=== PATIENT | female | born 1990 | race Caucasian/White ===

== ENCOUNTER → 2017-12-13 | Outpatient (CLI) | payer MEDICAID ==
[~2017-12-13] MED LIST: CEFD300C3 PO
--- NOTE | 2017-12-13 15:25 | Diagnostic Imaging Report ---
PROCEDURE: US OB SINGLE FETUS <14 WKS. TECHNIQUE: Multiple real-time grayscale images were obtained over the gravid uterus in various projections. INDICATION: dating. FINDINGS: There is an intrauterine gestational sac containing a pole. [place]-rump length measurement is 4.9 cm consistent with 11 weeks 5 days gestational age. heart rate is recorded at 163 beats per minute. No perigestational sac hemorrhage is seen. Gestational sac morphology appears normal. Maternal adnexal evaluation demonstrates a 3.5 cm cyst involving the left ovary. Right ovary is not visualized. IMPRESSION: 1. Single live IUP of 11 weeks 5 days gestational age. The estimated date of confinement sonographically is 06/29/2018. 2. 3.5 cm left ovarian cyst. Dictated by: Dictated on workstation # [id number]
== END ==
LOC: RAD 12:36
PROVIDERS: ATTEND Family Medicine
DX: O34.81 Maternal care for other abnormalities of pelvic organs, first trimester (principal); N83.202 Unspecified ovarian cyst, left side; Z3A.11 11 weeks gestation of pregnancy
CPT/HCPCS: 76801

== ENCOUNTER 2018-01-24 19:39 | Emergency (ER) | payer MEDICAID ==
[~2018-01-24] VITALS: Ht 167.6 cm; Wt 93.0 kg
--- OUTSIDE RECORDS SUMMARY | 2018-01-24 19:44 | XMS REPORT | Continuity of Care Document ---
Author Author [facility] Address Unknown Phone Unavailable Allergies Active Description Code Type Severity Reaction Onset Reported/Identified Relationship to Patient Clinical Status Yes No Known Drug Allergies [id number] Drug Allergy Unknown N/A 03/22/2017 Medications There is no data. Problems Date Dx Coded Attending Type Code Diagnosis Diagnosed By 09/01/2011 WADE CHOUDHURY APRN 307.42 PRIMARY INSOMNIA 09/01/2011 WADE CHOUDHURY APRN A 311 DEPRESSION 09/01/2011 WADE CHOUDHURY APRN A 626.0 AMENORRHEA 09/01[facility]2011 [facility].42 PRIMARY INSOMNIA 09/01/2011 [facility] 311 DEPRESSION 09/01/2011 [facility] 626.0 AMENORRHEA 09/09/2014 WADE CHOUDHURY APRN A 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 09/09/2014 WADE CHOUDHURY APRN A V01.6 CONTACT WITH OR EXPOSURE TO VENEREAL DISEASES 09/09/2014 WADE CHOUDHURY APRN A V69.2 HIGH-RISK SEXUAL BEHAVIOR 09/09/2014 WADE CHOUDHURY APRN A V74.5 STD SCREEN 09/09/2014 WADE CHOUDHURY APRN A V76.2 CERVICAL CANCER SCREENING (PAP SMEAR) 09/09/2014 [facility] 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 09/09/2014 [facility] V01.6 CONTACT WITH OR EXPOSURE TO VENEREAL DISEASES 09/09/2014 [facility] V69.2 HIGH-RISK SEXUAL BEHAVIOR 09/09/2014 [facility] V74.5 STD SCREEN 09/09/2014 [facility] V76.2 CERVICAL CANCER SCREENING (PAP SMEAR) 10/08/2014 [facility] 296.52 MO BIPOLAR I DEPRESSED MODERATE 03/23/2017 QIAN LYNCH DOI Ot A41.9 SEPSIS, UNSPECIFIED ORGANISM 03/23/2017 QIAN LYNCH DOI Ot F17.210 NICOTINE DEPENDENCE, CIGARETTES, UNCOMPL 03/23/2017 QIAN LYNCH DOI Ot F31.9 BIPOLAR DISORDER, UNSPECIFIED 03/23/2017 CRIS WARD WILFRED Ot N10 ACUTE PYELONEPHRITIS 12/14/2017 GENNARO GALE MD Ot N83.202 UNSPECIFIED OVARIAN CYST, LEFT SIDE 12/14/2017 GENNARO GALE MD Ot O34.81 MATERNAL CARE FOR OTH ABNLT OF PELVIC OR 12/14/2017 GENNARO GALE MD Ot Z3A.11 11 WEEKS GESTATION OF 12/28/2017 GENNARO GALE MD, Ot N83.202 UNSPECIFIED OVARIAN CYST, LEFT SIDE 12/28/2017 GENNARO GALE MD, Ot O34.81 MATERNAL CARE FOR OTH ABNLT OF PELVIC OR 12/28/2017 GENNARO GALE MD Ot Z3A.11 11 WEEKS GESTATION OF Procedures There is no data. Results Test Result Range Bacterial urine culture - 03/22/17 10:00 Bacterial urine culture [id number] NRG COLONY COUNT 10,000/ML - 100,000/ML NRG FTX;REPORTABLE SENSITIVITY REPORTED 03/23/17 17:10 NR Bacterial susceptibility panel - 03/22/17 10:00 Gentamicin susceptibility test by minimum inhibitory concentration < = NRG Trimethoprim/sulfamethoxazole susceptibility test by minimum inhibitoryconcentration <= NRG Ampicillin susceptibility test by minimum inhibitory concentration 8 NRG Tobramycin susceptibility test by minimum inhibitory concentration < = NRG Cefazolin susceptibility test by minimum inhibitory concentration < = NRG Ceftriaxone susceptibility test by minimum inhibitory concentration <= NRG Ampicillin/sulbactam susceptibility test by minimum inhibitory concentration 4 NRG Piperacillin/tazobactam susceptibility test by minimum inhibitory concentration <= NRG Ciprofloxacin susceptibility test by minimum inhibitory concentration <= NRG Meropenem susceptibility test by minimum inhibitory concentration < = NRG Nitrofurantoin susceptibility test by minimum inhibitory concentration <= NRG Aztreonam susceptibility test by minimum inhibitory concentration < = NRG Extended spectrum beta lactamase (ESBL) producing bacteria susceptibility test by minimum inhibitory concentration - NR Complete blood count (CBC) with automated white blood cell (WBC) differential - 03/22/17 10:05 Blood leukocytes automated count (number/volume) 13.0 10*3/uL 4.3-11.0 Blood erythrocytes automated count (number/volume) 4.47 10*6/uL 4.35-5.85 Venous blood hemoglobin measurement (mass/volume) 13.8 g/dL 11.5-16.0 Blood hematocrit (volume fraction) 40 % 35-52 Automated erythrocyte mean corpuscular volume 89 [foz_us] 80-99 Automated erythrocyte mean corpuscular hemoglobin (mass per erythrocyte) 31 pg 25-34 Automated erythrocyte mean corpuscular hemoglobin concentration measurement ( mass/volume) 35 g/dL 32-36 Automated erythrocyte distribution width ratio 12.5 % 10.0-14.5 Automated blood platelet count (count/volume) 251 10*3/uL 130-400 Automated blood platelet mean volume measurement 10.8 [foz_us] 7.4-10.4 Automated blood neutrophils/100 leukocytes 77 % 42-75 Automated blood lymphocytes/100 leukocytes 14 % 12-44 Blood monocytes/100 leukocytes 8 % 0-12 Automated blood eosinophils/100 leukocytes 0 % 0-10 Automated blood basophils/100 leukocytes 0 % 0-10 Blood neutrophils automated count (number/volume) 10.1 10*3 1.8-7.8 Blood lymphocytes automated count (number/volume) 1.9 10*3 1.0-4.0 Blood monocytes automated count (number/volume) 1.0 10*3 0.0-1.0 Automated eosinophil count 0.0 10*3/uL 0.0-0.3 Automated blood basophil count (count/volume) 0.0 10*3/uL 0.0-0.1 Comprehensive metabolic panel - 03/22/17 10:05 Serum or plasma sodium measurement (moles/volume) 132 mmol/L 135-145 Serum or plasma potassium measurement (moles/volume) 3.6 mmol/L 3.6-5.0 Serum or plasma chloride measurement (moles/volume) 100 mmol/L 98-107 Carbon dioxide 21 mmol/L 21-32 Serum or plasma anion gap determination (moles/volume) 11 mmol/L 5-14 Serum or plasma urea nitrogen measurement (mass/volume) 8 mg/dL 7-18 Serum or plasma creatinine measurement (mass/volume) 0.97 mg/dL 0.60-1.30 Serum or plasma urea nitrogen/creatinine mass ratio 8 NRG Serum or plasma creatinine measurement with calculation of estimated glomerular filtration rate > NRG Serum or plasma glucose measurement (mass/volume) 166 mg/dL 70-105 Serum or plasma calcium measurement (mass/volume) 9.6 mg/dL 8.5-10.1 Serum or plasma total bilirubin measurement (mass/volume) 0.9 mg/dL 0.1-1.0 Serum or plasma alkaline phosphatase measurement (enzymatic activity/volume) 63 U/L 40-136 Serum or plasma aspartate aminotransferase measurement (enzymatic activity/ volume) 14 U/L 5-34 Serum or plasma alanine aminotransferase measurement (enzymatic activity/volume ) 21 U/L 0-55 Serum or plasma protein measurement (mass/volume) 7.5 g/dL 6.4-8.2 Serum or plasma albumin measurement (mass/volume) 3.6 g/dL 3.2-4.5 Blood lactic acid measurement (moles/volume) - 03/22/17 10:05 Blood lactic acid measurement (moles/volume) 2.05 mmol/L 0.50-2.00 Bacterial blood culture - 03/22/17 10:05 Bacterial blood culture NG NRG Bacterial blood culture - 03/22/17 10:30 Bacterial blood culture NG NRG Complete urinalysis with reflex to culture - 03/22/17 10:41 Urine color determination YELLOW NRG Urine clarity determination CLEAR NRG Urine pH measurement by test strip 7 5-9 Specific gravity of urine by test strip 1.005 1.016- 1.022 Urine protein assay by test strip, semi-quantitative 1+ NEGATIVE Urine glucose detection by automated test strip NEGATIVE NEGATIVE Erythrocytes detection in urine sediment by light microscopy 3+ NEGATIVE Urine ketones detection by automated test strip NEGATIVE NEGATIVE Urine nitrite detection by test strip NEGATIVE NEGATIVE Urine total bilirubin detection by test strip NEGATIVE NEGATIVE Urine urobilinogen measurement by automated test strip (mass/volume) 4 mg/dL NORMAL Urine leukocyte esterase detection by dipstick 1+ NEGATIVE Automated urine sediment erythrocyte count by microscopy (number/high power field) [HPF] NRG Automated urine sediment leukocyte count by microscopy (number/high power field ) [HPF] NRG Bacteria detection in urine sediment by light microscopy NEGATIVE NRG Squamous epithelial cells detection in urine sediment by light microscopy 10-25 NRG Crystals detection in urine sediment by light microscopy NONE NRG Casts detection in urine sediment by light microscopy NONE NRG Mucus detection in urine sediment by light microscopy NEGATIVE NRG Complete urinalysis with reflex to culture NO NRG Serum or plasma lactate measurement (moles/volume) - 03/22/17 12:40 Serum or plasma lactate measurement (moles/volume) 0.71 mmol/L 0.50-2.00 Complete blood count (CBC) with automated white blood cell (WBC) differential - 03/23/17 09:05 Blood leukocytes automated count (number/volume) 6.9 10*3/uL 4.3-11.0 Blood erythrocytes automated count (number/volume) 3.95 10*6/uL 4.35-5.85 Venous blood hemoglobin measurement (mass/volume) 12.1 g/dL 11.5-16.0 Blood hematocrit (volume fraction) 36 % 35-52 Automated erythrocyte mean corpuscular volume 91 [foz_us] 80-99 Automated erythrocyte mean corpuscular hemoglobin (mass per erythrocyte) 31 pg 25-34 Automated erythrocyte mean corpuscular hemoglobin concentration measurement ( mass/volume) 34 g/dL 32-36 Automated erythrocyte distribution width ratio 12.4 % 10.0-14.5 Automated blood platelet count (count/volume) 214 10*3/uL 130-400 Automated blood platelet mean volume measurement 10.8 [foz_us] 7.4-10.4 Automated blood neutrophils/100 leukocytes 50 % 42-75 Automated blood lymphocytes/100 leukocytes 38 % 12-44 Blood monocytes/100 leukocytes 9 % 0-12 Automated blood eosinophils/100 leukocytes 2 % 0-10 Automated blood basophils/100 leukocytes 0 % 0-10 Blood neutrophils automated count (number/volume) 3.4 10*3 1.8-7.8 Blood lymphocytes automated count (number/volume) 2.6 10*3 1.0-4.0 Blood monocytes automated count (number/volume) 0.6 10*3 0.0-1.0 Automated eosinophil count 0.2 10*3/uL 0.0-0.3 Automated blood basophil count (count/volume) 0.0 10*3/uL 0.0-0.1 Comprehensive metabolic panel - 03/23/17 09:05 Serum or plasma sodium measurement (moles/volume) 141 mmol/L 135-145 Serum or plasma potassium measurement (moles/volume) 3.7 mmol/L 3.6-5.0 Serum or plasma chloride measurement (moles/volume) 112 mmol/L 98-107 Carbon dioxide 22 mmol/L 21-32 Serum or plasma anion gap determination (moles/volume) 7 mmol/L 5-14 Serum or plasma urea nitrogen measurement (mass/volume) 8 mg/dL 7-18 Serum or plasma creatinine measurement (mass/volume) 0.77 mg/dL 0.60-1.30 Serum or plasma urea nitrogen/creatinine mass ratio 10 NRG Serum or plasma creatinine measurement with calculation of estimated glomerular filtration rate > NRG Serum or plasma glucose measurement (mass/volume) 90 mg/dL 70-105 Serum or plasma calcium measurement (mass/volume) 9.1 mg/dL 8.5-10.1 Serum or plasma total bilirubin measurement (mass/volume) 0.4 mg/dL 0.1-1.0 Serum or plasma alkaline phosphatase measurement (enzymatic activity/volume) 51 U/L 40-136 Serum or plasma aspartate aminotransferase measurement (enzymatic activity/ volume) 11 U/L 5-34 Serum or plasma alanine aminotransferase measurement (enzymatic activity/volume ) 16 U/L 0-55 Serum or plasma protein measurement (mass/volume) 6.4 g/dL 6.4-8.2 Serum or plasma albumin measurement (mass/volume) 3.1 g/dL 3.2-4.5 Encounters ACCT No. Visit Date/Time Discharge Status Pt. Type Provider Facility Loc./Unit Complaint [id number] 10/08/2014 14:15:00 10/08/2014 23:59:59 CLS Outpatient YUMI PHAN [id number] 09/09/2014 13:22:00 09/09/2014 23:59:59 CLS Outpatient WADE CHOUDHURY APRN [id number] 01/04/2018 13:00:00 01/04/2018 23:59:59 CLS Outpatient EUSEBIO PRICILLA [facility]ERILYN [facility] [id number] 12/13/2017 12:36:00 12/13/2017 23:59:59 CLS Outpatient GENNARO GALE MD [facility]ARE,[facility] [id number] 03/22/2017 12:38:00 03/23/2017 14:02:00 DIS Inpatient WILFRED LYNCH DO [facility] 4TH RT PYELONEPHRITIS [id number] 08/16/2016 16:05:39 08/16/2016 23:59:59 CLS Outpatient
--- OUTSIDE RECORDS SUMMARY | 2018-01-24 19:44 | XMS REPORT | Clinical Summary ---
Author Author [facility] Organization [facility] Address Unknown Phone Unavailable Care Team Providers Care [employer] Tutor Name Role Phone Daisy Sinha MD PCP Source Comments Some departments are not documenting in the electronic medical record. If you do not see the information that you expected, contact Release of Information in the Health Information Management department at [phone] for further assistance in locating additional records.[facility] Allergies Not on File Current Medications Not on file Active Problems Not on file Social History Tobacco Use Types Packs/Day Years Used Date Never Assessed Sex Assigned at Date Recorded Not on file Last Filed Vital Signs Not on file Plan of Treatment Health Maintenance Due Date Last Done Comments PHYSICAL (COMPREHENSIVE) 1999 EXAM HPV VACCINES (1 of 3 - 2003 Female 3 Dose Series) PERTUSSIS VACCINE 2003 HIV SCREENING 2007 TETANUS VACCINE 2009 CERVICAL CANCER SCREENING 2013 INFLUENZA VACCINE 05/14/2018 Results Not on filefrom Last 3 Months
--- OUTSIDE RECORDS SUMMARY | 2018-01-24 19:44 | XMS REPORT | Clinical Summary ---
Author Author [facility] Organization [facility] Address Unknown Phone Unavailable Care Team Providers Care Search Developer Name Role Phone PP Unavailable Allergies No Known Allergies Current Medications No known medications Active Problems Not on file Family History Relation Name Status Comments Son Alive Social History Tobacco Use Types Packs/Day Years Used Date Never Smoker Smokeless Tobacco: Never Used Alcohol Use Drinks/Week oz/Week Comments No Sex Assigned at Date Recorded Not on file Last Filed Vital Signs Vital Sign Reading Time Taken Blood Pressure 115/63 02/24/2013 5:30 PM CDT Pulse 84 02/24/2013 5:30 PM CDT Temperature 36.5 C (97.7 F) 02/24/2013 5:30 PM CDT Respiratory Rate 18 02/24/2013 2:46 PM CDT Oxygen Saturation 97% 02/24/2013 5:30 PM CDT Inhaled Oxygen - - Concentration Weight 93 kg (205 lb) 02/24/2013 2:46 PM CDT Height - - Body Mass Index - - Plan of Treatment Health Maintenance Due Date Last Done Comments HPV Vaccines (1 of 3 - 2003 Female 3 Dose Series) Varicella Vaccines (1 of 2005 2 - 2 Dose Adolescent Series) DTaP,Tdap,and Td Vaccines 2011 (1 - Tdap) CERVICAL CANCER SCREENING 2013 Influenza Vaccine (Season 04/14/2018 Ended) Results Not on filefrom Last 3 Months
[2018-01-24 20:00] LABS: BASOPHILS % (AUTO) 0 % (0-10); EOSINOPHILS # (AUTO) 0.2 10^3/uL (0.0-0.3); EOSINOPHILS % (AUTO) 2 % (0-10); HEMATOCRIT 31 % (35-52); HEMOGLOBIN 11.3 G/DL (11.5-16.0); LYMPHOCYTES % (AUTO) 37 % (12-44); MEAN CORPUSCULAR HEMOGLOBIN 32 PG (25-34); MEAN CORPUSCULAR HGB CONC 36 G/DL (32-36); MEAN CORPUSCULAR VOLUME 88 FL (80-99); MEAN PLATELET VOLUME 10.6 FL (7.4-10.4); MONOCYTES # (AUTO) 0.5 X 10^3 (0.0-1.0); MONOCYTES % (AUTO) 6 % (0-12); NEUTROPHILS # (AUTO) 4.4 X 10^3 (1.8-7.8); NEUTROPHILS % (AUTO) 55 % (42-75); PLATELET COUNT 252 10^3/uL (130-400); RED BLOOD COUNT 3.58 10^6/uL (4.35-5.85); RED CELL DISTRIBUTION WIDTH 12.4 % (10.0-14.5)
[2018-01-24 20:31] LABS: BILIRUBIN,URINE NEGATIVE (NEGATIVE); CLARITY,URINE CLEAR; COLOR,URINE YELLOW; GLUCOSE, URINE (UA) NEGATIVE (NEGATIVE); KETONES,URINE NEGATIVE (NEGATIVE); LEUKOCYTE ESTERASE ,URINE NEGATIVE (NEGATIVE); NITRITE,URINE NEGATIVE (NEGATIVE); PH,URINE 6 (5-9); PROTEIN,URINE NEGATIVE (NEGATIVE); UROBILINOGEN,URINE NORMAL (NORMAL)
[2018-01-24 20:35] LABS: ALANINE AMINOTRANSFERASE 7 U/L (0-55); ALBUMIN 3.2 GM/DL (3.2-4.5); ALKALINE PHOSPHATASE 44 U/L (40-136); BILIRUBIN,TOTAL 0.2 MG/DL (0.1-1.0); BUN/CREATININE RATIO 10; CALCIUM 9.4 MG/DL (8.5-10.1); CARBON DIOXIDE 20 MMOL/L (21-32); CHLORIDE 109 MMOL/L (98-107); CREATININE SERUM 0.62 MG/DL (0.60-1.30); GFR ESTIMATED > 60; GLUCOSE 108 MG/DL (70-105); POTASSIUM 3.6 MMOL/L (3.6-5.0); SODIUM 139 MMOL/L (135-145); TOTAL PROTEIN 6.3 GM/DL (6.4-8.2)
[2018-01-24 20:39] LABS: BACTERIA,URINE TRACE /HPF
[2018-01-24 20:43] LABS: AMPHETAMINE SCREEN, URINE NEGATIVE (NEGATIVE); BARBITURATE SCREEN URINE NEGATIVE (NEGATIVE); BENZODIAZEPINES SCREEN URINE NEGATIVE (NEGATIVE); CANNABINOID SCREEN, URINE POSITIVE (NEGATIVE); COCAINE SCREEN URINE NEGATIVE (NEGATIVE); METHADONE STAT NEGATIVE (NEGATIVE); METHAMPHETAMINE SCREEN URINE S NEGATIVE (NEGATIVE); OPIATE SCREEN URINE NEGATIVE (NEGATIVE); OXYCODONE STAT NEGATIVE (NEGATIVE); PROPOXYPHENE STAT NEGATIVE (NEGATIVE); TRICYCLIC ANTIDEPRESSANTS SCRE NEGATIVE (NEGATIVE)
[2018-01-24] MEDS ORDERED: cefTRIAXone INJECTION 1,000 MG in NS (IVPB) 50 ML IV ONE (21:15)
[2018-01-24] MEDS ORDERED: NS IV 1000 ML 1,000 ML IV SCH (21:15)
[2018-01-24] MEDS ORDERED: ONDANSETRON 4 MG/2 ML (SDV) Z0FRAN IVP ONE (21:15)
--- NOTE | 2018-01-24 21:16 | ED General ---
General Chief Complaint: Dizziness/Syncope Stated Complaint: LIGHTHEADED History of Present Illness Date Seen by Provider: Jan 24, 2018 Time Seen by Provider: 21:11 Initial Comments The patient is a 27-year-old white female who by extrapolation from previous OB sonogram is 17 weeks 5 days . She reports that she has a left lower molar which is giving her tremendous pain. She saw the dental clinic earlier this week. She was given ibuprofen and Amoxil. She apparently took the ibuprofen which was 800 mg and 2 [id number] Advil which would make 1200 mg and then her dose of Amoxil. She then vomited all of this. She states that she has not had particular problems with emesis of . Her friend states that she had the blood disorder which destroyed the fetus. Allergies and Home Medications Allergies Coded Allergies: No Known Drug Allergies (Unverified , 03/22/17) Home Medications Cefdinir 300 Mg Capsule, 300 MG PO BID Prescribed by: WILFRED LYNCH on 03/23/17 0924 Patient Home Medication List Home Medication List Reviewed: Yes Review of Systems Constitutional: see HPI EENTM: dental problems Respiratory: no symptoms reported Cardiovascular: no symptoms reported Gastrointestinal: nausea, vomiting : Yes Musculoskeletal: no symptoms reported Skin: no symptoms reported Psychiatric/Neurological: No Symptoms Reported Hematologic/Lymphatic: No Symptoms Reported Immunological/Allergic: no symptoms reported Past Ccwwxgg-Cmysli-Bxjgrj Hx Patient Social History Drug of Choice: POT Type Used: Cigarettes Recent Hopitalizations: No Immunizations Up To Date PED Vaccines UTD: No Seasonal Allergies Seasonal Allergies: No Past Medical History Surgeries: Yes (skin lesion removed) Respiratory: No Currently Using CPAP: No Currently Using BIPAP: No Cardiac: No Neurological: No Female Reproductive Disorders: Denies Sexually Transmitted Disease: Yes (HERPES) HIV/AIDS: No Genitourinary: No Gastrointestinal: No Musculoskeletal: No Endocrine: No HEENT: No Loss of Vision: Denies Hearing Impairment: Denies Cancer: Yes Skin Psychosocial: No Bipolar, Depression Blood Disorders: No Adverse Reaction/Blood Tranf: No Family Medical History Patient reports no known family medical history. No Pertinent Family Hx Physical Exam Vital Signs Vital Signs - First Documented 01/24/18 19:40 Temp 97.2 Pulse 78 Resp 20 B/P (MAP) 134/74 (94) Pulse Ox 98 O2 Delivery Room Air Capillary Refill : General Appearance: Anxious, Other (tearful) Eyes: Bilateral Eye Normal Inspection HEENT: Other (impacted left lower wisdom tooth with swelling of, and tenderness ) Neck: Full Range of Motion, Normal Inspection Respiratory: Chest Non Tender, Lungs Clear, Normal Breath Sounds, No Accessory Muscle Use, No Respiratory Distress Cardiovascular: Regular Rate, Rhythm, No Edema, No Gallop, No JVD, No Murmur, Normal Peripheral Pulses Gastrointestinal: Other (obese with palpable uterus) Back: Normal Inspection Extremity: Normal Capillary Refill, Normal Inspection, Normal Range of Motion Neurologic/Psychiatric: Alert, Oriented x3 Skin: Normal Color, Warm/Dry Lymphatic: No Adenopathy Progress/Results/Core Measures Suspected Sepsis SIRS Temperature: Pulse: Respiratory Rate: Laboratory Tests 01/24/18 19:45: White Blood Count 8.0 Blood Pressure / Mean: Laboratory Tests 01/24/18 19:45: Creatinine 0.62, Platelet Count 252, Total Bilirubin 0.2 Results/Orders Lab Results Laboratory Tests Test 01/24/18 19:45 01/24/18 20:20 Range/Units White Blood Count 8.0 4.3-11.0 10^3/uL Red Blood Count 3.58 L 4.35-5.85 10^6/uL Hemoglobin 11.3 L 11.5-16.0 G/DL Hematocrit 31 L 35-52 % Mean Corpuscular Volume 88 80-99 FL Mean Corpuscular Hemoglobin 32 25-34 PG Mean Corpuscular Hemoglobin Concent 36 32-36 G/DL Red Cell Distribution Width 12.4 10.0-14.5 % Platelet Count 252 130-400 10^3/uL Mean Platelet Volume 10.6 H 7.4-10.4 FL Neutrophils (%) (Auto) 55 42-75 % Lymphocytes (%) (Auto) 37 12-44 % Monocytes (%) (Auto) 6 0-12 % Eosinophils (%) (Auto) 2 0-10 % Basophils (%) (Auto) 0 0-10 % Neutrophils # (Auto) 4.4 1.8-7.8 X 10^3 Lymphocytes # (Auto) 3.0 1.0-4.0 X 10^3 Monocytes # (Auto) 0.5 0.0-1.0 X 10^3 Eosinophils # (Auto) 0.2 0.0-0.3 10^3/uL Basophils # (Auto) 0.0 0.0-0.1 10^3/uL Sodium Level 139 135-145 MMOL/L Potassium Level 3.6 3.6-5.0 MMOL/L Chloride Level 109 H 98-107 MMOL/L Carbon Dioxide Level 20 L 21-32 MMOL/L Anion Gap 10 5-14 MMOL/L Blood Urea Nitrogen 6 L 7-18 MG/DL Creatinine 0.62 0.60-1.30 MG/DL Estimat Glomerular Filtration Rate > 60 BUN/Creatinine Ratio 10 Glucose Level 108 H 70-105 MG/DL Calcium Level 9.4 8.5-10.1 MG/DL Total Bilirubin 0.2 0.1-1.0 MG/DL Aspartate Amino Transf (AST/SGOT) 9 5-34 U/L Alanine Aminotransferase (ALT/SGPT) 7 0-55 U/L Alkaline Phosphatase 44 40-136 U/L Total Protein 6.3 L 6.4-8.2 GM/DL Albumin 3.2 3.2-4.5 GM/DL Serum Alcohol < 10 <10 MG/DL Urine Color YELLOW Urine Clarity CLEAR Urine pH 6 5-9 Urine Specific [place] 1.025 H 1.016-1.022 Urine Protein NEGATIVE NEGATIVE Urine Glucose (UA) NEGATIVE NEGATIVE Urine Ketones NEGATIVE NEGATIVE Urine Nitrite NEGATIVE NEGATIVE Urine Bilirubin NEGATIVE NEGATIVE Urine Urobilinogen NORMAL NORMAL MG/DL Urine Leukocyte Esterase NEGATIVE NEGATIVE Urine RBC (Auto) NEGATIVE NEGATIVE Urine RBC NONE /HPF Urine WBC 2-5 /HPF Urine Squamous Epithelial Cells 10-25 H /HPF Urine Crystals NONE /LPF Urine Bacteria TRACE /HPF Urine Casts NONE /LPF Urine Mucus MODERATE H /LPF Urine Culture Indicated NO Urine Opiates Screen NEGATIVE NEGATIVE Urine Oxycodone Screen NEGATIVE NEGATIVE Urine Methadone Screen NEGATIVE NEGATIVE Urine Propoxyphene Screen NEGATIVE NEGATIVE Urine Barbiturates Screen NEGATIVE NEGATIVE Ur Tricyclic Antidepressants Screen NEGATIVE NEGATIVE Urine Phencyclidine Screen NEGATIVE NEGATIVE Urine Amphetamines Screen NEGATIVE NEGATIVE Urine Methamphetamines Screen NEGATIVE NEGATIVE Urine Benzodiazepines Screen NEGATIVE NEGATIVE Urine Cocaine Screen NEGATIVE NEGATIVE Urine Cannabinoids Screen POSITIVE H NEGATIVE My Orders Orders - AUBREY SLADE MD Alcohol (01/24/18 19:50) Cbc With Automated Diff (01/24/18 19:50) Comprehensive Metabolic Panel (01/24/18 19:50) Drug Screen Stat (Urine) (01/24/18 19:50) Ua Culture If Indicated (01/24/18 19:50) Ns Iv 1000 Ml (Sodium Chloride 0.9%) (01/24/18 21:15) Ceftriaxone Injection (Rocephin Injectio (01/24/18 21:15) Ondansetron Injection (Zofran Injectio (01/24/18 21:15) Medications Given in ED Current Medications Medications Dose Ordered Sig/Yann Route Start Time Stop Time Status Last Admin Dose Admin Ceftriaxone Sodium 1000 mg/ Sodium Chloride 50 ml @ 100 mls/hr ONCE ONCE IV 01/24/18 21:15 01/24/18 21:44 DC 01/24/18 21:25 100 MLS/HR Ondansetron HCl 8 mg ONCE ONCE IVP 01/24/18 21:15 01/24/18 21:16 DC 01/24/18 21:25 8 MG Vital Signs/I&O 01/24/18 19:40 Temp 97.2 Pulse 78 Resp 20 B/P (MAP) 134/74 (94) Pulse Ox 98 O2 Delivery Room Air Capillary Refill : Departure Communication (Admissions) 8014 the patient has nearly completed her liter of fluid. She reports she is feeling much better. Impression Primary Impression: dental pain Disposition: HOME, SELF-CARE Condition: Improved Departure-Patient Inst. Decision time for Depature: 22:24 Referrals: NO,LOCAL PHYSICIAN (PCP) Primary Care Physician Add. Discharge Instructions: All discharge instructions reviewed with patient and/or family. Voiced understanding. Call Dr. Gomez in the morning to clarify what you may take for pain. You may resume your cefdinir tomorrow evening. AUBREY SLADE MD Jan 24, 2018 21:16
[2018-01-24] MEDS ORDERED: RX-ONDANSETRON 4 MG ODT (ZOFRAN) PPK #4 PO STA (22:36)
[2018-01-24] MEDS ORDERED: RX-ONDANSETRON 4 MG ODT (ZOFRAN) PPK #4 ONE (22:36)
[2018-01-24 22:42] VITALS: BP 134/74
== END 2018-01-24 22:42 | disposition home or self-care (01) ==
LOC: EDUNIT# 19:39 → ER 19:40
DX: O99.612 Diseases of the digestive system complicating pregnancy, second trimester (principal); K08.89 Other specified disorders of teeth and supporting structures; O99.342 Other mental disorders complicating pregnancy, second trimester; F31.9 Bipolar disorder, unspecified; O99.322 Drug use complicating pregnancy, second trimester; F12.90 Cannabis use, unspecified, uncomplicated; Z3A.17 17 weeks gestation of pregnancy; Z85.828 Personal history of other malignant neoplasm of skin
CPT/HCPCS: 36415; 80053; 80306; 80320; 81000; 85025; 96361; 96365

== ENCOUNTER → 2018-03-08 | Outpatient (CLI) | payer MEDICAID ==
--- NOTE | 2018-03-08 17:40 | Diagnostic Imaging Report ---
INDICATION: Follow-up anatomy. TECHNIQUE: Multiple real-time grayscale images were obtained over the gravid uterus. COMPARISON: 02/08/2018 and 12/13/2017. FINDINGS: The previous OB ultrasound exam of 02/08/2018 noted a single live fetus approximately 19 weeks 4 days gestation +/- 1.5 weeks. There were no abnormalities identified although the heart, the cord insertion, and the spine were not well imaged. On this exam, the fetus is again visualized. The fetus is in variable presentation. heart motion was noted and a rate of 155 BPM was recorded. The four-chamber heart view and the cord insertion are within normal limits; however, the spine is still not optimally visualized due to the lie. It may prove worthwhile to have a short-term (2-4 weeks) follow-up exam for further evaluation of the spine. The placenta is anterior and there is no previa. The amniotic fluid volume is within normal limits. The cervix is identified and measures 4.3 cm in length. The growth parameters are not obtained for this exam. IMPRESSION: 1. There is a single live fetus of approximately 23 weeks 6 days gestation +/- 1 week. The EDC remains June 29, 2018. 2. The four-chamber heart view and the cord insertion are felt to be within normal limits. The spine is still not optimally visualized, however. Recommendations as above. Dictated by: Dictated on workstation # [id number]
== END ==
LOC: RAD 14:37
PROVIDERS: ATTEND Family Medicine
DX: Z34.82 Encounter for supervision of other normal pregnancy, second trimester (principal); Z3A.23 23 weeks gestation of pregnancy
CPT/HCPCS: 76816

== ENCOUNTER → 2018-04-19 | Outpatient (CLI) | payer MEDICAID ==
[~2018-04-19] MED LIST changes: +LURA20TA PO; +PREN-142 PO
--- NOTE | 2018-04-19 11:35 | Diagnostic Imaging Report ---
INDICATION: Followup spine. TECHNIQUE: Multiple real-time grayscale images were obtained over the gravid uterus. COMPARISON: 03/08/2018. FINDINGS: There is a single live fetus in a transverse presentation head to the maternal left. heart rate was recorded at 144 beats per minute. Placenta is anterior. Amniotic fluid index is 10.5 cm. Cervical length is 3.7 cm. spine was evaluated and appears unremarkable on today's study. IMPRESSION: Unremarkable followup OB ultrasound demonstrating a normal appearance to the spine. No complicating features are seen. Dictated by: Dictated on workstation # [id number]
== END ==
LOC: RAD 09:50
PROVIDERS: ATTEND Family Medicine
DX: Z36.89 Encounter for other specified antenatal screening (principal); Z3A.00 Weeks of gestation of pregnancy not specified
CPT/HCPCS: 76816

== ENCOUNTER 2018-05-20 10:48 | Emergency (ER) | payer MEDICAID ==
[~2018-05-20] VITALS: Ht 167.6 cm; Wt 117.9 kg
--- NOTE | 2018-05-20 13:22 | ED Cough/URI ---
General Chief Complaint: Cough/Cold/Flu Symptoms Stated Complaint: COUGH X1 MONTH Nursing Triage Note: AMBULATED TO TRIAGE WITHOUT DIFFICULTY. PT IS 8 MONTHS GESTATION THAT HAS A COUGH X1 MONTH. STATES SHE HAS WENT TO HER DR BUT NOTHING HAS HELPED. STATES ALSO SOMETIMES SHE COUGHS UP BLACK SPUTUM. Source: patient Exam Limitations: no limitations History of Present Illness Date Seen by Provider: May 20, 2018 Time Seen by Provider: 13:10 Initial Comments Patient is a 27-year-old female who presents to the emergency room with complaints of a cough for 1 month. She has been to her doctor but reports nothing she has taken hivz-rai-pmeusvp has helped. She sometimes coughs up dark colored sputum. She also is 8 months gestation. She denies fevers and chills. Timing/Duration: other (1 month) Severity/Quality: productive cough Associated Symptoms: cough Allergies and Home Medications Allergies Coded Allergies: No Known Drug Allergies (Unverified , 03/22/17) Home Medications Lurasidone HCl Unknown Strength Tablet, Unknown Dose PO DAILY, (Reported) Patient Home Medication List Home Medication List Reviewed: Yes Review of Systems Review of Systems Constitutional: see HPI; No chills, No fever Respiratory: see HPI, cough, phlegm : Yes Expected Date of Delivery: Jun 29, 2018 All Other Systems Reviewed Negative Unless Noted: Yes Past Eihpqem-Trbprc-Zehbow Hx Past Med/Social Hx: Reviewed Nursing Past Med/Soc Hx Patient Social History Alcohol Use: Denies Use Recreational Drug Use: No Drug of Choice: POT Smoking Status: Current Everyday Smoker Type Used: Cigarettes Recent Foreign Travel: No Contact w/Someone Who Travel: No Recent Infectious Disease Expo: No Recent Hopitalizations: No Immunizations Up To Date Tetanus Booster (TDap): Unknown PED Vaccines UTD: No Seasonal Allergies Seasonal Allergies: No Past Medical History Surgeries: Yes (skin lesion removed) Respiratory: No Currently Using CPAP: No Currently Using BIPAP: No Cardiac: No Neurological: No : Yes Expected Date of Delivery: Jun 29, 2018 Female Reproductive Disorders: Denies Sexually Transmitted Disease: Yes (HERPES) HIV/AIDS: No Genitourinary: No Gastrointestinal: No Musculoskeletal: No Endocrine: No HEENT: No Loss of Vision: Denies Hearing Impairment: Denies Cancer: Yes Skin Psychosocial: No Bipolar, Depression Integumentary: No Blood Disorders: No Adverse Reaction/Blood Tranf: No Family Medical History Reviewed Nursing Family Hx Patient reports no known family medical history. No Pertinent Family Hx Physical Exam Vital Signs - First Documented 05/20/18 11:30 Temp 98.4 Pulse 81 Resp 16 B/P (MAP) 113/70 (84) Pulse Ox 96 O2 Delivery Room Air Capillary Refill : Less Than 3 Seconds Height: 5'6.00" Weight: 260lbs. 0.0oz. 117.138139gc; 39.9 BMI Method:Stated General Appearance: WD/WN, no apparent distress Eyes: Bilateral Eye Normal Inspection, Bilateral Eye PERRL, Bilateral Eye EOMI HEENT: PERRL/EOMI, normal ENT inspection, TMs normal, pharynx normal Respiratory: chest non-tender, normal breath sounds, no respiratory distress, no accessory muscle use, rhonchi (expiratory rhonchi); No wheezing Cardiovascular: normal peripheral pulses, regular rate, rhythm, no edema, no gallop, no JVD, no murmur Gastrointestinal: normal bowel sounds, non tender, soft, no organomegaly, no pulsatile mass Neurologic/Psychiatric: alert, normal mood/affect, oriented x 3 Skin: normal color, warm/dry Progress/Results/Core Measures Suspected Sepsis Recent Fever Within 48 Hours: No Infection Criteria Present: None New/Unexplained Altered Menta: No Sepsis Screen: No Definite Risk SIRS Temperature:98.4 Pulse: 81 Respiratory Rate: 16 Blood Pressure 113 /70 Mean: 84 Results/Orders Micro Results Microbiology 05/20/18 Influenza Types A,B Antigen (EVER) - Final, Complete My Orders Orders - TILA BECKHAM Chest 1 View, Ap/Pa Only (05/20/18 13:18) Influenza A And B Antigens (05/20/18 13:18) Vital Signs/I&O 05/20/18 05/20/18 05/20/18 11:30 13:24 14:26 Temp 98.4 98.4 Pulse 81 81 Resp 16 16 B/P (MAP) 113/70 (84) 113/70 (84) Pulse Ox 96 96 O2 Delivery Room Air Room Air Room Air Capillary Refill : Less Than 3 Seconds Blood Pressure Mean: 84 Progress Note : Time: 14:10 Progress Note I have seen and evaluated the patient. I have informed her of normal imaging studies and lab findings. She has continued to smoke throughout her and the benefits of quitting smoking were discussed since she has had this chronic cough. She agrees with plans for discharge, return precautions were given. Diagnostic Imaging Diagonstic Imaging: Xray Plain Films/CT/US/NM/MRI: chest Comments NAME: ZEYNEP KOHLER [facility] REC#: [id number] PHYSICIAN: TILA BECKHAM CC: TILA BECKHAM; JIMMIE SINGH Page 1 of 1 RADIOLOGY REPORT [place] CC: TILA BECKHAM; JIMMIE SINGH Page 1 of 1 RADIOLOGY REPORT NAME: ZEYNEP KOHLER [facility] REC#: [id number] PT STATUS: REG ER : 1990 PHYSICIAN: TILA BECKHAM ADMIT DATE: 05/20/18/ER Signed Date of Exam: 05/20/18 CHEST 1 VIEW, AP/PA ONLY INDICATION: Cough. COMPARISON: 03/22/2017. FINDINGS: Single view of the chest demonstrates clear lungs bilaterally. The heart is normal. There is no pneumothorax. Osseous structures are normal. IMPRESSION: Negative chest. Dictated by: Dictated on workstation # [id number] Dict: 05/20/18 1401 Trans: 05/20/18 1408 Interpreted by: JIMMIE SINGH Electronically signed by: JIMMIE SINGH 05/20/18 1408 Reviewed: Reviewed by Me Departure Impression Primary Impression: Viral respiratory illness Disposition: 01 HOME, SELF-CARE Condition: Stable/Unchanged Departure-Patient Inst. Decision time for Depature: 14:11 Referrals: GENNARO GALE MD (PCP/Family) Primary Care Physician Patient Instructions: Viral Upper Respiratory Infection, Adult (DC) Add. Discharge Instructions: Continue to use bcvb-utx-txmvcty cold cough and flu medications. Follow-up with your primary care provider within 1 week for recheck. Cool mist humidifiers might help loosen chest congestion. Practice good hand hygiene to prevent the spread of viral illnesses. Return back to the emergency room for any worsening symptoms or concerns as needed. All discharge instructions reviewed with patient and/or family. Voiced understanding. TILA BECKHAM May 20, 2018 13:22
--- NOTE | 2018-05-20 14:06 | Diagnostic Imaging Report ---
INDICATION: Cough. COMPARISON: 03/22/2017. FINDINGS: Single view of the chest demonstrates clear lungs bilaterally. The heart is normal. There is no pneumothorax. Osseous structures are normal. IMPRESSION: Negative chest. Dictated by: Dictated on workstation # [id number]
[2018-05-20 14:26] VITALS: BP 113/70
== END 2018-05-20 14:26 | disposition home or self-care (01) ==
LOC: EDUNIT# 10:48 → ER 10:49
DX: J06.9 Acute upper respiratory infection, unspecified (principal); F12.10 Cannabis abuse, uncomplicated; F31.9 Bipolar disorder, unspecified; F17.210 Nicotine dependence, cigarettes, uncomplicated; Z86.19 Personal history of other infectious and parasitic diseases; Z85.828 Personal history of other malignant neoplasm of skin
CPT/HCPCS: 71045; 87804

== ENCOUNTER 2018-05-30 07:03 | Outpatient (CLI) | payer MEDICAID ==
[~2018-05-30] VITALS: Ht 167.6 cm; Wt 118.4 kg
[2018-05-30 07:38] VITALS: BP 142/80
[2018-05-30] MEDS ORDERED: FERR-84 PO (07:53)
[2018-05-30 08:20] VITALS: BP 109/63
[2018-05-30] MEDS ORDERED: FLU QUADRIvalent (5+ YOA) 2018-2019 (AFLURIA) 0.5 ML IM ONE (08:30)
[2018-05-30 08:39] LABS: AMPHETAMINE SCREEN, URINE NEGATIVE (NEGATIVE); BARBITURATE SCREEN URINE NEGATIVE (NEGATIVE); BENZODIAZEPINES SCREEN URINE NEGATIVE (NEGATIVE); CANNABINOID SCREEN, URINE NEGATIVE (NEGATIVE); COCAINE SCREEN URINE NEGATIVE (NEGATIVE); METHADONE STAT NEGATIVE (NEGATIVE); METHAMPHETAMINE SCREEN URINE S NEGATIVE (NEGATIVE); OPIATE SCREEN URINE NEGATIVE (NEGATIVE); OXYCODONE STAT NEGATIVE (NEGATIVE); PROPOXYPHENE STAT NEGATIVE (NEGATIVE); TRICYCLIC ANTIDEPRESSANTS SCRE NEGATIVE (NEGATIVE)
[2018-05-30 08:45] VITALS: BP 122/62
[2018-05-30] MEDS ORDERED: RT-ALBUTEROL SULF 2.5 MG/3 ML PRE-MIX VIAL INH ONE (09:00)
[2018-05-30 09:35] LABS: BASOPHILS % (AUTO) 0 % (0-10); EOSINOPHILS # (AUTO) 0.1 10^3/uL (0.0-0.3); EOSINOPHILS % (AUTO) 1 % (0-10); HEMATOCRIT 32 % (35-52); HEMOGLOBIN 11.4 G/DL (11.5-16.0); LYMPHOCYTES # (AUTO) 2.2 X 10^3 (1.0-4.0); LYMPHOCYTES % (AUTO) 28 % (12-44); MEAN CORPUSCULAR HEMOGLOBIN 31 PG (25-34); MEAN CORPUSCULAR HGB CONC 36 G/DL (32-36); MEAN CORPUSCULAR VOLUME 87 FL (80-99); MEAN PLATELET VOLUME 10.4 FL (7.4-10.4); MONOCYTES # (AUTO) 0.5 X 10^3 (0.0-1.0); MONOCYTES % (AUTO) 6 % (0-12); NEUTROPHILS # (AUTO) 5.1 X 10^3 (1.8-7.8); NEUTROPHILS % (AUTO) 65 % (42-75); PLATELET COUNT 213 10^3/uL (130-400); RED BLOOD COUNT 3.63 10^6/uL (4.35-5.85); RED CELL DISTRIBUTION WIDTH 13.3 % (10.0-14.5); WHITE BLOOD COUNT 7.9 10^3/uL (4.3-11.0)
[2018-05-30 10:01] LABS: ALANINE AMINOTRANSFERASE 11 U/L (0-55); ALBUMIN 3.1 GM/DL (3.2-4.5); ALKALINE PHOSPHATASE 105 U/L (40-136); BILIRUBIN,TOTAL 0.2 MG/DL (0.1-1.0); BUN/CREATININE RATIO 8; CALCIUM 9.1 MG/DL (8.5-10.1); CARBON DIOXIDE 20 MMOL/L (21-32); CHLORIDE 107 MMOL/L (98-107); GFR ESTIMATED > 60; GLUCOSE 110 MG/DL (70-105); POTASSIUM 3.4 MMOL/L (3.6-5.0); SODIUM 138 MMOL/L (135-145); TOTAL PROTEIN 6.4 GM/DL (6.4-8.2); URIC ACID 4.9 MG/DL (2.6-7.2)
[2018-05-30 10:20] VITALS: BP 116/57
--- NOTE | 2018-06-04 10:45 | Physician Query-Final Dx ---
JAYDE MANDEL 06/04/18 1045: Clinic Account Progress/Dx Physician Query: Please give a diagnosis and weeks of gestation if known thank you Date of Service May 30, 2018 at 07:03 GENNA BAILEY MD 06/16/18 0942: Clinic Account Progress/Dx DIAGNOSIS: Diagnosis Decreased Movement Productive cough 35 week gestation JAYDE MANDEL Jun 04, 2018 10:45 GENNA BAILEY MD Jun 16, 2018 09:42
== END 2018-05-30 10:55 | disposition home or self-care (01) ==
LOC: WSo 07:03 → LDRP 07:04 → WSo 10:55
PROVIDERS: ATTEND Family Medicine
DX: O36.8190 Decreased fetal movements, unspecified trimester, not applicable or unspecified (principal); O99.89 Other specified diseases and conditions complicating pregnancy, childbirth and the puerperium; R05 Cough; Z3A.35 35 weeks gestation of pregnancy
CPT/HCPCS: 36415; 80053; 80306; 83615; 84550; 85025; 87804; 94640; 94760; 99213

== ENCOUNTER 2018-06-10 01:46 | Emergency (ER) | payer MEDICAID ==
[~2018-06-10] VITALS: Ht 167.6 cm; Wt 117.9 kg
[~2018-06-10 01:46] MED LIST changes: +FERR-84 PO
--- OUTSIDE RECORDS SUMMARY | 2018-06-10 01:50 | XMS REPORT | Clinical Summary ---
Author Author [facility] Organization [facility] Address Unknown Phone Unavailable Care Team Providers Care Latex Ribbon Machine Operator Name Role Phone Daisy Sinha MD PCP Source Comments Some departments are not documenting in the electronic medical record. If you do not see the information that you expected, contact Release of Information in the Health Information Management department at [phone] for further assistance in locating additional records.[facility] Allergies Not on File Current Medications Not on file Active Problems Not on file Social History Tobacco Use Types Packs/Day Years Used Date Never Assessed Sex Assigned at Date Recorded Not on file Last Filed Vital Signs Not on file Plan of Treatment Health Maintenance Due Date Last Done Comments PHYSICAL (COMPREHENSIVE) 1999 EXAM HPV VACCINES (1 of 3 - 2003 Female 3-dose series) PERTUSSIS VACCINE 2003 HIV SCREENING 2007 TETANUS VACCINE 2009 CERVICAL CANCER SCREENING 2013 INFLUENZA VACCINE 03/14/2018 Results Not on filefrom Last 3 Months
--- OUTSIDE RECORDS SUMMARY | 2018-06-10 01:50 | XMS REPORT | Clinical Summary ---
Author Author [facility] Organization [facility] Address Unknown Phone Unavailable Care Team Providers Care Tension Machine Operator Name Role Phone PCP Unavailable Allergies Not on File Current Medications Not on file Active Problems Not on file Social History Tobacco Use Types Packs/Day Years Used Date Never Assessed Sex Assigned at Date Recorded Not on file Last Filed Vital Signs Not on file Plan of Treatment Not on file Results Not on filefrom Last 3 Months
--- OUTSIDE RECORDS SUMMARY | 2018-06-10 01:50 | XMS REPORT ---
Author Author [facility] Address [address] [place] [address] Care Team Providers Care Cigarette Machines Mechanic Name Role Phone SHAHLAPETE VELIZY Unavailable PROBLEMS Type Condition ICD9-CM Code LBD79-IQ Code Onset Dates Condition Status SNOMED Code Problem Other atopic dermatitis L20.89 Active 83468645 Problem Chlamydial infection A74.9 Active 316413499 Problem Unspecified blood type, Rh negative Z67.91 Active 872792121 Problem Bipolar depression F31.30 Active 85319268 Problem Supervision of other high risk pregnancies, unspecified trimester O09.899 Active 360195500 ALLERGIES No Information ENCOUNTERS Encounter Location Date Diagnosis [place] [id number] [place] [address] 33822- 0482 Jun, [place] [id number] [place] [address] 24955- 0444 Jun, [place] [id number] [place] [address] 11211- 2935 Jun, [place] [id number] [place] [address] 48040- 3580 May, [place] [id number] [place] [address] 44745- 7808 May, [place] [id number] [place] [address] 38263- 7475 May, BMI 40.0-44.9, adult Z68.41 ; care in third trimester Z34.93 ; Atypical pneumonia J18.9 and Transverse lie of fetus, single or unspecified fetus O32.2XX0 [place] [id number] [place] [address] 78866- 9410 May, Supervision of other high risk pregnancies, unspecified trimester O09.899 [place] [id number] [place] [address] 34144- 8784 May, [place] [address] [address] Apr, BMI 40.0-44.9, adult Z68.41 ; Third trimester Z34.93 ; URI with cough and congestion J06.9 ; Other atopic dermatitis L20.89 ; 32 weeks gestation of Z3A.32 and Bipolar depression F31.30 [place] [id number] [place] [address] 05409- 3296 Apr, [place] [address] 0[address]10- 9735 Apr, [place] [address] 86970- 8652 Apr, Possible exposure to STD Z20.2 ; BMI 40.0-44.9, adult Z68.41 and Pruritus L29.9 [place] [id number] [place] [address] 25510- 8630 Apr, [place] [address] 34251- 7402 13 Apr, 2018 Third trimester Z34.93 ; Encounter for immunization Z23 ; BMI 40.0-44.9, adult Z68.41 ; Unspecified blood type, Rh negative Z67.91 and 30 weeks gestation of Z3A.30 [place] [id number] [place] [address] 76751- 0002 11 Apr, 2018 Screening for STD (sexually transmitted disease) Z11.3 and Abnormal glucose level R73.09 [place] [id number] [place] [address] 71401- 8007 06 Apr, 2018 Abnormal glucose level R73.09 [place] [id number] [place] [address] 51692- 7509 04 Apr, 2018 [facility] [id number] [address] Mar, care in third trimester Z34.93 [facility] [address] [place] [address] 69672- 8912 27 Mar, 2018 care in third trimester Z34.93 ; Evaluate anatomy not seen on prior sonogram Z04.8 and BMI 40.0-44.9, adult Z68.41 [facility] [address] [place] [address] 48439 -8801 Mar, BMI 40.0-44.9, adult Z68.41 ; Screening for STD (sexually transmitted disease) Z11.3 and High risk sexual behavior, unspecified type Z72.51 [facility] [address] [place] [address] 24585- 7145 Feb, [facility] [id number] [place] [address] 89345- 3853 Feb, [facility] [address] [place] [address] 94817- 5766 Feb, Second trimester Z34.92 ; Chlamydial infection A74.9 ; Other maternal infectious and parasitic diseases complicating , first trimester O98.811 ; 23 weeks gestation of Z3A.23 and Evaluate anatomy not seen on prior sonogram Z04.8 [facility] [id number] [place] [address] 90580- 5982 Feb, [facility] [id number] [address] Feb, [facility] [id number] [place] [address] 97170- 3653 Feb, [facility] [id number] [place] [address] [id number] Jan, [facility] [id number] [address] 9151 Jan, Second trimester Z34.92 and 19 weeks gestation of Z3A.19 [facility] [address] [address]87 Jan, [facility] [address] [id number] Jan, Dental examination Z01.20 [facility] [id number] [address] Jan, Mouth pain K13.79 [facility] [id number] [place] [address] 79427- 2015 Jan, [facility] [id number] [place] [address] 85578- 1653 Jan, [facility] [id number] [place] [address] 42855- 1966 December, Second trimester Z34.92 ; 14 weeks gestation of Z3A.14 and Substance abuse 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, antepartum O99.322 [facility] [id number] [place] [address] 72192- 9151 December, [facility] [id number] [place] [address] 52684- 1574 Nov, [facility] [address] [address] 2522 Nov, [facility] [address] [place] [address] 36209- 2894 Nov, care, subsequent in first trimester Z34.81 ; 7 weeks gestation of Z3A.01 and Bipolar depression F31.30 [facility] [address] [address] Nov, [facility] [id number] [address] Nov, [facility] [address] [address]- 8076 Nov, Screening, iron deficiency anemia Z13.0 [facility] [id number] [place] [address] 75626- 0923 12 Nov, 2017 [facility] [id number] [place] [address] 45807 -5278 Nov, Possible exposure to STD Z20.2 and Trichomoniasis A59.9 [facility] [address] 53336- 6137 Nov, [facility] [address] 36006- 8808 Nov, Encounter for test Z32.00 [facility] [address] 270[address] 07 Apr, 2016 Periodontal abscess K05.21 [place] [address] 51607- 4847 07 Feb, 2015 Family history of diabetes mellitus V18.0 ; Fatigue 780.79 and Pain in both feet 729.5 [place] [id number] [place] [address] 87539- 5880 16 Jan, 2015 Bipolar affective disorder, depressed, moderate 296.52 and Posttraumatic stress disorder 309.81 [place] [id number] [place] [address] 29243- 1921 11 Jan, 2015 [place] [id number] [place] [address] 82350- 6603 14 Nov, 2014 [facility] [id number] [place] [address] 21627- 1058 13 Nov, 2014 [place] [address] 53138- 5815 16 Oct, 2014 [facility] [address] 68440- 9705 16 Oct, 2014 [facility] [id number] [place] [address] 76126- 3047 03 Oct, 2014 [facility] [place] [facility] [address] [id number] [place] [address]- 67[address] Oct, [facility] [place] [facility] [address] [id number] [place] [address]- 7937 Sep, 2014 [facility] [place] [facility] [address] [id number] [place] [address]- 1366 Sep, 2014 [facility] [place] [facility] [address] [id number] [place] [address]- 9636 Sep, 2014 [facility] [place] [facility] [address] [id number] [place] [address]- 6284 Sep, 2014 [facility] [place] [facility] [address] [id number] [place] [address]- 0680 Sep, [facility] [place] [facility] [address] [facility] [id number] [place] [address]- 8444 Sep, [facility] [place] [facility] [address] [facility] [id number] [place] [address]- 5142 Sep, [facility] [place] [facility] [address] [facility] [id number] [place] [address]- 2521 Aug, [facility] [place] [facility] [address] [facility] [id number] [place] [address]- 5269 Aug, [facility] [place] [facility] [address] [facility] [id number] [place] [address]- 8777 Aug, [facility] [place] [facility] [address] [id number] [address] 1858 Aug, [facility] [place] [facility] [address] [id number] [place] [address]- 6995 Aug, [facility] [place] [facility] [address] [id number] [place] [address]- 6075 Oct, [facility] [place] [facility] [address] [id number] [place] [address]- 3435 Oct, [facility] [place] [facility] [address] [id number] [place] [address]- 3646 Aug, [facility] [address] [facility] [id number] [place] [address]- 4882 Aug, IMMUNIZATIONS No Known Immunizations SOCIAL HISTORY Never Assessed REASON FOR VISIT rx request PLAN OF CARE VITAL SIGNS MEDICATIONS Medication Instructions Dosage Frequency Start Date End Date Duration Status PANTOGRAPH II ENGRAVER-Jimmie Rx 1 MG Orally Once a day 1 tablet 24h May, 30 day(s) Active Ferrous Sulfate 325 (65 Fe) MG Orally Once a day 1 tablet 24h May, 30 day(s) Active RESULTS No Results PROCEDURES No Known procedures INSTRUCTIONS MEDICATIONS ADMINISTERED No Known Medications MEDICAL (GENERAL) HISTORY Type Description Date Medical History psychiatric disorders Medical History syphilis-2013 Medical History Insomnia Surgical History Surgery on head- bumps on head that were removed, did not have to cut into skull at all as a baby Surgical History cholecystectomy Hospitalization History Hospitalization for surgery only Hospitalization History Childbirth Hospitalization History kidney infection 2017
--- OUTSIDE RECORDS SUMMARY | 2018-06-10 01:50 | XMS REPORT ---
Author Author SHAHLAGENNARO [facility] Address [address] [place] [address] Care Team Providers Care Plisse Machine Operator Name Role Phone GENNARO GALE Unavailable PROBLEMS Type Condition ICD9-CM Code OIT01-TW Code Onset Dates Condition Status SNOMED Code Problem Other atopic dermatitis L20.89 Active 04510236 Problem Chlamydial infection A74.9 Active 125329529 Problem Unspecified blood type, Rh negative Z67.91 Active 269500208 Problem Bipolar depression F31.30 Active 20044560 Problem Supervision of other high risk pregnancies, unspecified trimester O09.899 Active 410545997 ALLERGIES No Information ENCOUNTERS Encounter Location Date Diagnosis [place] [address] [place] [address] 62563- 1390 Jun, [place] [address] [place] [id number] [place] [address] 66992- 5411 Jun, [place] [address] [place] [id number] [place] [address] 63759- 8646 Jun, [place] [address] [address] 8896 May, [place] [address] [place] [id number] [place] [address] 75865- 6988 May, [place] [address] [place] [address] 60156- 1542 May, [place] [address] [place] [id number] [place] [address] 55294- 6777 May, BMI 40.0-44.9, adult Z68.41 ; care in third trimester Z34.93 ; Acute nonintractable headache, unspecified headache type R51 ; 35 weeks gestation of Z3A.35 and History of herpes genitalis Z86.19 [place] [address] [place] [id number] [place] [address] 95436- 5932 11 May, 2018 BMI 40.0-44.9, adult Z68.41 ; care in third trimester Z34.93 ; Atypical pneumonia J18.9 ; Transverse lie of fetus, single or unspecified fetus O32.2XX0 and 34 weeks gestation of Z3A.34 [place] [address] 32032- 1598 09 May, 2018 Supervision of other high risk pregnancies, unspecified trimester O09.899 [place] [address] 29927- 8972 May, [place] [address] 95142- 3140 27 Apr, 2018 BMI 40.0-44.9, adult Z68.41 ; Third trimester Z34.93 ; URI with cough and congestion J06.9 ; Other atopic dermatitis L20.89 ; 32 weeks gestation of Z3A.32 and Bipolar depression F31.30 [place] [address] 85927- 1554 Apr, [place] [address] 61853- 4188 Apr, [place] [address] 60961- 4693 Apr, Possible exposure to STD Z20.2 ; BMI 40.0-44.9, adult Z68.41 and Pruritus L29.9 [place] [address] [place] [id number] [place] [address] 92448- 4346 Apr, [place] [address] 68944- 0998 13 Apr, 2018 Third trimester Z34.93 ; Encounter for immunization Z23 ; BMI 40.0-44.9, adult Z68.41 ; Unspecified blood type, Rh negative Z67.91 and 30 weeks gestation of Z3A.30 [facility] [address] [address] 6032 11 Apr, 2018 Screening for STD (sexually transmitted disease) Z11.3 and Abnormal glucose level R73.09 [facility] [address] [address] 6572 06 Apr, 2018 Abnormal glucose level R73.09 [place] [address] [place] [id number] [place] [address] 78633- 3633 04 Apr, 2018 [place] [address] [place] [address] 22298- 4129 28 Mar, 2018 care in third trimester Z34.93 [place] [address] [place] [address] 32231- 9606 27 Mar, 2018 care in third trimester Z34.93 ; Evaluate anatomy not seen on prior sonogram Z04.8 and BMI 40.0-44.9, adult Z68.41 [facility] WALK IN [facility] [address] [address] 10 Mar, 2018 BMI 40.0-44.9, adult Z68.41 ; Screening for STD (sexually transmitted disease) Z11.3 and High risk sexual behavior, unspecified type Z72.51 [place] [address] [address]- 2485 Feb, [place] [address] [address]- 8438 Feb, [place] [address] [address]- 1239 Feb, Second trimester Z34.92 ; Chlamydial infection A74.9 ; Other maternal infectious and parasitic diseases complicating , first trimester O98.811 ; 23 weeks gestation of Z3A.23 and Evaluate anatomy not seen on prior sonogram Z04.8 [facility] [address] [address] 6244 16 Feb, 2018 [facility] [address] [address] 0416 Feb, [facility] [address] [place] [address] 97113- 9697 Feb, [facility] [id number] [address] Jan, [facility] [address] [place] [address] 04687- 7817 Jan, Second trimester Z34.92 and 19 weeks gestation of Z3A.19 [facility] [address] [place] [address] 11179- 5992 Jan, [facility] [address] [address] Jan, Dental examination Z01.20 [facility] [address] [place] [address] 58984 -9752 Jan, Mouth pain K13.79 [facility] [address] [place] [address] 02162- 6286 Jan, [facility] [address] [place] [address] 83031- 1701 Jan, [facility] [address], [place] [address]- 9805 December, Second trimester Z34.92 ; 14 weeks gestation of Z3A.14 and Substance abuse 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, antepartum O99.322 [facility] [address], [place] [address]- 3793 December, [facility] [address] [place] [id number] [place] [address] 97625- 1417 Nov, [facility] [address], [place] [address]- 7138 Nov, [facility] [address], [place] [address]- 0112 Nov, care, subsequent in first trimester Z34.81 ; 7 weeks gestation of Z3A.01 and Bipolar depression F31.30 [facility] [address] [place] [address] 96110 -1472 Nov, [facility] WALK IN [place] [address] 59[address]59 Nov, [address] [address]- 0472 Nov, Screening, iron deficiency anemia Z13.[address] 79723- 7348 Nov, [facility] WALK IN [address] 43087 -8379 Nov, Possible exposure to STD Z20.2 and Trichomoniasis A59.[address] 08510- 2756 Nov, [address] 63408- 4390 Nov, Encounter for test Z32.00 [facility] IN [address] 69323 -0999 07 Apr, 2016 Periodontal abscess K05.[address] 06397- 2329 07 Feb, 2015 Family history of diabetes mellitus V18.0 ; Fatigue 780.79 and Pain in both feet 729.[address] 47061- 8915 16 Jan, 2015 Bipolar affective disorder, depressed, moderate 296.52 and Posttraumatic stress disorder 309.[address] 71696- 7560 11 Jan, [address] 11823- 5966 14 Nov, 2014 [facility] [place] [facility] [address] [id number] [place] [address]- 9871 13 Nov, 2014 [facility] [place] [facility] [address] [id number] [place] [address]- 6995 Oct, [facility] [place] [facility] [address] [id number] [place] [address]- 2374 Oct, [facility] [place] [facility] [address] [id number] [place] [address]- 7484 Oct, [facility] [place] [facility] [address] [id number] [place] [address]- 9366 Oct, [facility] [place] [facility] [address] [id number] [place] [address]- 0352 Sep, [facility] [place] [facility] [address] [id number] [place] [address]- 4907 Sep, [facility] [place] [facility] [address] [id number] [place] [address]- 2927 Sep, [facility] [place] [facility] [address] [id number] [place] [address]- 2613 Sep, [facility] [place] [facility] [address] [id number] [place] [address]- 7618 Sep, [facility] [place] [facility] [address] [id number] [place] [address]- 8915 Sep, [facility] [place] [facility] [address] [id number] [place] [address]- 7582 Sep, [facility] [place] [facility] [address] [id number] [place] [address]- 8648 Aug, [facility] [place] [facility] [address] [id number] [place] [address]- 7783 Aug, [facility] [place] [facility] [address] [id number] [place] [address]- 2981 Aug, [facility] [place] [facility] [address] [facility] [id number] [address]- 0925 Aug, [facility] [address] [place] [id number], [place] [address]- 2461 Aug, [facility] [address] [place] [id number], [place] [address]- 1001 Oct, [facility] [address], [place] [address]- 0673 Oct, [facility] [address], [place] [address]- 7321 Aug, [facility] [address] [place] [address] 68852- 0172 Aug, IMMUNIZATIONS No Known Immunizations SOCIAL HISTORY Never Assessed REASON FOR VISIT OB 2wk f/u, third trimester, urine ob dip, flu shot at next visit-[facility] PLAN OF CARE Activity Details Follow Up 1 Week, 1 Week Reason: Pending Test Ultrasound : OB, Follow-up VITAL SIGNS Height 65 in 2018-05-24 Weight 264.2 lbs 2018-05-24 Temperature 98.1 degrees Fahrenheit 2018-05-24 Heart Rate 110 bpm 2018-05-24 Respiratory Rate 22 2018-05-24 BMI 43.965 kg/m2 2018-05-24 Blood pressure systolic 132 mmHg 2018-05-24 Blood pressure diastolic 70 mmHg 2018-05-24 MEDICATIONS Medication Instructions Dosage Frequency Start Date End Date Duration Status MEDICAL SCIENTIST-Jimmie Rx 1 MG Orally Once a day 1 tablet 24h May, 30 day(s) Active Azithromycin 250 MG Orally Once a day 2 tablets on the first day, then 1 tablet daily for 4 days 24h May, May, 5 day(s) Active Ferrous Sulfate 325 (65 Fe) MG Orally Once a day 1 tablet 24h May, 30 day(s) Active Acetaminophen 500 mg Orally 3 times a day 2 tablets as needed 8h Feb, Active Triamcinolone Acetonide 0.025 % Externally Twice a day 1 application to affected area 12h 27 Apr, 2018 14 days Active Escitalopram Oxalate 10 mg Orally Once a day 1 tablet 24h Nov, 90 days Active RESULTS Name Result Date Reference Range UA OB DIP (IN HOUSE) 2018-05-24 Glucose negative Protein trace PROCEDURES Procedure Date Ordered Result Body Site URINE-NO MICRO May 24, 2018 INSTRUCTIONS MEDICATIONS ADMINISTERED No Known Medications MEDICAL [...]
--- OUTSIDE RECORDS SUMMARY | 2018-06-10 01:50 | XMS REPORT | Clinical Summary ---
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
--- OUTSIDE RECORDS SUMMARY | 2018-06-10 01:51 | XMS REPORT ---
Author Author KING ARELIS Organization [facility] Address [address] [place] [address] Care Team Providers Care Breast Worker Name Role Phone ARELIS JI Unavailable PROBLEMS Type Condition ICD9-CM Code THN75-EA Code Onset Dates Condition Status SNOMED Code Problem Other atopic dermatitis L20.89 Active 86983317 Problem Chlamydial infection A74.9 Active 323915890 Problem Unspecified blood type, Rh negative Z67.91 Active 543256700 Problem Bipolar depression F31.30 Active 79714697 Problem Supervision of other high risk pregnancies, unspecified trimester O09.899 Active 285118679 ALLERGIES No Known Allergies ENCOUNTERS Encounter Location Date Diagnosis [place] [address] [place] [id number] [place] [address] 26463- 5868 Jun, [place] [address] [place] [id number] [place] [address] 38457- 0869 Jun, [place] [address] [place] [id number] [place] [address] 88290- 5516 Jun, [place] [address] [place] [id number] [place] [address] 64510- 7919 May, [place] [address] [place] [id number] [place] [address] 63885- 5488 May, [place] [address] [place] [id number] [place] [address] 78792- 2810 May, [place] [address] [place] [id number] [place] [address] 93569- 7190 Apr, BMI 40.0-44.9, adult Z68.41 ; Third trimester Z34.93 ; URI with cough and congestion J06.9 ; Other atopic dermatitis L20.89 ; 32 weeks gestation of Z3A.32 and Bipolar depression F31.30 [place] [address] [place] [id number] [place] [address] 83966- 8976 24 Apr, 2018 [place] [address] 10979- 8097 Apr, [place] [address] 19601- 7111 Apr, Possible exposure to STD Z20.2 ; BMI 40.0-44.9, adult Z68.41 and Pruritus L29.9 [place] [address] [place] [id number] [place] [address] 48067- 7848 Apr, [place] [address] 16361- 1973 13 Apr, 2018 Third trimester Z34.93 ; Encounter for immunization Z23 ; BMI 40.0-44.9, adult Z68.41 ; Unspecified blood type, Rh negative Z67.91 and 30 weeks gestation of Z3A.30 [place] [address] [place] [id number] [place] [address] 62587- 1346 11 Apr, 2018 Screening for STD (sexually transmitted disease) Z11.3 and Abnormal glucose level R73.09 [place] [address] [place] [id number] [place] [address] 44622- 4099 06 Apr, 2018 Abnormal glucose level R73.09 [place] [address] [place] [id number] [place] [address] 99529- 6999 04 Apr, 2018 [place] [address] [place] [id number] [place] [address] 24975- 3187 Mar, care in third trimester Z34.93 [place] [address] [place] [id number] [place] [address] 26936- 2897 Mar, care in third trimester Z34.93 ; Evaluate anatomy not seen on prior sonogram Z04.8 and BMI 40.0-44.9, adult Z68.41 [facility] [address] [place] [id number] [place] [address] 90764 -1883 Mar, BMI 40.0-44.9, adult Z68.41 ; Screening for STD (sexually transmitted disease) Z11.3 and High risk sexual behavior, unspecified type Z72.51 [facility] [address] [place] [address] 27288- 2420 Feb, [facility] [address] [place] [id number] [place] [address] 35717- 6638 Feb, [facility] [address] [place] [id number] [place] [address] 92902- 3249 Feb, Second trimester Z34.92 ; Chlamydial infection A74.9 ; Other maternal infectious and parasitic diseases complicating , first trimester O98.811 ; 23 weeks gestation of Z3A.23 and Evaluate anatomy not seen on prior sonogram Z04.8 [facility] [address] [place] [id number] [place] [address] 52503- 9330 Feb, [facility] [address] [place] [id number] [place] [address] 47109- 4067 Feb, [facility] [address] [place] [id number] [place] [address] 93126- 5569 Feb, [facility] [address] [place] [address] [id number] [place] [address] [id number] Jan, [facility] [address] [place] [address] 15958- 9306 Jan, Second trimester Z34.92 and 19 weeks gestation of Z3A.19 [facility] [address] [place] [address] 31528- 7379 Jan, [facility] [address] [place] [id number] [place] [address] [id number] Jan, Dental examination Z01.20 [facility] [address] [place] [address] 66931 -3810 Jan, Mouth pain K13.79 [facility] [address] [place] [address]- 8622 Jan, [facility] [address] [place] [id number] [address]- 1268 Jan, [facility] [address] [place] [id number] [place] [address] 84861- 5036 December, Second trimester Z34.92 ; 14 weeks gestation of Z3A.14 and Substance abuse 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, antepartum O99.322 [facility] [address] [place] [id number] [place] [address] 91271- 7824 December, [facility] [address] [place] [id number] [place] [address] 94636- 1606 Nov, [facility] [address] [place] [id number] [place] [address] 47647- 3960 Nov, [facility] [address] [place] [id number] [place] [address] 15009- 8010 Nov, care, subsequent in first trimester Z34.81 ; 7 weeks gestation of Z3A.01 and Bipolar depression F31.30 [facility] [address] [place] [id number] [place] [address] 61108 -1214 Nov, [facility] [address] [address] -0753 Nov, [facility] [address] [place] [id number] [place] [address] 45153- 8914 Nov, Screening, iron deficiency anemia Z13.0 [facility] [address] [place] [address] 10002- 4367 Nov, [facility] [address] [place] [id number] [place] [address] 25809 -4588 Nov, Possible exposure to STD Z20.2 and Trichomoniasis A59.9 [facility] [address] [address]- 3005 Nov, [facility] [address] [place] [id number] [place] [address] 90913- 3620 10 Nov, 2017 Encounter for test Z32.00 [facility] [address] [place] [id number] [place] [address] 18186 -1932 07 Apr, 2016 Periodontal abscess K05.21 [facility] [address] [place] [id number] [place] [address] 36807- 7601 07 Feb, 2015 Family history of diabetes mellitus V18.0 ; Fatigue 780.79 and Pain in both feet 729.5 [facility] [address] [place] [id number] [place] [address] 87239- 4578 16 Jan, 2015 Bipolar affective disorder, depressed, moderate 296.52 and Posttraumatic stress disorder 309.81 [facility] [address] [place] [id number] [place] [address] 32110- 0131 11 Jan, 2015 [facility] [address] [place] [id number] [place] [address] 17474- 5052 14 Nov, 2014 [facility] [address] [place] [id number] [place] [address] 98821- 6336 13 Nov, 2014 [facility] [address] [place] [id number] [place] [address] 54122- 9883 Oct, [facility] [address] [place] [id number] [place] [address] 57724- 3689 Oct, [facility] [address] [place] [id number] [place] [address] 43877- 5485 Oct, [facility] [address] [place] [id number] [place] [address] 97331- 7452 Oct, [facility] [address] [place] [id number] [place] [address] 28789- 0004 Sep, [facility] [address] [place] [id number] [place] [address] 37864- 9407 Sep, [facility] [address] [place] [id number] [place] [address] 03524- 5050 Sep, [facility] [address], [place] [address]- 9452 Sep, [facility] [address] [place] [id number] [address]- 3211 Sep, [facility] [address] [place] [id number], [place] [address]- 5136 Sep, [facility] [address], [place] [address]- 1666 Sep, [facility] [address] [place] [id number], [place] [address]- 6342 Aug, [facility] [address] 1621 Aug, [facility] [address], [place] [address]- 8566 Aug, [facility] [address], [place] [address]- 7359 Aug, [facility] [address] [place] [id number], [place] [address]- 3514 Aug, [facility] [address] [id number] [address]- 4245 Oct, [facility] [address] [place] [id number] 1010 Oct, [facility] [address] [place] [id number], [place] [address]- 6326 Aug, [facility] [address] [place] [address] [id number] 7162 Aug, IMMUNIZATIONS No Known Immunizations SOCIAL HISTORY Never Assessed REASON FOR VISIT Vaginal discharge(milky white) x7 days-Angel SARGENT, Rash on both sides of abd noticed 2 months ago thought it went away- Angel SARGENT PLAN OF CARE Activity Details Follow Up prn Reason: VITAL SIGNS Height 65 in 2018-05-03 Weight 253.7 lbs 2018-05-03 Temperature 98.3 degrees Fahrenheit 2018-05-03 Heart Rate 120 bpm 2018-05-03 Respiratory Rate 18 2018-05-03 BMI 42.21 kg/m2 2018-05-03 Blood pressure systolic 128 mmHg 2018-05-03 Blood pressure diastolic 70 mmHg 2018-05-03 MEDICATIONS Medication Instructions Dosage Frequency Start Date End Date Duration Status Acetaminophen 500 mg Orally 3 times a day 2 tablets as needed 8h 11 Feb, 2018 Active Escitalopram Oxalate 10 mg Orally Once a day 1 tablet 24h Nov, 30 day(s) Active Vol-Care Rx 1 MG Orally Once a day 1 tablet 24h Jan, 90 days Active RESULTS No Results PROCEDURES Procedure Date Ordered Result Body Site LAB NOT BILLED BY [facility] May 03, 2018 URINALYSIS, AUTO, W/O SCOPE May 03, 2018 INSTRUCTIONS MEDICATIONS ADMINISTERED No Known Medications [...]
--- OUTSIDE RECORDS SUMMARY | 2018-06-10 01:51 | XMS REPORT ---
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 Name Role Phone GENNARO GALE Unavailable PROBLEMS Type Condition ICD9-CM Code TYN74-PC Code Onset Dates Condition Status SNOMED Code Problem Other atopic dermatitis L20.89 Active 04559476 Problem Chlamydial infection A74.9 Active 771768796 Problem Unspecified blood type, Rh negative Z67.91 Active 144874926 Problem Bipolar depression F31.30 Active 13497986 Problem Supervision of other high risk pregnancies, unspecified trimester O09.899 Active 415186953 ALLERGIES No Information ENCOUNTERS Encounter Location Date Diagnosis [place] [id number] [place] [address] 75902- 1872 Jun, [place] [id number] [place] [address] 57257- 4925 Jun, [place] [id number] [place] [address] 93006- 6436 Jun, [place] [id number] [place] [address] 52328- 1231 May, [place] [id number] [place] [address] 85654- 6059 May, [place] [id number] [place] [address] 56202- 9849 Apr, BMI 40.0-44.9, adult Z68.41 ; Third trimester Z34.93 ; URI with cough and congestion J06.9 ; Other atopic dermatitis L20.89 ; 32 weeks gestation of Z3A.32 and Bipolar depression F31.30 [place] [address] 29873- 5788 Apr, [place] [id number] [place] [address] 87724- 6423 Apr, [place] [address] 73313- 8143 Apr, Possible exposure to STD Z20.2 ; BMI 40.0-44.9, adult Z68.41 and Pruritus L29.9 [place] [address] 43031- 3066 Apr, [place] [address] 22662- 9002 13 Apr, 2018 Third trimester Z34.93 ; Encounter for immunization Z23 ; BMI 40.0-44.9, adult Z68.41 ; Unspecified blood type, Rh negative Z67.91 and 30 weeks gestation of Z3A.30 [place] [address] 90365- 5829 11 Apr, 2018 Screening for STD (sexually transmitted disease) Z11.3 and Abnormal glucose level R73.09 [place] [address] 44107- 2089 06 Apr, 2018 Abnormal glucose level R73.09 [place] [id number] [place] [address] 57515- 4920 04 Apr, 2018 [place] [id number] [place] [address] 92144- 1143 Mar, care in third trimester Z34.93 [place] [id number] [place] [address] 17225- 8406 27 Mar, 2018 care in third trimester Z34.93 ; Evaluate anatomy not seen on prior sonogram Z04.8 and BMI 40.0-44.9, adult Z68.41 [facility] [address] [place] [address] 26796 -8736 Mar, BMI 40.0-44.9, adult Z68.41 ; Screening for STD (sexually transmitted disease) Z11.3 and High risk sexual behavior, unspecified type Z72.51 [facility] [address] [place] [address] 14406- 2248 Feb, [facility] [id number] [place] [address] 55672- 5248 Feb, [facility] [id number] [place] [address] 19883- 7848 Feb, Second trimester Z34.92 ; Chlamydial infection A74.9 ; Other maternal infectious and parasitic diseases complicating , first trimester O98.811 ; 23 weeks gestation of Z3A.23 and Evaluate anatomy not seen on prior sonogram Z04.8 [facility] [id number] [place] [address] 87902- 0532 Feb, [facility] [id number] [place] [address] 42885- 7152 Feb, [facility] [id number] [place] [address] 83728- 8520 Feb, [facility] [address] [id number] Jan, [facility] [id number] [place] [address] 07293- 2364 Jan, Second trimester Z34.92 and 19 weeks gestation of Z3A.19 [facility] [address] [place] [address] 87785- 6453 Jan, [facility] [address] [place] [address] [id number] Jan, Dental examination Z01.20 [facility] [id number] [place] [address] 23367 -9305 Jan, Mouth pain K13.79 [facility] [id number] [place] [address] 53627- 9481 Jan, [facility] [address] [place] [address]- 5018 Jan, [facility] [id number] [place] [address] 34457- 1645 December, Second trimester Z34.92 ; 14 weeks gestation of Z3A.14 and Substance abuse 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, antepartum O99.322 [facility] [id number] [place] [address] 48737- 9011 December, [facility] [id number] [place] [address] 63127- 4496 Nov, [facility] [id number] [place] [address] 21966- 2866 Nov, [facility] [id number] [place] [address] 84015- 7491 Nov, care, subsequent in first trimester Z34.81 ; 7 weeks gestation of Z3A.01 and Bipolar depression F31.30 [facility] [id number] [place] [address] 00734 -6267 Nov, [facility] [id number] [place] [address] 05667 -8533 Nov, [facility] [address] [place] [address] 92200- 1061 Nov, Screening, iron deficiency anemia Z13.0 [facility] [id number] [place] [address] 36913- 4984 Nov, [facility] [id number] [place] [address] 98204 -3212 Nov, Possible exposure to STD Z20.2 and Trichomoniasis A59.9 [facility] [id number] [place] [address] 36859- 3495 Nov, [facility] [id number] [place] [address] 91640- 9259 Nov, Encounter for test Z32.00 [facility] [address] [address]461 07 Apr, 2016 Periodontal abscess K05.21 [facility] [id number] [place] [address] 66228- 9437 07 Feb, 2015 Family history of diabetes mellitus V18.0 ; Fatigue 780.79 and Pain in both feet 729.5 [facility] [address] 18991- 1294 16 Jan, 2015 Bipolar affective disorder, depressed, moderate 296.52 and Posttraumatic stress disorder 309.81 [facility] [id number] [place] [address] 52477- 2668 Jan, [facility] [id number] [place] [address] 69546- 5263 14 Nov, 2014 [facility] [id number] [place] [address] 69697- 7620 Nov, [facility] [id number] [place] [address] 22767- 4839 Oct, [facility] [id number] [place] [address] 12207- 8632 Oct, [facility] [id number] [place] [address] 22108- 9304 Oct, [facility] [id number] [place] [address] 16335- 4180 Oct, [facility] [id number] [place] [address] 12160- 9937 Sep, [facility] [id number] [place] [address] 15608- 5657 Sep, [facility] [id number] [place] [address] 60316- 0321 Sep, [facility] [id number] [place] [address] 12658- 0469 Sep, [facility] [address] [facility] [id number] [address]- 0698 Sep, [facility] [address] [facility] [id number] [address]- 3010 Sep, [facility] [address] [facility] [id number] [address]- 7996 Sep, [facility] [address] [facility] [id number], [place] [address]- 4447 Aug, [facility] [address] [facility] [id number], [place] [address]- 0298 Aug, [facility] [address] [facility] [id number] [address]- 4306 Aug, [facility] [address] [address]- 8673 Aug, [facility] [address] [address]- 7240 Aug, [facility] [id number] [address]- 3656 Oct, [facility] [id number] [address]- 9314 Oct, [facility] [id number] [address]- 5710 Aug, [facility] [id number] [address]- 6862 Aug, IMMUNIZATIONS No Known Immunizations SOCIAL HISTORY Never Assessed REASON FOR VISIT Lab PLAN OF CARE Activity Details Pending Test HEP C ANTIBODY (STATE) Pending Test SYPHILIS (STATE) Pending Test HIV (STATE) Pending Test HEP B SURFACE ANTIGEN (STATE) VITAL SIGNS MEDICATIONS Unknown Medications RESULTS Name Result Date Reference Range GLUCOSE ALESHA 3 HOUR 2018-03-23 TIME 1 825 SPECIMEN 1 83 65-99 TIME 2 930 SPECIMEN 2 151 TIME 3 1030 SPECIMEN 3 156 TIME 4 1130 SPECIMEN 4 79 COMMENT PROCEDURES Procedure Date Ordered Result Body Site No Charge Apr 24, 2018 [facility] Apr 24, 2018 VENIPUNCT, ROUTINE* Apr 24, 2018 INSTRUCTIONS MEDICATIONS ADMINISTERED No Known [...]
--- OUTSIDE RECORDS SUMMARY | 2018-06-10 01:51 | XMS REPORT ---
Author Author SHAHLAGENNARO [facility] Address [address] [place] [address] Care Team Providers Care Optical Lab Technician Name Role Phone GENNARO GALE Unavailable PROBLEMS Type Condition ICD9-CM Code ZFC84-JW Code Onset Dates Condition Status SNOMED Code Problem Other atopic dermatitis L20.89 Active 58731625 Problem Chlamydial infection A74.9 Active 712046469 Problem Unspecified blood type, Rh negative Z67.91 Active 687168177 Problem Bipolar depression F31.30 Active 77077389 Problem Supervision of other high risk pregnancies, unspecified trimester O09.899 Active 429320135 ALLERGIES No Information ENCOUNTERS Encounter Location Date Diagnosis [place] [id number] [place] [address] 74042- 4181 Jun, [place] [id number] [place] [address] 08654- 8975 Jun, [place] [id number] [place] [address] 56485- 0642 Jun, [place] [id number] [place] [address] 95224- 7998 May, [place] [id number] [place] [address] 67955- 9652 May, [place] [id number] [place] [address] 77206- 4224 Apr, BMI 40.0-44.9, adult Z68.41 ; Third trimester Z34.93 ; URI with cough and congestion J06.9 ; Other atopic dermatitis L20.89 ; 32 weeks gestation of Z3A.32 and Bipolar depression F31.30 [place] [address] 09934- 4622 Apr, [place] [id number] [place] [address] 94936- 4136 Apr, [place] [address] 52316- 4806 Apr, Possible exposure to STD Z20.2 ; BMI 40.0-44.9, adult Z68.41 and Pruritus L29.9 [place] [address] 84402- 2895 Apr, [place] [address] 32873- 8404 13 Apr, 2018 Third trimester Z34.93 ; Encounter for immunization Z23 ; BMI 40.0-44.9, adult Z68.41 ; Unspecified blood type, Rh negative Z67.91 and 30 weeks gestation of Z3A.30 [place] [address] 36486- 6657 11 Apr, 2018 Screening for STD (sexually transmitted disease) Z11.3 and Abnormal glucose level R73.09 [place] [address] 40163- 3758 06 Apr, 2018 Abnormal glucose level R73.09 [place] [id number] [place] [address] 80825- 0840 04 Apr, 2018 [place] [id number] [place] [address] 70227- 6532 Mar, care in third trimester Z34.93 [place] [id number] [place] [address] 54059- 6627 27 Mar, 2018 care in third trimester Z34.93 ; Evaluate anatomy not seen on prior sonogram Z04.8 and BMI 40.0-44.9, adult Z68.41 [facility] [address] [place] [address] 26763 -1099 Mar, BMI 40.0-44.9, adult Z68.41 ; Screening for STD (sexually transmitted disease) Z11.3 and High risk sexual behavior, unspecified type Z72.51 [facility] [address] [place] [address] 25319- 9423 Feb, [facility] [id number] [place] [address] 66066- 7269 Feb, [facility] [id number] [place] [address] 08786- 8356 Feb, Second trimester Z34.92 ; Chlamydial infection A74.9 ; Other maternal infectious and parasitic diseases complicating , first trimester O98.811 ; 23 weeks gestation of Z3A.23 and Evaluate anatomy not seen on prior sonogram Z04.8 [facility] [id number] [place] [address] 74454- 9773 Feb, [facility] [id number] [place] [address] 48787- 0057 Feb, [facility] [id number] [place] [address] 66533- 5381 Feb, [facility] [address] [id number] Jan, [facility] [id number] [place] [address] 33772- 7267 Jan, Second trimester Z34.92 and 19 weeks gestation of Z3A.19 [facility] [address] [place] [address] 40845- 6813 Jan, [facility] [address] [place] [address] [id number] Jan, Dental examination Z01.20 [facility] [id number] [place] [address] 73906 -2119 Jan, Mouth pain K13.79 [facility] [id number] [place] [address] 26855- 1311 Jan, [facility] [address] [place] [address]- 1601 Jan, [facility] [id number] [place] [address] 39270- 2025 December, Second trimester Z34.92 ; 14 weeks gestation of Z3A.14 and Substance abuse 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, antepartum O99.322 [facility] [id number] [place] [address] 51654- 6074 December, [facility] [id number] [place] [address] 81833- 6740 Nov, [facility] [id number] [place] [address] 87942- 1157 Nov, [facility] [id number] [place] [address] 98539- 3896 Nov, care, subsequent in first trimester Z34.81 ; 7 weeks gestation of Z3A.01 and Bipolar depression F31.30 [facility] [id number] [place] [address] 23528 -3823 Nov, [facility] [id number] [place] [address] 22991 -4534 Nov, [facility] [address] [place] [address] 88858- 7601 Nov, Screening, iron deficiency anemia Z13.0 [facility] [id number] [place] [address] 27569- 4519 Nov, [facility] [id number] [place] [address] 62450 -8053 Nov, Possible exposure to STD Z20.2 and Trichomoniasis A59.9 [facility] [id number] [place] [address] 31726- 2776 Nov, [facility] [id number] [place] [address] 44479- 8051 Nov, Encounter for test Z32.00 [facility] [address] [address] -5892 07 Apr, 2016 Periodontal abscess K05.21 [facility] [id number] [place] [address] 76665- 5568 07 Feb, 2015 Family history of diabetes mellitus V18.0 ; Fatigue 780.79 and Pain in both feet 729.5 [facility] [address] 34416- 6433 16 Jan, 2015 Bipolar affective disorder, depressed, moderate 296.52 and Posttraumatic stress disorder 309.81 [facility] [id number] [place] [address] 02356- 3031 Jan, [facility] [id number] [place] [address] 02701- 9206 14 Nov, 2014 [facility] [id number] [place] [address] 99953- 4440 Nov, [facility] [id number] [place] [address] 40198- 8861 Oct, [facility] [id number] [place] [address] 99636- 2672 Oct, [facility] [id number] [place] [address] 33346- 7611 Oct, [facility] [id number] [place] [address] 98458- 8526 Oct, [facility] [id number] [place] [address] 73960- 3010 Sep, [facility] [id number] [place] [address] 32837- 6253 Sep, [facility] [id number] [place] [address] 84005- 6177 Sep, [facility] [id number] [place] [address] 30747- 4390 Sep, [facility] [id number] [address]- 9679 Sep, [facility] [address] [address]- 7245 Sep, [facility] [address] [address]- 5480 Sep, [facility] [address] [address]- 2890 Aug, [facility] [address], [place] [address]- 8526 Aug, [facility] [address], [place] [address]- 9131 Aug, [facility] [address], [place] [address]- 7030 Aug, [facility] [address], [place] [address]- 5184 Aug, [facility] [address], [place] [address]- 9354 Oct, [facility] [address] [address]- 9724 Oct, [facility] [address], [place] [address]- 6062 Aug, [facility] [id number] [address]- 6753 Aug, IMMUNIZATIONS Vaccine Route Administration Date Status RHOGAM FULL DOSE IM Intramuscular Apr 26, 2018 Administered TDAP (BOOSTRIX) IM Intramuscular Apr 26, 2018 Administered SOCIAL HISTORY Never Assessed REASON FOR VISIT OB 2wk f/u, OB Dip, TDap today-awoods PLAN OF CARE Activity Details Follow Up 2 Weeks, 2 Weeks Reason: VITAL SIGNS Height 65 in 2018-04-26 Weight 255.1 lbs 2018-04-26 Temperature 98.3 degrees Fahrenheit 2018-04-26 Heart Rate 120 bpm 2018-04-26 Respiratory Rate 20 2018-04-26 BMI 42.451 kg/m2 2018-04-26 Blood pressure systolic 126 mmHg 2018-04-26 Blood pressure diastolic 69 mmHg 2018-04-26 MEDICATIONS Medication Instructions Dosage Frequency Start Date End Date Duration Status Escitalopram Oxalate 10 mg Orally Once a day 1 tablet 24h Nov, 30 day(s) Active Acetaminophen 500 mg Orally 3 times a day 2 tablets as needed 8h 11 Feb, 2018 Active Vol-Care Rx 1 MG Orally Once a day 1 tablet 24h Jan, 90 days Active RESULTS No Results PROCEDURES Procedure Date Ordered Result Body Site URINE-NO MICRO Apr 26, 2018 TDAP (BOOSTRIX) Apr 26, 2018 THER/PROPH/DIAG INJ, SC/IM Apr 26, 2018 RH IG, FULL-DOSE, IM Apr 26, 2018 [facility] Apr 26, 2018 SINGLE IMMUNIZATION ADMIN Apr 26, 2018 VENIPUNCT, ROUTINE* Apr 26, 2018 INSTRUCTIONS MEDICATIONS ADMINISTERED No Known Medications [...]
--- OUTSIDE RECORDS SUMMARY | 2018-06-10 01:51 | XMS REPORT ---
Author Author SHAHLAGENNARO [facility] Address [address] [place] [address] Care Team Providers Care Hose Operator Name Role Phone GENNARO GALE Unavailable PROBLEMS Type Condition ICD9-CM Code [id number] Code Onset Dates Condition Status SNOMED Code Problem Other atopic dermatitis L20.89 Active 71634753 Problem Chlamydial infection A74.9 Active 757392369 Problem Unspecified blood type, Rh negative Z67.91 Active 282750841 Problem Bipolar depression F31.30 Active 97714629 Problem Supervision of other high risk pregnancies, unspecified trimester O09.899 Active 531140250 ALLERGIES No Information ENCOUNTERS Encounter Location Date Diagnosis [place] [id number] [place] [address] 84526- 8506 Jun, [place] [id number] [place] [address] 59593- 0457 Jun, [place] [id number] [place] [address] 30085- 1296 Jun, [place] [id number] [place] [address] 08639- 4542 May, [place] [id number] [place] [address] 00540- 2660 May, [place] [id number] [place] [address] 60782- 1051 Apr, BMI 40.0-44.9, adult Z68.41 ; Third trimester Z34.93 ; URI with cough and congestion J06.9 ; Other atopic dermatitis L20.89 ; 32 weeks gestation of Z3A.32 and Bipolar depression F31.30 [place] [address] 53299- 4977 Apr, [place] [id number] [place] [address] 78111- 8459 Apr, [place] [address] 95811- 4270 Apr, Possible exposure to STD Z20.2 ; BMI 40.0-44.9, adult Z68.41 and Pruritus L29.9 [place] [address] 22581- 9593 Apr, [place] [address] 76810- 9269 13 Apr, 2018 Third trimester Z34.93 ; Encounter for immunization Z23 ; BMI 40.0-44.9, adult Z68.41 ; Unspecified blood type, Rh negative Z67.91 and 30 weeks gestation of Z3A.30 [place] [address] 32168- 9580 11 Apr, 2018 Screening for STD (sexually transmitted disease) Z11.3 and Abnormal glucose level R73.09 [place] [address] 02241- 6268 06 Apr, 2018 Abnormal glucose level R73.09 [place] [id number] [place] [address] 51251- 6484 04 Apr, 2018 [place] [id number] [place] [address] 09842- 0493 Mar, care in third trimester Z34.93 [place] [id number] [place] [address] 83659- 8955 27 Mar, 2018 care in third trimester Z34.93 ; Evaluate anatomy not seen on prior sonogram Z04.8 and BMI 40.0-44.9, adult Z68.41 [facility] [address] [place] [address] 37749 -0097 Mar, BMI 40.0-44.9, adult Z68.41 ; Screening for STD (sexually transmitted disease) Z11.3 and High risk sexual behavior, unspecified type Z72.51 [facility] [address] [place] [address] 65613- 8802 Feb, [facility] [id number] [place] [address] 81429- 3040 Feb, [facility] [id number] [place] [address] 66993- 3274 Feb, Second trimester Z34.92 ; Chlamydial infection A74.9 ; Other maternal infectious and parasitic diseases complicating , first trimester O98.811 ; 23 weeks gestation of Z3A.23 and Evaluate anatomy not seen on prior sonogram Z04.8 [facility] [id number] [place] [address] 27134- 7858 Feb, [facility] [id number] [place] [address] 62203- 1391 Feb, [facility] [id number] [place] [address] 31877- 4780 Feb, [facility] [address] [id number] Jan, [facility] [id number] [place] [address] 94453- 8284 Jan, Second trimester Z34.92 and 19 weeks gestation of Z3A.19 [facility] [address] [place] [address] 81072- 1488 Jan, [facility] [address] [place] [address] [id number] Jan, Dental examination Z01.20 [facility] [id number] [place] [address] 30886 -3376 Jan, Mouth pain K13.79 [facility] [id number] [place] [address] 96137- 8782 Jan, [facility] [address] [place] [address]- 3070 Jan, [facility] [id number] [place] [address] 12980- 4146 December, Second trimester Z34.92 ; 14 weeks gestation of Z3A.14 and Substance abuse 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, antepartum O99.322 [facility] [id number] [place] [address] 94161- 8013 December, [facility] [id number] [place] [address] 51896- 8421 Nov, [facility] [id number] [place] [address] 78298- 0690 Nov, [facility] [id number] [place] [address] 46724- 5604 Nov, care, subsequent in first trimester Z34.81 ; 7 weeks gestation of Z3A.01 and Bipolar depression F31.30 [facility] [id number] [place] [address] 51642 -5463 Nov, [facility] [id number] [place] [address] 21353 -2946 Nov, [facility] [address] [place] [address] 70084- 7598 Nov, Screening, iron deficiency anemia Z13.0 [facility] [id number] [place] [address] 86241- 0917 Nov, [facility] [id number] [place] [address] 51799 -7329 Nov, Possible exposure to STD Z20.2 and Trichomoniasis A59.9 [facility] [id number] [place] [address] 70576- 3856 Nov, [facility] [id number] [place] [address] 80973- 3548 Nov, Encounter for test Z32.00 [facility] [address] [address] 07 Apr, 2016 Periodontal abscess K05.21 [facility] [id number] [place] [address] 60565- 7009 07 Feb, 2015 Family history of diabetes mellitus V18.0 ; Fatigue 780.79 and Pain in both feet 729.5 [facility] [address] 23401- 8344 16 Jan, 2015 Bipolar affective disorder, depressed, moderate 296.52 and Posttraumatic stress disorder 309.81 [facility] [id number] [place] [address] 65657- 0426 Jan, [facility] [id number] [place] [address] 02312- 0964 14 Nov, 2014 [facility] [id number] [place] [address] 80063- 4205 Nov, [facility] [id number] [place] [address] 11968- 6881 Oct, [facility] [id number] [place] [address] 97968- 2057 Oct, [facility] [id number] [place] [address] 50676- 3731 Oct, [facility] [id number] [place] [address] 20663- 9567 Oct, [facility] [id number] [place] [address] 07815- 4203 Sep, [facility] [id number] [place] [address] 55292- 9742 Sep, [facility] [id number] [place] [address] 61875- 9639 Sep, [facility] [id number] [place] [address] 99505- 7442 Sep, [facility] [id number] [address]- 7122 Sep, [facility] [address]- 2360 Sep, [facility] [address] 3433 Sep, [facility] [address] 9527 Aug, [facility] [address] [address]- 3598 Aug, [facility] [address] [address]- 2131 Aug, [facility] [address] [address]- 1155 Aug, [facility] [address] [address]- 2580 Aug, [facility] [address] [address]- 8268 Oct, [facility] [address]- 7165 Oct, [facility] [address] [address]- 4487 Aug, [facility] [id number] [address]- 5448 Aug, IMMUNIZATIONS No Known Immunizations SOCIAL HISTORY Never Assessed REASON FOR VISIT PLAN OF CARE VITAL SIGNS MEDICATIONS Unknown Medications RESULTS No Results PROCEDURES No Known procedures [...]
--- OUTSIDE RECORDS SUMMARY | 2018-06-10 01:51 | XMS REPORT ---
Author Author GENNARO GALE [facility] Address [address] [place] [address] Care Team Providers Care Neurology Nurse Name Role Phone GENNARO GALE Unavailable PROBLEMS ALLERGIES No Information ENCOUNTERS IMMUNIZATIONS No Known Immunizations SOCIAL HISTORY No smoking Hx information available REASON FOR VISIT PLAN OF CARE VITAL SIGNS MEDICATIONS Unknown Medications RESULTS No Results PROCEDURES No Known procedures INSTRUCTIONS MEDICATIONS ADMINISTERED No Known Medications MEDICAL (GENERAL) HISTORY
--- OUTSIDE RECORDS SUMMARY | 2018-06-10 01:51 | XMS REPORT ---
Author Author SHAHLAGENNARO [facility] Address [address] [place] [address] Care Team Providers Care Autotransfusionist Name Role Phone SHAHLAMARY KAY VELIZHANY Unavailable PROBLEMS Type Condition ICD9-CM Code [id number] Code Onset Dates Condition Status SNOMED Code Problem Other atopic dermatitis L20.89 Active 16954033 Problem Chlamydial infection A74.9 Active 255408730 Problem Unspecified blood type, Rh negative Z67.91 Active 826610874 Problem Bipolar depression F31.30 Active 08122905 Problem Supervision of other high risk pregnancies, unspecified trimester O09.899 Active 404421675 ALLERGIES No Information ENCOUNTERS Encounter Location Date Diagnosis [place] [id number] [place] [address] 08851- 1065 Jun, [place] [id number] [place] [address] 61760- 8432 Jun, [place] [id number] [place] [address] 37048- 0747 Jun, [place] [id number] [place] [address] 02469- 1134 May, [place] [id number] [place] [address] 33768- 2167 May, [place] [id number] [place] [address] 11253- 4213 May, BMI 40.0-44.9, adult Z68.41 ; care in third trimester Z34.93 ; Atypical pneumonia J18.9 and Transverse lie of fetus, single or unspecified fetus O32.2XX0 [place] [id number] [place] [address] 91998- 4096 May, Supervision of other high risk pregnancies, unspecified trimester O09.899 [place] [id number] [place] [address] 57843- 1157 May, [place] [address] 22634- 4365 Apr, BMI 40.0-44.9, adult Z68.41 ; Third trimester Z34.93 ; URI with cough and congestion J06.9 ; Other atopic dermatitis L20.89 ; 32 weeks gestation of Z3A.32 and Bipolar depression F31.30 [place] [id number] [place] [address] 19511- 4921 Apr, [place] [address] 21837- 4009 Apr, [place] [address] 31816- 0308 Apr, Possible exposure to STD Z20.2 ; BMI 40.0-44.9, adult Z68.41 and Pruritus L29.9 [place] [id number] [place] [address] 77969- 0356 Apr, [place] [address] 03499- 1014 13 Apr, 2018 Third trimester Z34.93 ; Encounter for immunization Z23 ; BMI 40.0-44.9, adult Z68.41 ; Unspecified blood type, Rh negative Z67.91 and 30 weeks gestation of Z3A.30 [place] [id number] [place] [address] 51882- 1433 11 Apr, 2018 Screening for STD (sexually transmitted disease) Z11.3 and Abnormal glucose level R73.09 [place] [id number] [place] [address] 67520- 4177 06 Apr, 2018 Abnormal glucose level R73.09 [place] [id number] [place] [address] 37337- 5092 04 Apr, 2018 [facility] [address] [address]- 2274 Mar, care in third trimester Z34.93 [facility] [place] [address] [place] [address] 30571- 2561 27 Mar, 2018 care in third trimester Z34.93 ; Evaluate anatomy not seen on prior sonogram Z04.8 and BMI 40.0-44.9, adult Z68.41 [facility] [address] [place] [address] 69803 -5797 Mar, BMI 40.0-44.9, adult Z68.41 ; Screening for STD (sexually transmitted disease) Z11.3 and High risk sexual behavior, unspecified type Z72.51 [facility] [place] [address] [place] [address] 52856- 4545 Feb, [facility] [place] [address] [place] [address] 26188- 0177 Feb, [facility] [place] [address] [place] [address] 81889- 5234 Feb, Second trimester Z34.92 ; Chlamydial infection A74.9 ; Other maternal infectious and parasitic diseases complicating , first trimester O98.811 ; 23 weeks gestation of Z3A.23 and Evaluate anatomy not seen on prior sonogram Z04.8 [facility] [place] [address] [place] [address] 14159- 9687 Feb, [facility] [place] [address] [address]- 7039 Feb, [facility] [place] [id number] [place] [address] 47982- 4536 Feb, [facility] [id number] [place] [address] [id number] Jan, [facility] [place] [id number] [address]- 2116 Jan, Second trimester Z34.92 and 19 weeks gestation of Z3A.19 [facility] [place] [address] [address]- 0664 Jan, [facility] [address] [id number] Jan, Dental examination Z01.20 [facility] [id number] [address] -3112 Jan, Mouth pain K13.79 [facility] [place] [id number] [place] [address] 03473- 8148 Jan, [facility] [place] [id number] [place] [address] 99463- 1824 Jan, [facility] [place] [id number] [place] [address] 10752- 9891 December, Second trimester Z34.92 ; 14 weeks gestation of Z3A.14 and Substance abuse 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, antepartum O99.322 [facility] [place] [id number] [place] [address] 43174- 9901 December, [facility] [place] [id number] [place] [address] 53377- 1819 Nov, [facility] [place] [address] [address]- 9754 Nov, [facility] [place] [address] [place] [address] 99144- 0952 Nov, care, subsequent in first trimester Z34.81 ; 7 weeks gestation of Z3A.01 and Bipolar depression F31.30 [facility] [address] [address] -4894 Nov, [facility] [id number] [address] -4507 Nov, [facility] [place] [address] [address]- 4139 Nov, Screening, iron deficiency anemia Z13.0 [facility] [place] [id number] [place] [address] 36621- 8525 12 Nov, 2017 [facility] [id number] [place] [address] 22739 -0002 Nov, Possible exposure to STD Z20.2 and Trichomoniasis A59.9 [facility] [place] [address] 53320- 8140 Nov, [facility] [place] [address] 72416- 1466 Nov, Encounter for test Z32.00 [facility] [address] 60839 -2416 07 Apr, 2016 Periodontal abscess K05.21 [place] [address] 57013- 4507 07 Feb, 2015 Family history of diabetes mellitus V18.0 ; Fatigue 780.79 and Pain in both feet 729.5 [place] [id number] [place] [address] 69106- 7108 16 Jan, 2015 Bipolar affective disorder, depressed, moderate 296.52 and Posttraumatic stress disorder 309.81 [place] [id number] [place] [address] 45523- 0715 11 Jan, 2015 [place] [id number] [place] [address] 70491- 2184 14 Nov, 2014 [facility] [place] [id number] [place] [address] 88714- 0203 13 Nov, 2014 [place] [address] 97178- 1737 16 Oct, 2014 [facility] [place] [address] 42622- 5898 16 Oct, 2014 [facility] [place] [id number] [place] [address] 82150- 7154 03 Oct, 2014 [facility] [place] [facility] [address] [id number] [place] [address]- 0791 Oct, [facility] [place] [facility] [address] [id number] [place] [address]- 8610 Sep, 2014 [facility] [place] [facility] [address] [id number] [place] [address]- 6526 Sep, 2014 [facility] [place] [facility] [address] [id number] [place] [address]- 5546 Sep, 2014 [facility] [place] [facility] [address] [id number] [place] [address]- 6411 Sep, 2014 [facility] [place] [facility] [address] [id number] [place] [address]- 6694 Sep, [facility] [place] [facility] [address] [facility] [id number] [place] [address]- 9711 Sep, [facility] [place] [facility] [address] [facility] [id number] [place] [address]- 4984 Sep, [facility] [place] [facility] [address] [facility] [id number] [place] [address]- 5705 Aug, [facility] [place] [facility] [address] [facility] [id number] [place] [address]- 0103 Aug, [facility] [place] [facility] [address] [facility] [id number] [place] [address]- 7246 Aug, [facility] [place] [facility] [address] [id number] [address]- 0803 Aug, [facility] [place] [facility] [address] [id number] [place] [address]- 8135 Aug, [facility] [place] [facility] [address] [id number] [place] [address]- 1398 Oct, [facility] [place] [facility] [address] [id number] [place] [address]- 9813 Oct, [facility] [place] [facility] [address] [id number] [place] [address]- 9102 Aug, [facility] [place] [address] [facility] [id number] [place] [address]- 2859 Aug, IMMUNIZATIONS No Known Immunizations SOCIAL HISTORY Never Assessed REASON FOR VISIT Requests return call PLAN OF CARE VITAL SIGNS MEDICATIONS Unknown [...] Hospitalization History Childbirth Hospitalization History kidney infection 2018
--- OUTSIDE RECORDS SUMMARY | 2018-06-10 01:52 | XMS REPORT ---
Author Author SHAHLA GENNARO [facility] Address [address] [place] [address] Care Team Providers Care Metal Cleaner Name Role Phone PETE GALEY Unavailable PROBLEMS Type Condition ICD9-CM Code YPU39-YW Code Onset Dates Condition Status SNOMED Code Problem Chlamydial infection A74.9 Active 524185483 Problem Second trimester Z34.92 Active 03569620 Problem Unspecified blood type, Rh negative Z67.91 Active 442965823 Problem Bipolar depression F31.30 Active 72834103 Problem Supervision of other high risk pregnancies, unspecified trimester O09.899 Active 452328172 ALLERGIES No Information ENCOUNTERS Encounter Location Date Diagnosis [facility] [id number] [place] [address] 01371- 9972 Jun, [facility] [id number] [place] [address] 90682- 2920 Jun, [facility] [id number] [place] [address] 97120- 2954 Jun, [facility] [address] [address] 6792 May, [facility] [id number] [place] [address] 01278- 1263 May, [facility] [id number] [place] [address] 07176- 3986 Apr, [facility] [id number] [place] [address] 18502- 0777 Apr, [facility] [address] [address] 3039 Apr, [facility] [address] [place] [address] 10151- 2205 20 Apr, 2018 Possible exposure to STD Z20.2 ; BMI 40.0-44.9, adult Z68.41 and Pruritus L29.9 [facility] [id number] [place] [address] 61139- 8466 19 Apr, 2018 [facility] [id number] [place] [address] 89107- 8528 13 Apr, 2018 Third trimester Z34.93 ; Encounter for immunization Z23 ; BMI 40.0-44.9, adult Z68.41 ; Unspecified blood type, Rh negative Z67.91 and 30 weeks gestation of Z3A.30 [facility] [facility] [address] 05794- 0903 11 Apr, 2018 Screening for STD (sexually transmitted disease) Z11.3 and Abnormal glucose level R73.09 [place] [address] 48285- 6965 06 Apr, 2018 Abnormal glucose level R73.09 [facility] [facility] [address] 20896- 9472 04 Apr, 2018 [place] [address] 81628- 7834 Mar, care in third trimester Z34.93 [facility] [id number] [place] [address] 76895- 4605 Mar, care in third trimester Z34.93 ; Evaluate anatomy not seen on prior sonogram Z04.8 and BMI 40.0-44.9, adult Z68.41 [facility] [id number] [place] [address] 47145 -9016 Mar, BMI 40.0-44.9, adult Z68.41 ; Screening for STD (sexually transmitted disease) Z11.3 and High risk sexual behavior, unspecified type Z72.51 [facility] [id number] [place] [address] 26147- 3149 Feb, [facility] [address] [place] [address] 30056- 1126 Feb, [facility] [id number] [place] [address] 05480- 1590 Feb, Second trimester Z34.92 ; Chlamydial infection A74.9 ; Other maternal infectious and parasitic diseases complicating , first trimester O98.811 ; 23 weeks gestation of Z3A.23 and Evaluate anatomy not seen on prior sonogram Z04.8 [facility] [id number] [place] [address] 26338- 2616 Feb, [facility] [id number] [place] [address] 66749- 0062 Feb, [facility] [id number] [place] [address] 34396- 5769 Feb, [facility] [id number] [place] [address] [id number] Jan, [facility] [id number] [place] [address] 87660- 6059 Jan, Second trimester Z34.92 and 19 weeks gestation of Z3A.19 [facility] [id number] [place] [address] 23164- 2631 Jan, [facility] [address] [place] [address] [id number] Jan, Dental examination Z01.20 [facility] [address] [place] [address] 79425 -5215 Jan, Mouth pain K13.79 [facility] [id number] [place] [address] 45264- 4166 Jan, [facility] [id number] [place] [address] 26686- 8399 Jan, [facility] [address] [place] [address] 66070- 9454 December, Second trimester Z34.92 ; 14 weeks gestation of Z3A.14 and Substance abuse 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, antepartum O99.322 [facility] [id number] [place] [address] 60381- 8528 December, [facility] [id number] [place] [address] 73838- 3418 Nov, [facility] [facility] [address] 22981- 8263 Nov, [facility] [id number] [place] [address] 39090- 0410 Nov, care, subsequent in first trimester Z34.81 ; 7 weeks gestation of Z3A.01 and Bipolar depression F31.30 [facility] [id number] [place] [address] 47997 -8049 Nov, [facility] [place] [address] 76753 -5150 Nov, [facility] [id number] [place] [address] 58521- 6119 Nov, Screening, iron deficiency anemia Z13.0 [facility] [facility] [id number] [place] [address] 40424- 4292 Nov, [facility] [place] [id number] [place] [address] 14224 -8431 Nov, Possible exposure to STD Z20.2 and Trichomoniasis A59.9 [facility] [facility] [id number] [place] [address] 39874- 6506 Nov, [facility] [facility] [address] 89667- 4664 Nov, Encounter for test Z32.00 [facility] [id number] [place] [address] 98108 -8623 07 Apr, 2016 Periodontal abscess K05.21 [place] [address] 19503- 7946 Feb, Family history of diabetes mellitus V18.0 ; Fatigue 780.79 and Pain in both feet 729.5 [facility] [id number] [place] [address] 82828- 7346 Jan, Bipolar affective disorder, depressed, moderate 296.52 and Posttraumatic stress disorder 309.81 [facility] [id number] [place] [address] 24782- 9456 Jan, [facility] [id number] [place] [address] 43608- 5329 Nov, [facility] [id number] [place] [address] 14438- 3234 Nov, [facility] [id number] [place] [address] 20910- 6750 Oct, [facility] [id number] [place] [address] 117490- 7674 Oct, [facility] [id number] [place] [address] 80249- 9796 Oct, [facility] [id number] [place] [address] 760624- 3452 Oct, [facility] [id number] [place] [address] 427235- 0853 Sep, [facility] [id number] [place] [address] 34933- 1076 Sep, [facility] [address] [address] 2546 Sep, [facility] [id number] [place] [address] 15596- 4366 Sep, [facility] [address] [address]- 2546 Sep, [facility] [id number] [place] [address] 62402- 4932 Sep, [facility] [id number] [address]- 0608 Sep, [facility] [address] 5424 Aug, [facility] [address] [address]- 6051 Aug, [facility] [address]- 8265 Aug, [facility] [address] [address]- 0028 Aug, [facility] [id number] [place] [address] 781756- 9755 Aug, [facility] [address] [address]- 6936 Oct, [facility] [address] [address]- 2075 Oct, [facility] [address] [address]- 0446 Aug, [facility] [address] [address]- 9931 Aug, IMMUNIZATIONS No Known Immunizations SOCIAL HISTORY Never Assessed REASON FOR VISIT OB f/u -- jacque vang, patient wants to do the GTT and CBC tomorrow PLAN OF CARE Activity Details Follow Up 2 Weeks Reason: Pending Test UA OB DIP (IN HOUSE) VITAL SIGNS Height 65 in 2018-04-09 Weight 249.0 lbs 2018-04-09 Temperature 97.4 degrees Fahrenheit 2018-04-09 Heart Rate 90 bpm 2018-04-09 Respiratory Rate 20 2018-04-09 BMI 41.436 kg/m2 2018-04-09 Blood pressure systolic 126 mmHg 2018-04-09 Blood pressure diastolic 78 mmHg 2018-04-09 MEDICATIONS Medication Instructions Dosage Frequency Start Date End Date Duration Status Vol-Care Rx 1 MG Orally Once a day 1 tablet 24h Jan, 90 days Active Acetaminophen 500 mg Orally 3 times a day 2 tablets as needed 8h 11 Feb, 2018 Active Escitalopram Oxalate 10 mg Orally Once a day 1 tablet 24h Nov, 30 day(s) Active RESULTS Name Result Date Reference Range Ultrasound : OB, Follow-up 2018-04-19 PROCEDURES Procedure Date Ordered Result Body Site URINE-NO MICRO Apr 09, 2018 INSTRUCTIONS MEDICATIONS ADMINISTERED No Known Medications [...]
--- OUTSIDE RECORDS SUMMARY | 2018-06-10 01:52 | XMS REPORT ---
Author Author SHAHLAGENNARO [facility] Address [address] [place] [address] Care Team Providers Care Logging Operations Inspector Name Role Phone PETE GALEY Unavailable PROBLEMS Type Condition ICD9-CM Code IYF53-UX Code Onset Dates Condition Status SNOMED Code Problem Chlamydial infection A74.9 Active 459263936 Problem Second trimester Z34.92 Active 38335275 Problem Unspecified blood type, Rh negative Z67.91 Active 707188674 Problem Bipolar depression F31.30 Active 92822260 Problem Supervision of other high risk pregnancies, unspecified trimester O09.899 Active [id number] ALLERGIES No Information ENCOUNTERS Encounter Location Date Diagnosis [facility] [address] [place] [address] 92344- 4434 Jun, [facility] [address] [place] [address] 14412- 9544 Jun, [facility] [address] [place] [address] 83844- 3020 Jun, [facility] [address], [place] [address]- 7409 May, [facility] [address], [place] [address]- 8400 May, [facility] [address], [place] [address]- 6153 Apr, [facility] [address] [place] [address] 04894- 7882 Apr, [facility] [address], [place] [address]- 6583 06 Apr, 2018 Abnormal glucose level R73.09 [facility] [address], [place] [address]- 3160 Apr, [facility] [address], [place] [address]- 2445 Mar, care in third trimester Z34.93 [facility] [address], [place] [address]- 4781 27 Mar, 2018 care in third trimester Z34.93 ; Evaluate anatomy not seen on prior sonogram Z04.8 and BMI 40.0-44.9, adult Z68.41 [facility] [id number] [address] -[address] Mar, BMI 40.0-44.9, adult Z68.41 ; Screening for STD (sexually transmitted disease) Z11.3 and High risk sexual behavior, unspecified type Z72.51 [facility] [address] [place] [address] 22757- 2916 Feb, [facility] [address], [place] [address]- 7635 Feb, [facility] [address] [place] [address] 26223- 8640 Feb, Second trimester Z34.92 ; Chlamydial infection A74.9 ; Other maternal infectious and parasitic diseases complicating , first trimester O98.811 ; 23 weeks gestation of Z3A.23 and Evaluate anatomy not seen on prior sonogram Z04.8 [facility] [address], [place] [address]- 7560 Feb, [facility] [address], [place] [address]- 4477 Feb, [facility] [address] [place] [address] 80030- 9866 Feb, [facility] [id number] [place] [id number] Jan, [facility] [address] [place] [address] 25728- 0927 Jan, Second trimester Z34.92 and 19 weeks gestation of Z3A.19 [facility] [address], [place] [address]- 6433 Jan, [facility] [address] [id number] Jan, Dental examination Z01.20 [facility] [id number] [place] [address] 92246 -6756 Jan, Mouth pain K13.79 [facility] [id number] [place] [address] 74352- 6127 Jan, [facility] [id number] [place] [address] 16475- 5718 Jan, [facility] [id number] [place] [address] 59520- 7833 December, Second trimester Z34.92 ; 14 weeks gestation of Z3A.14 and Substance abuse 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, antepartum O99.322 [facility] [id number] [place] [address] 87322- 6233 December, [facility] [address] [place] [address] 71060- 1158 Nov, [facility] [address], [place] [address]- 2760 Nov, [facility] [id number] [place] [address] 24218- 1275 Nov, care, subsequent in first trimester Z34.81 ; 7 weeks gestation of Z3A.01 and Bipolar depression F31.30 [facility] [address], [place] [address] -4715 Nov, [facility] [address], [place] [address] -6205 Nov, [facility] [id number] [place] [address] 71829- 2400 Nov, Screening, iron deficiency anemia Z13.0 [facility] [address] 29604- 2325 12 Nov, 2017 [facility] [id number] [place] [address] 32457 -0572 Nov, Possible exposure to STD Z20.2 and Trichomoniasis A59.9 [facility] [address] 84829- 4838 Nov, [facility] [address] 53320- 7386 Nov, Encounter for test Z32.00 [facility] [id number] [place] [address] 87558 -5423 07 Apr, 2016 Periodontal abscess K05.21 [place] [address] 53646- 1338 07 Feb, 2015 Family history of diabetes mellitus V18.0 ; Fatigue 780.79 and Pain in both feet 729.5 [place] [address] 80726- 8598 16 Jan, 2015 Bipolar affective disorder, depressed, moderate 296.52 and Posttraumatic stress disorder 309.81 [facility] [facility] [id number] [place] [address] 28359- 0575 Jan, [facility] [id number] [place] [address] 85765- 6756 14 Nov, 2014 [facility] [id number] [place] [address] 56962- 5823 13 Nov, 2014 [place] [address] 67135- 0392 16 Oct, 2014 [place] [id number] [place] [address] 98958- 6597 16 Oct, 2014 [facility] [address] [place] [address]- 9081 Oct, [facility] [place] [facility] [address] [id number] [place] [address]- 8647 Oct, [facility] [place] [facility] [address] [id number] [place] [address]- 9466 Sep, 2014 [facility] [place] [facility] [address] [id number] [place] [address]- 8976 Sep, 2014 [facility] [place] [facility] [address] [id number] [place] [address] 2546 Sep, 2014 [facility] [place] [facility] [address] [id number] [place] [address]- 4536 Sep, 2014 [facility] [place] [facility] [address] [facility] [id number] [place] [address] 2546 Sep, [facility] [place] [facility] [address] [facility] [id number] [place] [address] 2544 Sep, 2014 [facility] [place] [facility] [address] [id number] [place] [address]- 7149 Sep, [facility] [place] [facility] [address] [facility] [id number] [place] [address]- 5884 Aug, [facility] [place] [facility] [address] [facility] [id number] [place] [address]- 7353 Aug, [facility] [place] [facility] [address] [facility] [id number] [place] [address]- 2399 Aug, [facility] [place] [facility] [address] [id number] [place] [address] 2548 Aug, [facility] [place] [facility] [address] [facility] [id number] [place] [address]- 1006 Aug, [facility] [place] [facility] [address] [facility] [id number] [place] [address] 2546 Oct, [facility] [place] [facility] [address] [facility] [id number] [place] [address] 2547 Oct, [facility] [address] [facility] [id number] [place] [address]- 6426 Aug, [facility] [address] [facility] [id number] [address]- 7176 Aug, IMMUNIZATIONS No Known Immunizations SOCIAL HISTORY Never Assessed REASON FOR VISIT Patient concerns PLAN OF CARE VITAL SIGNS MEDICATIONS Unknown [...]
--- OUTSIDE RECORDS SUMMARY | 2018-06-10 01:52 | XMS REPORT ---
Author Author JOCELYN Peng [facility] IN [facility] Address [address] [place] [address] Care Team Providers Care Surgical Corsetier Name Role Phone JOCELYN Peng Unavailable PROBLEMS Type Condition ICD9-CM Code LCY01-ZE Code Onset Dates Condition Status SNOMED Code Problem Chlamydial infection A74.9 Active 681861981 Problem Second trimester Z34.92 Active 05205766 Problem Unspecified blood type, Rh negative Z67.91 Active 621944206 Problem Bipolar depression F31.30 Active 63440225 Problem Supervision of other high risk pregnancies, unspecified trimester O09.899 Active 875632801 ALLERGIES No Known Allergies ENCOUNTERS Encounter Location Date Diagnosis [place] [id number] [place] [address] 47253- 6342 Jun, [place] [id number] [place] [address] 84281- 1874 Jun, [place] [id number] [place] [address] 22959- 9633 Jun, [place] [id number] [place] [address] 98523- 9796 May, [place] [id number] [place] [address] 06558- 9755 May, [place] [id number] [place] [address] 61009- 5929 Apr, [place] [id number] [place] [address] 97817- 2495 Apr, Third trimester Z34.93 ; Encounter for immunization Z23 ; BMI 40.0-44.9, adult Z68.41 ; Unspecified blood type, Rh negative Z67.91 and 30 weeks gestation of Z3A.30 [place] [address], [place] [address] 11 Apr, 2018 Screening for STD (sexually transmitted disease) Z11.3 and Abnormal glucose level R73.09 [place] [address], [place] [address] 06 Apr, 2018 Abnormal glucose level R73.09 [place] [id number] [place] [address] 15688- 2803 04 Apr, 2018 [place] [id number] [place] [address] 70964- 3134 Mar, care in third trimester Z34.93 [place] [id number] [place] [address] 23801- 6729 27 Mar, 2018 care in third trimester Z34.93 ; Evaluate anatomy not seen on prior sonogram Z04.8 and BMI 40.0-44.9, adult Z68.41 [facility]ALK IN [facility] [address] [address] 10 Mar, 2018 BMI 40.0-44.9, adult Z68.41 ; Screening for STD (sexually transmitted disease) Z11.3 and High risk sexual behavior, unspecified type Z72.51 [place] [address], [place] [address] 8[address] Feb, [place] [address] [address] 7292 Feb, [place] [address] [place] [address] 04734- 5907 Feb, Second trimester Z34.92 ; Chlamydial infection A74.9 ; Other maternal infectious and parasitic diseases complicating , first trimester O98.811 ; 23 weeks gestation of Z3A.23 and Evaluate anatomy not seen on prior sonogram Z04.8 [place] [id number] [place] [address] 80498- 0403 Feb, [facility] [address], [place] [address] 04[address] Feb, [facility] [id number] [place] [address] 46380- 8283 Feb, [facility] [id number] [id number] Jan, [facility] [id number] [place] [address] 29848- 4927 Jan, Second trimester Z34.92 and 19 weeks gestation of Z3A.19 [facility] [id number] [place] [address] 27063- 9880 Jan, [facility] [id number] [place] [address] [id number] Jan, Dental examination Z01.20 [facility] [id number] [place] [address] 12213 -1217 Jan, Mouth pain K13.79 [facility] [id number] [place] [address] 40866- 0748 Jan, [facility] [id number] [place] [address] 53708- 5461 Jan, [facility] [address], [place] [address] 3868 December, Second trimester Z34.92 ; 14 weeks gestation of Z3A.14 and Substance abuse 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, antepartum O99.322 [facility] [address] [place] [address] 22695- 7073 December, [facility] [id number] [place] [address] 91177- 4642 Nov, [facility] [address], [place] [address] 9183 Nov, [facility] [id number] [place] [address] 93918- 7553 Nov, care, subsequent in first trimester Z34.81 ; 7 weeks gestation of Z3A.01 and Bipolar depression F31.30 [facility] IN [address] [address] Nov, [facility] [address] [address] Nov, [address] [address]- 1598 Nov, Screening, iron deficiency anemia Z13.[address] 96232- 3297 Nov, [facility] IN [address] 8[address]1744 Nov, Possible exposure to STD Z20.2 and Trichomoniasis A59.[address] 59621- 7689 Nov, [address] 96432- 0344 Nov, Encounter for test Z32.00 [facility] [address] [address]2284 07 Apr, 2016 Periodontal abscess K05.[address] 50783- 7858 07 Feb, 2015 Family history of diabetes mellitus V18.0 ; Fatigue 780.79 and Pain in both feet 729.[address] 20107- 8940 16 Jan, 2015 Bipolar affective disorder, depressed, moderate 296.52 and Posttraumatic stress disorder 309.[address] 29594- 0633 11 Jan, [address] 64358- 5453 14 Nov, 2014 [facility] [place] [facility] [address] [id number] [place] [address]- 9755 13 Nov, 2014 [facility] [place] [facility] [address] [id number] [place] [address]- 2465 16 Oct, 2014 [facility] [place] [facility] [address] [id number] [place] [address]- 6336 Oct, [facility] [place] [facility] [address] [id number] [place] [address]- 2776 Oct, [facility] [place] [facility] [address] [id number] [place] [address]- 9771 Oct, [facility] [place] [facility] [address] [id number] [place] [address]- 1676 Sep, [facility] [place] [facility] [address] [facility] [id number] [place] [address]- 5406 Sep, [facility] [place] [facility] [address] [id number] [place] [address]- 9813 Sep, [facility] [place] [facility] [address] [id number] [place] [address]- 7157 Sep, [facility] [place] [facility] [address] [facility] [id number] [place] [address]- 9382 Sep, [facility] [place] [facility] [address] [id number] [place] [address]- 4066 Sep, [facility] [place] [facility] [address] [id number] [place] [address]- 8113 Sep, [facility] [place] [facility] [address] [id number] [place] [address]- 2496 Aug, [facility] [place] [facility] [address] [id number] [place] [address]- 0286 Aug, [facility] [place] [facility] [address] [facility] [id number] [place] [address]- 4036 Aug, [facility] [place] [facility] [address] [facility] [id number] [address] 3317 Aug, [facility] [address] [facility] [id number] [address] [address] Aug, [facility] [address] [facility] [id number][place] 4951 Oct, [facility] [address] [facility] [id number] 6039 Oct, [facility] [address] [facility] [id number][place] [address] 3693 Aug, [facility] [address] [facility] [id number][place] [address] Aug, IMMUNIZATIONS No Known Immunizations SOCIAL HISTORY Never Assessed REASON FOR VISIT STD check--ROSETTA Aguila PLAN OF CARE Activity Details Follow Up prn Reason: VITAL SIGNS Height 65 in 2018-03-23 Weight 245.4 lbs 2018-03-23 Temperature 97.7 degrees Fahrenheit 2018-03-23 Heart Rate 100 bpm 2018-03-23 Respiratory Rate 18 2018-03-23 BMI 40.83 kg/m2 2018-03-23 Blood pressure systolic 118 mmHg 2018-03-23 Blood pressure diastolic 54 mmHg 2018-03-23 MEDICATIONS Medication Instructions Dosage Frequency Start Date End Date Duration Status Vol-Care Rx 1 MG Orally Once a day 1 tablet 24h 25 Jan, 2018 90 days Active Acetaminophen 500 mg Orally 3 times a day 2 tablets as needed 8h 11 Feb, 2018 Active Escitalopram Oxalate 10 mg Orally Once a day 1 tablet 24h Nov, 30 day(s) Active RESULTS No Results PROCEDURES Procedure Date Ordered Result Body Site No Charge Mar 23, 2018 LAB NOT BILLED BY [facility] Mar 23, 2018 Bacterial Vaginosis In House Mar 23, 2018 INSTRUCTIONS MEDICATIONS ADMINISTERED No Known Medications [...]
--- OUTSIDE RECORDS SUMMARY | 2018-06-10 01:52 | XMS REPORT ---
Author Author SHAHLAGENNARO [facility] Address [address] [place] [address] Care Team Providers Care School Bus Aide Name Role Phone GENNARO GALE Unavailable PROBLEMS Type Condition ICD9-CM Code SWM88-FP Code Onset Dates Condition Status SNOMED Code Problem Other atopic dermatitis L20.89 Active 02425643 Problem Chlamydial infection A74.9 Active 777809592 Problem Unspecified blood type, Rh negative Z67.91 Active 788770209 Problem Bipolar depression F31.30 Active 04992902 Problem Supervision of other high risk pregnancies, unspecified trimester O09.899 Active 868800236 ALLERGIES No Information ENCOUNTERS Encounter Location Date Diagnosis [place] [id number] [place] [address] 52939- 8582 Jun, [place] [id number] [place] [address] 98646- 9699 Jun, [place] [id number] [place] [address] 96908- 8516 Jun, [place] [id number] [place] [address] 52803- 9060 May, [place] [id number] [place] [address] 45926- 5732 May, [place] [id number] [place] [address] 18136- 1026 Apr, BMI 40.0-44.9, adult Z68.41 ; Third trimester Z34.93 ; URI with cough and congestion J06.9 ; Other atopic dermatitis L20.89 ; 32 weeks gestation of Z3A.32 and Bipolar depression F31.30 [place] [address] 89244- 6464 Apr, [place] [id number] [place] [address] 81521- 0526 Apr, [place] [address] 21338- 0706 Apr, Possible exposure to STD Z20.2 ; BMI 40.0-44.9, adult Z68.41 and Pruritus L29.9 [place] [address] 13263- 3521 Apr, [place] [address] 03076- 8398 13 Apr, 2018 Third trimester Z34.93 ; Encounter for immunization Z23 ; BMI 40.0-44.9, adult Z68.41 ; Unspecified blood type, Rh negative Z67.91 and 30 weeks gestation of Z3A.30 [place] [address] 53623- 7697 11 Apr, 2018 Screening for STD (sexually transmitted disease) Z11.3 and Abnormal glucose level R73.09 [place] [address] 44344- 2178 06 Apr, 2018 Abnormal glucose level R73.09 [place] [id number] [place] [address] 98970- 6166 04 Apr, 2018 [place] [id number] [place] [address] 16104- 2715 Mar, care in third trimester Z34.93 [place] [id number] [place] [address] 53816- 3013 27 Mar, 2018 care in third trimester Z34.93 ; Evaluate anatomy not seen on prior sonogram Z04.8 and BMI 40.0-44.9, adult Z68.41 [facility] [address] [place] [address] 20915 -1501 Mar, BMI 40.0-44.9, adult Z68.41 ; Screening for STD (sexually transmitted disease) Z11.3 and High risk sexual behavior, unspecified type Z72.51 [facility] [address] [place] [address] 03661- 2037 Feb, [facility] [id number] [place] [address] 26125- 0697 Feb, [facility] [id number] [place] [address] 40861- 0386 Feb, Second trimester Z34.92 ; Chlamydial infection A74.9 ; Other maternal infectious and parasitic diseases complicating , first trimester O98.811 ; 23 weeks gestation of Z3A.23 and Evaluate anatomy not seen on prior sonogram Z04.8 [facility] [id number] [place] [address] 46887- 9727 Feb, [facility] [id number] [place] [address] 98467- 9819 Feb, [facility] [id number] [place] [address] 40145- 4602 Feb, [facility] [address] [id number] Jan, [facility] [id number] [place] [address] 77858- 5542 Jan, Second trimester Z34.92 and 19 weeks gestation [address] Z3A.19 [facility] [address] [place] [address] 49471- 4265 Jan, [facility] [address] [place] [address] [id number] Jan, Dental examination Z01.20 [facility] [id number] [place] [address] 49493 -0074 Jan, Mouth pain K13.79 [facility] [id number] [place] [address] 84438- 9559 Jan, [facility] [address] [address], [place] [address] 3263 Jan, [facility] [id number] [place] [address] 91273- 9980 December, Second trimester Z34.92 ; 14 weeks gestation of Z3A.14 and Substance abuse 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, antepartum O99.322 [facility] [id number] [place] [address] 52256- 5320 December, [facility] [id number] [place] [address] 68970- 2346 Nov, [facility] [id number] [place] [address] 14707- 6709 Nov, [facility] [id number] [place] [address] 29583- 7732 Nov, care, subsequent in first trimester Z34.81 ; 7 weeks gestation of Z3A.01 and Bipolar depression F31.30 [facility] [id number] [place] [address] 44658 -7022 Nov, [facility] [id number] [place] [address] 82000 -6590 Nov, [facility] [address] [place] [address] 94962- 6692 Nov, Screening, iron deficiency anemia Z13.0 [facility] [id number] [place] [address] 81904- 4525 Nov, [facility] [id number] [place] [address] 75517 -1623 Nov, Possible exposure to STD Z20.2 [address]9 [facility] [id number] [place] [address] 43877- 3767 Nov, [facility] [id number] [place] [address] 92567- 5368 Nov, Encounter for test Z32.00 [facility] [address], [place] [address]7 07 Apr, [address] [facility] [id number] [place] [address] 84619- 2271 07 Feb, 2015 Family history of diabetes mellitus V18.0 ; Fatigue 780.79 and Pain in both feet 729.5 [facility] [address] 23088- 9610 16 Jan, 2015 Bipolar affective disorder, depressed, moderate 296.52 and Posttraumatic stress disorder 309.81 [facility] [id number] [place] [address] 36083- 9453 Jan, [facility] [id number] [place] [address] 54101- 1782 14 Nov, 2014 [facility] [id number] [place] [address] 07351- 0860 Nov, [facility] [id number] [place] [address] 74012- 3437 Oct, [facility] [id number] [place] [address] 74814- 7301 Oct, [facility] [id number] [place] [address] 17236- 9351 Oct, [facility] [id number] [place] [address] 41434- 8188 Oct, [facility] [id number] [place] [address] 74816- 7767 Sep, [facility] [id number] [place] [address] 28612- 0755 Sep, [facility] [id number] [place] [address] 73087- 8738 Sep, [facility] [id number] [place] [address] 65642- 7694 Sep, [facility] [id number], [place] [address]- 2153 Sep, [facility] [address]- 3014 Sep, [facility] [address]- 7[address] Sep, [facility] [address]- 7882 Aug, [facility] [id number] [address]- 1556 Aug, [facility] [address] [address]- 8506 Aug, [facility] [address] [address]- 9755 Aug, [facility] [address], [place] [address]- 9237 Aug, [facility] [address], [place] [address]- 0656 Oct, [facility] [address] [address]- 6674 Oct, [facility] [address], [place] [address]- 2307 Aug, [facility] [id number], [place] [address]- 9006 Aug, IMMUNIZATIONS No Known Immunizations SOCIAL HISTORY Never Assessed REASON FOR VISIT Deferred Lab PLAN OF CARE VITAL SIGNS MEDICATIONS Unknown [...]
--- OUTSIDE RECORDS SUMMARY | 2018-06-10 01:52 | XMS REPORT ---
Author Author SHAHLA GENNARO [facility] Address [address] [place] [address] Care Team Providers Care Ortho/Prosthetic Aide Name Role Phone SHAHLAMARY KAY VELIZHANY Unavailable PROBLEMS Type Condition ICD9-CM Code EBW67-MW Code Onset Dates Condition Status SNOMED Code Problem Chlamydial infection A74.9 Active 118561526 Problem Second trimester Z34.92 Active 52332275 Problem Unspecified blood type, Rh negative Z67.91 Active 271882915 Problem Bipolar depression F31.30 Active 52405522 Problem Supervision of other high risk pregnancies, unspecified trimester O09.899 Active 486386241 ALLERGIES No Information ENCOUNTERS Encounter Location Date Diagnosis [place] [address] [address] Apr, [place] [id number] [place] [address]26- [address]69 20 Apr, 2018 Possible exposure to STD Z20.2 ; BMI 40.0-44.9, adult Z68.41 and Pruritus L29.9 [place] [id number] [place] [address] 83348- 1904 Apr, [place] [id number] [place] [address] 59774- 4410 13 Apr, 2018 Third trimester Z34.93 ; Encounter for immunization Z23 ; BMI 40.0-44.9, adult Z68.41 ; Unspecified blood type, Rh negative Z67.91 and 30 weeks gestation of Z3A.30 [place] [id number] [place] [address] 88719- 9400 11 Apr, 2018 Screening for STD (sexually transmitted disease) Z11.3 and Abnormal glucose level R73.09 [address] [place] [address] 4[address] 06 Apr, 2018 Abnormal glucose level R73.09 [facility] [address], [place] [address] Apr, [facility] [address] [place] [id number] [address] 0137 Mar, care in third trimester Z34.93 [facility] [address], [place] [address] 27 Mar, 2018 care in third trimester Z34.93 ; Evaluate anatomy not seen on prior sonogram Z04.8 and BMI 40.0-44.9, adult Z68.41 [facility] [address] [place] [id number] [address] Mar, BMI 40.0-44.9, adult Z68.41 ; Screening for STD (sexually transmitted disease) Z11.3 and High risk sexual behavior, unspecified type Z72.51 [facility] [address], [place] [address] Feb, [facility] [address] [address] Feb, [facility] [address] [place] [id number], [place] [address] Feb, Second trimester Z34.92 ; Chlamydial infection A74.9 ; Other maternal infectious and parasitic diseases complicating , first trimester O98.811 ; 23 weeks gestation of Z3A.23 and Evaluate anatomy not seen on prior sonogram Z04.8 [facility] [address] [place] [id number], [place] [address] 4637 Feb, [facility] [address], [place] [address] 6[address] Feb, [facility] [address] [place] [address] [id number], [place] [address] 9[address] Feb, [facility] [id number] [id number] Jan, [facility] [address], [place] [address] 39[address] Jan, Second trimester Z34.92 and 19 weeks gestation of Z3A.19 [facility] [address], [place] [address] Jan, [facility] [address] [id number] Jan, Dental examination Z01.20 [facility] [address] [place] [id number] [place] [address] 6[address]74 -3801 Jan, Mouth pain K13.79 [facility] [address] [place] [id number], [place] [address] 7673 Jan, [place] [id number] [place] [address] 66472- 5648 Jan, [facility] [address] [place] [id number] [address]- 2573 December, Second trimester Z34.92 ; 14 weeks gestation of Z3A.14 and Substance abuse 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, antepartum O99.322 [facility] [address], [place] [address] 3595 December, [facility] [address], [place] [address]- 8655 Nov, [facility] [address], [place] [address]- 3898 Nov, [facility] [address] [place] [id number] [place] [address] 92362- 3276 Nov, care, subsequent in first trimester Z34.81 ; 7 weeks gestation of Z3A.01 and Bipolar depression F31.30 [facility] [address], [place] [address] Nov, [facility] [address], [place] [address] Nov, [facility] [address] [place] [id number] [place] [address] 69794- 4518 Nov, Screening, iron deficiency anemia Z13.0 [facility] [address] [place] [id number] [place] [address] 28630- 1292 Nov, [facility] [address] [place] [id number] [place] [address] 71976 -2973 Nov, Possible exposure to STD Z20.2 and Trichomoniasis A59.9 [facility] [address] [address]- 26[address] Nov, [facility] [address] [place] [id number] [place] [address] 17017- 4746 Nov, Encounter for test Z32.00 [facility] [address] [place] [id number] [place] [address] 79664 -9046 07 Apr, 2016 Periodontal abscess K05.21 [facility] [address] [place] [id number] [place] [address] 60807- 2850 07 Feb, 2015 Family history of diabetes mellitus V18.0 ; Fatigue 780.79 and Pain in both feet 729.5 [place] [address] [place] [id number] [place] [address] 14120- 4010 16 Jan, 2015 Bipolar affective disorder, depressed, moderate 296.52 and Posttraumatic stress disorder 309.81 [facility] [address] [place] [id number] [place] [address] 60817- 6932 11 Jan, 2015 [facility] [address] [place] [id number] [place] [address] 78741- 8449 14 Nov, 2014 [facility] [address] [place] [id number] [place] [address] 08491- 6192 13 Nov, 2014 [facility] [address] [place] [address] 91459- 1565 16 Oct, 2014 [facility] [address] [place] [id number] [place] [address]- 49[address] Oct, [facility] [place] [facility] [address] [id number] [place] [address]- 5075 Oct, [facility] [place] [facility] [address] [id number] [place] [address]- 1876 Oct, [facility] [place] [facility] [address] [id number] [place] [address]- 6409 Sep, 2014 [facility] [place] [facility] [address] [id number] [place] [address]- 1078 Sep, 2014 [facility] [place] [facility] [address] [id number] [place] [address]- 5509 Sep, 2014 [facility] [place] [facility] [address] [id number] [place] [address]- 1001 Sep, 2014 [facility] [place] [facility] [address] [id number] [place] [address]- 7606 Sep, [facility] [place] [facility] [address] [id number] [place] [address]- 7337 Sep, [facility] [place] [facility] [address] [facility] [id number] [place] [address]- 9463 Sep, [facility] [place] [facility] [address] [facility] [id number] [place] [address]- 7141 Aug, [facility] [place] [facility] [address] [id number] [place] [address]- 7257 Aug, [facility] [place] [facility] [address] [id number] [place] [address]- 8782 Aug, [facility] [place] [facility] [address] [id number] [place] [address]- 4281 Aug, [facility] [place] [facility] [address] [id number] [place] [address]- 2122 Aug, [facility] [place] [facility] [address] [id number] [place] [address]- 4151 Oct, [facility] [address] [facility] [id number] [place] [address]- 8646 Oct, [facility] [address] [facility] [id number], [place] [address]- 9966 Aug, [facility] [address] [facility] [id number] [place] [address]- 7566 Aug, IMMUNIZATIONS No Known Immunizations SOCIAL HISTORY Never Assessed REASON FOR VISIT Lab (walk-in) PLAN OF CARE VITAL SIGNS MEDICATIONS Unknown Medications RESULTS No Results PROCEDURES Procedure Date Ordered Result Body Site LAB NOT BILLED BY [facility] Apr 10, 2018 INSTRUCTIONS MEDICATIONS ADMINISTERED No Known Medications [...]
[2018-06-10] MEDS ORDERED: LACTATED RINGERS 1,000 ML IV ONE ×2 (01:53→02:35)
--- OUTSIDE RECORDS SUMMARY | 2018-06-10 01:53 | XMS REPORT ---
Author Author SHAHLAGENNARO [facility] Address [address] [place] [address] Care Team Providers Care Manager Analytical Name Role Phone PETE GALEY Unavailable PROBLEMS Type Condition ICD9-CM Code IRS17-PH Code Onset Dates Condition Status SNOMED Code Problem Chlamydial infection A74.9 Active 549352438 Problem Second trimester Z34.92 Active 48399946 Problem Unspecified blood type, Rh negative Z67.91 Active 070385098 Problem Bipolar depression F31.30 Active 99405363 Problem Supervision of other high risk pregnancies, unspecified trimester O09.899 Active 562700768 ALLERGIES No Information ENCOUNTERS Encounter Location Date Diagnosis [facility] [id number] [place] [address] 04567- 9636 Jun, [facility] [id number] [place] [address] 69332- 1954 Jun, [facility] [id number] [place] [address] 34501- 2781 Jun, [facility] [address] [address]- 5084 May, [facility] [address] [address]- 7161 May, [facility] [address] [address]- 7528 Apr, [facility] [id number] [place] [address] 71720- 1303 Apr, [facility] [address] [address]- 0101 06 Apr, 2018 Abnormal glucose level R73.09 [facility] [address] [address]- 5335 Apr, [facility] [address] [address]- 6819 Mar, care in third trimester Z34.93 [facility] [address] [address]- 9375 27 Mar, 2018 care in third trimester Z34.93 ; Evaluate anatomy not seen on prior sonogram Z04.8 and BMI 40.0-44.9, adult Z68.41 [facility] [address] [place] [id number] [address] Mar, BMI 40.0-44.9, adult Z68.41 ; Screening for STD (sexually transmitted disease) Z11.3 and High risk sexual behavior, unspecified type Z72.51 [facility] [id number] [place] [address] 37864- 5766 Feb, [facility] [address] [address]- 7949 Feb, [facility] [id number] [place] [address] 98111- 9812 Feb, Second trimester Z34.92 ; Chlamydial infection A74.9 ; Other maternal infectious and parasitic diseases complicating , first trimester O98.811 ; 23 weeks gestation of Z3A.23 and Evaluate anatomy not seen on prior sonogram Z04.8 [facility] [address] [address]- 1870 Feb, [facility] [address] [address]- 6896 Feb, [facility] [id number] [place] [address] 40637- 0028 Feb, [facility] [id number] [place] [address] Jan, [facility] [id number] [place] [address] 72201- 4593 Jan, Second trimester Z34.92 and 19 weeks gestation of Z3A.19 [facility] [address] [address]- 9036 Jan, [facility] [address] [address] Jan, Dental examination Z01.20 [facility] [address] [place] [id number] [place] [address] 90047 -8719 Jan, Mouth pain K13.79 [facility] [address] [place] [id number] [place] [address] 92478- 8783 Jan, [facility] [address] [place] [id number] [place] [address] 24041- 3937 Jan, [facility] [address] [place] [id number] [place] [address] 04253- 5380 December, Second trimester Z34.92 ; 14 weeks gestation of Z3A.14 and Substance abuse 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, antepartum O99.322 [facility] [address] [place] [id number] [place] [address] 38440- 5788 December, [facility] [id number] [place] [address] 97418- 2816 Nov, [facility] [address] [address]- 5386 Nov, [facility] [address] [place] [id number] [place] [address] 56599- 7001 Nov, care, subsequent in first trimester Z34.81 ; 7 weeks gestation of Z3A.01 and Bipolar depression F31.30 [facility] [address] [address] Nov, [facility] [address] [address]9 Nov, [facility] [address] [place] [id number] [place] [address] 97674- 6610 Nov, Screening, iron deficiency anemia Z13.0 [facility] [address] 7[address]41- 6694 12 Nov, 2017 [facility] [address] [place] [id number] [place] [address] 55579 -9806 Nov, Possible exposure to STD Z20.2 and Trichomoniasis A59.9 [facility] [address] 79764- 7184 Nov, [facility] [address] 91595- 3274 Nov, Encounter for test Z32.00 [facility] [address] [place] [id number] [place] [address] 08893 -9754 07 Apr, 2016 Periodontal abscess K05.21 [place] [address] 43873- 1221 07 Feb, 2015 Family history of diabetes mellitus V18.0 ; Fatigue 780.79 and Pain in both feet 729.5 [place] [address] 16087- 5796 16 Jan, 2015 Bipolar affective disorder, depressed, moderate 296.52 and Posttraumatic stress disorder 309.81 [place] [address] [place] [id number] [place] [address] 43153- 0740 Jan, [facility] [address] [place] [id number] [place] [address] 51209- 6026 14 Nov, 2014 [facility] [address] [place] [id number] [place] [address] 67165- 0606 13 Nov, 2014 [place] [address] 12148- 6889 16 Oct, 2014 [place] [address] [place] [id number] [place] [address] 91467- 2253 16 Oct, 2014 [facility] [address] [place] [address]- 9113 Oct, [facility] [place] [facility] [address] [id number] [place] [address]- 6240 Oct, [facility] [place] [facility] [address] [id number] [place] [address]- 6516 Sep, 2014 [facility] [place] [facility] [address] [id number] [place] [address]- 4106 Sep, 2014 [facility] [place] [facility] [address] [id number] [place] [address] 2546 Sep, 2014 [facility] [place] [facility] [address] [id number] [place] [address]- 0486 Sep, 2014 [facility] [place] [facility] [address] [facility] [id number] [place] [address] 2546 Sep, [facility] [place] [facility] [address] [facility] [id number] [place] [address] 2549 Sep, 2014 [facility] [place] [facility] [address] [id number] [place] [address]- 8131 Sep, [facility] [place] [facility] [address] [facility] [id number] [place] [address]- 5701 Aug, [facility] [place] [facility] [address] [facility] [id number] [place] [address]- 3096 Aug, [facility] [place] [facility] [address] [facility] [id number] [place] [address]- 0210 Aug, [facility] [place] [facility] [address] [id number] [place] [address] 2547 Aug, [facility] [place] [facility] [address] [facility] [id number] [place] [address]- 8716 Aug, [facility] [place] [facility] [address] [facility] [id number] [place] [address] 2546 Oct, [facility] [place] [facility] [address] [facility] [id number] [place] [address] 3913 Oct, [facility] [address] [facility] [id number] [place] [address]- 4269 Aug, [facility] [address] [facility] [id number] [address]- 6116 Aug, IMMUNIZATIONS No Known Immunizations SOCIAL HISTORY Never Assessed REASON FOR VISIT OB 4wk f/u-awoods PLAN OF CARE Activity Details Follow Up 4 Weeks Reason: VITAL SIGNS Height 65 in 2018-03-02 Weight 239 lbs 2018-03-02 Temperature 98.1 degrees Fahrenheit 2018-03-02 Heart Rate 93 bpm 2018-03-02 Respiratory Rate 18 2018-03-02 BMI 39.772 kg/m2 2018-03-02 Blood pressure systolic 110 mmHg 2018-03-02 Blood pressure diastolic 58 mmHg 2018-03-02 MEDICATIONS Medication Instructions Dosage Frequency Start Date End Date Duration Status Escitalopram Oxalate 10 mg Orally Once a day 1 tablet 24h Nov, 30 day(s) Active Acetaminophen 500 mg Orally 3 times a day 2 tablets as needed 8h Feb, Active Vol-Care Rx 1 MG Orally Once a day 1 tablet 24h Jan, 90 days Active RESULTS No Results PROCEDURES Procedure Date Ordered Result Body Site URINE-NO MICRO March 02, 2018 LAB NOT BILLED BY [facility] March 02, 2018 INSTRUCTIONS MEDICATIONS ADMINISTERED No Known Medications [...]
--- OUTSIDE RECORDS SUMMARY | 2018-06-10 01:53 | XMS REPORT ---
Author Author DANIKA TYLER [facility] Address Unknown Care Team Providers Care Shipping Room Helper Name Role Phone DANIKA TYLER Unavailable PROBLEMS Type Condition ICD9-CM Code NMX23-WF Code Onset Dates Condition Status SNOMED Code Problem Chlamydial infection A74.9 Active 227595112 Problem Second trimester Z34.92 Active 31352119 Problem Unspecified blood type, Rh negative Z67.91 Active 841494943 Problem Bipolar depression F31.30 Active 35712858 Problem Supervision of other high risk pregnancies, unspecified trimester O09.899 Active 954825052 ALLERGIES No Known Allergies ENCOUNTERS Encounter Location Date Diagnosis [facility] [id number] [place] [address] 13727- 0278 Jun, [facility] [id number] [place] [address] 63709- 9472 Jun, [facility] [id number] [place] [address] 99062- 1545 Jun, [facility] [id number] [place] [address] 47383- 9603 May, [facility] [id number] [place] [address] 85282- 9341 May, [facility] [id number] [place] [address] 77635- 8881 Apr, [facility] [id number] [place] [address] 38254- 9979 Apr, [facility] [id number] [place] [address] 64401- 6533 Mar, care in third trimester Z34.93 [facility] [id number] [place] [address] 51667- 4957 Mar, care in third trimester Z34.93 and Evaluate anatomy not seen on prior sonogram Z04.8 [facility] [address] [place] [address] 30044 -8736 Mar, BMI 40.0-44.9, adult Z68.41 ; Screening for STD (sexually transmitted disease) Z11.3 and High risk sexual behavior, unspecified type Z72.51 [facility] [id number] [place] [address] 54158- 6513 Feb, [facility] [id number] [place] [address] 17246- 0965 Feb, [facility] [id number] [place] [address] 88397- 7601 Feb, Second trimester Z34.92 ; Chlamydial infection A74.9 ; Other maternal infectious and parasitic diseases complicating , first trimester O98.811 ; 23 weeks gestation of Z3A.23 and Evaluate anatomy not seen on prior sonogram Z04.8 [facility] [address] [place] [address] 64388- 3662 Feb, [facility] [id number] [place] [address] 65666- 6122 Feb, [facility] [address] [place] [address] 61469- 8883 Feb, [facility] [id number] [place] [address] [id number] Jan, [facility] [address] [place] [address] 09571- 3491 Jan, Second trimester Z34.92 and 19 weeks gestation of Z3A.19 [facility] [id number] [place] [address] 57337- 7018 Jan, [facility] [id number] [place] [address] [id number] Jan, Dental examination Z01.20 [facility] [id number] [place] [address] 30894 -8061 Jan, Mouth pain K13.79 [facility] [id number] [place] [address] 41208- 0705 Jan, [facility] [id number] [place] [address] 72329- 2329 Jan, [facility] [id number] [place] [address] 44331- 8447 December, Second trimester Z34.92 ; 14 weeks gestation of Z3A.14 and Substance abuse 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, antepartum O99.322 [place] [id number] [place] [address] 08576- 6503 December, [place] [id number] [place] [address] 04980- 9901 Nov, [facility] [id number] [place] [address] 24965- 8942 Nov, [facility] [id number] [place] [address] 62760- 3715 Nov, care, subsequent in first trimester Z34.81 ; 7 weeks gestation of Z3A.01 and Bipolar depression F31.30 [facility] [id number] [place] [address] 15733 -8817 Nov, [facility] [id number] [place] [address] 51276 -6099 Nov, [facility] [id number] [place] [address] 16765- 4143 Nov, Screening, iron deficiency anemia Z13.0 [place] [id number] [place] [address] 61390- 1427 Nov, [facility] [id number] [place] [address] 66268 -9378 Nov, Possible exposure to STD Z20.2 and Trichomoniasis A59.9 [facility] [id number] [address]- 6275 10 Nov, 2017 [facility] [id number] [place] [address] 42147- 6454 10 Nov, 2017 Encounter for test Z32.00 [facility] [id number] [place] [address] 06053 -9093 07 Apr, 2016 Periodontal abscess K05.21 [facility] [id number] [place] [address] 25242- 8132 07 Feb, 2015 Family history of diabetes mellitus V18.0 ; Fatigue 780.79 and Pain in both feet 729.5 [facility] [id number] [place] [address] 40566- 7129 16 Jan, 2015 Bipolar affective disorder, depressed, moderate 296.52 and Posttraumatic stress disorder 309.81 [facility] [id number] [place] [address] 86357- 8761 11 Jan, 2015 [facility] [id number] [place] [address] 43206- 6097 14 Nov, 2014 [facility] [id number] [place] [address] 50121- 5124 13 Nov, 2014 [facility] [id number] [place] [address] 43089- 0925 16 Oct, 2014 [facility] [id number] [place] [address] 93990- 3746 Oct, [facility] [id number] [place] [address] 89729- 9540 Oct, [facility] [id number] [place] [address] 07034- 5955 Oct, [facility] [address] [place] [address] 85628- 4007 Sep, [facility] [address] [place] [address]- 3824 Sep, 2014 [facility] [address] [address]- 1240 Sep, [facility] [address] [address]- 8026 Sep, 2014 [facility] [address] [address]- 7752 Sep, 2014 [facility] [address] 1741 Sep, [facility] [id number] [place] [address] 580434- 2463 Sep, [facility] [address] [address]- 7753 Aug, [facility] [address] [address]- 3820 Aug, [facility] [address] [address]- 4491 Aug, [facility] [address] [address]- 4875 Aug, [facility] [address] [address]- 0668 Aug, [facility] [address] [address]- 8969 Oct, [facility] [address] [address]- 3407 Oct, [facility] [address] [address]- 1318 Aug, [facility] [address] [address]- 3231 Aug, IMMUNIZATIONS No Known Immunizations SOCIAL HISTORY Never Assessed REASON FOR VISIT PLAN OF CARE Activity Details Follow Up prn Reason:referred (#17 and #18) VITAL SIGNS Height 65 in 2018-01-23 Blood pressure systolic 145 mmHg 2018-01-23 Blood pressure diastolic 96 mmHg 2018-01-23 MEDICATIONS Medication Instructions Dosage Frequency Start Date End Date Duration Status Amoxicillin 500 MG Orally every 8 hrs 1 tablet 8h 10 day(s) Active Escitalopram Oxalate 10 mg Orally Once a day 1 tablet 24h Nov, 30 day(s) Active 28-0.8 MG Orally daily 1 24h Nov, Active RESULTS No Results PROCEDURES Procedure Date Ordered Result Body Site LTD ORAL EVALUATION - PROBLEM FOCUS January 23, 2018 INTRAORL-PERIAPICAL 1 FILM [id number] January 23, 2018 BITEWING - SINGLE FILM January 23, 2018 INSTRUCTIONS MEDICATIONS ADMINISTERED No Known [...]
--- OUTSIDE RECORDS SUMMARY | 2018-06-10 01:53 | XMS REPORT ---
Author Author SHAHLAGENNARO [facility] Address [address] [place] [address] Care Team Providers Care Farrowing Worker Name Role Phone PETE GALEY Unavailable PROBLEMS Type Condition ICD9-CM Code JAX82-SR Code Onset Dates Condition Status SNOMED Code Problem Chlamydial infection A74.9 Active 667128335 Problem Second trimester Z34.92 Active 20019287 Problem Unspecified blood type, Rh negative Z67.91 Active 065277986 Problem Bipolar depression F31.30 Active 99336866 Problem Supervision of other high risk pregnancies, unspecified trimester O09.899 Active 857911274 ALLERGIES No Information ENCOUNTERS Encounter Location Date Diagnosis [facility] [id number] [place] [address] 14842- 7159 Jun, [facility] [address] [place] [address] 20825- 1606 Jun, [facility] [address] [place] [address] 00192- 0975 Jun, [facility] [address] [address]- 7326 May, [facility] [address], [place] [address]- 7209 May, [facility] [address], [place] [address]- 6727 Apr, [facility] [address] [place] [address] 41857- 6037 Apr, [facility] [address], [place] [address]- 9158 06 Apr, 2018 Abnormal glucose level R73.09 [facility] [address], [place] [address]- 0770 Apr, [facility] [address] [address]- 1728 Mar, care in third trimester Z34.93 [facility] [address], [place] [address]- 1021 27 Mar, 2018 care in third trimester Z34.93 ; Evaluate anatomy not seen on prior sonogram Z04.8 and BMI 40.0-44.9, adult Z68.41 [facility] [id number] [address] -6891 Mar, BMI 40.0-44.9, adult Z68.41 ; Screening for STD (sexually transmitted disease) Z11.3 and High risk sexual behavior, unspecified type Z72.51 [facility] [address] [place] [address] 69670- 2965 Feb, [facility] [address], [place] [address]- 8023 Feb, [facility] [address] [place] [address] 30052- 7328 Feb, Second trimester Z34.92 ; Chlamydial infection A74.9 ; Other maternal infectious and parasitic diseases complicating , first trimester O98.811 ; 23 weeks gestation of Z3A.23 and Evaluate anatomy not seen on prior sonogram Z04.8 [facility] [address], [place] [address]- 7919 Feb, [facility] [address], [place] [address]- 1551 Feb, [facility] [address] [place] [address] 48760- 4184 Feb, [facility] [id number] [id number] Jan, [facility] [address] [place] [address] 26441- 6124 Jan, Second trimester Z34.92 and 19 weeks gestation of Z3A.19 [facility] [address] [address]- 9708 Jan, [facility] [address] [address] Jan, Dental examination Z01.20 [facility] [id number] [place] [address] 79950 -3313 Jan, Mouth pain K13.79 [facility] [id number] [place] [address] 83414- 3399 Jan, [facility] [id number] [place] [address] 95165- 7872 Jan, [facility] [id number] [place] [address] 77163- 7700 December, Second trimester Z34.92 ; 14 weeks gestation of Z3A.14 and Substance abuse 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, antepartum O99.322 [facility] [id number] [place] [address] 84541- 0722 December, [facility] [address] [place] [address] 67998- 2815 Nov, [facility] [address], [place] [address]- 7062 Nov, [facility] [id number] [place] [address] 86832- 6549 Nov, care, subsequent in first trimester Z34.81 ; 7 weeks gestation of Z3A.01 and Bipolar depression F31.30 [facility] [address], [place] [address] -8925 Nov, [facility] [address], [place] [address] -4577 Nov, [facility] [id number] [place] [address] 78707- 1985 Nov, Screening, iron deficiency anemia Z13.0 [facility] [address] 79355- 7689 12 Nov, 2017 [facility] [id number] [place] [address] 85139 -8144 Nov, Possible exposure to STD Z20.2 and Trichomoniasis A59.9 [facility] [address] 08350- 8691 Nov, [facility] [address] 77725- 3587 Nov, Encounter for test Z32.00 [facility] [id number] [place] [address] 06127 -2687 07 Apr, 2016 Periodontal abscess K05.21 [place] [address] 84860- 9165 07 Feb, 2015 Family history of diabetes mellitus V18.0 ; Fatigue 780.79 and Pain in both feet 729.5 [place] [address] 16444- 4070 16 Jan, 2015 Bipolar affective disorder, depressed, moderate 296.52 and Posttraumatic stress disorder 309.81 [place] [id number] [place] [address] 18835- 8994 Jan, [facility] [id number] [place] [address] 04050- 2969 14 Nov, 2014 [facility] [id number] [place] [address] 16352- 4598 13 Nov, 2014 [place] [address] 84057- 2036 16 Oct, 2014 [place] [id number] [place] [address] 96275- 0100 16 Oct, 2014 [facility] [address] [place] [address]- 2130 Oct, [facility] [place] [facility] [address] [id number] [place] [address]- 4390 Oct, [facility] [place] [facility] [address] [id number] [place] [address]- 4536 Sep, 2014 [facility] [place] [facility] [address] [id number] [place] [address]- 6146 Sep, 2014 [facility] [place] [facility] [address] [id number] [place] [address] 2546 Sep, 2014 [facility] [place] [facility] [address] [id number] [place] [address]- 6976 Sep, 2014 [facility] [place] [facility] [address] [facility] [id number] [place] [address] 2546 Sep, [facility] [place] [facility] [address] [facility] [id number] [place] [address] 2545 Sep, 2014 [facility] [place] [facility] [address] [id number] [place] [address]- 6240 Sep, [facility] [place] [facility] [address] [facility] [id number] [place] [address]- 9426 Aug, [facility] [place] [facility] [address] [facility] [id number] [place] [address]- 3636 Aug, [facility] [place] [facility] [address] [facility] [id number] [place] [address]- 8580 Aug, [facility] [place] [facility] [address] [id number] [place] [address] 2544 Aug, [facility] [place] [facility] [address] [facility] [id number] [place] [address]- 4356 Aug, [facility] [place] [facility] [address] [facility] [id number] [place] [address] 2546 Oct, [facility] [place] [facility] [address] [facility] [id number] [place] [address] 4010 Oct, [facility] [address] [facility] [id number] [place] [address]- 1591 Aug, [facility] [address] [facility] [id number] [address]- 5136 Aug, IMMUNIZATIONS No Known Immunizations SOCIAL HISTORY [...]
--- OUTSIDE RECORDS SUMMARY | 2018-06-10 01:53 | XMS REPORT ---
Author Author SHAHLA GENNARO [facility] Address [address] [place] [address] Care Team Providers Care Photographic Aide Name Role Phone PETE GAELY Unavailable PROBLEMS Type Condition ICD9-CM Code MCO12-TF Code Onset Dates Condition Status SNOMED Code Problem Chlamydial infection A74.9 Active 726767185 Problem Second trimester Z34.92 Active 96495038 Problem Unspecified blood type, Rh negative Z67.91 Active 054438079 Problem Bipolar depression F31.30 Active 79362418 Problem Supervision of other high risk pregnancies, unspecified trimester O09.899 Active 460571660 ALLERGIES No Information ENCOUNTERS Encounter Location Date Diagnosis [facility] [id number] [place] [address] 16378- 4518 Jun, [facility] [id number] [place] [address] 13781- 2871 Jun, [facility] [id number] [place] [address] 01193- 2661 Jun, [facility] [address] [address] 8040 May, [facility] [id number] [place] [address] 52583- 8406 May, [facility] [address], [place] [address] 4543 Apr, [facility] [id number] [place] [address] 56735- 3176 Apr, [facility] [address] [address] 1935 Apr, [facility] [id number] [place] [address] 20021- 2591 Mar, care in third trimester Z34.93 [facility] [id number] [place] [address] 28988- 9839 27 Mar, 2018 care in third trimester Z34.93 ; Evaluate anatomy not seen on prior sonogram Z04.8 and BMI 40.0-44.9, adult Z68.41 [facility] [id number] [place] [address] 40146 -2437 Mar, BMI 40.0-44.9, adult Z68.41 ; Screening for STD (sexually transmitted disease) Z11.3 and High risk sexual behavior, unspecified type Z72.51 [place] [id number] [place] [address] 95734- 0634 Feb, [facility] [id number] [place] [address] 87456- 5610 Feb, [facility] [id number] [place] [address] 68366- 0500 Feb, Second trimester Z34.92 ; Chlamydial infection A74.9 ; Other maternal infectious and parasitic diseases complicating , first trimester O98.811 ; 23 weeks gestation of Z3A.23 and Evaluate anatomy not seen on prior sonogram Z04.8 [facility] [address] [place] [address] 79733- 4240 16 Feb, 2018 [facility] [id number] [place] [address] 32561- 0361 Feb, [facility] [id number] [place] [address] 00261- 0176 Feb, [facility] [id number] [place] [address] [id number] Jan, [facility] [id number] [place] [address] 79010- 2399 Jan, Second trimester Z34.92 and 19 weeks gestation of Z3A.19 [facility] [address] [address] 2256 Jan, [facility] [address] [id number] Jan, Dental examination Z01.20 [facility] [address], [place] [address] Jan, Mouth pain K13.79 [facility] [id number] [place] [address] 22826- 9053 Jan, [facility] [id number] [place] [address] 62053- 2364 Jan, [facility] [id number] [place] [address] 05984- 0883 December, Second trimester Z34.92 ; 14 weeks gestation of Z3A.14 and Substance abuse 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, antepartum O99.322 [facility] [id number] [place] [address] 42595- 5609 December, [facility] [id number] [place] [address] 89381- 8845 Nov, [facility] [id number] [place] [address] 02642- 2431 Nov, [facility] [address], [place] [address] 6700 Nov, care, subsequent in first trimester Z34.81 ; 7 weeks gestation of Z3A.01 and Bipolar depression F31.30 [facility] [address], [place] [address] Nov, [facility] [id number] [place] [address] 28969 -1391 Nov, [facility] [address], [place] [address]- 0048 Nov, Screening, iron deficiency anemia Z13.0 [facility] [id number] [place] [address] 58328- 5516 12 Nov, 2017 [facility] [id number] [place] [address] 22340 -8241 Nov, Possible exposure to STD Z20.2 and Trichomoniasis A59.9 [facility] [address] 18276- 8883 Nov, [facility] [address] 48855- 0263 Nov, Encounter for test Z32.00 [facility] [address] 64264 -0036 07 Apr, 2016 Periodontal abscess K05.21 [facility] [address] 17734- 8561 07 Feb, 2015 Family history of diabetes mellitus V18.0 ; Fatigue 780.79 and Pain in both feet 729.5 [facility] [address] 74747- 5404 16 Jan, 2015 Bipolar affective disorder, depressed, moderate 296.52 and Posttraumatic stress disorder 309.81 [facility] [id number] [place] [address] 83218- 8996 11 Jan, 2015 [facility] [id number] [place] [address] 58679- 4368 14 Nov, 2014 [facility] [address] 18948- 4826 13 Nov, 2014 [facility] [id number] [place] [address] 00953- 8711 16 Oct, 2014 [facility] [address] 48986- 3657 16 Oct, 2014 [facility] [id number] [place] [address] 31501- 4860 03 Oct, 2014 [facility] [address] 90638- 5348 Oct, [facility] [place] [facility] [address] [id number] [place] [address]- 6962 Sep, [facility] [place] [facility] [address] [id number] [place] [address]- 3496 Sep, [facility] [place] [facility] [address] [id number] [place] [address]- 6546 Sep, [facility] [place] [facility] [address] [id number] [place] [address]- 4200 Sep, 2014 [facility] [place] [facility] [address] [id number] [place] [address]- 0108 Sep, [facility] [place] [facility] [address] [id number] [place] [address]- 5104 Sep, [facility] [place] [facility] [address] [facility] [id number] [place] [address]- 3157 Sep, [facility] [place] [facility] [address] [facility] [id number] [place] [address]- 7520 Aug, [facility] [place] [facility] [address] [id number] [place] [address]- 6753 Aug, [facility] [place] [facility] [address] [facility] [id number] [place] [address]- 2701 Aug, [facility] [place] [facility] [address] [facility] [id number] [place] [address]- 6121 Aug, [facility] [place] [facility] [address] [id number] [place] [address]- 6346 Aug, [facility] [place] [facility] [address] [id number] [place] [address]- 6312 Oct, [facility] [place] [facility] [address] [facility] [id number] [place] [address]- 0869 Oct, [facility] [place] [facility] [address] [id number] [address]- 0951 Aug, [facility] [address] [facility] [id number] [place] [address]- 3106 Aug, IMMUNIZATIONS No Known Immunizations SOCIAL HISTORY Never Assessed REASON FOR VISIT Rx PLAN OF CARE VITAL SIGNS MEDICATIONS Unknown [...]
--- OUTSIDE RECORDS SUMMARY | 2018-06-10 01:53 | XMS REPORT ---
Author Author SHAHLA GENNARO [facility] Address [address] [place] [address] Care Team Providers Care Multilith Operator Name Role Phone PETE GALEY Unavailable PROBLEMS Type Condition ICD9-CM Code MTI98-OP Code Onset Dates Condition Status SNOMED Code Problem Chlamydial infection A74.9 Active 906017712 Problem Second trimester Z34.92 Active 28634429 Problem Unspecified blood type, Rh negative Z67.91 Active 162399763 Problem Bipolar depression F31.30 Active 82170280 Problem Supervision of other high risk pregnancies, unspecified trimester O09.899 Active [id number] ALLERGIES No Information ENCOUNTERS Encounter Location Date Diagnosis [facility] [id number] [place] [address] 20472- 7987 Jun, [facility] [id number] [place] [address] 62320- 1402 Jun, [facility] [id number] [place] [address] 47240- 3547 Jun, [facility] [address] [address]- 5909 May, [facility] [id number] [place] [address] 58977- 7352 May, [facility] [address] [address]- 5531 Apr, [facility] [id number] [place] [address] 54947- 9735 Apr, [facility] [address] [address]- 3404 Apr, [facility] [id number] [place] [address] 73025- 3746 Mar, care in third trimester Z34.93 [facility] [address] [place] [address] 86836- 1009 27 Mar, 2018 care in third trimester Z34.93 ; Evaluate anatomy not seen on prior sonogram Z04.8 and BMI 40.0-44.9, adult Z68.41 [facility] [address] [place] [address] 63272 -4868 Mar, BMI 40.0-44.9, adult Z68.41 ; Screening for STD (sexually transmitted disease) Z11.3 and High risk sexual behavior, unspecified type Z72.51 [place] [id number] [place] [address] 44977- 2212 Feb, [facility] [address] [place] [address] 55857- 4623 Feb, [facility] [id number] [place] [address] 28558- 0366 Feb, Second trimester Z34.92 ; Chlamydial infection A74.9 ; Other maternal infectious and parasitic diseases complicating , first trimester O98.811 ; 23 weeks gestation of Z3A.23 and Evaluate anatomy not seen on prior sonogram Z04.8 [facility] [address] [place] [address] 91608- 1548 16 Feb, 2018 [facility] [address] [place] [address] 97724- 5157 Feb, [facility] [id number] [place] [address] 15417- 3844 Feb, [facility] [id number] [place] [address] [id number] Jan, [facility] [id number] [place] [address] 87656- 4604 Jan, Second trimester Z34.92 and 19 weeks gestation of Z3A.19 [facility] [address], [place] [address]- 8190 Jan, [facility] [address] [address] Jan, Dental examination Z01.20 [facility] [address], [place] [address]5783 Jan, Mouth pain K13.79 [facility] [id number] [place] [address] 91253- 3248 Jan, [facility] [id number] [place] [address] 08743- 3182 Jan, [facility] [id number] [place] [address] 21197- 7244 December, Second trimester Z34.92 ; 14 weeks gestation of Z3A.14 and Substance abuse 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, antepartum O99.322 [facility] [id number] [place] [address] 01629- 3668 December, [facility] [address] [place] [address] 54858- 3536 Nov, [facility] [id number] [place] [address] 92201- 3921 Nov, [facility] [address], [place] [address]- 2515 Nov, care, subsequent in first trimester Z34.81 ; 7 weeks gestation of Z3A.01 and Bipolar depression F31.30 [facility] [address], [place] [address]94 Nov, [facility] [id number] [place] [address] 19455 -0595 Nov, [facility] [address], [place] [address]- 0245 Nov, Screening, iron deficiency anemia Z13.0 [facility] [id number] [place] [address] 53314- 7290 12 Nov, 2017 [facility] [id number] [place] [address] 64827 -3822 Nov, Possible exposure to STD Z20.2 and Trichomoniasis A59.9 [facility] [address] 57514- 4899 Nov, [facility] [address] 83578- 1915 Nov, Encounter for test Z32.00 [facility] [address] 00881 -9486 07 Apr, 2016 Periodontal abscess K05.21 [facility] [address] 55429- 0480 07 Feb, 2015 Family history of diabetes mellitus V18.0 ; Fatigue 780.79 and Pain in both feet 729.5 [facility] [address] 32482- 9874 16 Jan, 2015 Bipolar affective disorder, depressed, moderate 296.52 and Posttraumatic stress disorder 309.81 [facility] [id number] [place] [address] 01137- 1056 11 Jan, 2015 [facility] [id number] [place] [address] 71347- 9648 14 Nov, 2014 [facility] [address] 62936- 0916 13 Nov, 2014 [facility] [id number] [place] [address] 11602- 9194 16 Oct, 2014 [facility] [address] 27957- 2385 16 Oct, 2014 [facility] [id number] [place] [address] 78374- 5381 03 Oct, 2014 [facility] [address] 41860- 4489 Oct, [facility] [place] [facility] [address] [id number] [place] [address]- 8462 Sep, [facility] [place] [facility] [address] [id number] [place] [address]- 4806 Sep, [facility] [place] [facility] [address] [id number] [place] [address]- 4986 Sep, [facility] [place] [facility] [address] [id number] [place] [address]- 5060 Sep, 2014 [facility] [place] [facility] [address] [id number] [place] [address]- 8577 Sep, [facility] [place] [facility] [address] [id number] [place] [address]- 7315 Sep, [facility] [place] [facility] [address] [facility] [id number] [place] [address]- 7517 Sep, [facility] [place] [facility] [address] [facility] [id number] [place] [address]- 6843 Aug, [facility] [place] [facility] [address] [id number] [place] [address]- 9044 Aug, [facility] [place] [facility] [address] [facility] [id number] [place] [address]- 9539 Aug, [facility] [place] [facility] [address] [facility] [id number] [place] [address]- 8898 Aug, [facility] [place] [facility] [address] [id number] [place] [address]- 4551 Aug, [facility] [place] [facility] [address] [id number] [place] [address]- 9722 Oct, [facility] [place] [facility] [address] [facility] [id number] [place] [address]- 1060 Oct, [facility] [place] [facility] [address] [id number], [place] [address]- 6797 Aug, [facility] [address] [facility] [id number] [place] [address]- 4973 Aug, IMMUNIZATIONS No Known Immunizations SOCIAL HISTORY [...]
--- OUTSIDE RECORDS SUMMARY | 2018-06-10 01:53 | XMS REPORT ---
Author Author SHAHLA GENNARO [facility] Address [address] [place] [address] Care Team Providers Care Community Development Manager Name Role Phone PETE GALEY Unavailable PROBLEMS Type Condition ICD9-CM Code TJZ09-BX Code Onset Dates Condition Status SNOMED Code Problem Chlamydial infection A74.9 Active 742452259 Problem Second trimester Z34.92 Active 14261322 Problem Unspecified blood type, Rh negative Z67.91 Active 689330942 Problem Bipolar depression F31.30 Active 32057438 Problem Supervision of other high risk pregnancies, unspecified trimester O09.899 Active 205454907 ALLERGIES No Information ENCOUNTERS Encounter Location Date Diagnosis [facility] [id number] [place] [address] 10942- 6057 Jun, [facility] [id number] [place] [address] 01611- 6893 Jun, [facility] [id number] [place] [address] 63865- 4180 Jun, [facility] [address], [place] [address] 9148 May, [facility] [id number] [place] [address] 75236- 9559 May, [facility] [address], [place] [address] 6445 Apr, [facility] [id number] [place] [address] 91609- 5434 Apr, [facility] [address], [place] [address] 4843 Apr, [facility] [id number] [place] [address] 04562- 4701 Mar, care in third trimester Z34.93 [facility] [id number] [place] [address] 46368- 5331 27 Mar, 2018 care in third trimester Z34.93 ; Evaluate anatomy not seen on prior sonogram Z04.8 and BMI 40.0-44.9, adult Z68.41 [facility] [address] [place] [address] 88972 -9314 Mar, BMI 40.0-44.9, adult Z68.41 ; Screening for STD (sexually transmitted disease) Z11.3 and High risk sexual behavior, unspecified type Z72.51 [place] [id number] [place] [address] 94911- 6859 Feb, [facility] [address] [place] [address] 14837- 5756 Feb, [facility] [id number] [place] [address] 98079- 1990 Feb, Second trimester Z34.92 ; Chlamydial infection A74.9 ; Other maternal infectious and parasitic diseases complicating , first trimester O98.811 ; 23 weeks gestation of Z3A.23 and Evaluate anatomy not seen on prior sonogram Z04.8 [facility] [address] [place] [address] 48013- 8617 16 Feb, 2018 [facility] [address] [place] [address] 48794- 9712 Feb, [facility] [address] [place] [address] 40012- 6852 Feb, [facility] [id number] [place] [address] [id number] Jan, [facility] [address] [place] [address] 38090- 9411 Jan, Second trimester Z34.92 and 19 weeks gestation of Z3A.19 [facility] [address], [place] [address] 3765 Jan, [facility] [address] [address] Jan, Dental examination Z01.20 [facility] [address], [place] [address]99[address] Jan, Mouth pain K13.79 [facility] [id number] [place] [address] 22757- 7535 Jan, [facility] [address] [place] [address] 11119- 2872 Jan, [facility] [id number] [place] [address] 20323- 7449 December, Second trimester Z34.92 ; 14 weeks gestation of Z3A.14 and Substance abuse 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, antepartum O99.322 [facility] [id number] [place] [address] 88274- 1105 December, [facility] [address] [place] [address] 99315- 1345 Nov, [facility] [id number] [place] [address] 20626- 5213 Nov, [facility] [address], [place] [address]- 0201 Nov, care, subsequent in first trimester Z34.81 ; 7 weeks gestation of Z3A.01 and Bipolar depression F31.30 [facility] [address], [place] [address]7738 Nov, [facility] [id number] [place] [address] 86724 -4573 Nov, [facility] [address], [place] [address]- 0274 Nov, Screening, iron deficiency anemia Z13.0 [facility] [id number] [place] [address] 58626- 9804 12 Nov, 2017 [facility] [id number] [place] [address] 08078 -7121 Nov, Possible exposure to STD Z20.2 and Trichomoniasis A59.9 [facility] [address] 61386- 9638 Nov, [facility] [address] 67398- 9916 Nov, Encounter for test Z32.00 [facility] [address] 32986 -4518 07 Apr, 2016 Periodontal abscess K05.21 [facility] [address] 18172- 9110 07 Feb, 2015 Family history of diabetes mellitus V18.0 ; Fatigue 780.79 and Pain in both feet 729.5 [facility] [address] 14582- 4806 16 Jan, 2015 Bipolar affective disorder, depressed, moderate 296.52 and Posttraumatic stress disorder 309.81 [facility] [id number] [place] [address] 05232- 2861 11 Jan, 2015 [facility] [id number] [place] [address] 52503- 1429 14 Nov, 2014 [facility] [address] 47340- 2526 13 Nov, 2014 [facility] [id number] [place] [address] 04521- 5451 16 Oct, 2014 [facility] [address] 80118- 6574 16 Oct, 2014 [facility] [id number] [place] [address] 84428- 2856 03 Oct, 2014 [facility] [address] 96974- 0757 Oct, [facility] [place] [facility] [address] [id number] [place] [address]- 9499 Sep, [facility] [place] [facility] [address] [id number] [place] [address]- 7736 Sep, [facility] [place] [facility] [address] [id number] [place] [address]- 9036 Sep, [facility] [place] [facility] [address] [id number] [place] [address]- 7017 Sep, 2014 [facility] [place] [facility] [address] [id number] [place] [address]- 0456 Sep, [facility] [place] [facility] [address] [id number] [place] [address]- 2594 Sep, [facility] [place] [facility] [address] [facility] [id number] [place] [address]- 5588 Sep, [facility] [place] [facility] [address] [facility] [id number] [place] [address]- 2850 Aug, [facility] [place] [facility] [address] [id number] [place] [address]- 0612 Aug, [facility] [place] [facility] [address] [facility] [id number] [place] [address]- 3231 Aug, [facility] [place] [facility] [address] [facility] [id number] [place] [address]- 1105 Aug, [facility] [place] [facility] [address] [id number] [place] [address]- 5685 Aug, [facility] [place] [facility] [address] [id number] [place] [address]- 2550 Oct, [facility] [place] [facility] [address] [facility] [id number] [place] [address]- 9576 Oct, [facility] [place] [facility] [address] [id number], [place] [address]- 1032 Aug, [facility] [address] [facility] [id number] [place] [address]- 4284 Aug, IMMUNIZATIONS No Known Immunizations SOCIAL HISTORY Never Assessed REASON FOR VISIT RX PLAN OF CARE VITAL SIGNS MEDICATIONS Medication Instructions Dosage Frequency Start Date End Date Duration Status Acetaminophen 500 mg Orally 3 times a day 2 tablets as needed 8h Feb, Active RESULTS No Results PROCEDURES No Known [...]
--- OUTSIDE RECORDS SUMMARY | 2018-06-10 01:54 | XMS REPORT ---
Author Author SHAHLAGENNARO [facility] Address [address] [place] [address] Care Team Providers Care Command Post Superintendent Name Role Phone PETE GALEY Unavailable PROBLEMS Type Condition ICD9-CM Code YNO94-LO Code Onset Dates Condition Status SNOMED Code Problem Chlamydial infection A74.9 Active 089994857 Problem Second trimester Z34.92 Active 51621959 Problem Unspecified blood type, Rh negative Z67.91 Active 084052792 Problem Bipolar depression F31.30 Active 06989522 Problem Supervision of other high risk pregnancies, unspecified trimester O09.899 Active 595314237 ALLERGIES No Information ENCOUNTERS Encounter Location Date Diagnosis [facility] [id number] [place] [address] 92036- 3180 Mar, [facility] [id number] [place] [address] 25051 -6203 Mar, BMI 40.0-44.9, adult Z68.41 ; Screening for STD (sexually transmitted disease) Z11.3 and High risk sexual behavior, unspecified type Z72.51 [place] [id number] [place] [address] 26612- 1002 Feb, [place] [id number] [place] [address] 08512- 5012 Feb, [place] [id number] [place] [address] 22753- 6186 Feb, Second trimester Z34.92 ; Chlamydial infection A74.9 ; Other maternal infectious and parasitic diseases complicating , first trimester O98.811 ; 23 weeks gestation of Z3A.23 and Evaluate anatomy not seen on prior sonogram Z04.8 [place] [id number] [place] [address] 28052- 6556 Feb, [facility] [id number] [place] [address] 37120- 8031 Feb, [facility] [id number] [place] [address] 40299- 9254 Feb, [facility] [id number] [id number] Jan, [facility] [id number] [place] [address] 10759- 2407 Jan, Second trimester Z34.92 and [address]19 [facility] [id number] [place] [address] 30291- 0539 Jan, [facility] [id number] [place] [address] [id number] Jan, Dental examination Z01.20 [facility] [id number] [place] [address] 44743 -0110 Jan, Mouth pain K13.79 [facility] [id number] [place] [address] 01676- 8535 Jan, [facility] [id number] [place] [address] 21604- 4970 Jan, [facility] [address] [place] [address] 62974- 7582 December, Second trimester Z34.92 ; 14 weeks gestation of Z3A.14 and Substance abuse 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, antepartum O99.322 [facility] [id number] [place] [address] 63725- 5090 December, [facility] [id number] [place] [address] 96289- 0265 Nov, [facility] [address] [address]- 1040 Nov, [facility] [id number] [place] [address] 62316- 3384 Nov, care, subsequent in first trimester Z34.81 ; 7 weeks gestation of Z3A.01 and Bipolar depression F31.30 [facility] [place] [address] 47582 -3336 Nov, [facility] [address] 76736 -4982 Nov, [address] 27579- 0884 Nov, Screening, iron deficiency anemia Z13.[address] 30305- 8172 Nov, [facility] [place] [address] 64316 -0827 Nov, Possible exposure to STD Z20.2 and Trichomoniasis A59.[address] 09702- 0562 Nov, [address] 42096- 6470 Nov, Encounter for test Z32.00 [facility] [address] 80948 -8718 07 Apr, 2016 Periodontal abscess K05.[address] 26135- 8944 07 Feb, 2015 Family history of diabetes mellitus V18.0 ; Fatigue 780.79 and Pain in both feet 729.[address] 84146- 1724 16 Jan, 2015 Bipolar affective disorder, depressed, moderate 296.52 and Posttraumatic stress disorder 309.[address] 71496- 3931 11 Jan, [address] [place] [address]- 1961 14 Nov, 2014 [facility] [place] [facility] [address] [id number] [place] [address]- 7733 13 Nov, 2014 [facility] [place] [facility] [address] [id number] [place] [address]- 1950 16 Oct, 2014 [facility] [place] [facility] [address] [id number] [place] [address]- 6662 Oct, [facility] [place] [facility] [address] [id number] [place] [address]- 9454 Oct, [facility] [place] [facility] [address] [id number] [place] [address]- 6457 Oct, [facility] [place] [facility] [address] [id number] [place] [address]- 2454 Sep, [facility] [place] [facility] [address] [id number] [place] [address]- 6387 Sep, [facility] [place] [facility] [address] [id number] [place] [address]- 1433 Sep, [facility] [place] [facility] [address] [id number] [place] [address]- 9001 Sep, [facility] [place] [facility] [address] [facility] [id number] [place] [address]- 1825 Sep, [facility] [place] [facility] [address] [facility] [id number] [place] [address]- 2553 Sep, [facility] [place] [facility] [address] [id number] [place] [address]- 1702 Sep, [facility] [place] [facility] [address] [id number] [place] [address]- 0323 Aug, [facility] [place] [facility] [address] [id number] [place] [address]- 0076 Aug, [facility] [place] [facility] [address] [facility] [id number] [place] [address]- 6294 Aug, [facility] [address] [facility] [id number] [address]- [address] Aug, [facility] [id number] [address]- [address]35 Aug, [facility] [address] [id number] [address]- 0936 Oct, [facility] [address] [address]- 4881 Oct, [facility] [id number] [address]- 7754 Aug, [facility] [id number] [address]- 5298 Aug, IMMUNIZATIONS No Known Immunizations SOCIAL HISTORY [...]
--- OUTSIDE RECORDS SUMMARY | 2018-06-10 01:54 | XMS REPORT ---
Author Author SHAHLAGENNARO [facility] Address [address] [place] [address] Care Team Providers Care Primary Clinician Name Role Phone PETE GALEY Unavailable PROBLEMS Type Condition ICD9-CM Code LVD73-BD Code Onset Dates Condition Status SNOMED Code Problem Chlamydial infection A74.9 Active 010064342 Problem Second trimester Z34.92 Active 56857263 Problem Unspecified blood type, Rh negative Z67.91 Active 728474995 Problem Bipolar depression F31.30 Active 77284531 Problem Supervision of other high risk pregnancies, unspecified trimester O09.899 Active 844404093 ALLERGIES No Information ENCOUNTERS Encounter Location Date Diagnosis [facility] [id number] [place] [address] 82020- 4147 Mar, [facility] [id number] [place] [address] 94897 -2118 Mar, BMI 40.0-44.9, adult Z68.41 ; Screening for STD (sexually transmitted disease) Z11.3 and High risk sexual behavior, unspecified type Z72.51 [place] [id number] [place] [address] 40146- 9409 Feb, [place] [id number] [place] [address] 01968- 2601 Feb, [place] [id number] [place] [address] 16481- 0269 Feb, Second trimester Z34.92 ; Chlamydial infection A74.9 ; Other maternal infectious and parasitic diseases complicating , first trimester O98.811 ; 23 weeks gestation of Z3A.23 and Evaluate anatomy not seen on prior sonogram Z04.8 [facility] [id number] [place] [address] 83709- 4646 Feb, [facility] [id number] [place] [address] 30673- 1286 Feb, [facility] [id number] [place] [address] 32815- 8744 Feb, [facility] [id number] [id number] Jan, [facility] [id number] [place] [address] 01788- 2409 Jan, Second trimester Z34.92 and 19 weeks gestation of Z3A.19 [facility] [id number] [place] [address] 58794- 2298 Jan, [facility] [place] [facility] [id number] [place] [address] [id number] Jan, Dental examination Z01.20 [facility] [id number] [place] [address] 84829 -4723 Jan, Mouth pain K13.79 [facility] [id number] [place] [address] 91980- 4222 Jan, [facility] [id number] [place] [address] 65682- 0845 Jan, [facility] [address] [place] [address] 86495- 9721 December, Second trimester Z34.92 ; 14 weeks gestation of Z3A.14 and Substance abuse 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, antepartum O99.322 [facility] [id number] [place] [address] 84889- 2290 December, [facility] [id number] [place] [address] 75667- 8495 Nov, [facility] [address], [place] [address]- 4744 Nov, [facility] [id number] [place] [address] 54057- 8573 Nov, care, subsequent in first trimester Z34.81 ; 7 weeks gestation of Z3A.01 and Bipolar depression F31.30 [facility] [place] [address] 48934 -7492 Nov, [facility] [address] 85830 -1892 Nov, [address] 35110- 1334 Nov, Screening, iron deficiency anemia Z13.[address] 64032- 0694 Nov, [facility] IN [address] 28243 -8920 Nov, Possible exposure to STD Z20.2 and Trichomoniasis A59.[address] 72145- 4162 Nov, [address] 39714- 0449 Nov, Encounter for test Z32.00 [facility] [place] [address] 62772 -5400 07 Apr, 2016 Periodontal abscess K05.[address] 64772- 6946 07 Feb, 2015 Family history of diabetes mellitus V18.0 ; Fatigue 780.79 and Pain in both feet 729.[address] 55488- 2444 16 Jan, 2015 Bipolar affective disorder, depressed, moderate 296.52 and Posttraumatic stress disorder 309.[address] 42854- 5997 11 Jan, [address] [place] [address]- 7202 14 Nov, 2014 [facility] [place] [facility] [address] [id number] [place] [address]- 9685 13 Nov, 2014 [facility] [place] [facility] [address] [id number] [place] [address]- 3934 16 Oct, 2014 [facility] [place] [facility] [address] [id number] [place] [address]- 1112 Oct, [facility] [place] [facility] [address] [id number] [place] [address]- 6579 Oct, [facility] [place] [facility] [address] [id number] [place] [address]- 9147 Oct, [facility] [place] [facility] [address] [id number] [place] [address]- 4201 Sep, [facility] [place] [facility] [address] [id number] [place] [address]- 4928 Sep, [facility] [place] [facility] [address] [id number] [place] [address]- 0303 Sep, [facility] [place] [facility] [address] [id number] [place] [address]- 9663 Sep, [facility] [place] [facility] [address] [facility] [id number] [place] [address]- 0430 Sep, [facility] [place] [facility] [address] [facility] [id number] [place] [address]- 0001 Sep, [facility] [place] [facility] [address] [id number] [place] [address]- 9623 Sep, [facility] [place] [facility] [address] [id number] [place] [address]- 3315 Aug, [facility] [place] [facility] [address] [id number] [place] [address]- 7766 Aug, [facility] [place] [facility] [address] [facility] [id number] [place] [address]- 5644 Aug, [facility] [address] [facility] [id number] [address]- 5713 Aug, [facility] [address] [place] [address] [id number] [address]- 4436 Aug, [facility] [address] [id number] [address]- 0185 Oct, [facility] [address], [place] [address]- 6837 Oct, [facility] [address] [id number], [place] [address]- 5352 Aug, [facility] [address] [address] [id number] [address]- 5944 Aug, IMMUNIZATIONS No Known Immunizations SOCIAL HISTORY [...]
--- OUTSIDE RECORDS SUMMARY | 2018-06-10 01:54 | XMS REPORT ---
Author Author GENNA BAILEY Organization [facility] Address [address] [place] [address] Care Team Providers Care Auto Customize Painter Name Role Phone GENNA BAILEY Unavailable PROBLEMS Type Condition ICD9-CM Code LKH59-OJ Code Onset Dates Condition Status SNOMED Code Problem Chlamydial infection A74.9 Active 950507328 Problem Second trimester Z34.92 Active 94149118 Problem Unspecified blood type, Rh negative Z67.91 Active 211063278 Problem Bipolar depression F31.30 Active 18605970 Problem Supervision of other high risk pregnancies, unspecified trimester O09.899 Active 521552262 ALLERGIES No Known Allergies ENCOUNTERS Encounter Location Date Diagnosis [facility] [id number] [place] [address] 85734- 9412 Mar, [facility] WALK IN [facility] [address] [place] [address] 03270 -9003 Mar, BMI 40.0-44.9, adult Z68.41 ; Screening for STD (sexually transmitted disease) Z11.3 and High risk sexual behavior, unspecified type Z72.51 [facility] [address] [place] [address] 90973- 2230 Feb, [facility] [id number] [place] [address] 09710- 5371 Feb, [facility] [address] [place] [address] 29269- 1508 Feb, Second trimester Z34.92 ; Chlamydial infection A74.9 ; Other maternal infectious and parasitic diseases complicating , first trimester O98.811 ; 23 weeks gestation of Z3A.23 and Evaluate anatomy not seen on prior sonogram Z04.8 [facility] [id number] [place] [address] 14891- 2397 Feb, [facility] [address] [place] [address] 57150- 4494 Feb, [facility] [id number] [place] [address] 30783- 0641 Feb, [facility] [id number] [id number] Jan, [facility] [id number] [place] [address] 44676- 5102 Jan, Second trimester Z34.92 and 19 weeks gestation of Z3A.19 [facility] [id number] [place] [address] 37273- 7603 Jan, [facility] [id number] [place] [address] [id number] Jan, Dental examination Z01.20 [facility] [id number] [place] [address] 73639 -7269 Jan, Mouth pain K13.79 [facility] [id number] [place] [address] 05558- 9276 Jan, [facility] [id number] [place] [address] 18990- 9581 Jan, [facility] [address] [place] [address] 11333- 2621 December, Second trimester Z34.92 ; 14 weeks gestation of Z3A.14 and Substance abuse 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, antepartum O99.322 [facility] [address] [address]- 5373 December, [facility] [id number] [place] [address] 98587- 3291 Nov, [facility] [address] [address]- 8693 Nov, [facility] [id number] [place] [address]- 7029 Nov, care, subsequent in first trimester Z34.81 ; 7 weeks gestation of Z3A.01 and Bipolar depression F31.[address] [facility] [place] [address] 78140 -3532 Nov, [facility] WALK IN [place] [address] 45505 -5511 Nov, [place] [address] 81251- 5402 Nov, Screening, iron deficiency anemia Z13.[address] 11374- 9331 Nov, [facility] IN [place] [address] 42480 -6353 Nov, Possible exposure to STD Z20.2 and Trichomoniasis A59.[address] 58987- 5141 Nov, [address] 28842- 1448 Nov, Encounter for test Z32.00 [facility] IN [address] 91611 -1646 07 Apr, 2016 Periodontal abscess K05.[address] 86690- 4672 07 Feb, 2015 Family history of diabetes mellitus V18.0 ; Fatigue 780.79 and Pain in both feet 729.[address] 06329- 7509 16 Jan, 2015 Bipolar affective disorder, depressed, moderate 296.52 and Posttraumatic stress disorder 309.[address] 29583- 9206 11 Jan, [address] [place] [address]- 6424 14 Nov, 2014 [facility] [place] [facility] [address] [id number] [place] [address]- 2979 13 Nov, 2014 [facility] [place] [facility] [address] [id number] [place] [address]- 8481 16 Oct, 2014 [facility] [place] [facility] [address] [id number] [place] [address]- 7685 Oct, [facility] [place] [facility] [address] [id number] [place] [address]- 0964 Oct, [facility] [place] [facility] [address] [id number] [place] [address]- 8115 Oct, [facility] [place] [facility] [address] [id number] [place] [address]- 9477 Sep, [facility] [place] [facility] [address] [id number] [place] [address]- 6492 Sep, 2014 [facility] [place] [facility] [address] [id number] [place] [address]- 7696 Sep, [facility] [place] [facility] [address] [id number] [place] [address]- 5210 Sep, 2014 [facility] [place] [facility] [address] [facility] [id number] [place] [address]- 1626 Sep, [facility] [place] [facility] [address] [facility] [id number] [place] [address]- 2616 Sep, [facility] [place] [facility] [address] [id number] [place] [address]- 3956 Sep, [facility] [place] [facility] [address] [id number] [place] [address]- 8709 Aug, [facility] [place] [facility] [address] [id number] [place] [address]- 6665 Aug, [facility] [place] [facility] [address] [id number] [place] 3401 Aug, [facility] [address] [facility] [id number] [address]- 0684 Aug, [facility] [address] [id number] [address]- 3696 Aug, [facility] [address] [id number] [address]- 9036 Oct, [facility] [address] [address]- 7778 Oct, [facility] [address] [facility] [id number] [address]- 4020 Aug, [facility] [address] [id number] [address]- 3169 Aug, IMMUNIZATIONS No Known Immunizations SOCIAL HISTORY Never Assessed REASON FOR VISIT OB 4wk f/u- awoods PLAN OF CARE Activity Details Follow Up 4 Weeks Reason: VITAL SIGNS Height 65 in 2018-01-04 Weight 228.8 lbs 2018-01-04 Temperature 97.5 degrees Fahrenheit 2018-01-04 Heart Rate 89 bpm 2018-01-04 Respiratory Rate 20 2018-01-04 BMI 38.074 kg/m2 2018-01-04 Blood pressure systolic 110 mmHg 2018-01-04 Blood pressure diastolic 64 mmHg 2018-01-04 MEDICATIONS Medication Instructions Dosage Frequency Start Date End Date Duration Status Trazodone HCl 100 MG Orally Once a day 1 tablet at bedtime 24h Not -Taking Tramadol HCl 50 mg Orally every 6 hrs 1 tablet as needed 6h 07 Apr, 2016 Not-Taking 28-0.8 MG Orally daily 1 24h Nov, Active Escitalopram Oxalate 10 mg Orally Once a day 1 tablet 24h Nov, 30 day(s) Active Latuda 20 MG Orally Once a day 1 tablets with food 24h Not-Taking RESULTS Name Result Date Reference Range UA OB DIP (IN HOUSE) 2018-01-04 Glucose neg Protein neg PROCEDURES Procedure Date Ordered Result Body Site URINE-NO MICRO January 04, 2018 INSTRUCTIONS MEDICATIONS ADMINISTERED No Known Medications [...]
--- OUTSIDE RECORDS SUMMARY | 2018-06-10 01:54 | XMS REPORT ---
Author Author [facility]ENN[facility] Address [address] [place] [address] Care Team Providers Care Attic Blower Name Role Phone PETE GALEY Unavailable PROBLEMS Type Condition ICD9-CM Code BVS26-ES Code Onset Dates Condition Status SNOMED Code Problem Chlamydial infection A74.9 Active 387717159 Problem Second trimester Z34.92 Active 67503545 Problem Unspecified blood type, Rh negative Z67.91 Active 116072662 Problem Bipolar depression F31.30 Active 89509257 Problem Supervision of other high risk pregnancies, unspecified trimester O09.899 Active 229542156 ALLERGIES No Information ENCOUNTERS Encounter Location Date Diagnosis [facility] [id number] [place] [address] 00214- 5514 Mar, [facility] WALK IN [facility] [id number] [place] [address] 04609 -1612 Mar, BMI 40.0-44.9, adult Z68.41 ; Screening for STD (sexually transmitted disease) Z11.3 and High risk sexual behavior, unspecified type Z72.51 [place] [id number] [place] [address] 76238- 5769 Feb, [facility] [id number] [place] [address] 68715- 2074 Feb, [place] [id number] [place] [address] 23512- 2140 Feb, Second trimester Z34.92 ; Chlamydial infection A74.9 ; Other maternal infectious and parasitic diseases complicating , first trimester O98.811 ; 23 weeks gestation of Z3A.23 and Evaluate anatomy not seen on prior sonogram Z04.8 [facility] [id number] [place] [address] 59727- 1788 Feb, [facility] [id number] [place] [address] 27800- 5491 Feb, [facility] [id number] [place] [address] 94850- 4961 Feb, [facility] [id number] [id number] Jan, [facility] [id number] [place] [address] 71466- 2290 Jan, Second trimester Z34.92 and 19 weeks gestation of Z3A.19 [facility] [id number] [place] [address] 39218- 3385 Jan, [facility] [id number] [place] [address] [id number] Jan, Dental examination Z01.20 [facility] [id number] [place] [address] 06562 -3220 Jan, Mouth pain K13.79 [facility] [id number] [place] [address] 74361- 8225 Jan, [facility] [id number] [place] [address] 35309- 7662 Jan, [facility] [address] [place] [address] 01384- 7861 December, Second trimester Z34.92 ; 14 weeks gestation of Z3A.14 and Substance abuse 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, antepartum O99.322 [facility] [id number] [place] [address] 94852- 9980 December, [facility] [id number] [place] [address] 34801- 8714 Nov, [facility] [address] [address]- 2698 Nov, [facility] [id number] [place] [address] 51823- 8688 Nov, care, subsequent in first trimester Z34.81 ; 7 weeks gestation of Z3A.01 and Bipolar depression F31.30 [facility] [place] [address] 92439 -8933 Nov, [facility] WALK IN [address] 13102 -1218 Nov, [address] 64900- 0770 Nov, Screening, iron deficiency anemia Z13.[address] 93620- 0664 Nov, [facility] IN [address] 66037 -5757 Nov, Possible exposure to STD Z20.2 and Trichomoniasis A59.[address] 43374- 5671 Nov, [address] 01561- 7496 Nov, Encounter for test Z32.00 [facility] IN [address] 10102 -3447 07 Apr, 2016 Periodontal abscess K05.[address] 85288- 5725 07 Feb, 2015 Family history of diabetes mellitus V18.0 ; Fatigue 780.79 and Pain in both feet 729.[address] 93176- 8397 16 Jan, 2015 Bipolar affective disorder, depressed, moderate 296.52 and Posttraumatic stress disorder 309.[address] 21520- 2372 11 Jan, [address] [place] [address]- 0500 14 Nov, 2014 [facility] [place] [facility] [address] [id number] [place] [address]- 1660 13 Nov, 2014 [facility] [place] [facility] [address] [id number] [place] [address]- 9601 16 Oct, 2014 [facility] [place] [facility] [address] [id number] [place] [address]- 7099 Oct, [facility] [place] [facility] [address] [id number] [place] [address]- 0166 Oct, [facility] [place] [facility] [address] [id number] [place] [address]- 7054 Oct, [facility] [place] [facility] [address] [id number] [place] [address]- 5375 Sep, [facility] [place] [facility] [address] [id number] [place] [address]- 4654 Sep, [facility] [place] [facility] [address] [id number] [place] [address]- 0126 Sep, [facility] [place] [facility] [address] [id number] [place] [address]- 2917 Sep, [facility] [place] [facility] [address] [facility] [id number] [place] [address]- 6571 Sep, [facility] [place] [facility] [address] [facility] [id number] [place] [address]- 7150 Sep, [facility] [place] [facility] [address] [id number] [place] [address]- 1478 Sep, [facility] [place] [facility] [address] [id number] [place] [address]- 3977 Aug, [facility] [place] [facility] [address] [id number] [place] [address]- 9526 Aug, [facility] [place] [facility] [address] [facility] [id number] [place] [address]- 1755 Aug, [facility] [address] [facility] [id number], [place] [address]- 8853 Aug, [facility] [address] [id number] [address]- 0022 Aug, [facility] [address] [facility] [id number], [place] [address]- 0758 Oct, [facility] [address] [id number] [address]- 4368 Oct, [facility] [address] [facility] [id number], [place] [address]- 7052 Aug, [facility] [address] [facility] [id number], [place] [address]- 7726 Aug, IMMUNIZATIONS No Known Immunizations SOCIAL HISTORY Never Assessed REASON FOR VISIT OB phone call PLAN OF CARE VITAL SIGNS MEDICATIONS Medication Instructions Dosage Frequency Start Date End Date Duration Status Ibuprofen 800 MG Orally Three times a day as needed 1 tablet with food or milk as needed Jan, Active RESULTS No Results PROCEDURES No Known [...]
--- OUTSIDE RECORDS SUMMARY | 2018-06-10 01:54 | XMS REPORT ---
Author Author DANIKA TYLER [facility] Address Unknown Care Team Providers Care Quality Assurance Manager Name Role Phone DANIKA TYLER Unavailable PROBLEMS Type Condition ICD9-CM Code VNB14-IC Code Onset Dates Condition Status SNOMED Code Problem Chlamydial infection A74.9 Active 982774116 Problem Second trimester Z34.92 Active 01085542 Problem Unspecified blood type, Rh negative Z67.91 Active 244209221 Problem Bipolar depression F31.30 Active 97092552 Problem Supervision of other high risk pregnancies, unspecified trimester O09.899 Active 459409066 ALLERGIES No Information ENCOUNTERS Encounter Location Date Diagnosis [facility] [id number] [place] [address] 02820- 8104 Mar, [facility] IN [facility] [id number] [place] [address] 72420 -9769 Mar, BMI 40.0-44.9, adult Z68.41 ; Screening for STD (sexually transmitted disease) Z11.3 and High risk sexual behavior, unspecified type Z72.51 [facility] [id number] [place] [address] 89481- 6046 Feb, [facility] [id number] [place] [address] 41963- 5941 Feb, [place] [id number] [place] [address] 72286- 7155 Feb, Second trimester Z34.92 ; Chlamydial infection A74.9 ; Other maternal infectious and parasitic diseases complicating , first trimester O98.811 ; 23 weeks gestation of Z3A.23 and Evaluate anatomy not seen on prior sonogram Z04.8 [facility] [id number] [place] [address] 65376- 2300 Feb, [facility] [address]005[address] [address]- 1805 Feb, [facility] [id number] [place] [address] 16151- 1019 Feb, [facility] [id number] [place] [id number] Jan, [facility] [id number] [place] [address] 66278- 1579 Jan, Second trimester Z34.92 and 19 weeks gestation of Z3A.19 [facility] [id number] [place] [address] 10819- 0300 Jan, [facility] [id number] [place] [address] [id number] Jan, Dental examination Z01.20 [facility] [id number] [place] [address] 56971 -7793 Jan, Mouth pain K13.79 [facility] [id number] [place] [address] 24472- 7611 Jan, [facility] [id number] [place] [address] 66741- 0685 Jan, [facility] [address], [place] [address]- 1198 December, Second trimester Z34.92 ; 14 weeks gestation of Z3A.14 and Substance abuse 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, antepartum O99.322 [facility] [address] [place] [address] 58985- 3508 December, [facility] [id number] [place] [address] 37218- 0847 Nov, [facility] [address]00565[address], [place] [address]- 0551 Nov, [facility] [id number] [place] [address] 62759- 9720 Nov, care, subsequent in first trimester Z34.81 ; 7 weeks gestation of Z3A.01 and Bipolar depression F31.30 [facility] [address] [address] -[address]113 Nov, [facility] WALK IN [address] 78742 -9631 Nov, [address] 84469- 6237 Nov, Screening, iron deficiency anemia Z13.[address] 50885- 8364 Nov, [facility] WALK IN [address] 00207 -9666 Nov, Possible exposure to STD Z20.2 and Trichomoniasis A59.[address] 19979- 4379 Nov, [address] 35529- 4872 Nov, Encounter for test Z32.00 [facility] WALK IN [address] 87542 -6918 07 Apr, 2016 Periodontal abscess K05.[address] 32303- 0257 07 Feb, 2015 Family history of diabetes mellitus V18.0 ; Fatigue 780.79 and Pain in both feet 729.[address] 15453- 6423 16 Jan, 2015 Bipolar affective disorder, depressed, moderate 296.52 and Posttraumatic stress disorder 309.[address] 26763- 0494 11 Jan, [address] 01770- 7525 14 Nov, 2014 [facility] [place] [facility] [address] [id number] [place] [address]- 0402 13 Nov, 2014 [facility] [place] [facility] [address] [id number] [place] [address]- 0388 16 Oct, 2014 [facility] [place] [facility] [address] [id number] [place] [address]- 8566 Oct, [facility] [place] [facility] [address] [id number] [place] [address]- 8736 Oct, [facility] [place] [facility] [address] [id number] [place] [address]- 3374 Oct, [facility] [place] [facility] [address] [id number] [place] [address]- 3866 Sep, [facility] [place] [facility] [address] [facility] [id number] [place] [address]- 9776 Sep, [facility] [place] [facility] [address] [id number] [place] [address]- 8704 Sep, [facility] [place] [facility] [address] [id number] [place] [address]- 2576 Sep, [facility] [place] [facility] [address] [facility] [id number] [place] [address]- 0553 Sep, [facility] [place] [facility] [address] [id number] [place] [address]- 1466 Sep, [facility] [place] [facility] [address] [id number] [place] [address]- 3941 Sep, [facility] [place] [facility] [address] [id number] [place] [address]- 8806 Aug, [facility] [place] [facility] [address] [id number] [place] [address]- 5716 Aug, [facility] [place] [facility] [address] [facility] [id number] [place] [address]- 3536 Aug, [facility] [place] [facility] [address] [facility] [id number] [address]21 Aug, [facility] [address] [id number] [address] 5785 Aug, [facility] [address] [id number] [address]- 2057 Oct, [facility] [address] [id number]- 5951 Oct, [facility] [address] [id number] [address]- 6576 Aug, [facility] [address] [id number], [place] [address]- 5173 Aug, IMMUNIZATIONS No Known Immunizations SOCIAL HISTORY Never Assessed REASON FOR VISIT transportation PLAN OF CARE VITAL SIGNS MEDICATIONS Unknown [...]
--- OUTSIDE RECORDS SUMMARY | 2018-06-10 01:54 | XMS REPORT ---
Author Author LEROY SHRESTHA [facility] Address [address] [place] [address] Care Team Providers Care Report Specialist Name Role Phone LEROY SHRESTHA Unavailable PROBLEMS Type Condition ICD9-CM Code NUO29-TR Code Onset Dates Condition Status SNOMED Code Problem Chlamydial infection A74.9 Active 881212976 Problem Second trimester Z34.92 Active 35394232 Problem Unspecified blood type, Rh negative Z67.91 Active 503402346 Problem Bipolar depression F31.30 Active 11276665 Problem Supervision of other high risk pregnancies, unspecified trimester O09.899 Active 651050357 ALLERGIES No Known Allergies ENCOUNTERS Encounter Location Date Diagnosis [place] [id number] [place] [address] 13976- 0512 Mar, [facility] [address] [place] [id number] [place] [address] 40287 -8162 Mar, BMI 40.0-44.9, adult Z68.41 ; Screening for STD (sexually transmitted disease) Z11.3 and High risk sexual behavior, unspecified type Z72.51 [place] [address] [place] [id number] [place] [address] 73782- 3751 Feb, [place] [address] [place] [id number] [place] [address] 95098- 0174 Feb, [place] [address] [place] [id number] [place] [address] 86674- 6182 Feb, Second trimester Z34.92 ; Chlamydial infection A74.9 ; Other maternal infectious and parasitic diseases complicating , first trimester O98.811 ; 23 weeks gestation of Z3A.23 and Evaluate anatomy not seen on prior sonogram Z04.8 [place] [id number] [place] [address] 35281- 8486 Feb, [facility] [id number] [place] [address] 54249- 3820 Feb, [facility] [address] [id number] [place] [address] 73564- 5843 Feb, [facility] [id number] [place] [address] [id number] Jan, [facility] [address] [id number] [place] [address] 89359- 1063 Jan, Second trimester Z34.92 and 19 weeks gestation of Z3A.19 [facility] [address] [id number] [place] [address] 60594- 4710 Jan, [facility] [address] [id number] [place] [address] [id number] Jan, Dental examination Z01.20 [facility] [address] [id number] [place] [address] 43803 -7044 Jan, Mouth pain K13.79 [facility] [address] [id number] [place] [address] 83539- 6530 Jan, [facility] [address] [id number] [place] [address] 39274- 2490 Jan, [facility] [address] [address] [id number] [place] [address] 11193- 3543 December, Second trimester Z34.92 ; 14 weeks gestation of Z3A.14 and Substance abuse 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, antepartum O99.322 [facility] [address] [id number] [place] [address] 00396- 0759 December, [facility] [address] [id number] [place] [address] 23525- 1891 Nov, [facility] [address] [id number] [place] [address] 91582- 2498 Nov, [place] [address] [place] [id number] [place] [address] 38255- 5114 Nov, care, subsequent in first trimester Z34.81 ; 7 weeks gestation of Z3A.01 and Bipolar depression F31.30 [facility] [place] [id number] [place] [address] 04924 -1689 Nov, [facility] [address] 07561 -3988 Nov, [address] 46316- 8711 Nov, Screening, iron deficiency anemia Z13.[address] 10322- 6022 Nov, [facility] [address] 05954 -0572 Nov, Possible exposure to STD Z20.2 and Trichomoniasis A59.[address] 05441- 5135 Nov, [address] 62763- 0457 Nov, Encounter for test Z32.00 [facility] [place] [id number] [place] [address] 56091 -8887 07 Apr, 2016 Periodontal abscess K05.[address] 80365- 3935 07 Feb, 2015 Family history of diabetes mellitus V18.0 ; Fatigue 780.79 and Pain in both feet 729.[address] 16654- 9060 16 Jan, 2015 Bipolar affective disorder, depressed, moderate 296.52 and Posttraumatic stress disorder 309.[address] 21207- 3010 11 Jan, 2015 [place] [id number] [place] [address] 3070 14 Nov, 2014 [facility] [place] [facility] [address] [id number] [place] [address]- 2009 13 Nov, 2014 [facility] [place] [facility] [address] [id number] [place] [address]- 5107 16 Oct, 2014 [facility] [place] [facility] [address] [id number] [place] [address]- 3598 Oct, [facility] [place] [facility] [address] [id number] [place] [address]- 0366 Oct, [facility] [place] [facility] [address] [id number] [place] [address]- 2753 Oct, [facility] [place] [facility] [address] [facility] [id number] [place] [address]- 2416 Sep, [facility] [place] [facility] [address] [id number] [place] [address]- 2704 Sep, [facility] [place] [facility] [address] [id number] [place] [address]- 0373 Sep, [facility] [place] [facility] [address] [facility] [id number] [place] [address]- 4904 Sep, [facility] [place] [facility] [address] [facility] [id number] [place] [address]- 2701 Sep, [facility] [place] [facility] [address] [facility] [id number] [place] [address]- 6387 Sep, [facility] [place] [facility] [address] [id number] [place] 4324 Sep, [facility] [place] [facility] [address] [id number] [place] [address]- 2536 Aug, [facility] [place] [facility] [address] [id number] [place] [address]- 6157 Aug, [facility] [place] [facility] [address] [id number], [place] [address]- 3921 Aug, [facility] [address] [facility] [id number][place] 0466 Aug, [facility] [address] [facility] [id number], [place] [address]- 6016 Aug, [facility] [address] [facility] [id number], [place] [address]- 6574 Oct, [facility] [address] [facility] [id number], [place] [address]- 0946 Oct, [facility] [address] [facility] [id number][place] 9496 Aug, [facility] [address] [facility] [id number][place] 2942 Aug, IMMUNIZATIONS No Known Immunizations SOCIAL HISTORY Never Assessed REASON FOR VISIT tooth pain Pt c/o tooth/jaw pain for 2 days, pt is ROSETTA [facility] PLAN OF CARE Activity Details Follow Up prn Reason: VITAL SIGNS Height 65 in 2018-01-22 Weight 232.6 lbs 2018-01-22 Temperature 97.8 degrees Fahrenheit 2018-01-22 Heart Rate 90 bpm 2018-01-22 Respiratory Rate 20 2018-01-22 BMI 38.70 kg/m2 2018-01-22 Blood pressure systolic 122 mmHg 2018-01-22 Blood pressure diastolic 64 mmHg 2018-01-22 MEDICATIONS Medication Instructions Dosage Frequency Start Date End Date Duration Status Amoxicillin 500 MG Orally every 8 hrs 1 tablet 8h 10 day(s) Active Escitalopram Oxalate 10 mg Orally Once a day 1 tablet 24h Nov, 30 day(s) Active 28-0.8 MG Orally daily 1 24h Nov, Active RESULTS No Results PROCEDURES No Known [...]
--- OUTSIDE RECORDS SUMMARY | 2018-06-10 01:54 | XMS REPORT ---
Author Author SHAHLA GENNARO [facility] Address [address] [place] [address] Care Team Providers Care Shallot Cleaner Name Role Phone SHAHLAPETE VELIZY Unavailable PROBLEMS Type Condition ICD9-CM Code AKH39-MV Code Onset Dates Condition Status SNOMED Code Problem Chlamydial infection A74.9 Active 745636062 Problem Second trimester Z34.92 Active 48378670 Problem Unspecified blood type, Rh negative Z67.91 Active 141844209 Problem Bipolar depression F31.30 Active 65762892 Problem Supervision of other high risk pregnancies, unspecified trimester O09.899 Active 286654283 ALLERGIES No Information ENCOUNTERS Encounter Location Date Diagnosis [facility] [place] [address] [place] [address] 78606- 4859 Jun, [facility] [place] [address] [place] [address] 77620- 8587 Jun, [facility] [place] [address] [place] [address] 17731- 2926 Jun, [facility] [place] [address] [address]- 1639 May, [facility] [place] [address] [place] [id number] [place] [address] 24551- 7588 May, [facility] [place] [address], [place] [address]- 3056 Apr, [facility] [place] [address] [place] [id number] [place] [address] 97727- 3182 Apr, [facility] [place] [address], [place] [address]- 1242 Mar, care in third trimester Z34.93 [facility] [place] [address], [place] [address]- 0557 27 Mar, 2018 care in third trimester Z34.93 and Evaluate anatomy not seen on prior sonogram Z04.8 [facility] [address] [place] [address] 19224 -8906 Mar, BMI 40.0-44.9, adult Z68.41 ; Screening for STD (sexually transmitted disease) Z11.3 and High risk sexual behavior, unspecified type Z72.51 [facility] [place] [address] [place] [id number] [place] [address] 94467- 2550 Feb, [facility] [place] [address] [place] [id number] [place] [address] 13570- 4373 Feb, [facility] [place] [address] [place] [id number] [place] [address] 23677- 4478 Feb, Second trimester Z34.92 ; Chlamydial infection A74.9 ; Other maternal infectious and parasitic diseases complicating , first trimester O98.811 ; 23 weeks gestation of Z3A.23 and Evaluate anatomy not seen on prior sonogram Z04.8 [facility] [place] [address] [place] [address] 09716- 4704 Feb, [facility] [place] [address] [place] [address] 96747- 2017 Feb, [facility] [place] [address] [place] [address] 78937- 7155 Feb, [facility] [id number] [place] [address] [id number] Jan, [facility] [place] [address] [place] [address] 45817- 2549 Jan, Second trimester Z34.92 and 19 weeks gestation of Z3A.19 [facility] [place] [address] [place] [address] 77301- 8940 Jan, [facility] [address] [place] [address] [id number] Jan, Dental examination Z01.20 [facility] [address] [place] [id number] [place] [address] 33705 -6342 Jan, Mouth pain K13.79 [facility] [place] [address] [place] [id number] [place] [address] 18330- 5479 Jan, [facility] [place] [address] [place] [id number] [place] [address] 53451- 0775 Jan, [facility] [place] [address] [place] [id number] [place] [address] 85120- 8088 December, Second trimester Z34.92 ; 14 weeks gestation of Z3A.14 and Substance abuse 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, antepartum O99.322 [place] [address] [place] [id number] [place] [address] 12943- 6679 December, [place] [address] [place] [id number] [place] [address] 27426- 4947 Nov, [facility] [place] [address] [place] [id number] [place] [address] 77652- 1256 Nov, [place] [address] [place] [id number] [place] [address] 67503- 9528 Nov, care, subsequent in first trimester Z34.81 ; 7 weeks gestation of Z3A.01 and Bipolar depression F31.30 [facility] [address] [place] [id number] [place] [address] 08102 -4514 Nov, [facility] [address] [place] [id number] [place] [address] 53472 -6730 Nov, [place] [address] [place] [id number] [place] [address] 88186- 5799 Nov, Screening, iron deficiency anemia Z13.0 [facility] [place] [address] [place] [id number] [place] [address] 01636- 1416 Nov, [facility] [address] [place] [id number] [place] [address] 25573 -1540 10 Nov, 2017 Possible exposure to STD Z20.2 and Trichomoniasis A59.9 [facility] [place] [address] [place] [id number] [place] [address] 63473- 6377 10 Nov, 2017 [facility] [place] [address] [place] [id number] [place] [address] 26160- 6688 10 Nov, 2017 Encounter for test Z32.00 [facility] [address] [place] [id number] [place] [address] 01714 -4863 07 Apr, 2016 Periodontal abscess K05.21 [facility] [place] [address] [place] [id number] [place] [address] 89462- 5643 07 Feb, 2015 Family history of diabetes mellitus V18.0 ; Fatigue 780.79 and Pain in both feet 729.5 [facility] [place] [address] [place] [id number] [place] [address] 73804- 7527 16 Jan, 2015 Bipolar affective disorder, depressed, moderate 296.52 and Posttraumatic stress disorder 309.81 [facility] [place] [address] [id number] [place] [address] 97828- 4007 11 Jan, 2015 [facility] [place] [address] 23805- 5071 14 Nov, 2014 [facility] [place] [address] [place] [id number] [place] [address] 69900- 4288 13 Nov, 2014 [facility] [place] [address] [place] [id number] [place] [address] 64277- 5262 16 Oct, 2014 [facility] [place] [address] [place] [id number] [place] [address] 07358- 4016 16 Oct, 2014 [facility] [place] [address] [place] [id number] [place] [address] 71555- 4175 Oct, [facility] [place] [address] [place] [id number] [place] [address] 546308- 6985 Oct, [facility] [place] [address] [place] [id number] [place] [address] 97252- 4829 Sep, [facility] [place] [address] [facility] [place] [id number] [address]- 6905 Sep, [facility] [place] [address] [facility] [id number] [place] [address]- 3086 Sep, 2014 [facility] [place] [address] [facility] [place] [place] [id number] [place] 5366 Sep, 2014 [facility] [place] [address] [facility] [place] [place] [id number] [place] [address]- 5006 Sep, [facility] [place] [address] [facility] [place] [place] [id number] [place] 8403 Sep, [facility] [place] [address] [facility] [place] [place] [id number] [place] [address]- 8047 Sep, [facility] [place] [address] [place] [address]- 1383 Aug, [facility] [place] [address], [place] [address]- 6200 Aug, [facility] [place] [address] [facility] [place] [place] [id number][place] [address]- 4174 Aug, [facility] [place] [address], [place] [address]- 9932 Aug, [facility] [place] [address], [place] [address]- 7445 Aug, [facility] [place] [address], [place] [address]- 6202 Oct, [facility] [place] [address] [facility] [place] [place] [id number], [place] [address]- 9754 Oct, [facility] [place] [address] [facility] [place] [id number][place] [address]- 7434 Aug, [facility] [place] [address] [place] [id number]- 0859 Aug, IMMUNIZATIONS No Known Immunizations SOCIAL HISTORY Never Assessed REASON FOR VISIT not covered PLAN OF CARE VITAL SIGNS MEDICATIONS Medication Instructions Dosage Frequency Start Date End Date Duration Status Vol-Care Rx 1 MG Orally Once a day 1 tablet 24h Jan, 90 days Active RESULTS No Results PROCEDURES No Known [...]
--- OUTSIDE RECORDS SUMMARY | 2018-06-10 01:55 | XMS REPORT ---
Author Author SHAHLAGENNARO [facility] Address [address] [place] [address] Care Team Providers Care Oracle Adf Developer Name Role Phone PETE GALEY Unavailable PROBLEMS Type Condition ICD9-CM Code UXK83-UQ Code Onset Dates Condition Status SNOMED Code Problem Chlamydial infection A74.9 Active 708852587 Problem Second trimester Z34.92 Active 85361624 Problem Unspecified blood type, Rh negative Z67.91 Active 521213472 Problem Bipolar depression F31.30 Active 22236623 Problem Supervision of other high risk pregnancies, unspecified trimester O09.899 Active 962562158 ALLERGIES No Known Allergies ENCOUNTERS Encounter Location Date Diagnosis [place] [id number] [place] [address] 21353- 6435 Mar, [place] [id number] [place] [address] 57821- 1786 Feb, [place] [id number] [place] [address] 37926- 7472 Feb, [place] [id number] [place] [address] 17132- 6848 Feb, Second trimester Z34.92 ; Chlamydial infection A74.9 ; Other maternal infectious and parasitic diseases complicating , first trimester O98.811 ; 23 weeks gestation of Z3A.23 and Evaluate anatomy not seen on prior sonogram Z04.8 [place] [id number] [place] [address] 05788- 8590 16 Feb, 2018 [place] [id number] [place] [address] 63786- 3980 Feb, [place] [id number] [place] [address] 92175- 8293 Feb, [facility] [address] [id number] [id number] Jan, [facility] [address] [place] [address] 70163- 1777 Jan, Second trimester Z34.92 and 19 weeks gestation of Z3A.19 [facility] [address] [place] [address] 04603- 5283 Jan, [facility] [address] [id number] Jan, Dental examination Z01.20 [facility] [id number] [place] [address] 08788 -2897 Jan, Mouth pain K13.79 [facility] [id number] [place] [address] 84539- 3454 Jan, [facility] [id number] [place] [address] 11820- 0141 Jan, [facility] [id number] [place] [address] 47276- 3880 December, Second trimester Z34.92 ; 14 weeks gestation of Z3A.14 and Substance abuse 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, antepartum O99.322 [facility] [address] [place] [address] 92169- 0191 December, [facility] [id number] [place] [address] 90942- 2116 Nov, [facility] [address] [place] [address] 62609- 4989 Nov, [facility] [id number] [place] [address] 13930- 4122 Nov, care, subsequent in first trimester Z34.81 ; 7 weeks gestation of Z3A.01 and Bipolar depression F31.30 [facility] [address] [place] [address] 70115 -6766 Nov, [facility] [id number] [place] [address] 59028 -4298 Nov, [facility] [address] 18886- 1085 Nov, Screening, iron deficiency anemia Z13.0 [place] [address] 14735- 2235 Nov, [facility] [address] 87590 -4273 Nov, Possible exposure to STD Z20.2 and Trichomoniasis A59.9 [place] [address] 92353- 9887 Nov, [facility] [address] 37200- 9158 Nov, Encounter for test Z32.00 [facility] [id number] [place] [address] 92221 -2927 07 Apr, 2016 Periodontal abscess K05.21 [place] [address] 73189- 2788 07 Feb, 2015 Family history of diabetes mellitus V18.0 ; Fatigue 780.79 and Pain in both feet 729.5 [place] [id number] [place] [address] 64646- 7651 16 Jan, 2015 Bipolar affective disorder, depressed, moderate 296.52 and Posttraumatic stress disorder 309.81 [place] [id number] [place] [address] 46773- 2922 11 Jan, 2015 [place] [address] 47476- 1682 14 Nov, 2014 [facility] [address] 39199- 2093 13 Nov, 2014 [facility] [address] 64700- 3786 Oct, [facility] [place] [facility] [address] [id number] [place] [address]- 9786 Oct, [facility] [place] [facility] [address] [id number] [place] [address]- 2885 Oct, [facility] [place] [facility] [address] [facility] [id number] [place] [address]- 6869 Oct, [facility] [place] [facility] [address] [id number] [place] [address]- 8479 Sep, [facility] [place] [facility] [address] [id number] [place] [address]- 3834 Sep, [facility] [place] [facility] [address] [facility] [id number] [place] [address]- 3066 Sep, [facility] [place] [facility] [address] [facility] [id number] [place] [address]- 7111 Sep, [facility] [place] [facility] [address] [facility] [id number] [place] [address]- 6789 Sep, [facility] [place] [facility] [address] [facility] [id number] [place] [address]- 4597 Sep, [facility] [place] [facility] [address] [facility] [id number] [place] [address]- 5991 Sep, [facility] [place] [facility] [address] [facility] [id number] [place] [address]- 3147 Aug, [facility] [place] [facility] [address] [facility] [id number][place] [address]- 2959 Aug, [facility] [place] [facility] [address] [facility] [id number] [place] [address]- 0183 Aug, [facility] [place] [facility] [address] [facility] [id number] [place] [address]- 1989 Aug, [facility] [place] [facility] [address] [facility] [id number] [place] [address]- 6018 Aug, [facility] [place] [facility] [address] [facility] [id number] [place] [address]- 0781 Oct, [facility] [address] [facility] [id number], [place] [address]- 9566 Oct, [facility] [address] [facility] [id number][place] [address]- 4510 Aug, [facility] [address] [facility] [id number], [place] [address]- 0613 Aug, IMMUNIZATIONS No Known Immunizations SOCIAL HISTORY Never Assessed REASON FOR VISIT OB-intake -- jacque vang PLAN OF CARE Activity Details Follow Up 4 Weeks Reason: VITAL SIGNS Height 65 in 2017-12-04 Weight 230.1 lbs 2017-12-04 Temperature 98.0 degrees Fahrenheit 2017-12-04 Heart Rate 88 bpm 2017-12-04 Respiratory Rate 22 2017-12-04 BMI 38.291 kg/m2 2017-12-04 Blood pressure systolic 130 mmHg 2017-12-04 Blood pressure diastolic 76 mmHg 2017-12-04 MEDICATIONS Medication Instructions Dosage Frequency Start Date End Date Duration Status 28-0.8 MG Orally daily 1 24h Nov, Active Tramadol HCl 50 mg Orally every 6 hrs 1 tablet as needed 6h 07 Apr, 2016 Not-Taking Trazodone HCl 100 MG Orally Once a day 1 tablet at bedtime 24h Not -Taking Escitalopram Oxalate 10 mg Orally Once a day 1 tablet 24h Nov, 30 day(s) Active Latuda 20 MG Orally Once a day 1 tablets with food 24h Not-Taking RESULTS No Results PROCEDURES Procedure Date Ordered Result Body Site RBC ANTIBODY SCREEN December 04, 2017 URINE CULTURE/COLONY COUNT December 04, 2017 URINALYSIS, AUTO, W/O SCOPE December 04, 2017 RUBELLA ANTIBODY December 04, 2017 VENIPUNCT, ROUTINE* December 04, 2017 BLOOD TYPING, ABO December 04, 2017 BLOOD TYPING, RH (D) December 04, 2017 ASSAY THYROID STIM HORMONE December 04, 2017 COMPLETE CBC W/AUTO DIFF WBC December 04, 2017 INSTRUCTIONS MEDICATIONS ADMINISTERED No Known Medications MEDICAL [...]
--- OUTSIDE RECORDS SUMMARY | 2018-06-10 01:55 | XMS REPORT ---
Author Author LEROY SHRESTHA [facility] Address [address] [place] [address] Care Team Providers Care City Sanitarian Name Role Phone LEROY SHRESTHA Unavailable PROBLEMS Type Condition ICD9-CM Code YEU59-OP Code Onset Dates Condition Status SNOMED Code Problem Chlamydial infection A74.9 Active 253523960 Problem Second trimester Z34.92 Active 11530072 Problem Unspecified blood type, Rh negative Z67.91 Active 945395303 Problem Bipolar depression F31.30 Active 20071731 Problem Supervision of other high risk pregnancies, unspecified trimester O09.899 Active 059610934 ALLERGIES No Information ENCOUNTERS Encounter Location Date Diagnosis [place] [address] [place] [address] 76052- 1219 Mar, [place] [id number] [place] [address] 94352- 9462 Feb, [place] [id number] [place] [address] 34939- 3536 Feb, [place] [id number] [place] [address] 08281- 9333 Feb, Second trimester Z34.92 ; Chlamydial infection A74.9 ; Other maternal infectious and parasitic diseases complicating , first trimester O98.811 ; 23 weeks gestation of Z3A.23 and Evaluate anatomy not seen on prior sonogram Z04.8 [place] [id number] [place] [address] 43919- 5810 Feb, [place] [id number] [place] [address] 50401- 6822 Feb, [place] [id number] [place] [address] 44730- 4071 Feb, [facility] [id number] [id number] Jan, [facility] [address] [place] [address] 882189- 9343 Jan, Second trimester Z34.92 and 19 weeks gestation of Z3A.19 [facility] [address] [place] [address] 95590- 0957 Jan, [facility] [address] [id number] Jan, Dental examination Z01.20 [facility] [address] [place] [id number] [place] [address] 93097 -5654 Jan, Mouth pain K13.79 [facility] [id number] [place] [address] 27001- 8995 Jan, [facility] [id number] [place] [address] 59673- 8888 Jan, [facility] [id number] [place] [address] 02145- 1150 December, Second trimester Z34.92 ; 14 weeks gestation of Z3A.14 and Substance abuse 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, antepartum O99.322 [facility] [address] [place] [address] 10428- 9608 December, [facility] [address] [place] [address] 95084- 7996 Nov, [facility] [address] [place] [address] 69494- 3104 Nov, [facility] [id number] [place] [address] 73103- 5204 Nov, care, subsequent in first trimester Z34.81 ; 7 weeks gestation of Z3A.01 and Bipolar depression F31.30 [facility] [id number] [place] [address] 10950 -6568 Nov, [facility] [id number] [place] [address] 72772 -5807 Nov, [facility] [address] 04035- 7560 Nov, Screening, iron deficiency anemia Z13.0 [facility] [address] 21230- 9127 Nov, [facility] [address] 08485 -1719 Nov, Possible exposure to STD Z20.2 and Trichomoniasis A59.9 [facility] [address] 62883- 6575 Nov, [facility] [address] 35725- 1523 Nov, Encounter for test Z32.00 [facility] [address] 93466 -3506 07 Apr, 2016 Periodontal abscess K05.21 [place] [address] 58629- 5939 07 Feb, 2015 Family history of diabetes mellitus V18.0 ; Fatigue 780.79 and Pain in both feet 729.5 [place] [address] 48672- 9578 16 Jan, 2015 Bipolar affective disorder, depressed, moderate 296.52 and Posttraumatic stress disorder 309.81 [facility] [id number] [place] [address] 88126- 6109 11 Jan, 2015 [place] [address] 37668- 1138 14 Nov, 2014 [facility] [address] 13489- 4448 13 Nov, 2014 [facility] [address] 83103- 8798 Oct, [facility] [place] [facility] [address] [id number] [place] [address]- 4983 Oct, [facility] [place] [facility] [address] [id number] [place] [address]- 5233 Oct, [facility] [place] [facility] [address] [id number] [place] [address]- 8375 Oct, [facility] [place] [facility] [address] [id number] [place] [address]- 4223 Sep, 2014 [facility] [place] [facility] [address] [id number] [place] [address]- 8414 Sep, 2014 [facility] [place] [facility] [address] [id number] [place] [address]- 2565 Sep, 2014 [facility] [place] [facility] [address] [id number] [place] [address]- 6185 Sep, 2014 [facility] [place] [facility] [address] [id number] [place] [address]- 4211 Sep, [facility] [place] [facility] [address] [id number] [place] [address]- 6976 Sep, [facility] [place] [facility] [address] [facility] [id number] [place] [address]- 6639 Sep, [facility] [place] [facility] [address] [id number] [place] [address]- 6018 Aug, [facility] [place] [facility] [address] [id number] [place] [address]- 1859 Aug, [facility] [place] [facility] [address] [id number] [place] [address]- 1682 Aug, [facility] [place] [facility] [address] [id number] [place] [address]- 2331 Aug, [facility] [place] [facility] [address] [id number] [place] [address]- 5240 Aug, [facility] [address] [facility] [id number], [place] [address]- 9946 Oct, [facility] [address] [id number], [place] [address] 2546 Oct, [facility] [address] [facility] [id number], [place] [address]- 5476 Aug, [facility] [address] [id number], [place] [address] 2546 Aug, IMMUNIZATIONS No Known Immunizations SOCIAL HISTORY [...]
--- OUTSIDE RECORDS SUMMARY | 2018-06-10 01:55 | XMS REPORT ---
Author Author ROBBIE COLMENARES [facility] Address [address] [place] [address] Care Team Providers Care Overlock Hemmer Name Role Phone ROBBIE COLMENARES Unavailable PROBLEMS Type Condition ICD9-CM Code NJF26-EY Code Onset Dates Condition Status SNOMED Code Problem Chlamydial infection A74.9 Active 738811412 Problem Second trimester Z34.92 Active 41521182 Problem Unspecified blood type, Rh negative Z67.91 Active 977220548 Problem Bipolar depression F31.30 Active 18617201 Problem Supervision of other high risk pregnancies, unspecified trimester O09.899 Active 672784921 ALLERGIES No Information ENCOUNTERS Encounter Location Date Diagnosis [place] [id number] [place] [address] 52785- 0663 Mar, [place] [id number] [place] [address] 57482- 7209 Feb, [place] [id number] [place] [address] 86346- 8211 Feb, [place] [id number] [place] [address] 73251- 4026 Feb, Second trimester Z34.92 ; Chlamydial infection A74.9 ; Other maternal infectious and parasitic diseases complicating , first trimester O98.811 ; 23 weeks gestation of Z3A.23 and Evaluate anatomy not seen on prior sonogram Z04.8 [place] [id number] [place] [address] 72006- 8503 Feb, [place] [id number] [place] [address] 52765- 6443 Feb, [place] [id number] [place] [address] 15159- 3578 Feb, [facility] [address] [id number] [id number] Jan, [facility] [id number] [place] [address] 97722- 9641 Jan, Second trimester Z34.92 and 19 weeks gestation of Z3A.19 [facility] [address] [place] [address] 53657- 9565 Jan, [facility] [address] [place] [address] [id number] Jan, Dental examination Z01.20 [facility] [id number] [place] [address] 42075 -5393 Jan, Mouth pain K13.79 [facility] [id number] [place] [address] 96568- 9876 Jan, [facility] [id number] [place] [address] 24749- 4578 Jan, [facility] [id number] [place] [address] 75464- 9647 December, Second trimester Z34.92 ; 14 weeks gestation of Z3A.14 and Substance abuse 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, antepartum O99.322 [facility] [address] [place] [address] 94419- 0982 December, [facility] [address] [place] [address] 58269- 7767 Nov, [facility] [address] [place] [address] 51836- 1633 Nov, [facility] [id number] [place] [address] 28410- 0945 Nov, care, subsequent in first trimester Z34.81 ; 7 weeks gestation of Z3A.01 and Bipolar depression F31.30 [facility] [id number] [place] [address] 64056 -1404 Nov, [facility] [id number] [place] [address] 77366 -0718 Nov, [facility] [address] 36231- 8138 Nov, Screening, iron deficiency anemia Z13.0 [facility] [address] 29040- 0856 Nov, [facility] [address] 37860 -2564 Nov, Possible exposure to STD Z20.2 and Trichomoniasis A59.9 [facility] [address] 96750- 7893 Nov, [facility] [address] 83950- 7728 Nov, Encounter for test Z32.00 [facility] [id number] [place] [address] 17410 -4651 07 Apr, 2016 Periodontal abscess K05.21 [place] [address] 84168- 5594 07 Feb, 2015 Family history of diabetes mellitus V18.0 ; Fatigue 780.79 and Pain in both feet 729.5 [place] [id number] [place] [address] 56824- 5267 16 Jan, 2015 Bipolar affective disorder, depressed, moderate 296.52 and Posttraumatic stress disorder 309.81 [facility] [id number] [place] [address] 97590- 7069 11 Jan, 2015 [place] [address] 49420- 9865 14 Nov, 2014 [facility] [address] 52230- 0478 13 Nov, 2014 [facility] [address] 32905- 5096 Oct, [facility] [place] [facility] [address] [id number] [place] [address]- 9724 Oct, [facility] [place] [facility] [address] [id number] [place] [address]- 0058 Oct, [facility] [place] [facility] [address] [id number] [place] [address]- 8776 Oct, [facility] [place] [facility] [address] [id number] [place] [address]- 2362 Sep, [facility] [place] [facility] [address] [id number] [place] [address]- 0778 Sep, [facility] [place] [facility] [address] [id number] [place] [address]- 9401 Sep, 2014 [facility] [place] [facility] [address] [id number] [place] [address]- 3274 Sep, [facility] [place] [facility] [address] [id number] [place] [address]- 0813 Sep, [facility] [place] [facility] [address] [id number] [place] [address]- 3178 Sep, [facility] [place] [facility] [address] [id number] [place] [address]- 9733 Sep, [facility] [place] [facility] [address] [id number] [place] [address]- 2045 Aug, [facility] [place] [facility] [address] [id number] [place] [address]- 6557 Aug, [facility] [place] [facility] [address] [id number] [place] [address]- 4708 Aug, [facility] [place] [facility] [address] [id number] [place] [address]- 9414 Aug, [facility] [place] [facility] [address] [id number] [place] [address]- 0508 Aug, [facility] [place] [facility] [address] [facility] [id number] [place] [address]- 7273 Oct, [facility] [address] [facility] [id number] 4019 Oct, [facility] [address] [facility] [id number] [address]- 3212 Aug, [facility] [address] [facility] [id number] [address] Aug, IMMUNIZATIONS No Known Immunizations SOCIAL HISTORY Never Assessed REASON FOR VISIT State Treatment for chlamydia. educated pt on the importance for keeping OB intak appt on 12/04/2017. [email or web address] PLAN OF CARE VITAL SIGNS Height 65 in 2017-12-01 Weight 232.4 lbs 2017-12-01 Temperature 98.0 degrees Fahrenheit 2017-12-01 Heart Rate 84 bpm 2017-12-01 Respiratory Rate 20 2017-12-01 BMI 38.67 kg/m2 2017-12-01 Blood pressure systolic 124 mmHg 2017-12-01 Blood pressure diastolic 74 mmHg 2017-12-01 MEDICATIONS Medication Instructions Dosage Frequency Start Date End Date Duration Status Latuda 20 MG Orally Once a day 1 tablets with food 24h Active Tramadol HCl 50 mg Orally every 6 hrs 1 tablet as needed 6h Apr, Active Trazodone HCl 100 MG Orally Once a day 1 tablet at bedtime 24h Active RESULTS No Results PROCEDURES No Known [...]
--- OUTSIDE RECORDS SUMMARY | 2018-06-10 01:55 | XMS REPORT ---
Author Author SHAHLAGENNARO [facility] Address [address] [place] [address] Care Team Providers Care Doll Repairer Name Role Phone GENNARO GALE Unavailable PROBLEMS Type Condition ICD9-CM Code MOD60-SB Code Onset Dates Condition Status SNOMED Code Problem Chlamydial infection A74.9 Active 158147680 Problem Second trimester Z34.92 Active 70638754 Problem Unspecified blood type, Rh negative Z67.91 Active 611814667 Problem Bipolar depression F31.30 Active 36222676 Problem Supervision of other high risk pregnancies, unspecified trimester O09.899 Active 280972533 ALLERGIES No Information ENCOUNTERS Encounter Location Date Diagnosis [place] [id number] [place] [address] 12197- 1959 Mar, [place] [id number] [place] [address] 14956- 0840 Feb, [place] [id number] [place] [address] 31552- 6312 Feb, [place] [id number] [place] [address] 83051- 6311 Feb, Second trimester Z34.92 ; Chlamydial infection A74.9 ; Other maternal infectious and parasitic diseases complicating , first trimester O98.811 ; 23 weeks gestation of Z3A.23 and Evaluate anatomy not seen on prior sonogram Z04.8 [place] [id number] [place] [address] 68363- 5092 Feb, [place] [id number] [place] [address] 03243- 9498 Feb, [place] [id number] [place] [address] 34773- 2863 Feb, [facility] [address] [id number] [id number] Jan, [facility] [address] [place] [address] 26993- 6693 Jan, Second trimester Z34.92 and 19 weeks gestation of Z3A.19 [facility] [address] [place] [address] 75616- 5564 Jan, [facility] [address] [place] [address] [id number] Jan, Dental examination Z01.20 [facility] [id number] [place] [address] 79484 -0786 Jan, Mouth pain K13.79 [facility] [id number] [place] [address] 02740- 4134 Jan, [facility] [id number] [place] [address] 24714- 2610 Jan, [facility] [id number] [place] [address] 06363- 2189 December, Second trimester Z34.92 ; 14 weeks gestation of Z3A.14 and Substance abuse 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, antepartum O99.322 [facility] [id number] [place] [address] 67937- 4405 December, [facility] [address] [place] [address] 96910- 8786 Nov, [facility] [address] [place] [address] 90810- 5389 Nov, [facility] [id number] [place] [address] 52427- 9313 Nov, care, subsequent in first trimester Z34.81 ; 7 weeks gestation of Z3A.01 and Bipolar depression F31.30 [facility] [id number] [place] [address] 52170 -4291 Nov, [facility] [id number] [place] [address] 37762 -8282 Nov, [facility] [id number] [place] [address] 34963- 9335 Nov, Screening, iron deficiency anemia Z13.0 [facility] [address] 21096- 4724 Nov, [facility] [address] 07925 -8947 Nov, Possible exposure to STD Z20.2 and Trichomoniasis A59.9 [place] [address] 65557- 9368 Nov, [facility] [address] 22594- 4198 Nov, Encounter for test Z32.00 [facility] [id number] [place] [address] 35470 -3570 07 Apr, 2016 Periodontal abscess K05.21 [place] [address] 43169- 3646 07 Feb, 2015 Family history of diabetes mellitus V18.0 ; Fatigue 780.79 and Pain in both feet 729.5 [place] [id number] [place] [address] 29870- 3777 16 Jan, 2015 Bipolar affective disorder, depressed, moderate 296.52 and Posttraumatic stress disorder 309.81 [facility] [id number] [place] [address] 92107- 7468 11 Jan, 2015 [facility] [address] 02521- 1522 14 Nov, 2014 [facility] [id number] [place] [address] 02395- 3194 13 Nov, 2014 [facility] [address] 02781- 9532 Oct, [facility] [place] [facility] [address] [id number] [place] [address]- 5064 Oct, [facility] [place] [facility] [address] [id number] [place] [address]- 2710 Oct, [facility] [place] [facility] [address] [facility] [id number] [place] [address]- 6873 Oct, [facility] [place] [facility] [address] [id number] [place] [address]- 8601 Sep, [facility] [place] [facility] [address] [id number] [place] [address]- 3249 Sep, [facility] [place] [facility] [address] [facility] [id number] [place] [address]- 8822 Sep, 2014 [facility] [place] [facility] [address] [facility] [id number] [place] [address]- 0076 Sep, 2014 [facility] [place] [facility] [address] [facility] [id number] [place] [address]- 6153 Sep, [facility] [place] [facility] [address] [facility] [id number] [place] [address]- 1852 Sep, [facility] [place] [facility] [address] [facility] [id number] [place] [address]- 5166 Sep, [facility] [place] [facility] [address] [facility] [id number], [place] [address]- 6635 Aug, [facility] [place] [facility] [address] [facility] [id number], [place] [address]- 9829 Aug, [facility] [place] [facility] [address] [id number], [place] [address]- 4629 Aug, [facility] [place] [facility] [address] [facility] [id number], [place] [address]- 8603 Aug, [facility] [place] [facility] [address] [facility] [id number] [place] [address]- 9898 Aug, [facility] [place] [facility] [address] [facility] [id number] [place] [address]- 5108 Oct, [facility] [address] [facility] [id number], [place] [address]- 1755 Oct, [facility] [address] [facility] [id number], [place] [address]- 5256 Aug, [facility] [address] [facility] [id number], [place] [address]- 6668 Aug, IMMUNIZATIONS No Known Immunizations SOCIAL HISTORY [...]
--- OUTSIDE RECORDS SUMMARY | 2018-06-10 01:55 | XMS REPORT ---
Author Author ROBBIE COLMENARES [facility] Address [address] [place] [address] Care Team Providers Care Dog Behaviorist Name Role Phone ROBBIE COLMENARES Unavailable PROBLEMS Type Condition ICD9-CM Code OLK71-FY Code Onset Dates Condition Status SNOMED Code Problem Chlamydial infection A74.9 Active 991621936 Problem Second trimester Z34.92 Active 02270464 Problem Unspecified blood type, Rh negative Z67.91 Active 159331843 Problem Bipolar depression F31.30 Active 86986485 Problem Supervision of other high risk pregnancies, unspecified trimester O09.899 Active 650099961 ALLERGIES No Information ENCOUNTERS Encounter Location Date Diagnosis [place] [id number] [place] [address] 52532- 0062 Mar, [place] [id number] [place] [address] 94977- 1720 Feb, [place] [id number] [place] [address] 63316- 3170 Feb, [place] [id number] [place] [address] 20305- 8735 Feb, Second trimester Z34.92 ; Chlamydial infection A74.9 ; Other maternal infectious and parasitic diseases complicating , first trimester O98.811 ; 23 weeks gestation of Z3A.23 and Evaluate anatomy not seen on prior sonogram Z04.8 [place] [id number] [place] [address] 02340- 4134 Feb, [place] [id number] [place] [address] 35556- 1797 Feb, [place] [id number] [place] [address] 25359- 6611 Feb, [facility] [address] [id number] [id number] Jan, [facility] [id number] [place] [address] 96420- 2852 Jan, Second trimester Z34.92 and 19 weeks gestation of Z3A.19 [facility] [address] [place] [address] 82905- 6754 Jan, [facility] [address] [place] [address] [id number] Jan, Dental examination Z01.20 [facility] [id number] [place] [address] 42240 -9167 Jan, Mouth pain K13.79 [facility] [id number] [place] [address] 48884- 2892 Jan, [facility] [id number] [place] [address] 80087- 4578 Jan, [facility] [id number] [place] [address] 87575- 4108 December, Second trimester Z34.92 ; 14 weeks gestation of Z3A.14 and Substance abuse 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, antepartum O99.322 [facility] [address] [place] [address] 63230- 6585 December, [facility] [address] [place] [address] 94414- 8614 Nov, [facility] [address] [place] [address] 76787- 1751 Nov, [facility] [id number] [place] [address] 98389- 0824 Nov, care, subsequent in first trimester Z34.81 ; 7 weeks gestation of Z3A.01 and Bipolar depression F31.30 [facility] [id number] [place] [address] 94207 -4969 Nov, [facility] [id number] [place] [address] 21715 -5352 Nov, [facility] [address] 46704- 0468 Nov, Screening, iron deficiency anemia Z13.0 [facility] [address] 00588- 2777 Nov, [facility] [address] 96763 -8155 Nov, Possible exposure to STD Z20.2 and Trichomoniasis A59.9 [facility] [address] 75424- 5879 Nov, [facility] [address] 44163- 8606 Nov, Encounter for test Z32.00 [facility] [id number] [place] [address] 45860 -6455 07 Apr, 2016 Periodontal abscess K05.21 [place] [address] 16816- 1551 07 Feb, 2015 Family history of diabetes mellitus V18.0 ; Fatigue 780.79 and Pain in both feet 729.5 [place] [id number] [place] [address] 21909- 6953 16 Jan, 2015 Bipolar affective disorder, depressed, moderate 296.52 and Posttraumatic stress disorder 309.81 [facility] [id number] [place] [address] 86641- 1118 11 Jan, 2015 [place] [address] 03515- 7974 14 Nov, 2014 [facility] [address] 87048- 1121 13 Nov, 2014 [facility] [address] 36592- 3535 Oct, [facility] [place] [facility] [address] [id number] [place] [address]- 4640 Oct, [facility] [place] [facility] [address] [id number] [place] [address]- 0468 Oct, [facility] [place] [facility] [address] [id number] [place] [address]- 4211 Oct, [facility] [place] [facility] [address] [id number] [place] [address]- 7354 Sep, [facility] [place] [facility] [address] [id number] [place] [address]- 6702 Sep, [facility] [place] [facility] [address] [id number] [place] [address]- 0540 Sep, 2014 [facility] [place] [facility] [address] [id number] [place] [address]- 7955 Sep, [facility] [place] [facility] [address] [id number] [place] [address]- 1254 Sep, [facility] [place] [facility] [address] [id number] [place] [address]- 5133 Sep, [facility] [place] [facility] [address] [id number] [place] [address]- 2299 Sep, [facility] [place] [facility] [address] [id number] [place] [address]- 1033 Aug, [facility] [place] [facility] [address] [id number] [place] [address]- 5614 Aug, [facility] [place] [facility] [address] [id number] [place] [address]- 7272 Aug, [facility] [place] [facility] [address] [id number] [place] [address]- 5386 Aug, [facility] [place] [facility] [address] [id number] [place] [address]- 4410 Aug, [facility] [place] [facility] [address] [facility] [id number] [place] [address]- 5181 Oct, [facility] [address] [facility] [id number] [place] 1247 Oct, [facility] [address] [facility] [id number] [place] [address]- 2782 Aug, [facility] [address] [facility] [id number] [place] [address]- 8926 Aug, IMMUNIZATIONS No Known Immunizations SOCIAL HISTORY Never Assessed REASON FOR VISIT [facility] Hemoglobin PLAN OF CARE VITAL SIGNS MEDICATIONS Unknown Medications RESULTS Name Result Date Reference Range HEMOGLOBIN (IN HOUSE) 2017-11-23 HEMOGLOBIN 13.8 11.5 - 16 gm/dL Lot # [id number] Exp date 21 Aug 2018 PROCEDURES Procedure Date Ordered Result Body Site HEMOGLOBIN November 23, 2017 INSTRUCTIONS MEDICATIONS ADMINISTERED No Known Medications [...]
--- OUTSIDE RECORDS SUMMARY | 2018-06-10 01:55 | XMS REPORT ---
Author Author SHAHLAGENNARO [facility] Address [address] [place] [address] Care Team Providers Care Intelligence Consultant Name Role Phone GENNARO GALE Unavailable PROBLEMS Type Condition ICD9-CM Code CRE04-VB Code Onset Dates Condition Status SNOMED Code Problem Chlamydial infection A74.9 Active 825724358 Problem Second trimester Z34.92 Active 61945522 Problem Unspecified blood type, Rh negative Z67.91 Active 237704310 Problem Bipolar depression F31.30 Active 37354141 Problem Supervision of other high risk pregnancies, unspecified trimester O09.899 Active 963404983 ALLERGIES No Information ENCOUNTERS Encounter Location Date Diagnosis [place] [id number] [place] [address] 92368- 3942 Mar, [place] [id number] [place] [address] 69081- 3190 Feb, [place] [id number] [place] [address] 13643- 1060 Feb, [place] [id number] [place] [address] 32861- 2971 Feb, Second trimester Z34.92 ; Chlamydial infection A74.9 ; Other maternal infectious and parasitic diseases complicating , first trimester O98.811 ; 23 weeks gestation of Z3A.23 and Evaluate anatomy not seen on prior sonogram Z04.8 [place] [id number] [place] [address] 42149- 8938 Feb, [place] [id number] [place] [address] 00573- 2179 Feb, [place] [id number] [place] [address] 18919- 7893 Feb, [facility] [address] [id number] [address] Jan, [facility] [address] [place] [address] 99370- 2627 Jan, Second trimester Z34.92 and 19 weeks gestation of Z3A.19 [facility] [address] [place] [address] 12819- 0728 Jan, [facility] [address] [place] [address] [id number] Jan, Dental examination Z01.20 [facility] [id number] [place] [address] 94647 -6977 Jan, Mouth pain K13.79 [facility] [id number] [place] [address] 18649- 7626 Jan, [facility] [id number] [place] [address] 19188- 9222 Jan, [facility] [id number] [place] [address] 93680- 7923 December, Second trimester Z34.92 ; 14 weeks gestation of Z3A.14 and Substance abuse 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, antepartum O99.322 [facility] [id number] [place] [address] 86398- 3482 December, [facility] [address] [place] [address] 32400- 3312 Nov, [facility] [address] [place] [address] 39446- 4389 Nov, [facility] [id number] [place] [address] 63348- 5743 Nov, care, subsequent in first trimester Z34.81 ; 7 weeks gestation of Z3A.01 and Bipolar depression F31.30 [facility] [id number] [place] [address] 25655 -6940 Nov, [facility] [id number] [place] [address] 52963 -0588 Nov, [facility] [id number] [place] [address] 05420- 3381 Nov, Screening, iron deficiency anemia Z13.0 [facility] [address] 13282- 1410 Nov, [facility] [address] 75960 -7022 Nov, Possible exposure to STD Z20.2 and Trichomoniasis A59.9 [place] [address] 13473- 5599 Nov, [facility] [address] 54690- 8819 Nov, Encounter for test Z32.00 [facility] [id number] [place] [address] 84632 -9436 07 Apr, 2016 Periodontal abscess K05.21 [place] [address] 14487- 8628 07 Feb, 2015 Family history of diabetes mellitus V18.0 ; Fatigue 780.79 and Pain in both feet 729.5 [place] [id number] [place] [address] 59930- 6117 16 Jan, 2015 Bipolar affective disorder, depressed, moderate 296.52 and Posttraumatic stress disorder 309.81 [facility] [id number] [place] [address] 86828- 9280 11 Jan, 2015 [facility] [address] 44342- 7419 14 Nov, 2014 [facility] [id number] [place] [address] 49007- 9682 13 Nov, 2014 [facility] [address] 82961- 8118 Oct, [facility] [place] [facility] [address] [id number] [place] [address]- 1861 Oct, [facility] [place] [facility] [address] [id number] [place] [address]- 5505 Oct, [facility] [place] [facility] [address] [facility] [id number] [place] [address]- 4797 Oct, [facility] [place] [facility] [address] [id number] [place] [address]- 0538 Sep, [facility] [place] [facility] [address] [id number] [place] [address]- 3267 Sep, [facility] [place] [facility] [address] [facility] [id number] [place] [address]- 0201 Sep, 2014 [facility] [place] [facility] [address] [facility] [id number] [place] [address]- 4755 Sep, 2014 [facility] [place] [facility] [address] [facility] [id number] [place] [address]- 1996 Sep, [facility] [place] [facility] [address] [facility] [id number] [place] [address]- 2180 Sep, [facility] [place] [facility] [address] [facility] [id number] [place] [address]- 8362 Sep, [facility] [place] [facility] [address] [facility] [id number] [address]- 4170 Aug, [facility] [place] [facility] [address] [facility] [id number] [address]- 0444 Aug, [facility] [place] [facility] [address] [id number] [address]- 4815 Aug, [facility] [place] [facility] [address] [facility] [id number] [address]- 2701 Aug, [facility] [place] [facility] [address] [facility] [id number] [place] [address]- 6124 Aug, [facility] [place] [facility] [address] [facility] [id number] [place] [address]- 7250 Oct, [facility] [address] [facility] [id number] [address]- 7386 Oct, [facility] [address] [facility] [id number] [address]- 0603 Aug, [facility] [address] [facility] [id number] [address]- 4629 Aug, IMMUNIZATIONS No Known Immunizations SOCIAL HISTORY [...]
--- OUTSIDE RECORDS SUMMARY | 2018-06-10 01:56 | XMS REPORT ---
Author Author ROBBIE COLMENARES [facility] Address [address] [place] [address] Care Team Providers Care Service Sprinkler Helper Name Role Phone ROBBIE COLMENARES Unavailable PROBLEMS Type Condition ICD9-CM Code XHN98-PG Code Onset Dates Condition Status SNOMED Code Problem Chlamydial infection A74.9 Active 028524890 Problem Second trimester Z34.92 Active 48322082 Problem Unspecified blood type, Rh negative Z67.91 Active 304608952 Problem Bipolar depression F31.30 Active 00790206 Problem Supervision of other high risk pregnancies, unspecified trimester O09.899 Active 621951550 ALLERGIES No Information ENCOUNTERS Encounter Location Date Diagnosis [place] [id number] [place] [address] 12863- 7581 Mar, [place] [id number] [place] [address] 12953- 5512 Feb, [place] [id number] [place] [address] 29955- 1590 Feb, [place] [id number] [place] [address] 74847- 3370 Feb, Second trimester Z34.92 ; Chlamydial infection A74.9 ; Other maternal infectious and parasitic diseases complicating , first trimester O98.811 ; 23 weeks gestation of Z3A.23 and Evaluate anatomy not seen on prior sonogram Z04.8 [place] [id number] [place] [address] 19614- 9472 Feb, [place] [id number] [place] [address] 35466- 5075 Feb, [place] [id number] [place] [address] 33487- 2465 Feb, [facility] [address] [id number] [id number] Jan, [facility] [id number] [place] [address] 67099- 9133 Jan, Second trimester Z34.92 and 19 weeks gestation of Z3A.19 [facility] [id number] [place] [address] 27144- 5855 Jan, [facility] [id number] [place] [address] [id number] Jan, Dental examination Z01.20 [facility] [id number] [place] [address] 74657 -5212 Jan, Mouth pain K13.79 [facility] [id number] [place] [address] 30743- 9761 Jan, [facility] [id number] [place] [address] 94578- 2533 Jan, [facility] [id number] [place] [address] 81458- 1569 December, Second trimester Z34.92 ; 14 weeks gestation of Z3A.14 and Substance abuse 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, antepartum O99.322 [facility] [address] [place] [address] 44880- 9401 December, [facility] [address] [place] [address] 41623- 0481 Nov, [facility] [address] [place] [address] 69255- 7458 Nov, [facility] [id number] [place] [address] 09022- 3296 Nov, care, subsequent in first trimester Z34.81 ; 7 weeks gestation of Z3A.01 and Bipolar depression F31.30 [facility] [id number] [place] [address] 18136 -0127 Nov, [facility] [id number] [place] [address] 53640 -1612 Nov, [facility] [address] 99934- 8335 Nov, Screening, iron deficiency anemia Z13.0 [facility] [address] 49394- 4266 Nov, [facility] [address] 22865 -4704 Nov, Possible exposure to STD Z20.2 and Trichomoniasis A59.9 [facility] [address] 79699- 5311 Nov, [facility] [address] 46011- 6869 Nov, Encounter for test Z32.00 [facility] [id number] [place] [address] 30254 -8282 07 Apr, 2016 Periodontal abscess K05.21 [place] [address] 20456- 6068 07 Feb, 2015 Family history of diabetes mellitus V18.0 ; Fatigue 780.79 and Pain in both feet 729.5 [place] [id number] [place] [address] 08856- 6588 16 Jan, 2015 Bipolar affective disorder, depressed, moderate 296.52 and Posttraumatic stress disorder 309.81 [facility] [id number] [place] [address] 38912- 4253 11 Jan, 2015 [place] [address] 66694- 6393 14 Nov, 2014 [facility] [address] 96080- 8158 13 Nov, 2014 [facility] [address] 05793- 8751 Oct, [facility] [place] [facility] [address] [id number] [place] [address]- 2825 Oct, [facility] [place] [facility] [address] [id number] [place] [address]- 4963 Oct, [facility] [place] [facility] [address] [id number] [place] [address]- 5710 Oct, [facility] [place] [facility] [address] [id number] [place] [address]- 6774 Sep, [facility] [place] [facility] [address] [id number] [place] [address]- 0447 Sep, [facility] [place] [facility] [address] [id number] [place] [address]- 8744 Sep, 2014 [facility] [place] [facility] [address] [id number] [place] [address]- 8922 Sep, [facility] [place] [facility] [address] [id number] [place] [address]- 4875 Sep, [facility] [place] [facility] [address] [id number] [place] [address]- 1634 Sep, [facility] [place] [facility] [address] [id number] [place] [address]- 3752 Sep, [facility] [place] [facility] [address] [id number] [place] [address]- 2939 Aug, [facility] [place] [facility] [address] [id number] [place] [address]- 4168 Aug, [facility] [place] [facility] [address] [id number] [place] [address]- 8941 Aug, [facility] [place] [facility] [address] [id number] [place] [address]- 8857 Aug, [facility] [place] [facility] [address] [id number] [place] [address]- 8149 Aug, [facility] [place] [facility] [address] [facility] [id number] [place] [address] 9239 Oct, [facility] [address] [facility] [id number] [address] 3043 Oct, [facility] [address] [facility] [id number], [place] [address]- 2613 Aug, [facility] [address] [facility] [id number], [place] [address]- 3663 Aug, IMMUNIZATIONS No Known Immunizations SOCIAL HISTORY [...]
--- OUTSIDE RECORDS SUMMARY | 2018-06-10 01:56 | XMS REPORT ---
Author Author [facility] Address [address] [place] [address] Care Team Providers Care Golf Caddy Name Role Phone LEROY SHRESTHA Unavailable PROBLEMS Type Condition ICD9-CM Code SMQ51-DE Code Onset Dates Condition Status SNOMED Code Problem Chlamydial infection A74.9 Active 945360938 Problem Second trimester Z34.92 Active 85297449 Problem Unspecified blood type, Rh negative Z67.91 Active 970195972 Problem Bipolar depression F31.30 Active 83790082 Problem Supervision of other high risk pregnancies, unspecified trimester O09.899 Active 940917878 ALLERGIES No Known Allergies ENCOUNTERS Encounter Location Date Diagnosis [place] [address] [place] [address] 67667- 6380 Mar, [place] [id number] [place] [address] 28722- 2839 Feb, [place] [id number] [place] [address] 80562- 8098 Feb, [place] [id number] [place] [address] 06130- 0437 Feb, Second trimester Z34.92 ; Chlamydial infection A74.9 ; Other maternal infectious and parasitic diseases complicating , first trimester O98.811 ; 23 weeks gestation of Z3A.23 and Evaluate anatomy not seen on prior sonogram Z04.8 [place] [id number] [place] [address] 54139- 5779 Feb, [place] [id number] [place] [address] 23740- 1657 Feb, [place] [id number] [place] [address] 69499- 8878 Feb, [facility] [id number] [id number] Jan, [facility] [address] [place] [address] 399137- 6140 Jan, Second trimester Z34.92 and 19 weeks gestation of Z3A.19 [facility] [address] [place] [address] 90166- 4418 Jan, [facility] [address] [id number] Jan, Dental examination Z01.20 [facility] [address] [place] [id number] [place] [address] 37484 -7821 Jan, Mouth pain K13.79 [facility] [id number] [place] [address] 92828- 6979 Jan, [facility] [address] [place] [address] 89260- 4583 Jan, [facility] [id number] [place] [address] 39279- 7309 December, Second trimester Z34.92 ; 14 weeks gestation of Z3A.14 and Substance abuse 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, antepartum O99.322 [facility] [address] [place] [address] 84890- 4443 December, [facility] [address] [place] [address] 75700- 9880 Nov, [facility] [address] [place] [address] 04422- 8493 Nov, [facility] [id number] [place] [address] 33230- 7181 Nov, care, subsequent in first trimester Z34.81 ; 7 weeks gestation of Z3A.01 and Bipolar depression F31.30 [facility] [id number] [place] [address] 98969 -9567 Nov, [facility] [id number] [place] [address] 26237 -0936 Nov, [facility] [address] 40405- 1380 Nov, Screening, iron deficiency anemia Z13.0 [facility] [address] 86507- 4937 Nov, [facility] [address] 84536 -4527 Nov, Possible exposure to STD Z20.2 and Trichomoniasis A59.9 [facility] [address] 52346- 5458 Nov, [facility] [address] 14224- 8626 Nov, Encounter for test Z32.00 [facility] [address] 03058 -3486 07 Apr, 2016 Periodontal abscess K05.21 [place] [address] 26664- 9759 07 Feb, 2015 Family history of diabetes mellitus V18.0 ; Fatigue 780.79 and Pain in both feet 729.5 [place] [address] 93089- 1730 16 Jan, 2015 Bipolar affective disorder, depressed, moderate 296.52 and Posttraumatic stress disorder 309.81 [facility] [address] 86923- 3687 11 Jan, 2015 [facility] [address] 51979- 5240 14 Nov, 2014 [facility] [address] 24956- 1554 13 Nov, 2014 [facility] [address] 93598- 8918 Oct, [facility] [place] [facility] [address] [id number] [place] [address]- 7490 Oct, [facility] [place] [facility] [address] [id number] [place] [address]- 0831 Oct, [facility] [place] [facility] [address] [facility] [id number] [place] [address]- 1572 Oct, [facility] [place] [facility] [address] [id number] [place] [address]- 9250 Sep, [facility] [place] [facility] [address] [id number] [place] [address]- 7653 Sep, [facility] [place] [facility] [address] [id number] [place] [address]- 1828 Sep, 2014 [facility] [place] [facility] [address] [facility] [id number] [place] [address]- 0579 Sep, 2014 [facility] [place] [facility] [address] [facility] [id number] [place] [address]- 2111 Sep, [facility] [place] [facility] [address] [facility] [id number] [place] [address]- 7609 Sep, [facility] [place] [facility] [address] [facility] [id number] [place] [address]- 0021 Sep, [facility] [place] [facility] [address] [facility] [id number] [place] [address]- 7509 Aug, [facility] [place] [facility] [address] [id number] [place] [address]- 7327 Aug, [facility] [place] [facility] [address] [id number] [place] [address]- 9148 Aug, [facility] [place] [facility] [address] [facility] [id number] [place] [address]- 4774 Aug, [facility] [place] [facility] [address] [facility] [id number] [place] [address]- 9055 Aug, [facility] [address] [facility] [id number], [place] [address]- 8085 Oct, [facility] [address] [facility] [id number], [place] [address]- 9756 Oct, [facility] [address] [facility] [id number], [place] [address]- 7446 Aug, [facility] [address] [facility] [id number], [place] [address]- 0456 Aug, IMMUNIZATIONS No Known Immunizations SOCIAL HISTORY Never Assessed REASON FOR VISIT std check Pt here for std check, pt is does report having a vaginal discharge ROSETTA Ohara PLAN OF CARE Activity Details Follow Up keep scheduled appt with Dr. Gomez Reason: VITAL SIGNS Height 65 in 2017-11-21 Weight 229.0 lbs 2017-11-21 Temperature 98.3 degrees Fahrenheit 2017-11-21 Heart Rate 86 bpm 2017-11-21 Respiratory Rate 18 2017-11-21 BMI 38.10 kg/m2 2017-11-21 Blood pressure systolic 118 mmHg 2017-11-21 Blood pressure diastolic 80 mmHg 2017-11-21 MEDICATIONS Medication Instructions Dosage Frequency Start Date End Date Duration Status Flagyl 500 MG Orally once 4 tablet Nov, Nov, 1 days Active Latuda 20 MG Orally Once a day 1 tablets with food 24h Not-Taking Tramadol HCl 50 mg Orally every 6 hrs 1 tablet as needed 6h 07 Apr, 2016 Not-Taking Trazodone HCl 100 MG Orally Once a day 1 tablet at bedtime 24h Not -Taking RESULTS No Results PROCEDURES Procedure Date Ordered Result Body Site No Charge November 21, 2017 TRICHOMONAS ASSAY W/OPTIC November 21, 2017 CULTURE, BACTERIA, OTHER November 21, 2017 Bacterial Vaginosis In House November 21, 2017 VENIPUNCT, ROUTINE* November 21, 2017 INSTRUCTIONS MEDICATIONS ADMINISTERED No Known Medications [...]
--- OUTSIDE RECORDS SUMMARY | 2018-06-10 01:56 | XMS REPORT ---
Author Author ROBBIE COLMENARES [facility] Address [address] [place] [address] Care Team Providers Care Digital Printer Name Role Phone ROBBIE COLMENARES Unavailable PROBLEMS Type Condition ICD9-CM Code YVQ32-BQ Code Onset Dates Condition Status SNOMED Code Problem Chlamydial infection A74.9 Active 971015367 Problem Second trimester Z34.92 Active 69027433 Problem Unspecified blood type, Rh negative Z67.91 Active 066388249 Problem Bipolar depression F31.30 Active 69624923 Problem Supervision of other high risk pregnancies, unspecified trimester O09.899 Active 754071680 ALLERGIES No Information ENCOUNTERS Encounter Location Date Diagnosis [place] [id number] [place] [address] 53953- 3366 Mar, [place] [id number] [place] [address] 72981- 2898 Feb, [place] [id number] [place] [address] 66251- 5430 Feb, [place] [id number] [place] [address] 81716- 7876 Feb, Second trimester Z34.92 ; Chlamydial infection A74.9 ; Other maternal infectious and parasitic diseases complicating , first trimester O98.811 ; 23 weeks gestation of Z3A.23 and Evaluate anatomy not seen on prior sonogram Z04.8 [place] [id number] [place] [address] 77849- 5071 Feb, [place] [id number] [place] [address] 81839- 3363 Feb, [place] [id number] [place] [address] 23513- 8689 Feb, [facility] [address] [id number] [id number] Jan, [facility] [id number] [place] [address] 09810- 8222 Jan, Second trimester Z34.92 and 19 weeks gestation of Z3A.19 [facility] [address] [place] [address] 16725- 1301 Jan, [facility] [address] [place] [address] [id number] Jan, Dental examination Z01.20 [facility] [id number] [place] [address] 08933 -4132 Jan, Mouth pain K13.79 [facility] [id number] [place] [address] 81980- 9255 Jan, [facility] [id number] [place] [address] 44230- 6908 Jan, [facility] [id number] [place] [address] 03195- 5914 December, Second trimester Z34.92 ; 14 weeks gestation of Z3A.14 and Substance abuse 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, antepartum O99.322 [facility] [address] [place] [address] 11051- 0362 December, [facility] [address] [place] [address] 15773- 8885 Nov, [facility] [address] [place] [address] 00027- 5662 Nov, [facility] [id number] [place] [address] 86004- 6831 Nov, care, subsequent in first trimester Z34.81 ; 7 weeks gestation of Z3A.01 and Bipolar depression F31.30 [facility] [id number] [place] [address] 89699 -7313 Nov, [facility] [id number] [place] [address] 91500 -1328 Nov, [facility] [address] 21544- 3609 Nov, Screening, iron deficiency anemia Z13.0 [facility] [address] 60857- 9215 Nov, [facility] [address] 72857 -0989 Nov, Possible exposure to STD Z20.2 and Trichomoniasis A59.9 [facility] [address] 92912- 9904 Nov, [facility] [address] 00560- 2001 Nov, Encounter for test Z32.00 [facility] [id number] [place] [address] 92875 -7099 07 Apr, 2016 Periodontal abscess K05.21 [place] [address] 87020- 1122 07 Feb, 2015 Family history of diabetes mellitus V18.0 ; Fatigue 780.79 and Pain in both feet 729.5 [place] [id number] [place] [address] 21364- 0020 16 Jan, 2015 Bipolar affective disorder, depressed, moderate 296.52 and Posttraumatic stress disorder 309.81 [facility] [id number] [place] [address] 35517- 5085 11 Jan, 2015 [place] [address] 95373- 2649 14 Nov, 2014 [facility] [address] 16940- 9831 13 Nov, 2014 [facility] [address] 48155- 8108 Oct, [facility] [place] [facility] [address] [id number] [place] [address]- 0751 Oct, [facility] [place] [facility] [address] [id number] [place] [address]- 8497 Oct, [facility] [place] [facility] [address] [id number] [place] [address]- 1774 Oct, [facility] [place] [facility] [address] [id number] [place] [address]- 8136 Sep, [facility] [place] [facility] [address] [id number] [place] [address]- 7222 Sep, [facility] [place] [facility] [address] [id number] [place] [address]- 7109 Sep, 2014 [facility] [place] [facility] [address] [id number] [place] [address]- 9394 Sep, [facility] [place] [facility] [address] [id number] [place] [address]- 1917 Sep, [facility] [place] [facility] [address] [id number] [place] [address]- 0279 Sep, [facility] [place] [facility] [address] [id number] [place] [address]- 1927 Sep, [facility] [place] [facility] [address] [id number] [place] [address]- 0581 Aug, [facility] [place] [facility] [address] [id number] [place] [address]- 2298 Aug, [facility] [place] [facility] [address] [id number] [place] [address]- 4033 Aug, [facility] [place] [facility] [address] [id number] [place] [address]- 7851 Aug, [facility] [place] [facility] [address] [id number] [place] [address]- 4062 Aug, [facility] [place] [facility] [address] [facility] [id number] [place] [address]- 1316 Oct, [facility] [address] [facility] [id number], [place] [address] Oct, [facility] [address] [facility] [id number], [place] [address] Aug, [facility] [address] [facility] [id number], [place] [address] Aug, IMMUNIZATIONS No Known Immunizations SOCIAL HISTORY Never Assessed REASON FOR VISIT test (walk-in)--[facility] PLAN OF CARE VITAL SIGNS MEDICATIONS Unknown Medications RESULTS Name Result Date Reference Range TEST, URINE (IN HOUSE) 2017-11-21 RESULTS POSITIVE Lot # [id number] Control + Exp date 02/2019 PROCEDURES Procedure Date Ordered Result Body Site URINE TEST November 21, 2017 INSTRUCTIONS MEDICATIONS ADMINISTERED No [...]
--- OUTSIDE RECORDS SUMMARY | 2018-06-10 01:57 | XMS REPORT | Continuity of Care Document ---
Author Author [facility] Address Unknown Phone Unavailable Allergies Active Description Code Type Severity Reaction Onset Reported/Identified Relationship to Patient Clinical Status Yes No Known Drug Allergies [id number] Drug Allergy Unknown N/A 03/22/2017 Medications There is no data. Problems Date Dx Coded Attending Type Code Diagnosis Diagnosed By 09/01/2011 WADE CHOUDHURY APRN 307.42 PRIMARY INSOMNIA 09/01/2011 WADE CHOUDHURY APRN A 311 DEPRESSION 09/01/2011 WADE CHOUDHURY APRN A 626.0 AMENORRHEA 09/01[facility].42 PRIMARY INSOMNIA 09/01/2011 [facility] 311 DEPRESSION 09/01/2011 [facility] 626.0 AMENORRHEA 09/09/2014 WADE HCOUDHURY APRN A 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 09/09/2014 WADE CHOUDHURY APRN A V01.6 CONTACT WITH OR EXPOSURE TO VENEREAL DISEASES 09/09/2014 WADE CHOUDHURY APRN A V69.2 HIGH-RISK SEXUAL BEHAVIOR 09/09/2014 WADE CHOUDHURY APRN A V74.5 STD SCREEN 09/09/2014 WADE CHOUDHURY APRN A V76.2 CERVICAL CANCER SCREENING (PAP SMEAR) 09/09/2014 [facility] 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 09/09/2014 [facility] V01.6 CONTACT WITH OR EXPOSURE TO VENEREAL DISEASES 09/09/2014 [facility] V69.2 HIGH-RISK SEXUAL BEHAVIOR 09/09/2014 [facility] V74.5 STD SCREEN 09/09/2014 [facility] V76.2 CERVICAL CANCER SCREENING (PAP SMEAR) 10/08/2014 [facility] 296.52 MO BIPOLAR I DEPRESSED MODERATE 03/23/2017 CRIS WARD, WILFRED Ot A41.9 SEPSIS, UNSPECIFIED ORGANISM 03/23/2017 LYNCH DO, WILFRED Ot F17.210 NICOTINE DEPENDENCE, CIGARETTES, UNCOMPL 03/23/2017 CRIS WARD WILFRED Ot F31.9 BIPOLAR DISORDER, UNSPECIFIED 03/23/2017 LYNCHSCOTT WARD WILFRED Ot N10 ACUTE PYELONEPHRITIS 12/14/2017 DEB GALE MD Ot N83.202 UNSPECIFIED OVARIAN CYST, LEFT SIDE 12/14/2017 DEB GALE MD Ot O34.81 MATERNAL CARE FOR OTH ABNLT OF PELVIC OR 12/14/2017 DEB GALE MD Ot Z3A.11 11 WEEKS GESTATION OF 12/28/2017 DEB GALE MD Ot N83.202 UNSPECIFIED OVARIAN CYST, LEFT SIDE 12/28/2017 DEB GALE MD Ot O34.81 MATERNAL CARE FOR OTH ABNLT OF PELVIC OR 12/28/2017 DEB GALE MD Ot Z3A.11 11 WEEKS GESTATION OF 01/24/2018 AUBREY SLADE MD Ot F12.90 CANNABIS USE, UNSPECIFIED, UNCOMPLICATED 01/24/2018 AUBREY SLADE MD Ot F31.9 BIPOLAR DISORDER, UNSPECIFIED 01/24/2018 AUBREY SLADE MD Ot K08.89 OTHER SPECIFIED DISORDERS OF TEETH AND S 01/24/2018 AUBREY SLADE MD Ot O99.322 DRUG USE COMPLICATING , SECOND 01/24/2018 AUBREY SLADE MD Ot O99.342 OTH MENTAL DISORDERS COMP , SEC 01/24/2018 AUBREY SLADE MD Ot O99.611 DISEASES OF THE DGSTV SYS COMP 01/24/2018 AUBREY SLADE MD Ot O99.612 DISEASES OF THE DGSTV SYS COMP 01/24/2018 AUBREY SLADE MD Ot Z3A.17 17 WEEKS GESTATION OF 01/24/2018 AUBREY SLADE MD Ot Z85.828 PERSONAL HISTORY OF OTHER MALIGNANT NEOP 02/08/2018 DEB GALE MD Ot N83.202 UNSPECIFIED OVARIAN CYST, LEFT SIDE 02/08/2018 DEB GALE MD Ot O34.81 MATERNAL CARE FOR OTH ABNLT OF PELVIC OR 02/08/2018 DEB GALE MD Ot Z3A.11 11 WEEKS GESTATION OF 02/09/2018 DEB GALE MD Ot Z36.89 ENCOUNTER FOR OTHER SPECIFIED 02/09/2018 DEB GALE MD Ot Z3A.19 19 WEEKS GESTATION OF 02/09/2018 DEB GALE MD Ot Z36.89 ENCOUNTER FOR OTHER SPECIFIED 02/09/2018 DEB GALE MD Ot Z3A.19 19 WEEKS GESTATION OF 02/22/2018 DEB GALE MD Ot Z36.89 ENCOUNTER FOR OTHER SPECIFIED 02/22/2018 DEB GALE MD, Ot Z3A.19 19 WEEKS GESTATION OF 03/08/2018 DEB GALE MD, Ot N83.202 UNSPECIFIED OVARIAN CYST, LEFT SIDE 03/08/2018 DEB GALE MD Ot O34.81 MATERNAL CARE FOR OTH ABNLT OF PELVIC OR 03/08/2018 DEB GALE MD Ot Z3A.11 11 WEEKS GESTATION OF 03/08/2018 DEB GALE MD Ot Z36.89 ENCOUNTER FOR OTHER SPECIFIED 03/08/2018 DEB GALE MD Ot Z3A.19 19 WEEKS GESTATION OF 03/09/2018 DEB GALE MD Ot Z34.92 ENCNTR FOR SUPRVSN OF NORMAL PREG, UNSP, 03/09/2018 DEB GALE MD, Ot Z3A.23 23 WEEKS GESTATION OF 03/13/2018 DEB GALE MD Ot Z34.82 ENCOUNTER FOR SUPRVSN OF NORMAL PREGNANC 03/13/2018 DEB GALE MD Ot Z3A.23 23 WEEKS GESTATION OF 03/31/2018 DEB GALE MD Ot O36.8120 DECREASED MOVEMENTS, SECOND TRIMES 03/31/2018 DEB GALE MD Ot Z3A.27 27 WEEKS GESTATION OF 04/02/2018 DEB GALE MD Ot Z01.818 ENCOUNTER FOR OTHER PREPROCEDURAL EXAMIN 04/17/2018 DEB GALE MD Ot O36.8120 DECREASED MOVEMENTS, SECOND TRIMES 04/17/2018 DEB GALE MD Ot Z3A.27 27 WEEKS GESTATION OF 05/03/2018 DEB GALE MD, Ot Z36.89 ENCOUNTER FOR OTHER SPECIFIED 05/03/2018 DEB GALE MD, Ot Z3A.00 WEEKS OF GESTATION OF NOT SPEC 05/22/2018 TILA BECKHAM Ot F12.10 CANNABIS ABUSE, UNCOMPLICATED 05/22/2018 TILA BECKHAM Ot F17.210 NICOTINE DEPENDENCE, CIGARETTES, UNCOMPL 05/22/2018 TILA BECKHAM Ot F31.9 BIPOLAR DISORDER, UNSPECIFIED 05/22/2018 TILA BECKHAM Ot J06.9 ACUTE UPPER RESPIRATORY INFECTION, UNSPE 05/22/2018 TILA BECKHAM Ot R05 COUGH 05/22/2018 TILA BECKHAM Ot Z85.828 PERSONAL HISTORY OF OTHER MALIGNANT NEOP 05/22/2018 TILA BECKHAM Ot Z86.19 PERSONAL HISTORY OF OTHER INFECTIOUS AND Procedures There is no data. Results Test Result Range Bacterial urine culture - 03/22/17 10:00 Bacterial urine culture [id number] NRG COLONY COUNT 10,000/ML - 100,000/ML NRG FTX;REPORTABLE SENSITIVITY REPORTED 03/23/17 17:10 NRG Bacterial susceptibility panel - 03/22/17 10:00 Gentamicin [...] susceptibility test by minimum inhibitory concentration - NRG Complete blood count (CBC) with automated white [...] plasma albumin measurement (mass/volume) 3.1 g/dL 3.2-4.5 Complete blood count (CBC) with automated white blood cell (WBC) differential - 01/24/18 19:45 Blood leukocytes automated count (number/volume) 8.0 10*3/uL 4.3-11.0 Blood erythrocytes automated count (number/volume) 3.58 10*6/uL 4.35-5.85 Venous blood hemoglobin measurement (mass/volume) 11.3 g/dL 11.5-16.0 Blood hematocrit (volume fraction) 31 % 35-52 Automated erythrocyte mean corpuscular volume 88 [foz_us] 80-99 Automated erythrocyte mean corpuscular hemoglobin (mass per erythrocyte) 32 pg 25-34 Automated erythrocyte mean corpuscular hemoglobin concentration measurement ( mass/volume) 36 g/dL 32-36 Automated erythrocyte distribution width ratio 12.4 % 10.0-14.5 Automated blood platelet count (count/volume) 252 10*3/uL 130-400 Automated blood platelet mean volume measurement 10.6 [foz_us] 7.4-10.4 Automated blood neutrophils/100 leukocytes 55 % 42-75 Automated blood lymphocytes/100 leukocytes 37 % 12-44 Blood monocytes/100 leukocytes 6 % 0-12 Automated blood eosinophils/100 leukocytes 2 % 0-10 Automated blood basophils/100 leukocytes 0 % 0-10 Blood neutrophils automated count (number/volume) 4.4 10*3 1.8-7.8 Blood lymphocytes automated count (number/volume) 3.0 10*3 1.0-4.0 Blood monocytes automated count (number/volume) 0.5 10*3 0.0-1.0 Automated eosinophil count 0.2 10*3/uL 0.0-0.3 Automated blood basophil count (count/volume) 0.0 10*3/uL 0.0-0.1 Comprehensive metabolic panel - 01/24/18 19:45 Serum or plasma sodium measurement (moles/volume) 139 mmol/L 135-145 Serum or plasma potassium measurement (moles/volume) 3.6 mmol/L 3.6-5.0 Serum or plasma chloride measurement (moles/volume) 109 mmol/L 98-107 Carbon dioxide 20 mmol/L 21-32 Serum or plasma anion gap determination (moles/volume) 10 mmol/L 5-14 Serum or plasma urea nitrogen measurement (mass/volume) 6 mg/dL 7-18 Serum or plasma creatinine measurement (mass/volume) 0.62 mg/dL 0.60-1.30 Serum or plasma urea nitrogen/creatinine mass ratio 10 NRG Serum or plasma creatinine measurement with calculation of estimated glomerular filtration rate > NRG Serum or plasma glucose measurement (mass/volume) 108 mg/dL 70-105 Serum or plasma calcium measurement (mass/volume) 9.4 mg/dL 8.5-10.1 Serum or plasma total bilirubin measurement (mass/volume) 0.2 mg/dL 0.1-1.0 Serum or plasma alkaline phosphatase measurement (enzymatic activity/volume) 44 U/L 40-136 Serum or plasma aspartate aminotransferase measurement (enzymatic activity/ volume) 9 U/L 5-34 Serum or plasma alanine aminotransferase measurement (enzymatic activity/volume ) 7 U/L 0-55 Serum or plasma protein measurement (mass/volume) 6.3 g/dL 6.4-8.2 Serum or plasma albumin measurement (mass/volume) 3.2 g/dL 3.2-4.5 Serum or plasma ethanol measurement (mass/volume) - 01/24/18 19:45 Serum or plasma ethanol measurement (mass/volume) < mg/dL <10 Complete urinalysis with reflex to culture - 01/24/18 20:20 Urine color determination YELLOW NRG Urine clarity determination CLEAR NRG Urine pH measurement by test strip 6 5-9 Specific gravity of urine by test strip 1.025 1.016- 1.022 Urine protein assay by test strip, semi-quantitative NEGATIVE NEGATIVE Urine glucose detection by automated test strip NEGATIVE NEGATIVE Erythrocytes detection in urine sediment by light microscopy NEGATIVE NEGATIVE Urine ketones detection by automated test strip NEGATIVE NEGATIVE Urine nitrite detection by test strip NEGATIVE NEGATIVE Urine total bilirubin detection by test strip NEGATIVE NEGATIVE Urine urobilinogen measurement by automated test strip (mass/volume) NORMAL NORMAL Urine leukocyte esterase detection by dipstick NEGATIVE NEGATIVE Automated urine sediment erythrocyte count by microscopy (number/high power field) NONE NRG Automated urine sediment leukocyte count by microscopy (number/high power field ) [HPF] NRG Bacteria detection in urine sediment by light microscopy TRACE NRG Squamous epithelial cells detection in urine sediment by light microscopy 10-25 NRG Crystals detection in urine sediment by light microscopy NONE NRG Casts detection in urine sediment by light microscopy NONE NRG Mucus detection in urine sediment by light microscopy MODERATE NRG Complete urinalysis with reflex to culture NO NRG Urine drug screening test - 01/24/18 20:20 Urine phencyclidine detection by screening method NEGATIVE NEGATIVE Urine benzodiazepines detection by screening method NEGATIVE NEGATIVE Urine cocaine detection NEGATIVE NEGATIVE Urine amphetamines detection by screening method NEGATIVE NEGATIVE Urine methamphetamine detection by screening method NEGATIVE NEGATIVE Urine cannabinoids detection by screening method POSITIVE NEGATIVE Urine opiates detection by screening method NEGATIVE NEGATIVE Urine barbiturates detection NEGATIVE NEGATIVE Screening urine tricyclic antidepressants detection NEGATIVE NEGATIVE Urine methadone detection by screening method NEGATIVE NEGATIVE Urine oxycodone detection NEGATIVE NEGATIVE Urine propoxyphene detection NEGATIVE NEGATIVE CULTURE, CHLAMYDIA - 03/06/18 06:23 CULTURE, GENITAL - 03/23/18 15:42 CULTURE, GENITAL SEE NOTE NRG GLUCOSE ALESHA 3 HOUR - 03/23/18 15:42 TIME 1 825 NRG SPECIMEN 1 83 mg/dL 65-99 TIME 2 930 NRG SPECIMEN 2 151 mg/dL NRG TIME 3 1030 NRG SPECIMEN 3 156 mg/dL NRG TIME 4 1130 NRG SPECIMEN 4 79 mg/dL NRG COMMENT NRG CBC - 04/10/18 13:24 WHITE BLOOD CELL COUNT 9.8 Thousand/uL 3.8-10.8 RED BLOOD CELL COUNT 3.77 Million/uL 3.80-5.10 HEMOGLOBIN 11.6 g/dL 11.7-15.5 HEMATOCRIT 33.7 % 35.0-45.0 MCV 89.4 fL 80.0-100.0 MCH 30.8 pg 27.0-33.0 MCHC 34.4 g/dL 32.0-36.0 RDW 12.7 % 11.0-15.0 PLATELET COUNT 280 Thousand/uL 140-400 MPV 10.2 fL 7.5-12.5 ABSOLUTE NEUTROPHILS 6341 cells/uL 4724-5489 ABSOLUTE LYMPHOCYTES 2793 cells/uL 850-3900 ABSOLUTE MONOCYTES 461 cells/uL 200-950 ABSOLUTE EOSINOPHILS 196 cells/uL 15-500 ABSOLUTE BASOPHILS 10 cells/uL 0-200 NEUTROPHILS 64.7 % NRG LYMPHOCYTES 28.5 % NRG MONOCYTES 4.7 % NRG EOSINOPHILS 2.0 % NRG BASOPHILS 0.1 % NRG ANTIBODY SCREEN - 04/26/18 14:42 ANTIBODY SCREEN, RBC W/REFL ID, TITER AND AG NO ANTIBODIES DETECTED NR CULTURE, URINE - 05/03/18 16:43 CULTURE, URINE, ROUTINE SEE NOTE [facility] Influenza virus A and B antigen detection - 05/20/18 13:20 FLU RESULT NEGATIVE FOR INFLUENZA A AND B ANTIGENS BY IA [facility] Urine drug screening test - 05/30/18 07:40 Urine phencyclidine detection by screening method NEGATIVE NEGATIVE Urine benzodiazepines detection by screening method NEGATIVE NEGATIVE Urine cocaine detection NEGATIVE NEGATIVE Urine amphetamines detection by screening method NEGATIVE NEGATIVE Urine methamphetamine detection by screening method NEGATIVE NEGATIVE Urine cannabinoids detection by screening method NEGATIVE NEGATIVE Urine opiates detection by screening method NEGATIVE NEGATIVE Urine barbiturates detection NEGATIVE NEGATIVE Screening urine tricyclic antidepressants detection NEGATIVE NEGATIVE Urine methadone detection by screening method NEGATIVE NEGATIVE Urine oxycodone detection NEGATIVE NEGATIVE Urine propoxyphene detection NEGATIVE NEGATIVE Influenza virus A and B antigen detection - 05/30/18 09:20 FLU RESULT NEGATIVE FOR INFLUENZA A AND B ANTIGENS BY IA [facility] Complete blood count (CBC) with automated white blood cell (WBC) differential - 05/30/18 09:22 Blood leukocytes automated count (number/volume) 7.9 10*3/uL 4.3-11.0 Blood erythrocytes automated count (number/volume) 3.63 10*6/uL 4.35-5.85 Venous blood hemoglobin measurement (mass/volume) 11.4 g/dL 11.5-16.0 Blood hematocrit (volume fraction) 32 % 35-52 Automated erythrocyte mean corpuscular volume 87 [foz_us] 80-99 Automated erythrocyte mean corpuscular hemoglobin (mass per erythrocyte) 31 pg 25-34 Automated erythrocyte mean corpuscular hemoglobin concentration measurement ( mass/volume) 36 g/dL 32-36 Automated erythrocyte distribution width ratio 13.3 % 10.0-14.5 Automated blood platelet count (count/volume) 213 10*3/uL 130-400 Automated blood platelet mean volume measurement 10.4 [foz_us] 7.4-10.4 Automated blood neutrophils/100 leukocytes 65 % 42-75 Automated blood lymphocytes/100 leukocytes 28 % 12-44 Blood monocytes/100 leukocytes 6 % 0-12 Automated blood eosinophils/100 leukocytes 1 % 0-10 Automated blood basophils/100 leukocytes 0 % 0-10 Blood neutrophils automated count (number/volume) 5.1 10*3 1.8-7.8 Blood lymphocytes automated count (number/volume) 2.2 10*3 1.0-4.0 Blood monocytes automated count (number/volume) 0.5 10*3 0.0-1.0 Automated eosinophil count 0.1 10*3/uL 0.0-0.3 Automated blood basophil count (count/volume) 0.0 10*3/uL 0.0-0.1 Comprehensive metabolic panel - 05/30/18 09:22 Serum or plasma sodium measurement (moles/volume) 138 mmol/L 135-145 Serum or plasma potassium measurement (moles/volume) 3.4 mmol/L 3.6-5.0 Serum or plasma chloride measurement (moles/volume) 107 mmol/L 98-107 Carbon dioxide 20 mmol/L 21-32 Serum or plasma anion gap determination (moles/volume) 11 mmol/L 5-14 Serum or plasma urea nitrogen measurement (mass/volume) 5 mg/dL 7-18 Serum or plasma creatinine measurement (mass/volume) 0.60 mg/dL 0.60-1.30 Serum or plasma urea nitrogen/creatinine mass ratio 8 NRG Serum or plasma creatinine measurement with calculation of estimated glomerular filtration rate > NRG Serum or plasma glucose measurement (mass/volume) 110 mg/dL 70-105 Serum or plasma calcium measurement (mass/volume) 9.1 mg/dL 8.5-10.1 Serum or plasma total bilirubin measurement (mass/volume) 0.2 mg/dL 0.1-1.0 Serum or plasma alkaline phosphatase measurement (enzymatic activity/volume) 105 U/L 40-136 Serum or plasma aspartate aminotransferase measurement (enzymatic activity/ volume) 10 U/L 5-34 Serum or plasma alanine aminotransferase measurement (enzymatic activity/volume ) 11 U/L 0-55 Serum or plasma protein measurement (mass/volume) 6.4 g/dL 6.4-8.2 Serum or plasma albumin measurement (mass/volume) 3.1 g/dL 3.2-4.5 CALCIUM CORRECTED 9.8 mg/dL 8.5-10.1 Serum or plasma uric acid measurement (mass/volume) - 05/30/18 09:22 Serum or plasma uric acid measurement (mass/volume) 4.9 mg/dL 2.6-7.2 Lactate dehydrogenase 1 [enzymatic activity/volume] in serum or plasma - 09:22 Lactate dehydrogenase 1 [enzymatic activity/volume] in serum or plasma 184 U/L 125-220 Encounters ACCT No. Visit Date/Time Discharge Status Pt. Type Provider Facility Loc./Unit Complaint [id number] 10/08/2014 14:15:00 10/08/2014 23:59:59 CLS Outpatient YUMI PHAN [id number] 09/09/2014 13:22:00 09/09/2014 23:59:59 CLS Outpatient WADE CHOUDHURY APRN [id number] 03/08/2018 13:30:00 03/08/2018 23:59:59 CLS Outpatient EUSEBIO PRICILLA JERILYN [facility] [id number] 05/03/2018 15:00:00 Document Registration [id number] 04/26/2018 13:40:00 Document Registration [id number] 04/24/2018 08:15:00 Document Registration [id number] 04/10/2018 12:00:00 Document Registration [id number] 03/23/2018 14:40:00 Document Registration [id number] 03/02/2018 14:20:00 Document Registration [id number] 06/01/2018 10:39:00 06/01/2018 23:59:00 DIS Outpatient Deb Gale [id number] 05/30/2018 07:03:00 05/30/2018 10:55:00 DIS Outpatient GENNA BAILEY MD [facility] WSo DIZZINESS;LOW IRON; NAUSEA [id number] 05/28/2018 08:48:00 05/28/2018 23:59:59 CLS Preadmit DEB GALE MD [facility] RAD TRANSVERSE LIE OF FETUS [id number] 05/20/2018 10:49:00 05/20/2018 14:26:00 DIS Outpatient TILA BECKHAM [facility] ER COUGH X1 MONTH [id number] 04/19/2018 09:50:00 04/19/2018 23:59:59 CLS Outpatient DEB GALE MD [facility] RAD EVALUATE ANATOMY NOT SEEN ON PRIOR SONO [id number] 03/31/2018 13:17:00 03/31/2018 14:30:00 DIS Outpatient DEB GALE MD [facility] WSo DECREASED MOVEMENT , FEELS HOT [id number] 03/08/2018 14:37:00 03/08/2018 23:59:59 CLS Outpatient DEB GALE MD [facility] RAD EVALUATE ANATOMY NOT SEEN ON PRIOR SONOGRAM [id number] 02/08/2018 14:59:00 02/08/2018 23:59:59 CLS Outpatient DEB GALE MD [facility] RAD SECOND TRIMESTER [id number] 01/24/2018 19:40:00 01/24/2018 22:42:00 DIS Emergency AUBREY SLADE MD [facility] ER LIGHTHEADED [id number] 12/13/2017 12:36:00 12/13/2017 23:59:59 CLS Outpatient DEB GALE MD [facility] RAD CARE,FIRST TRIMESTSER [id number] 03/22/2017 12:38:00 03/23/2017 14:02:00 DIS Inpatient WILFRED LYNCH DO [facility] 4TH RT PYELONEPHRITIS [id number] 08/16/2016 16:05:39 08/16/2016 23:59:59 [facility] Outpatient
[2018-06-10] MEDS ORDERED: ONDANSETRON 4 MG/2 ML (SDV) Z0FRAN IVP ONE (02:00)
[2018-06-10] MEDS ORDERED: SCOPOLAMINE 1.5 MG (TRANSDERM-SCOP) PATCH TD ONE (02:00)
[2018-06-10 02:07] LABS: BASOPHILS % (AUTO) 0 % (0-10); EOSINOPHILS # (AUTO) 0.2 10^3/uL (0.0-0.3); EOSINOPHILS % (AUTO) 3 % (0-10); HEMATOCRIT 26 % (35-52); HEMOGLOBIN 8.9 G/DL (11.5-16.0); LYMPHOCYTES # (AUTO) 2.7 X 10^3 (1.0-4.0); LYMPHOCYTES % (AUTO) 40 % (12-44); MEAN CORPUSCULAR HEMOGLOBIN 31 PG (25-34); MEAN CORPUSCULAR HGB CONC 34 G/DL (32-36); MEAN CORPUSCULAR VOLUME 89 FL (80-99); MEAN PLATELET VOLUME 10.2 FL (7.4-10.4); MONOCYTES # (AUTO) 0.4 X 10^3 (0.0-1.0); MONOCYTES % (AUTO) 6 % (0-12); NEUTROPHILS # (AUTO) 3.4 X 10^3 (1.8-7.8); NEUTROPHILS % (AUTO) 51 % (42-75); PLATELET COUNT 266 10^3/uL (130-400); RED BLOOD COUNT 2.91 10^6/uL (4.35-5.85); RED CELL DISTRIBUTION WIDTH 12.8 % (10.0-14.5); WHITE BLOOD COUNT 6.7 10^3/uL (4.3-11.0)
[2018-06-10 02:19] LABS: INR 0.9 (0.8-1.4); PROTHROMBIN TIME PATIENT 12.1 SEC (12.2-14.7)
[2018-06-10 02:26] LABS: ALANINE AMINOTRANSFERASE 12 U/L (0-55); ALBUMIN 2.9 GM/DL (3.2-4.5); ALKALINE PHOSPHATASE 80 U/L (40-136); AMYLASE 28 U/L (25-125); BILIRUBIN,TOTAL 0.1 MG/DL (0.1-1.0); BUN/CREATININE RATIO 16; CALCIUM 9.4 MG/DL (8.5-10.1); CARBON DIOXIDE 20 MMOL/L (21-32); CHLORIDE 111 MMOL/L (98-107); CREATININE SERUM 0.67 MG/DL (0.60-1.30); GFR ESTIMATED > 60; GLUCOSE 94 MG/DL (70-105); LIPASE 18 U/L (8-78); MAGNESIUM 1.6 MG/DL (1.8-2.4); POTASSIUM 3.5 MMOL/L (3.6-5.0); SODIUM 142 MMOL/L (135-145); TOTAL PROTEIN 6.1 GM/DL (6.4-8.2)
[2018-06-10] MEDS ORDERED: KCL 10 MEQ TAB (MICRO K) PO ONE (02:45)
[2018-06-10] MEDS ORDERED: MAGNESIUM 1 GM/100 ML IVPB 100 ML IV ONE (02:45)
[2018-06-10] MEDS ORDERED: MAGNESIUM OXIDE (MAG-OX)400 MG TAB PO ONE (02:45)
[2018-06-10] MEDS ORDERED: MAGNESIUM OXIDE (MAG-OX)400 MG TAB ONE (02:47)
[2018-06-10] MEDS ORDERED: NS (IVPB) 100 ML ONE (02:47)
[2018-06-10] MEDS ORDERED: MAGNESIUM SULFATE 1 GM/2 ML VIAL ONE (02:47)
[2018-06-10] MEDS ORDERED: KCL 20 MEQ TAB (K-DUR) PO ONE ×2 (02:48)
[2018-06-10] MEDS ORDERED: ONDA4TAB8 PO (03:21)
[2018-06-10] MEDS ORDERED: MECL-106 PO (03:21)
--- NOTE | 2018-06-10 03:21 | ED General ---
General Chief Complaint: Abdominal/GI Problems Stated Complaint: N/V/DIZZINESS Allergies and Home Medications Allergies Coded Allergies: No Known Drug Allergies (Unverified , 03/22/17) Home Medications Ferrous Sulfate 325 Mg Tablet, 325 MG PO DAILY, (Reported) Past Dqrtpqy-Vumdje-Hornap Hx Patient Social History Drug of Choice: POT Type Used: Cigarettes Recent Hopitalizations: No Immunizations Up To Date Tetanus Booster (TDap): Unknown PED Vaccines UTD: No Seasonal Allergies Seasonal Allergies: No Past Medical History Surgeries: Yes (skin lesion removed) Respiratory: No Currently Using CPAP: No Currently Using BIPAP: No Cardiac: No Neurological: No Female Reproductive Disorders: Denies Sexually Transmitted Disease: Yes (HERPES) HIV/AIDS: No Genitourinary: No Gastrointestinal: No Musculoskeletal: No Endocrine: No HEENT: No Loss of Vision: Denies Hearing Impairment: Denies Cancer: Yes Skin Psychosocial: No Bipolar, Depression Integumentary: No Blood Disorders: No Adverse Reaction/Blood Tranf: No Family Medical History Patient reports no known family medical history. No Pertinent Family Hx Physical Exam Vital Signs Capillary Refill : Height, Weight, BMI Height: 5'6.00" Weight: 261lbs. 0.2oz. [id number]; 42.1 BMI Method:Stated Progress/Results/Core Measures Suspected Sepsis SIRS Temperature: Pulse: Respiratory Rate: Laboratory Tests 06/10/18 02:00: White Blood Count 6.7 Blood Pressure / Mean: Laboratory Tests 06/10/18 02:00: Creatinine 0.67, INR Comment 0.9, Platelet Count 266, Total Bilirubin 0.1 Results/Orders Lab Results Laboratory Tests Test 06/10/18 02:00 Range/Units White Blood Count 6.7 4.3-11.0 10^3/uL Red Blood Count 2.91 L 4.35-5.85 10^6/uL Hemoglobin 8.9 L 11.5-16.0 G/DL Hematocrit 26 L 35-52 % Mean Corpuscular Volume 89 80-99 FL Mean Corpuscular Hemoglobin 31 25-34 PG Mean Corpuscular Hemoglobin Concent 34 32-36 G/DL Red Cell Distribution Width 12.8 10.0-14.5 % Platelet Count 266 130-400 10^3/uL Mean Platelet Volume 10.2 7.4-10.4 FL Neutrophils (%) (Auto) 51 42-75 % Lymphocytes (%) (Auto) 40 12-44 % Monocytes (%) (Auto) 6 0-12 % Eosinophils (%) (Auto) 3 0-10 % Basophils (%) (Auto) 0 0-10 % Neutrophils # (Auto) 3.4 1.8-7.8 X 10^3 Lymphocytes # (Auto) 2.7 1.0-4.0 X 10^3 Monocytes # (Auto) 0.4 0.0-1.0 X 10^3 Eosinophils # (Auto) 0.2 0.0-0.3 10^3/uL Basophils # (Auto) 0.0 0.0-0.1 10^3/uL Prothrombin Time 12.1 L 12.2-14.7 SEC INR Comment 0.9 0.8-1.4 Activated Partial Thromboplast Time 28 24-35 SEC Sodium Level 142 135-145 MMOL/L Potassium Level 3.5 L 3.6-5.0 MMOL/L Chloride Level 111 H 98-107 MMOL/L Carbon Dioxide Level 20 L 21-32 MMOL/L Anion Gap 11 5-14 MMOL/L Blood Urea Nitrogen 11 7-18 MG/DL Creatinine 0.67 0.60-1.30 MG/DL Estimat Glomerular Filtration Rate > 60 BUN/Creatinine Ratio 16 Glucose Level 94 70-105 MG/DL Calcium Level 9.4 8.5-10.1 MG/DL Corrected Calcium 10.3 H 8.5-10.1 MG/DL Magnesium Level 1.6 L 1.8-2.4 MG/DL Total Bilirubin 0.1 0.1-1.0 MG/DL Aspartate Amino Transf (AST/SGOT) 14 5-34 U/L Alanine Aminotransferase (ALT/SGPT) 12 0-55 U/L Alkaline Phosphatase 80 40-136 U/L Total Protein 6.1 L 6.4-8.2 GM/DL Albumin 2.9 L 3.2-4.5 GM/DL Amylase Level 28 25-125 U/L Lipase 18 8-78 U/L My Orders Orders - ANKIT VACA DO Saline Lock/Iv-Start (06/10/18 01:53) Monitor-Rhythm Ecg Trace Only (06/10/18 01:53) Amylase (06/10/18 01:53) Cbc With Automated Diff (06/10/18 01:53) Comprehensive Metabolic Panel (06/10/18 01:53) Lipase (06/10/18 01:53) Magnesium (06/10/18 01:53) Protime With Inr (06/10/18 01:53) Partial Thromboplastin Time (06/10/18 01:53) Ua Culture If Indicated (06/10/18 01:53) Saline Lock/Iv-Start (06/10/18 01:53) Lactated Ringers (Lr 1000 Ml Iv Solution (06/10/18 01:53) Ondansetron Injection (Zofran Injectio (06/10/18 02:00) Scopolamine Patch (Transderm-Scop Patch) (06/10/18 02:00) Magnesium 1 Gm/100 Ml Ivpb (Magnesium Jacob (06/10/18 02:45) Magnesium Oxide Tablet (Mag Ox Tablet) (06/10/18 02:45) Potassium Chloride (Tablet) (Klor Con Ta (06/10/18 02:45) Saline Lock/Iv-Start (06/10/18 02:35) Lactated Ringers (Lr 1000 Ml Iv Solution (06/10/18 02:35) Ns (Ivpb) (Sodium Chloride 0.9% Ivpb Bag (06/10/18 02:47) Magnesium Sulfate Inj (Magnesium Sulfate (06/10/18 02:47) Potassium Chloride (Tablet) (K Dur Table (06/10/18 02:48) Potassium Chloride (Tablet) (K Dur Table (06/10/18 02:48) Medications Given in ED Current Medications Medications Dose Ordered Sig/Yann Route Start Time Stop Time Status Last Admin Dose Admin Lactated Ringer's 1,000 ml @ 0 mls/hr Q0M ONCE IV 06/10/18 01:53 06/10/18 01:55 DC 06/10/18 02:20 0 MLS/HR Magnesium Oxide 1,200 mg ONCE ONCE PO 06/10/18 02:45 06/10/18 02:46 UNV 06/10/18 03:11 1,200 MG Magnesium Sulfate 1 gm STK-MED ONCE .ROUTE 06/10/18 02:47 06/10/18 02:49 DC 06/10/18 03:03 1 GM Ondansetron HCl 8 mg ONCE ONCE IVP 06/10/18 02:00 06/10/18 02:01 DC 06/10/18 02:20 8 MG Potassium Chloride 20 meq ONCE ONCE PO 06/10/18 02:45 06/10/18 02:46 UNV 06/10/18 03:08 20 MEQ Scopolamine 1.5 mg ONCE ONCE TD 06/10/18 02:00 06/10/18 02:01 DC 06/10/18 03:12 1.5 MG Sodium Chloride 100 ml @ STK-MED ONCE .ROUTE 06/10/18 02:47 06/10/18 02:49 DC 06/10/18 03:03 100 MLS/HR Vital Signs/I&O Capillary Refill : Departure Impression Primary Impression: Nausea and vomiting Additional Impressions: Dizziness Anemia Hypomagnesemia Hypokalemia S/P Disposition: 01 HOME, SELF-CARE Condition: Stable Departure-Patient Inst. Referrals: GENNARO GALE MD (PCP/Family) Primary Care Physician Patient Instructions: ( Delivery) (DC), Dizziness, Nonvertigo , (DC), Hypokalemia (DC), Low Magnesium Level (DC), Nausea and Vomiting, Adult ( DC) Add. Discharge Instructions: CONTINUE ALL PREVIOUS POST INSTRUCTIONS LOTS OF CLEAR LIQUIDS--WATER, BROTH, JELLO, GATORADE FOLLOW UP WITH YOUR OB DR IN 2-3 DAYS FOR FURTHER CARE All discharge instructions reviewed with patient and/or family. Voiced understanding. Scripts Meclizine HCl (Meclizine HCl) 25 Mg Tablet 25-50 MG PO Q6H for Dizziness, #20 TAB Prov: ANKIT VACA DO 06/10/18 Ondansetron (Zofran Odt) 4 Mg Tab.rapdis 4 MG PO Q4H for Nausea/Vomiting, #10 TAB Prov: ANKIT VACA DO 06/10/18 ANKIT VACA DO Jun 10, 2018 03:21
[2018-06-10 04:28] VITALS: BP 128/75
== END 2018-06-10 04:30 | disposition home or self-care (01) ==
LOC: ER 01:46 → EDUNIT# 01:46 → ER 04:30
DX: R11.2 Nausea with vomiting, unspecified (principal); R42 Dizziness and giddiness; D64.9 Anemia, unspecified; E83.42 Hypomagnesemia; E87.6 Hypokalemia; F31.9 Bipolar disorder, unspecified; Z98.890 Other specified postprocedural states; Z85.828 Personal history of other malignant neoplasm of skin
CPT/HCPCS: 36415; 80053; 82150; 83690; 83735; 85025; 85610; 85730; 93041

== ENCOUNTER 2018-06-27 07:42 | Emergency (ER) | payer MEDICAID ==
[~2018-06-27] VITALS: Ht 167.6 cm; Wt 111.1 kg
[~2018-06-27 07:42] MED LIST changes: +MECL-106 PO; +ONDA4TAB8 PO
--- NOTE | 2018-06-27 07:55 | ED GI ---
General Stated Complaint: DIZZY;N/V Source of Information: Patient, EMS Exam Limitations: No Limitations History of Present Illness Date Seen by Provider: Jun 27, 2018 Time Seen by Provider: 07:39 Initial Comments Patient resents to ER by EMS with chief complaint this morning she is woke up with some dizziness feeling the room spinning around her. She says she's had this dizziness for some time. She thinks it may have started either April 29 or June 29. I asked her to clarify if it's been going on for a few months or over a year and she was not able to clarify this question. She gives a rather difficult to obtain history. She informs me she has been seen in the ER once for this before but she's not sure when that was. She does not a private doctor nor has she followed with a anyone else for this problem. She does have nausea and has vomited half a grocery sack this morning. She did not remark there is any blood in the vomitus. She also had diarrhea that was new this morning. She says she's had the nausea vomiting and dizziness before. No known medical history other than she had a 3 weeks ago. She's not having any discharge or dysuria. She says all of her information is in the chart and I should look they're rather than ask her questions. She then proceeded to take a phone call from a family member. She did mention she has a deficiency of iron and was told last time that her potassium and magnesium was low secondary to her vomiting. EMS reports the patient did tell them she took a Zofran this morning but says she vomited shortly after is not sure she kept down. CBG is 134 and her vital signs were normal. Allergies and Home Medications Allergies Coded Allergies: No Known Drug Allergies (Unverified , 03/22/17) Home Medications Ferrous Sulfate 325 Mg Tablet, 325 MG PO DAILY, (Reported) Meclizine HCl 25 Mg Tablet, 25-50 MG PO Q6H Prescribed by: ANKIT VACA on 06/10/18320 Ondansetron 4 Mg Tab.rapdis, 4 MG PO Q4H Prescribed by: ANKIT VACA on 06/10/18320 Patient Home Medication List Home Medication List Reviewed: Yes Review of Systems Review of Systems Constitutional: No chills, No diaphoresis EENTM: No Blurred Vision, No Double Vision Respiratory: Denies Cough, Denies Shortness of Air Cardiovascular: Denies Chest Pain, Denies Lightheadedness Gastrointestinal: Denies Abdomen Distended, Denies Abdominal Pain Genitourinary: Denies Burning, Denies Discharge Musculoskeletal: No back pain, No joint pain Skin: No pruritus, No rash Psychiatric/Neurological: Denies Headache, Denies Numbness Past Vcsxuli-Ehwgel-Znsjij Hx Patient Social History Alcohol Use: Denies Use Recreational Drug Use: Yes Drug of Choice: POT Smoking Status: Current Everyday Smoker Type Used: Cigarettes 2nd Hand Smoke Exposure: Yes Recent Hopitalizations: Yes () Immunizations Up To Date Tetanus Booster (TDap): Unknown PED Vaccines UTD: No Seasonal Allergies Seasonal Allergies: No Past Medical History Surgeries: Yes (skin lesion removed) Section Respiratory: No Currently Using CPAP: No Currently Using BIPAP: No Cardiac: No Neurological: No Female Reproductive Disorders: Denies Sexually Transmitted Disease: Yes (HERPES) HIV/AIDS: No Genitourinary: No Gastrointestinal: No Musculoskeletal: No Endocrine: No HEENT: No Loss of Vision: Denies Hearing Impairment: Denies Cancer: Yes Skin Psychosocial: No Bipolar, Depression Integumentary: No Blood Disorders: No Adverse Reaction/Blood Tranf: No Family Medical History Patient reports no known family medical history. No Pertinent Family Hx Physical Exam Vital Signs Vital Signs - First Documented 06/27/18 07:56 Temp 97.1 Pulse 63 Resp 18 B/P (MAP) 125/59 (81) Pulse Ox 97 Capillary Refill : Height/Weight/BMI Height: 5'6.00" Weight: 260lbs. 0.2oz. 117.757665wn; 42.1 BMI Method:Stated General Appearance: WD/WN, no apparent distress HEENT: PERRL/EOMI, normal ENT inspection, pharynx normal (mildly dry) Respiratory: chest non-tender, no respiratory distress, no accessory muscle use Cardiovascular: normal peripheral pulses, regular rate, rhythm, no edema Gastrointestinal: normal bowel sounds, non tender, soft Extremities: normal range of motion, normal capillary refill Neurologic/Psychiatric: alert, normal mood/affect, oriented x 3 Skin: rash (mild erythema and use the odor in the fold of skin around the C- section Pfannenstiel incision wound) Progress/Results/Core Measures Results/Orders Lab Results Laboratory Tests Test 06/27/18 07:49 06/27/18 09:02 Range/Units White Blood Count 6.6 4.3-11.0 10^3/uL Red Blood Count 4.22 L 4.35-5.85 10^6/uL Hemoglobin 12.2 11.5-16.0 G/DL Hematocrit 36 35-52 % Mean Corpuscular Volume 85 80-99 FL Mean Corpuscular Hemoglobin 29 25-34 PG Mean Corpuscular Hemoglobin Concent 34 32-36 G/DL Red Cell Distribution Width 12.7 10.0-14.5 % Platelet Count 367 130-400 10^3/uL Mean Platelet Volume 10.2 7.4-10.4 FL Neutrophils (%) (Auto) 48 42-75 % Lymphocytes (%) (Auto) 40 12-44 % Monocytes (%) (Auto) 7 0-12 % Eosinophils (%) (Auto) 4 0-10 % Basophils (%) (Auto) 1 0-10 % Neutrophils # (Auto) 3.2 1.8-7.8 X 10^3 Lymphocytes # (Auto) 2.7 1.0-4.0 X 10^3 Monocytes # (Auto) 0.4 0.0-1.0 X 10^3 Eosinophils # (Auto) 0.3 0.0-0.3 10^3/uL Basophils # (Auto) 0.0 0.0-0.1 10^3/uL Sodium Level 141 135-145 MMOL/L Potassium Level 3.6 3.6-5.0 MMOL/L Chloride Level 107 98-107 MMOL/L Carbon Dioxide Level 26 21-32 MMOL/L Anion Gap 8 5-14 MMOL/L Blood Urea Nitrogen 10 7-18 MG/DL Creatinine 0.74 0.60-1.30 MG/DL Estimat Glomerular Filtration Rate > 60 BUN/Creatinine Ratio 14 Glucose Level 102 70-105 MG/DL Calcium Level 9.0 8.5-10.1 MG/DL Corrected Calcium 9.4 8.5-10.1 MG/DL Magnesium Level 1.9 1.8-2.4 MG/DL Total Bilirubin 0.3 0.1-1.0 MG/DL Aspartate Amino Transf (AST/SGOT) 22 5-34 U/L Alanine Aminotransferase (ALT/SGPT) 33 0-55 U/L Alkaline Phosphatase 89 40-136 U/L Total Protein 6.6 6.4-8.2 GM/DL Albumin 3.5 3.2-4.5 GM/DL Lipase 37 8-78 U/L Urine Color ALEXIS H Urine Clarity CLEAR Urine pH 6 5-9 Urine Specific [place] 1.015 L 1.016-1.022 Urine Protein 2+ H NEGATIVE Urine Glucose (UA) NEGATIVE NEGATIVE Urine Ketones NEGATIVE NEGATIVE Urine Nitrite NEGATIVE NEGATIVE Urine Bilirubin NEGATIVE NEGATIVE Urine Urobilinogen NORMAL NORMAL MG/DL Urine Leukocyte Esterase 2+ H NEGATIVE Urine RBC (Auto) 1+ H NEGATIVE Urine RBC 2-5 H /HPF Urine WBC 10-25 H /HPF Urine Squamous Epithelial Cells 0-2 /HPF Urine Renal Epithelial Cells NONE /HPF Urine Crystals NONE /LPF Urine Bacteria FEW H /HPF Urine Casts PRESENT /LPF Urine Hyaline Casts 0-2 H /LPF Urine Granular Casts 5-10 H /LPF Urine Mucus MODERATE H /LPF Urine Culture Indicated YES Urine Opiates Screen NEGATIVE NEGATIVE Urine Oxycodone Screen NEGATIVE NEGATIVE Urine Methadone Screen NEGATIVE NEGATIVE Urine Propoxyphene Screen NEGATIVE NEGATIVE Urine Barbiturates Screen NEGATIVE NEGATIVE Ur Tricyclic Antidepressants Screen NEGATIVE NEGATIVE Urine Phencyclidine Screen NEGATIVE NEGATIVE Urine Amphetamines Screen NEGATIVE NEGATIVE Urine Methamphetamines Screen NEGATIVE NEGATIVE Urine Benzodiazepines Screen NEGATIVE NEGATIVE Urine Cocaine Screen NEGATIVE NEGATIVE Urine Cannabinoids Screen NEGATIVE NEGATIVE My Orders Orders - LAI BURGER Cbc With Automated Diff (06/27/18 07:56) Comprehensive Metabolic Panel (06/27/18 07:56) Drug Screen Stat (Urine) (06/27/18 07:56) Lipase (06/27/18 07:56) Magnesium (06/27/18 07:56) Ua Culture If Indicated (06/27/18 07:56) Saline Lock/Iv-Start (06/27/18 07:56) Lactated Ringers (Lr 1000 Ml Iv Solution (06/27/18 07:56) Urine Bedside (06/27/18 07:56) Ondansetron Injection (Zofran Injectio (06/27/18 08:00) Orthostatic Vital Signs (Adult (06/27/18 07:58) Urine Culture (06/27/18 09:02) Medications Given in ED Current Medications Medications Dose Ordered Sig/Yann Route Start Time Stop Time Status Last Admin Dose Admin Lactated Ringer's 1,000 ml @ 0 mls/hr Q0M ONCE IV 06/27/18 07:56 06/27/18 07:59 DC 06/27/18 08:16 0 MLS/HR Ondansetron HCl 4 mg ONCE ONCE IVP 06/27/18 08:00 06/27/18 08:01 DC 06/27/18 08:17 4 MG Vital Signs/I&O 06/27/18 06/27/18 07:56 08:06 Temp 97.1 Pulse 63 63 77 Resp 18 B/P (MAP) 125/59 (81) 123/67 (85) 109/67 (81) Pulse Ox 97 Progress Progress Note : Time: 07:56 Progress Note We'll plan to obtain lab, urine give her a liter of LR and some Zofran IV. Initial set of orthostatics are negative. 0845: Initial blood work is negative. We will get a urinalysis and allow her to finish her fluids. Her nausea has significantly improved. Departure Impression Primary Impression: UTI (urinary tract infection) Qualified Codes: N30.00 - Acute cystitis without hematuria Additional Impressions: Vertigo Nausea vomiting and diarrhea Candidiasis of skin Disposition: 01 HOME, SELF-CARE Condition: Improved Departure-Patient Inst. Decision time for Depature: 11:06 Referrals: GENNARO GALE MD (PCP/Family) Primary Care Physician Patient Instructions: LOCAL PHYSICIAN LIST, Urinary Tract Infection, Adult (DC) Add. Discharge Instructions: Drink plenty of fluids. public works supervisor the antibiotics from the pharmacy take one capsule twice a day with food for the next week. public works supervisor the nystatin powder clean your skin thoroughly with soap and water and then dry it thoroughly. Then apply a light dusting of nystatin powder twice a day for the next 14 days. Follow-up with a primary care doctor to establish care in the next 2-4 weeks. If your symptoms do not improve he should follow-up sooner. Scripts Nystatin (Nystatin) 1 Each Powder.ea. 1 EACH MC BID for 14 Days, #1 UNIT 0 Refills Prov: LAI BURGER 06/27/18 Nitrofurantoin Macrocrystal (Nitrofurantoin) 100 Mg Capsule 100 MG PO BID for 7 Days, #14 CAP 0 Refills Prov: LAI BURGER 06/27/18 LAI BURGER Jun 27, 2018 07:55
[2018-06-27] MEDS ORDERED: LACTATED RINGERS 1,000 ML IV ONE (07:56)
[2018-06-27] MEDS ORDERED: ONDANSETRON 4 MG/2 ML (SDV) Z0FRAN IVP ONE (08:00)
[2018-06-27 08:04] LABS: BASOPHILS % (AUTO) 1 % (0-10); EOSINOPHILS # (AUTO) 0.3 10^3/uL (0.0-0.3); EOSINOPHILS % (AUTO) 4 % (0-10); HEMATOCRIT 36 % (35-52); HEMOGLOBIN 12.2 G/DL (11.5-16.0); LYMPHOCYTES # (AUTO) 2.7 X 10^3 (1.0-4.0); LYMPHOCYTES % (AUTO) 40 % (12-44); MEAN CORPUSCULAR HEMOGLOBIN 29 PG (25-34); MEAN CORPUSCULAR HGB CONC 34 G/DL (32-36); MEAN CORPUSCULAR VOLUME 85 FL (80-99); MEAN PLATELET VOLUME 10.2 FL (7.4-10.4); MONOCYTES # (AUTO) 0.4 X 10^3 (0.0-1.0); MONOCYTES % (AUTO) 7 % (0-12); NEUTROPHILS # (AUTO) 3.2 X 10^3 (1.8-7.8); NEUTROPHILS % (AUTO) 48 % (42-75); PLATELET COUNT 367 10^3/uL (130-400); RED BLOOD COUNT 4.22 10^6/uL (4.35-5.85); RED CELL DISTRIBUTION WIDTH 12.7 % (10.0-14.5); WHITE BLOOD COUNT 6.6 10^3/uL (4.3-11.0)
[2018-06-27 08:06] VITALS: BP_SYST 109; BP_SYST 123; BP_DIAS 67
[2018-06-27 08:18] LABS: ALANINE AMINOTRANSFERASE 33 U/L (0-55); ALBUMIN 3.5 GM/DL (3.2-4.5); ALKALINE PHOSPHATASE 89 U/L (40-136); BILIRUBIN,TOTAL 0.3 MG/DL (0.1-1.0); BUN/CREATININE RATIO 14; CARBON DIOXIDE 26 MMOL/L (21-32); CHLORIDE 107 MMOL/L (98-107); CREATININE SERUM 0.74 MG/DL (0.60-1.30); GFR ESTIMATED > 60; GLUCOSE 102 MG/DL (70-105); LIPASE 37 U/L (8-78); MAGNESIUM 1.9 MG/DL (1.8-2.4); POTASSIUM 3.6 MMOL/L (3.6-5.0); SODIUM 141 MMOL/L (135-145); TOTAL PROTEIN 6.6 GM/DL (6.4-8.2)
[2018-06-27 09:17] LABS: BILIRUBIN,URINE NEGATIVE (NEGATIVE); CLARITY,URINE CLEAR; COLOR,URINE AMBER; GLUCOSE, URINE (UA) NEGATIVE (NEGATIVE); KETONES,URINE NEGATIVE (NEGATIVE); LEUKOCYTE ESTERASE ,URINE 2+ (NEGATIVE); NITRITE,URINE NEGATIVE (NEGATIVE); PH,URINE 6 (5-9); PROTEIN,URINE 2+ (NEGATIVE); UROBILINOGEN,URINE NORMAL (NORMAL)
[2018-06-27 09:30] LABS: AMPHETAMINE SCREEN, URINE NEGATIVE (NEGATIVE); BARBITURATE SCREEN URINE NEGATIVE (NEGATIVE); BENZODIAZEPINES SCREEN URINE NEGATIVE (NEGATIVE); CANNABINOID SCREEN, URINE NEGATIVE (NEGATIVE); COCAINE SCREEN URINE NEGATIVE (NEGATIVE); METHADONE STAT NEGATIVE (NEGATIVE); METHAMPHETAMINE SCREEN URINE S NEGATIVE (NEGATIVE); OPIATE SCREEN URINE NEGATIVE (NEGATIVE); OXYCODONE STAT NEGATIVE (NEGATIVE); PROPOXYPHENE STAT NEGATIVE (NEGATIVE); TRICYCLIC ANTIDEPRESSANTS SCRE NEGATIVE (NEGATIVE)
[2018-06-27 09:38] LABS: BACTERIA,URINE FEW /HPF; HYALINE CASTS, URINE 0-2 /LPF; SQUAMOUS EPITHELIAL CELL,UR 0-2 /HPF
[2018-06-27] MEDS ORDERED: NYST1POW22 MC (11:10)
[2018-06-27] MEDS ORDERED: NITR100C PO (11:10)
[2018-06-27 11:23] VITALS: BP 109/67
== END 2018-06-27 11:21 | disposition home or self-care (01) ==
LOC: EDUNIT# 07:42 → ER 07:43
DX: N39.0 Urinary tract infection, site not specified (principal); B37.2 Candidiasis of skin and nail; R42 Dizziness and giddiness; F31.9 Bipolar disorder, unspecified; F12.10 Cannabis abuse, uncomplicated; F17.210 Nicotine dependence, cigarettes, uncomplicated; Z98.890 Other specified postprocedural states; Z86.19 Personal history of other infectious and parasitic diseases; Z85.828 Personal history of other malignant neoplasm of skin
CPT/HCPCS: 36415; 80053; 80306; 81000; 83690; 83735; 85025; 87088; 99283

== ENCOUNTER 2018-08-05 19:57 | Emergency (ER) | payer MEDICAID ==
[~2018-08-05] VITALS: Ht 167.6 cm; Wt 111.1 kg
[~2018-08-05 19:57] MED LIST changes: +NITR100C PO; +NYST1POW22 MC
--- OUTSIDE RECORDS SUMMARY | 2018-08-05 20:01 | XMS REPORT | Clinical Summary ---
Author Author [facility] Organization [facility] Address Unknown Phone Unavailable Care Team Providers Care Employee Relations Representative Name Role Phone Daisy Sinha MD PCP Source Comments Some departments are not documenting in the electronic medical record. If you do not see the information that you expected, contact Release of Information in the Health Information Management department at [phone] for further assistance in locating additional records.[facility] Allergies Not on File Medications Not on file Active Problems Not on file Social History Date Tobacco Use Types Packs/Day Years Used Never Assessed Sex Assigned at Date Recorded Not on file Industry Job Start Date Occupation Not on file Not on file Not on file Travel End Travel History Travel Start No recent travel history available. Last Filed Vital Signs Not on file Plan of Treatment Health Maintenance Due Date Last Done Comments PHYSICAL (COMPREHENSIVE) 1999 EXAM HPV VACCINES (1 - Female 2003 3-dose series) HIV SCREENING 2007 DTAP/TDAP VACCINES (1 - 2010 Tdap) CERVICAL CANCER SCREENING 2013 INFLUENZA VACCINE 03/14/2018 Results Not on filefrom Last 3 Months
--- OUTSIDE RECORDS SUMMARY | 2018-08-05 20:01 | XMS REPORT ---
Author Author SHAHLAGENNARO [facility] Address [address] [place] [address] Care Team Providers Care Pump House Operator Name Role Phone GENNARO GALE Unavailable PROBLEMS Type Condition ICD9-CM Code WCI30-AQ Code Onset Dates Condition Status SNOMED Code Problem Other atopic dermatitis L20.89 Active 62971408 Problem Chlamydial infection A74.9 Active 706334036 Problem Unspecified blood type, Rh negative Z67.91 Active 847865769 Problem Bipolar depression F31.30 Active 29971562 Problem Supervision of other high risk pregnancies, unspecified trimester O09.899 Active 822091521 ALLERGIES No Information ENCOUNTERS Encounter Location Date Diagnosis [place] [id number] [place] [address] 90021- 4545 Jul, [place] [address] [id number] [place] [address] 19159- 1174 Jul, Encounter for Depo-Provera contraception Z30.42 [place] [address] [place] [address] [id number] [place] [address] 78676- 4059 29 May, 2018 [place] [address] [place] [id number] [place] [address] 55173- 5772 May, [place] [address] [place] [address] [id number] [place] [address] 92476- 7242 May, [place] [address] 86067- 7647 May, [facility] [address] [place] [address] [id number] [place] [address] 92269- 3242 May, [place] [address] [id number] [place] [address] 66048- 6521 May, BMI 40.0-44.9, adult Z68.41 ; care in third trimester Z34.93 ; Acute nonintractable headache, unspecified headache type R51 ; 35 weeks gestation of Z3A.35 and History of herpes genitalis Z86.19 [place] [id number] [place] [address] 59768- 2413 11 May, 2018 BMI 40.0-44.9, adult Z68.41 ; care in third trimester Z34.93 ; Atypical pneumonia J18.9 ; Transverse lie of fetus, single or unspecified fetus O32.2XX0 and 34 weeks gestation of Z3A.[address] 36196- 7557 09 May, 2018 Supervision of other high risk pregnancies, unspecified trimester O09.899 [place] [address] 11094- 4731 May, [place] [address] 05816- 8317 Apr, BMI 40.0-44.9, adult Z68.41 ; Third trimester Z34.93 ; URI with cough and congestion J06.9 ; Other atopic dermatitis L20.89 ; 32 weeks gestation of Z3A.32 and Bipolar depression F31.30 [place] [address] 92719- 6776 Apr, [place] [address] 14745- 2350 Apr, [place] [address] 51468- 5575 Apr, Possible exposure to STD Z20.2 ; BMI 40.0-44.9, adult Z68.41 and Pruritus L29.[address] 60191- 8577 Apr, [place] [address] 45648- 4834 13 Apr, 2018 Third trimester Z34.93 ; Encounter for immunization Z23 ; BMI 40.0-44.9, adult Z68.41 ; Unspecified blood type, Rh negative Z67.91 and 30 weeks gestation of Z3A.30 [place] [id number] [place] [address] 68669- 1241 11 Apr, 2018 Screening for STD (sexually transmitted disease) Z11.3 and Abnormal glucose level R73.09 [place] [address] [id number] [place] [address] 80146- 2448 06 Apr, 2018 Abnormal glucose level R73.09 [place] [address] [place] [id number] [place] [address] 44079- 7429 04 Apr, 2018 [place] [address] [place] [id number] [place] [address] 07475- 8547 Mar, care in third trimester Z34.93 [place] [address] [place] [id number] [place] [address] 03068- 5406 27 Mar, 2018 care in third trimester Z34.93 ; Evaluate anatomy not seen on prior sonogram Z04.8 and BMI 40.0-44.9, adult Z68.41 [facility] [id number] [place] [address] 18692 -7934 10 Mar, 2018 BMI 40.0-44.9, adult Z68.41 ; Screening for STD (sexually transmitted disease) Z11.3 and High risk sexual behavior, unspecified type Z72.51 [place] [address] [place] [address] 16444- 9989 Feb, [place] [address] [place] [id number] [place] [address] 24617- 3676 Feb, [place] [address] [place] [id number] [place] [address] 17979- 2974 Feb, Second trimester Z34.92 ; Chlamydial infection A74.9 ; Other maternal infectious and parasitic diseases complicating , first trimester O98.811 ; 23 weeks gestation of Z3A.23 and Evaluate anatomy not seen on prior sonogram Z04.8 [facility] [address] [place] [address] 02402- 1501 Feb, [facility] [id number] [place] [address] 57054- 9894 Feb, [facility] [id number] [place] [address] 75321- 6308 Feb, [facility] [id number] [place] [address] [id number] Jan, [facility] [id number] [place] [address] 09206- 5325 Jan, Second trimester Z34.92 and 19 weeks gestation of Z3A.19 [facility] [address] [place] [address] 67455- 4805 Jan, [facility] [id number] [place] [address] [id number] Jan, Dental examination Z01.20 [facility] [id number] [place] [address] 54823 -2181 Jan, Mouth pain K13.79 [facility] [id number] [place] [address] 01902- 2414 Jan, [facility] [address] [place] [address] 57227- 0325 Jan, [facility] [id number] [place] [address] 98689- 3218 December, Second trimester Z34.92 ; 14 weeks gestation of Z3A.14 and Substance abuse 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, antepartum O99.322 [facility] [id number] [place] [address] 84860- 5835 December, [facility] [address] [place] [address] 84025- 9033 Nov, [facility] [address] [place] [address] 50608- 2204 Nov, [place] [address] 26311- 8319 Nov, care, subsequent in first trimester Z34.81 ; 7 weeks gestation of Z3A.01 and Bipolar depression F31.30 [facility] [address] 97683 -9869 Nov, [facility] IN [place] [address] 29694 -1473 Nov, [address] 55918- 5725 Nov, Screening, iron deficiency anemia Z13.[address] 55005- 4553 Nov, [facility] IN [place] [address] 45233 -8480 Nov, Possible exposure to STD Z20.2 and Trichomoniasis A59.[address] 31914- 8602 Nov, [place] [address] 03461- 8289 Nov, Encounter for test Z32.00 [facility] [place] [address] 01627 -9276 07 Apr, 2016 Periodontal abscess K05.[address] 46098- 9928 07 Feb, 2015 Family history of diabetes mellitus V18.0 ; Fatigue 780.79 and Pain in both feet 729.[address] 70711- 0325 16 Jan, 2015 Bipolar affective disorder, depressed, moderate 296.52 and Posttraumatic stress disorder 309.[address] 22667- 2546 Jan, [facility] [place] [facility] [address] [id number] [place] [address]- 6465 14 Nov, 2014 [facility] [place] [facility] [address] [id number] [place] [address]- 5831 Nov, [facility] [place] [facility] [address] [facility] [id number] [place] [address]- 7338 Oct, [facility] [place] [facility] [address] [id number] [place] [address]- 3990 Oct, [facility] [place] [facility] [address] [facility] [id number] [place] [address]- 9914 Oct, [facility] [place] [facility] [address] [facility] [id number] [place] [address]- 2032 Oct, [facility] [place] [facility] [address] [facility] [id number] [place] [address]- 3668 Sep, [facility] [place] [facility] [address] [facility] [id number] [place] [address]- 0561 Sep, [facility] [place] [facility] [address] [facility] [id number] [place] [address]- 9261 Sep, [facility] [place] [facility] [address] [facility] [id number] [place] [address]- 7318 Sep, [facility] [place] [facility] [address] [facility] [id number] [place] [address]- 2358 Sep, [facility] [place] [facility] [address] [facility] [id number] [place] [address]- 6712 Sep, [facility] [place] [facility] [address] [facility] [id number] [place] [address]- 2433 Sep, [facility] [place] [facility] [address] [facility] [id number] [place] [address]- 2086 Aug, [facility] [place] [facility] [address] [facility] [id number] [place] [address]- 7937 Aug, [facility] [address] [facility] [id number] [place] [address]- 1209 Aug, [facility] [address] [place] [id number] [address]- 4157 Aug, [facility] [address] [place] [address] [id number] [address]- 7786 Aug, [facility] [address] [place] [address] [id number] [address]- 7027 Oct, [facility] [address] [place] [address] [id number] [address]- 3861 Oct, [facility] [address] [place] [address] [id number] [address]- 9611 Aug, [facility] [address] [place] [address] [id number] [address]- 1336 Aug, IMMUNIZATIONS Vaccine Route Administration Date Status DEPO PROVERA (150 MG/ML) IM Intramuscular Jul 17, 2018 Administered SOCIAL HISTORY Never Assessed REASON FOR VISIT Depo--Wang, See TE for provider order PLAN OF CARE Activity Details Follow Up 3 Months Reason: VITAL SIGNS MEDICATIONS Unknown Medications RESULTS Name Result Date Reference Range TEST, URINE (IN HOUSE) 2018-07-17 RESULTS Negative Lot # [id number] Control + Exp date 01/12/20 PROCEDURES Procedure Date Ordered Result Body Site URINE TEST Jul 17, 2018 DEPO PROVERA (150 MG/ML) Jul 17, 2018 THER/PROPH/DIAG INJ, SC/IM Jul 17, 2018 INSTRUCTIONS MEDICATIONS ADMINISTERED No Known Medications [...]
--- OUTSIDE RECORDS SUMMARY | 2018-08-05 20:01 | XMS REPORT ---
Author Author SHAHLAGENNARO [facility] Address [address] [place] [address] Care Team Providers Care Electronic Service Technician Name Role Phone GENNARO GALE Unavailable PROBLEMS Type Condition ICD9-CM Code OHM32-DI Code Onset Dates Condition Status SNOMED Code Problem Other atopic dermatitis L20.89 Active 28482977 Problem Chlamydial infection A74.9 Active 595426319 Problem Unspecified blood type, Rh negative Z67.91 Active 842224260 Problem Bipolar depression F31.30 Active 49962959 Problem Supervision of other high risk pregnancies, unspecified trimester O09.899 Active 079585543 ALLERGIES No Information ENCOUNTERS Encounter Location Date Diagnosis [place] [id number] [place] [address] 97737- 9813 Jul, [place] [id number] [place] [address] 56989- 1556 Jul, Encounter for Depo-Provera contraception Z30.42 [place] [address] [place] [id number] [place] [address] 20283- 7094 29 May, 2018 [place] [address] [place] [id number] [place] [address] 97376- 8754 May, [place] [address] [place] [id number] [place] [address] 91978- 0314 May, [place] [address] 90258- 8639 May, [facility] [address] [place] [id number] [place] [address] 16325- 1253 May, [place] [address] [id number] [place] [address] 41550- 2705 May, BMI 40.0-44.9, adult Z68.41 ; care in third trimester Z34.93 ; Acute nonintractable headache, unspecified headache type R51 ; 35 weeks gestation of Z3A.35 and History of herpes genitalis Z86.19 [place] [id number] [place] [address] 11507- 2673 11 May, 2018 BMI 40.0-44.9, adult Z68.41 ; care in third trimester Z34.93 ; Atypical pneumonia J18.9 ; Transverse lie of fetus, single or unspecified fetus O32.2XX0 and 34 weeks gestation of Z3A.[address] 11268- 4247 09 May, 2018 Supervision of other high risk pregnancies, unspecified trimester O09.899 [place] [address] 47804- 8330 May, [place] [address] 27948- 3492 Apr, BMI 40.0-44.9, adult Z68.41 ; Third trimester Z34.93 ; URI with cough and congestion J06.9 ; Other atopic dermatitis L20.89 ; 32 weeks gestation of Z3A.32 and Bipolar depression F31.30 [place] [address] 39429- 2979 Apr, [place] [address] 79635- 3168 Apr, [place] [address] 77933- 0527 Apr, Possible exposure to STD Z20.2 ; BMI 40.0-44.9, adult Z68.41 and Pruritus L29.[address] 13802- 9674 Apr, [place] [address] 07659- 6894 13 Apr, 2018 Third trimester Z34.93 ; Encounter for immunization Z23 ; BMI 40.0-44.9, adult Z68.41 ; Unspecified blood type, Rh negative Z67.91 and 30 weeks gestation of Z3A.30 [place] [id number] [place] [address] 39678- 1306 11 Apr, 2018 Screening for STD (sexually transmitted disease) Z11.3 and Abnormal glucose level R73.09 [place] [address] [place] [address] [id number] [place] [address] 26413- 1446 06 Apr, 2018 Abnormal glucose level R73.09 [place] [address] [place] [id number] [place] [address] 82878- 8993 04 Apr, 2018 [place] [address] [place] [id number] [place] [address] 57225- 5708 Mar, care in third trimester Z34.93 [place] [address] [place] [address] [id number] [place] [address] 66371- 8087 27 Mar, 2018 care in third trimester Z34.93 ; Evaluate anatomy not seen on prior sonogram Z04.8 and BMI 40.0-44.9, adult Z68.41 [facility] [address] [place] [id number] [place] [address] 32181 -6257 10 Mar, 2018 BMI 40.0-44.9, adult Z68.41 ; Screening for STD (sexually transmitted disease) Z11.3 and High risk sexual behavior, unspecified type Z72.51 [place] [address] [place] [address] 35011- 1188 Feb, [place] [address] [place] [id number] [place] [address] 46537- 1689 Feb, [place] [address] [place] [id number] [place] [address] 91701- 1639 Feb, Second trimester Z34.92 ; Chlamydial infection A74.9 ; Other maternal infectious and parasitic diseases complicating , first trimester O98.811 ; 23 weeks gestation of Z3A.23 and Evaluate anatomy not seen on prior sonogram Z04.8 [facility] [address] [place] [address] 13580- 2514 Feb, [facility] [address] [place] [id number] [place] [address] 56080- 8165 Feb, [facility] [id number] [place] [address] 64794- 4729 Feb, [facility] [id number] [place] [address] [id number] Jan, [facility] [address] [place] [id number] [place] [address] 56253- 5908 Jan, Second trimester Z34.92 and 19 weeks gestation of Z3A.19 [facility] [address] [place] [address] 40791- 2243 Jan, [facility] [address] [place] [id number] [place] [address] [id number] Jan, Dental examination Z01.20 [facility] [address] [place] [id number] [place] [address] 57929 -9557 Jan, Mouth pain K13.79 [facility] [address] [place] [id number] [place] [address] 18957- 3171 Jan, [facility] [address] [place] [address] 96628- 1832 Jan, [facility] [address] [place] [id number] [place] [address] 90588- 7142 December, Second trimester Z34.92 ; 14 weeks gestation of Z3A.14 and Substance abuse 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, antepartum O99.322 [facility] [address] [place] [id number] [place] [address] 93235- 4100 December, [facility] [address] [place] [address] 40279- 4557 Nov, [facility] [address] [place] [address] 02084- 6435 Nov, [place] [address] 23206- 5500 Nov, care, subsequent in first trimester Z34.81 ; 7 weeks gestation of Z3A.01 and Bipolar depression F31.30 [facility] [address] 86532 -4413 Nov, [facility] IN [place] [address] 07025 -0350 Nov, [address] 90100- 9738 Nov, Screening, iron deficiency anemia Z13.[address] 42810- 6514 Nov, [facility] [place] [address] 93013 -8960 Nov, Possible exposure to STD Z20.2 and Trichomoniasis A59.[address] 63455- 5546 Nov, [place] [address] 59175- 9516 Nov, Encounter for test Z32.00 [facility] [address] 43149 -0396 07 Apr, 2016 Periodontal abscess K05.[address] 02610- 6956 07 Feb, 2015 Family history of diabetes mellitus V18.0 ; Fatigue 780.79 and Pain in both feet 729.[address] 67330- 9725 16 Jan, 2015 Bipolar affective disorder, depressed, moderate 296.52 and Posttraumatic stress disorder 309.[address] 34003- 2546 Jan, [facility] [place] [facility] [address] [id number] [place] [address]- 8544 14 Nov, 2014 [facility] [place] [facility] [address] [id number] [place] [address]- 3384 Nov, [facility] [place] [facility] [address] [facility] [id number] [place] [address]- 1990 Oct, [facility] [place] [facility] [address] [id number] [place] [address]- 8335 Oct, [facility] [place] [facility] [address] [facility] [id number] [place] [address]- 7653 Oct, [facility] [place] [facility] [address] [facility] [id number] [place] [address]- 0244 Oct, [facility] [place] [facility] [address] [facility] [id number] [place] [address]- 0157 Sep, [facility] [place] [facility] [address] [facility] [id number] [place] [address]- 6731 Sep, [facility] [place] [facility] [address] [facility] [id number] [place] [address]- 4396 Sep, [facility] [place] [facility] [address] [facility] [id number] [place] [address]- 1423 Sep, [facility] [place] [facility] [address] [facility] [id number] [place] [address]- 5541 Sep, [facility] [place] [facility] [address] [facility] [id number] [address]- 5220 Sep, [facility] [place] [facility] [address] [facility] [id number] [place] [address]- 1539 Sep, [facility] [place] [facility] [address] [facility] [id number], [place] [address]- 2009 Aug, [facility] [place] [facility] [address] [facility] [id number], [place] [address]- 1739 Aug, [facility] [address] [id number], [place] [address]- 9621 Aug, [facility] [address], [place] [address]- 0029 Aug, [facility] [address], [place] [address]- 4865 Aug, [facility] [address] [place] [address] 102432- 5960 Oct, [facility] [address], [place] [address]- 8358 Oct, [facility] [address], [place] [address]- 0031 Aug, [facility] [address], [place] [address]- 7078 Aug, IMMUNIZATIONS No Known Immunizations SOCIAL HISTORY Never Assessed REASON FOR VISIT Control PLAN OF CARE VITAL SIGNS MEDICATIONS Unknown [...]
--- OUTSIDE RECORDS SUMMARY | 2018-08-05 20:01 | XMS REPORT | Clinical Summary ---
Author Author [facility] Organization [facility] Address Unknown Phone Unavailable Care Team Providers Care Grocery Cashier Name Role Phone PCP Unavailable Allergies Not [...]
--- OUTSIDE RECORDS SUMMARY | 2018-08-05 20:01 | XMS REPORT ---
Author Author SHAHLAGENNARO [facility] Address [address] [place] [address] Care Team Providers Care Surgical Technician Name Role Phone GENNARO GALE Unavailable PROBLEMS Type Condition ICD9-CM Code [id number] Code Onset Dates Condition Status SNOMED Code Problem Other atopic dermatitis L20.89 Active 68610634 Problem Chlamydial infection A74.9 Active 289838475 Problem Unspecified blood type, Rh negative Z67.91 Active 800281179 Problem Bipolar depression F31.30 Active 98192413 Problem Supervision of other high risk pregnancies, unspecified trimester O09.899 Active 549099801 ALLERGIES No Information ENCOUNTERS Encounter Location Date Diagnosis [place] [id number] [id number] [place] [address] 82584- 0064 Jul, [facility] [id number] [place] [address] 46775- 5020 Jul, [place] [id number] [place] [address] 90689- 1296 Jul, Encounter for Depo-Provera contraception Z30.42 [place] [id number] [place] [address] 48985- 0660 May, [facility] [id number] [place] [address] 02432- 8135 May, [facility] [id number] [place] [address] 58873- 2094 May, [facility] [id number] [place] [address] 80087- 6995 May, [facility] [id number] [place] [address] 17342- 2078 May, [place] [id number] [place] [address] 08481- 4647 15 May, 2018 BMI 40.0-44.9, adult Z68.41 ; care in third trimester Z34.93 ; Acute nonintractable headache, unspecified headache type R51 ; 35 weeks gestation of Z3A.35 and History of herpes genitalis Z86.[address] 69405- 8726 11 May, 2018 BMI 40.0-44.9, adult Z68.41 ; care in third trimester Z34.93 ; Atypical pneumonia J18.9 ; Transverse lie of fetus, single or unspecified fetus O32.2XX0 and 34 weeks gestation of Z3A.[address] 83995- 5352 09 May, 2018 Supervision of other high risk pregnancies, unspecified trimester O09.[address] 21852- 3115 03 May, [address] 52085- 8830 27 Apr, 2018 BMI 40.0-44.9, adult Z68.41 ; Third trimester Z34.93 ; URI with cough and congestion J06.9 ; Other atopic dermatitis L20.89 ; 32 weeks gestation of Z3A.32 and Bipolar depression F31.[address] 95911- 8158 24 Apr, [address] 93055- 9861 Apr, [address] 92319- 6662 Apr, Possible exposure to STD Z20.2 ; BMI 40.0-44.9, adult Z68.41 and Pruritus L29.[address] 47471- 8516 Apr, [place] [address] [address]- 8572 13 Apr, 2018 Third trimester Z34.93 ; Encounter for immunization Z23 ; BMI 40.0-44.9, adult Z68.41 ; Unspecified blood type, Rh negative Z67.91 and 30 weeks gestation of Z3A.30 [place] [id number] [place] [address] 86377- 2922 11 Apr, 2018 Screening for STD (sexually transmitted disease) Z11.3 and Abnormal glucose level R73.09 [place] [id number] [place] [address] 12248- 8861 06 Apr, 2018 Abnormal glucose level R73.09 [place] [id number] [place] [address] 93358- 6146 04 Apr, 2018 [place] [id number] [place] [address] 34597- 6604 Mar, care in third trimester Z34.93 [place] [id number] [place] [address] 24633- 3895 27 Mar, 2018 care in third trimester Z34.93 ; Evaluate anatomy not seen on prior sonogram Z04.8 and BMI 40.0-44.9, adult Z68.41 [facility] IN [facility] [address], [place] [address] Mar, BMI 40.0-44.9, adult Z68.41 ; Screening for STD (sexually transmitted disease) Z11.3 and High risk sexual behavior, unspecified type Z72.51 [place] [id number] [address]- 3544 Feb, [place] [id number] [place] [address] 92988- 5320 Feb, [place] [id number] [place] [address] 41247- 7468 Feb, Second trimester Z34.92 ; Chlamydial infection A74.9 ; Other maternal infectious and parasitic diseases complicating , first trimester O98.811 ; 23 weeks gestation of Z3A.23 and Evaluate anatomy not seen on prior sonogram Z04.8 [facility] [id number] [place] [address] 93847- 1663 16 Feb, 2018 [facility] [id number] [place] [address] 40495- 1167 Feb, [facility] [id number] [place] [address] 42567- 2448 Feb, [facility] [id number] [place] [address] [id number] Jan, [facility] [address] [address] [id number] [place] [address] 66547- 8073 Jan, Second trimester Z34.92 and 19 weeks gestation of Z3A.19 [facility] [id number] [place] [address] 88388- 5667 Jan, [facility] [address] [place] [address] [id number] 12 Jan, 2018 Dental examination Z01.20 [facility] [id number] [place] [address] 98566 -1055 Jan, Mouth pain K13.79 [facility] [id number] [place] [address] 86563- 0451 Jan, [facility] [id number] [place] [address] 91588- 3823 Jan, [facility] [id number] [place] [address] 92924- 6202 December, Second trimester Z34.92 ; 14 weeks gestation of Z3A.14 and Substance abuse 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, antepartum O99.322 [facility] [id number] [place] [address] 79818- 8606 December, [facility] [address] [place] [address] 09875- 3033 Nov, [place] [address] 40282- 2149 Nov, [place] [address] 65789- 9541 Nov, care, subsequent in first trimester Z34.81 ; 7 weeks gestation of Z3A.01 and Bipolar depression F31.30 [facility] [place] [address] 52587 -8955 Nov, [facility] IN [address] 47193 -1153 Nov, [place] [address] 25572- 8612 Nov, Screening, iron deficiency anemia Z13.[address] 67287- 9638 Nov, [facility] IN [place] [address] 43837 -3429 Nov, Possible exposure to STD Z20.2 and Trichomoniasis A59.[address] 71117- 6094 Nov, [address] 18861- 3677 Nov, Encounter for test Z32.00 [facility] IN [address] 33021 -5305 07 Apr, 2016 Periodontal abscess K05.[address] 96997- 1732 07 Feb, 2015 Family history of diabetes mellitus V18.0 ; Fatigue 780.79 and Pain in both feet 729.[address] 66299- 5357 16 Jan, 2015 Bipolar affective disorder, depressed, moderate 296.52 and Posttraumatic stress disorder 309.81 [facility] [address], [place] [address]- 6618 Jan, [facility] [address], [place] [address]- 0416 14 Nov, 2014 [facility] [address], [place] [address]- 9226 Nov, [facility] [place] [facility] [id number] [place] [address] 97413- 7221 Oct, [facility] [place] [facility] [id number] [place] [address]- 5282 Oct, [facility] [place] [facility] [address], [place] [address]- 2165 Oct, [facility] [address], [place] [address]- 8095 Oct, [facility] [place] [facility] [address], [place] [address]- 5512 Sep, [facility] [address] [address] Sep, [facility] [place] [facility] [address], [place] [address]- 6680 Sep, [facility] [address], [place] [address]- 6960 Sep, 2014 [facility] [place] [facility] [address], [place] [address]- 2546 Sep, [facility] [place] [facility] [address], [place] [address]- 4367 Sep, [facility] [place] [facility] [address], [place] [address]- 1826 Sep, [facility] [place] [facility] [address], [place] [address]- 0946 Aug, [facility] [address] [place] [id number] [address]- 5544 Aug, [facility] [address], [place] [address]- 3167 Aug, [facility] [address], [place] [address]- 7068 Aug, [facility] [id number] [place] [address] 35623- 8421 Aug, [facility] [id number] [place] [address] 37126- 7690 Oct, [facility] [id number] [place] [address] 771389- 1718 Oct, [facility] [address], [place] [address]- 5635 Aug, [facility] [address], [place] [address]- 8612 Aug, IMMUNIZATIONS No Known Immunizations SOCIAL HISTORY Never Assessed REASON FOR VISIT Medication refill request PLAN OF CARE VITAL SIGNS MEDICATIONS Unknown [...]
--- OUTSIDE RECORDS SUMMARY | 2018-08-05 20:01 | XMS REPORT | Clinical Summary ---
Author Author [facility] Organization [facility] Address Unknown Phone Unavailable Care Team Providers Care Program Manager Slp Name Role Phone PP Unavailable Allergies No [...] Date Last Done Comments HPV Vaccines (1 - Female 2003 3-dose series) Varicella Vaccines (1 of 2005 2 - 2-dose adolescent series) DTaP,Tdap,and Td Vaccines 2011 (1 - Tdap) CERVICAL CANCER SCREENING 2013 Influenza Vaccine (#1) 2018 Results Not on filefrom Last 3 Months
--- OUTSIDE RECORDS SUMMARY | 2018-08-05 20:02 | XMS REPORT ---
Author Author SHAHLAGENNARO [facility] Address [address] [place] [address] Care Team Providers Care Management Services Technician Name Role Phone GENNARO GALE Unavailable PROBLEMS Type Condition ICD9-CM Code [id number] Code Onset Dates Condition Status SNOMED Code Problem Other atopic dermatitis L20.89 Active 87949185 Problem Chlamydial infection A74.9 Active 857334493 Problem Unspecified blood type, Rh negative Z67.91 Active 378369182 Problem Bipolar depression F31.30 Active 56542867 Problem Supervision of other high risk pregnancies, unspecified trimester O09.899 Active 074716743 ALLERGIES No Information ENCOUNTERS Encounter Location Date Diagnosis [facility] [id number] [place] [address] 31360- 5470 Jun, [facility] [address] [place] [address] [id number] [place] [address] 41626- 9108 Jun, [facility] [id number] [place] [address] 08431- 1920 Jun, [facility] [address], [place] [address]- 5919 May, [facility] [id number] [place] [address] 75908- 3804 May, [facility] [id number] [place] [address] 07282- 8272 May, [facility] [id number] [place] [address] 50800- 1755 May, [facility] [address] [place] [address] 39427- 5190 May, [facility] [id number] [place] [address] 45370- 4627 15 May, 2018 BMI 40.0-44.9, adult Z68.41 ; care in third trimester Z34.93 ; Acute nonintractable headache, unspecified headache type R51 ; 35 weeks gestation of Z3A.35 and History of herpes genitalis Z86.19 [place] [id number] [place] [address] 74614- 4703 11 May, 2018 BMI 40.0-44.9, adult Z68.41 ; care in third trimester Z34.93 ; Atypical pneumonia J18.9 ; Transverse lie of fetus, single or unspecified fetus O32.2XX0 and 34 weeks gestation of Z3A.[address] 32175- 1679 09 May, 2018 Supervision of other high risk pregnancies, unspecified trimester O09.[address] 97181- 4516 May, [place] [address] 17919- 5654 Apr, BMI 40.0-44.9, adult Z68.41 ; Third trimester Z34.93 ; URI with cough and congestion J06.9 ; Other atopic dermatitis L20.89 ; 32 weeks gestation of Z3A.32 and Bipolar depression F31.30 [place] [id number] [place] [address] 69315- 6326 Apr, [place] [address] 88083- 1200 Apr, [place] [id number] [place] [address] 51601- 6279 Apr, Possible exposure to STD Z20.2 ; BMI 40.0-44.9, adult Z68.41 and Pruritus L29.9 [place] [id number] [place] [address] 76110- 4682 Apr, [place] [address] [id number] [address]- 7344 13 Apr, 2018 Third trimester Z34.93 ; Encounter for immunization Z23 ; BMI 40.0-44.9, adult Z68.41 ; Unspecified blood type, Rh negative Z67.91 and 30 weeks gestation of Z3A.30 [place] [address] [id number] [place] [address] 94525- 2520 11 Apr, 2018 Screening for STD (sexually transmitted disease) Z11.3 and Abnormal glucose level R73.09 [place] [address] [id number] [place] [address] 04994- 2287 06 Apr, 2018 Abnormal glucose level R73.09 [place] [address] [address] [id number] [place] [address] 28648- 0458 04 Apr, 2018 [place] [address] [address] [id number] [place] [address] 34140- 9678 Mar, care in third trimester Z34.93 [place] [address] [address] [id number] [place] [address] 85748- 2944 27 Mar, 2018 care in third trimester Z34.93 ; Evaluate anatomy not seen on prior sonogram Z04.8 and BMI 40.0-44.9, adult Z68.41 [facility] [address], [place] [address] -2210 10 Mar, 2018 BMI 40.0-44.9, adult Z68.41 ; Screening for STD (sexually transmitted disease) Z11.3 and High risk sexual behavior, unspecified type Z72.51 [place] [address] [place] [address] 48684- 1295 Feb, [place] [address] [place] [id number] [place] [address] 56509- 3085 Feb, [place] [address] [place] [address] 59660- 6050 Feb, Second trimester Z34.92 ; Chlamydial infection A74.9 ; Other maternal infectious and parasitic diseases complicating , first trimester O98.811 ; 23 weeks gestation of Z3A.23 and Evaluate anatomy not seen on prior sonogram Z04.8 [facility] [id number] [place] [address] 70199- 9161 16 Feb, 2018 [facility] [address] [id number] [place] [address] 93369- 8295 Feb, [facility] [address] 26449- 2126 Feb, [facility] [address] [id number] [place] [address] [id number] Jan, [facility] [address] 72605- 9517 Jan, Second trimester Z34.92 and 19 weeks gestation of Z3A.19 [facility] [address] [id number] [place] [address] 86803- 0099 Jan, [facility] [address] [id number] Jan, Dental examination Z01.20 [facility] [address] 93943 -9635 Jan, Mouth pain K13.79 [facility] [address] [id number] [place] [address] 62295- 5945 Jan, [facility] [address] [address] [id number] [place] [address] 82811- 0428 Jan, [facility] [address] [id number] [place] [address] 00608- 0591 December, Second trimester Z34.92 ; 14 weeks gestation of Z3A.14 and Substance abuse 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, antepartum O99.322 [facility] [address] [id number] [place] [address] 63508- 1082 December, [facility] [address] [place] [id number] [place] [address] 85680- 8608 Nov, [place] [address] [place] [id number] [place] [address] 14599- 5257 Nov, [place] [address] 53345- 9079 Nov, care, subsequent in first trimester Z34.81 ; 7 weeks gestation of Z3A.01 and Bipolar depression F31.30 [facility] IN [place] [address] 95853 -4159 Nov, [facility] IN [place] [address] 08615 -6026 Nov, [place] [address] 14165- 7974 Nov, Screening, iron deficiency anemia Z13.[address] 86642- 8863 Nov, [facility] [place] [address] [place] [id number] [place] [address] 89354 -4638 Nov, Possible exposure to STD Z20.2 and Trichomoniasis A59.[address] 99093- 7338 Nov, [place] [address] [place] [id number] [place] [address] 57200- 1753 Nov, Encounter for test Z32.00 [facility] IN [place] [address] [place] [id number] [place] [address] 52326 -1154 07 Apr, 2016 Periodontal abscess K05.[address] 80598- 7788 07 Feb, 2015 Family history of diabetes mellitus V18.0 ; Fatigue 780.79 and Pain in both feet 729.5 [place] [id number] [place] [address] 70434- 3290 16 Jan, 2015 Bipolar affective disorder, depressed, moderate 296.52 and Posttraumatic stress disorder 309.81 [facility] [address] [id number] [place] [address]- 4986 11 Jan, 2015 [facility] [place] [facility] [address] [facility] [id number] [place] [address]- 9291 14 Nov, 2014 [facility] [place] [facility] [address] [facility] [id number] [place] [address]- 4853 Nov, [facility] [place] [facility] [address] [facility] [id number] [place] [address]- 7997 Oct, [facility] [place] [facility] [address] [facility] [id number] [place] [address]- 5516 Oct, [facility] [place] [facility] [address] [facility] [id number] [place] [address]- 9552 Oct, [facility] [place] [facility] [id number] [place] [address]- 9874 Oct, [facility] [place] [facility] [address], [place] [address]- 0046 Sep, [facility] [place] [facility] [address] [place] [id number] [place] [address]- 9850 Sep, [facility] [place] [facility] [address], [place] [address]- 8609 Sep, [facility] [place] [facility] [address], [place] [address]- 5444 Sep, [facility] [place] [facility] [address], [place] [address]- 7845 Sep, [facility] [place] [facility] [address] [facility] [id number] [place] [address] 2542 Sep, [facility] [place] [facility] [address] [facility] [id number] [address]- 5086 Sep, [facility] [place] [facility] [id number] [place] [address]- 7433 Aug, [facility] [place] [facility] [address] [address] 9625 Aug, [facility] [address] [place] [id number], [place] [address]- 6221 Aug, [facility] [address] 5600 Aug, [facility] [address], [place] [address]- 8811 Aug, [facility] [id number] [place] [address] 67863- 5690 Oct, [facility] [id number] [place] [address] 417292- 0503 Oct, [facility] [address], [place] [address]- 1028 Aug, [facility] [address], [place] [address]- 8045 Aug, IMMUNIZATIONS No Known Immunizations SOCIAL HISTORY [...]
--- OUTSIDE RECORDS SUMMARY | 2018-08-05 20:02 | XMS REPORT ---
Author Author SHAHLAGENNARO [facility] Address [address] [place] [address] Care Team Providers Care Weaver Hand Loom Name Role Phone GENNARO GALE Unavailable PROBLEMS Type Condition ICD9-CM Code ZEG40-BT Code Onset Dates Condition Status SNOMED Code Problem Other atopic dermatitis L20.89 Active 78955021 Problem Chlamydial infection A74.9 Active 104558131 Problem Unspecified blood type, Rh negative Z67.91 Active 714362678 Problem Bipolar depression F31.30 Active 17386866 Problem Supervision of other high risk pregnancies, unspecified trimester O09.899 Active [id number] ALLERGIES No Information ENCOUNTERS Encounter Location Date Diagnosis [facility] [id number] [place] [address] 13314- 6944 Jun, [facility] [id number] [place] [address] 53855- 2599 Jun, [facility] [id number] [place] [address] 32259- 2942 Jun, [facility] [address] [address] May, [facility] [id number] [place] [address] 13187- 7147 May, [facility] [id number] [place] [address] 65680- 0213 May, [facility] [id number] [place] [address] 48787- 4228 May, [facility] [id number] [place] [address] 75100- 3538 May, [facility] [id number] [place] [address] 97819- 5834 15 May, 2018 BMI 40.0-44.9, adult Z68.41 ; care in third trimester Z34.93 ; Acute nonintractable headache, unspecified headache type R51 ; 35 weeks gestation of Z3A.35 and History of herpes genitalis Z86.19 [place] [id number] [place] [address] 92630- 8946 11 May, 2018 BMI 40.0-44.9, adult Z68.41 ; care in third trimester Z34.93 ; Atypical pneumonia J18.9 ; Transverse lie of fetus, single or unspecified fetus O32.2XX0 and 34 weeks gestation of Z3A.[address] [address]- [address] 09 May, 2018 Supervision of other high risk pregnancies, unspecified trimester O09.[address] 72283- 2577 May, [place] [address] 75262- 1618 Apr, BMI 40.0-44.9, adult Z68.41 ; Third trimester Z34.93 ; URI with cough and congestion J06.9 ; Other atopic dermatitis L20.89 ; 32 weeks gestation of Z3A.32 and Bipolar depression F31.30 [place] [id number] [place] [address] 30689- 5965 Apr, [place] [address] 60149- 6649 Apr, [place] [id number] [place] [address] 73311- 9591 Apr, Possible exposure to STD Z20.2 ; BMI 40.0-44.9, adult Z68.41 and Pruritus L29.9 [place] [id number] [place] [address] 70737- 6419 Apr, [place] [id number] [address] 13 Apr, 2018 Third trimester Z34.93 ; Encounter for immunization Z23 ; BMI 40.0-44.9, adult Z68.41 ; Unspecified blood type, Rh negative Z67.91 and 30 weeks gestation of Z3A.30 [place] [id number] [place] [address] 87319- 1347 11 Apr, 2018 Screening for STD (sexually transmitted disease) Z11.3 and Abnormal glucose level R73.09 [place] [id number] [place] [address] 29970- 2225 06 Apr, 2018 Abnormal glucose level R73.09 [place] [id number] [place] [address] 61957- 9298 04 Apr, 2018 [place] [id number] [place] [address] 10632- 8157 Mar, care in third trimester Z34.93 [place] [id number] [place] [address] 33677- 9540 27 Mar, 2018 care in third trimester Z34.93 ; Evaluate anatomy not seen on prior sonogram Z04.8 and BMI 40.0-44.9, adult Z68.41 [facility] [address], [place] [address] 10 Mar, 2018 BMI 40.0-44.9, adult Z68.41 ; Screening for STD (sexually transmitted disease) Z11.3 and High risk sexual behavior, unspecified type Z72.51 [place] [id number] [place] [address] 49110- 5534 Feb, [place] [id number] [place] [address] 16298- 2025 Feb, [place] [address] [place] [address] 39702- 8470 Feb, Second trimester Z34.92 ; Chlamydial infection A74.9 ; Other maternal infectious and parasitic diseases complicating , first trimester O98.811 ; 23 weeks gestation of Z3A.23 and Evaluate anatomy not seen on prior sonogram Z04.8 [facility] [id number] [place] [address] 32149- 7043 16 Feb, 2018 [facility] [id number] [place] [address] 17791- 9258 Feb, [facility] [address] 96971- 6225 Feb, [facility] [id number] [place] [address] [id number] Jan, [facility] [address] 46657- 7154 Jan, Second trimester Z34.92 and 19 weeks gestation of Z3A.19 [facility] [id number] [place] [address] 53409- 6653 Jan, [facility] [address] [id number] Jan, Dental examination Z01.20 [facility] [address] 28456 -6861 Jan, Mouth pain K13.79 [facility] [id number] [place] [address] 55868- 6546 Jan, [facility] [id number] [place] [address] 55058- 3777 Jan, [facility] [id number] [place] [address] 07524- 5762 December, Second trimester Z34.92 ; 14 weeks gestation of Z3A.14 and Substance abuse 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, antepartum O99.322 [facility] [id number] [place] [address] 32366- 7950 December, [facility] [id number] [place] [address] 18383- 3086 Nov, [place] [id number] [place] [address] 80648- 4862 Nov, [place] [address] 53284- 3323 Nov, care, subsequent in first trimester Z34.81 ; 7 weeks gestation of Z3A.01 and Bipolar depression F31.30 [facility] [place] [address] 0[address]32 -1487 Nov, [facility] [place] [address] 37186 -9439 Nov, [place] [address] 58957- 2162 Nov, Screening, iron deficiency anemia Z13.[address] 06431- 4195 Nov, [facility] [place] [id number] [place] [address] 85342 -7781 Nov, Possible exposure to STD Z20.2 and Trichomoniasis A59.[address] 26378- 8231 Nov, [place] [id number] [place] [address] 23339- 6758 Nov, Encounter for test Z32.00 [facility] [place] [id number] [place] [address] 35688 -1907 07 Apr, 2016 Periodontal abscess K05.[address] 69164- 2697 07 Feb, 2015 Family history of diabetes mellitus V18.0 ; Fatigue 780.79 and Pain in both feet 729.5 [place] [id number] [place] [address] 48106- 3542 16 Jan, 2015 Bipolar affective disorder, depressed, moderate 296.52 and Posttraumatic stress disorder 309.81 [facility] [address] [id number] [place] [address]- 7141 11 Jan, 2015 [facility] [place] [facility] [address] [facility] [id number] [place] [address]- 5167 14 Nov, 2014 [facility] [place] [facility] [address] [facility] [id number] [place] [address]- 2446 Nov, [facility] [place] [facility] [address] [facility] [id number] [place] [address]- 0097 Oct, [facility] [place] [facility] [address] [facility] [id number] [place] [address]- 7353 Oct, [facility] [place] [facility] [address] [facility] [id number] [place] [address]- 5211 Oct, [facility] [place] [facility] [id number] [address]- 1680 Oct, [facility] [place] [facility] [id number], [place] [address]- 9708 Sep, [facility] [place] [facility] [id number] [place] [address]- 2176 Sep, [facility] [place] [facility] [id number], [place] [address]- 0548 Sep, [facility] [place] [facility] [id number], [place] [address]- 2397 Sep, [facility] [place] [facility] [address], [place] [address]- 8579 Sep, [facility] [place] [facility] [address] [facility] [id number] [place] [address] 2548 Sep, [facility] [place] [facility] [address] [facility] [id number], [place] [address]- 1356 Sep, [facility] [place] [facility] [id number] [place] [address]- 6033 Aug, [facility] [place] [facility] [id number], [place] [address]- 6112 Aug, [facility] [id number], [place] [address]- 4679 Aug, [facility] [address], [place] [address]- 1341 Aug, [facility] [address], [place] [address]- 5961 Aug, [facility] [address] [address] 5720 Oct, [facility] [id number] [place] [address] 447746- 0693 Oct, [facility] [id number], [place] [address]- 0572 Aug, [facility] [id number], [place] [address]- 4493 Aug, IMMUNIZATIONS No Known Immunizations SOCIAL HISTORY [...]
--- OUTSIDE RECORDS SUMMARY | 2018-08-05 20:07 | XMS REPORT | Continuity of Care Document ---
Author Author [facility] Address Unknown Phone Unavailable Allergies Active Description Code Type Severity Reaction Onset Reported/Identified Relationship to Patient Clinical Status Yes No Known Drug Allergies [id number] Drug Allergy Unknown N/A 03/22/2017 Medications There is no data. Problems Date Dx Coded Attending Type Code Diagnosis Diagnosed By 09/01/2011 WADE CHOUDHURY APRN 307.42 PRIMARY INSOMNIA 09/01/2011 WADE CHOUDHURY APRN A 311 DEPRESSION 09/01/2011 WADE CHOUDHURY APRN A 626.0 AMENORRHEA 09/01/2011 [facility] 307.42 PRIMARY INSOMNIA 09/01/2011 [facility] 311 DEPRESSION 09/01/2011 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 V01.6 CONTACT WITH OR EXPOSURE TO VENEREAL DISEASES 09/09/2014 [facility] V69.2 HIGH-RISK SEXUAL BEHAVIOR 09/09/2014 [facility] V74.5 STD SCREEN 09/09/2014 [facility] V76.2 CERVICAL CANCER SCREENING (PAP SMEAR) 10/08/2014 [facility] 296.52 MO BIPOLAR I DEPRESSED MODERATE 03/23/2017 [...] 11 WEEKS GESTATION OF 12/28/2017 GENNARO GALE MD Ot N83.202 UNSPECIFIED OVARIAN CYST, LEFT SIDE 12/28/2017 GENNARO GALE MD Ot O34.81 MATERNAL CARE [...] PERSONAL HISTORY OF OTHER MALIGNANT NEOP 02/08/2018 GENNARO GALE MD Ot N83.202 UNSPECIFIED OVARIAN CYST, LEFT SIDE 02/08/2018 GENNARO GALE MD Ot O34.81 MATERNAL CARE FOR OTH ABNLT OF PELVIC OR 02/08/2018 GENNARO GALE MD Ot Z3A.11 11 WEEKS GESTATION OF 02/09/2018 GENNARO GALE MD Ot Z36.89 ENCOUNTER FOR OTHER SPECIFIED 02/09/2018 GENNARO GALE MD Ot Z3A.19 19 WEEKS GESTATION OF 02/09/2018 GENNARO GALE MD Ot Z36.89 ENCOUNTER FOR OTHER SPECIFIED 02/09/2018 GENNARO GALE MD Ot Z3A.19 19 WEEKS GESTATION OF 02/22/2018 GENNARO GALE MD Ot Z36.89 ENCOUNTER FOR OTHER SPECIFIED 02/22/2018 GENNARO GALE MD, Ot Z3A.19 19 WEEKS GESTATION OF 03/08/2018 GENNARO GALE MD, Ot N83.202 UNSPECIFIED OVARIAN CYST, LEFT SIDE 03/08/2018 GENNARO GALE MD Ot O34.81 MATERNAL CARE FOR OTH ABNLT OF PELVIC OR 03/08/2018 GENNARO GALE MD Ot Z3A.11 11 WEEKS GESTATION OF 03/08/2018 GENNARO GALE MD Ot Z36.89 ENCOUNTER FOR OTHER SPECIFIED 03/08/2018 GENNARO GALE MD Ot Z3A.19 19 WEEKS GESTATION OF 03/09/2018 GENNARO GALE MD Ot Z34.92 ENCNTR FOR SUPRVSN OF NORMAL PREG, UNSP, 03/09/2018 GENNARO GALE MD, Ot Z3A.23 23 WEEKS GESTATION OF 03/13/2018 GENNARO GALE MD Ot Z34.82 ENCOUNTER FOR SUPRVSN OF NORMAL PREGNANC 03/13/2018 GENNARO GALE MD Ot Z3A.23 23 WEEKS GESTATION OF 03/31/2018 GENNARO GALE MD Ot O36.8120 DECREASED MOVEMENTS, SECOND TRIMES 03/31/2018 GENNARO GALE MD Ot Z3A.27 27 WEEKS GESTATION OF 04/02/2018 GENNARO GALE MD Ot Z01.818 ENCOUNTER FOR OTHER PREPROCEDURAL EXAMIN 04/17/2018 GENNARO GALE MD Ot O36.8120 DECREASED MOVEMENTS, SECOND TRIMES 04/17/2018 SHAHLA MCKEON, GENNARO Rogers Ot Z3A.27 27 WEEKS GESTATION OF 05/03/2018 GENNARO GALE MD Ot Z36.89 ENCOUNTER FOR OTHER SPECIFIED 05/03/2018 GENNARO GALE MD, Ot Z3A.00 WEEKS OF GESTATION OF NOT SPEC 05/20/2018 BERNFABIOLA COOLEYIS Ot F12.10 CANNABIS ABUSE, UNCOMPLICATED 05/20/2018 BERNOT, TILA Ot F17.210 NICOTINE DEPENDENCE, CIGARETTES, UNCOMPL 05/20/2018 BERNOT, TILA Ot F31.9 BIPOLAR DISORDER, UNSPECIFIED 05/20/2018 BERNOT, TILA Ot J06.9 ACUTE UPPER RESPIRATORY INFECTION, UNSPE 05/20/2018 CHADOT TILA Ot R05 COUGH 05/20/2018 FABIOLA BECKHAMIS Ot Z85.828 PERSONAL HISTORY OF OTHER MALIGNANT NEOP 05/20/2018 FABIOLA BECKHAMIS Ot Z86.19 PERSONAL HISTORY OF OTHER INFECTIOUS AND 05/22/2018 FABIOLA BECKHAMIS Ot F12.10 CANNABIS ABUSE, UNCOMPLICATED 05/22/2018 BERNOT, TILA Ot F17.210 NICOTINE DEPENDENCE, CIGARETTES, UNCOMPL 05/22/2018 BERNOT, TILA Ot F31.9 BIPOLAR DISORDER, UNSPECIFIED 05/22/2018 FABIOLA BECKHAMIS Ot J06.9 ACUTE UPPER RESPIRATORY INFECTION, UNSPE 05/22/2018 CHADOTFABIOLAIS Ot R05 COUGH 05/22/2018 CHAPINCITO TILA Ot Z85.828 PERSONAL HISTORY OF OTHER MALIGNANT NEOP 05/22/2018 FABIOLA BECKHAMIS Ot Z86.19 PERSONAL HISTORY OF OTHER INFECTIOUS AND 05/30/2018 GENNA BAILEY MD Ot O36.8190 DECREASED MOVEMENTS, UNSP TRIMESTE 05/30/2018 GENNA BAILEY MD Ot O99.89 OTH DISEASES AND CONDITIONS COMPL PREG/C 05/30/2018 GENNA BAILEY MD Ot R05 COUGH 05/30/2018 GENNA BAILEY MD Ot Z3A.35 35 WEEKS GESTATION OF 06/10/2018 LIO DOENRIKEA K Ot D64.9 ANEMIA, UNSPECIFIED 06/10/2018 LIO DO ANKIT K Ot E83.42 HYPOMAGNESEMIA 06/10/2018 LIO DO ANKIT K Ot E87.6 HYPOKALEMIA 06/10/2018 LIO DO, ANKIT K Ot F31.9 BIPOLAR DISORDER, UNSPECIFIED 06/10/2018 LIO DO, ANKIT K Ot R11.2 NAUSEA WITH VOMITING, UNSPECIFIED 06/10/2018 LIO DO, ANKIT K Ot R42 DIZZINESS AND GIDDINESS 06/10/2018 LIO DO, ANKIT K Ot Z85.828 PERSONAL HISTORY OF OTHER MALIGNANT NEOP 06/10/2018 LIO DO, ANKIT K Ot Z98.890 OTHER SPECIFIED POSTPROCEDURAL STATES 06/12/2018 LIO DO, ANKIT K Ot D64.9 ANEMIA, UNSPECIFIED 06/12/2018 LIO DO, ANKIT K Ot E83.42 HYPOMAGNESEMIA 06/12/2018 LIO DO, ANKIT K Ot E87.6 HYPOKALEMIA 06/12/2018 LIO DO, ANKIT K Ot F31.9 BIPOLAR DISORDER, UNSPECIFIED 06/12/2018 LIO DO, ANKIT K Ot R11.2 NAUSEA WITH VOMITING, UNSPECIFIED 06/12/2018 LIO DO, ANKIT K Ot R42 DIZZINESS AND GIDDINESS 06/12/2018 LIO DO, ANKIT K Ot Z85.828 PERSONAL HISTORY OF OTHER MALIGNANT NEOP 06/12/2018 LIO DO, ANKIT K Ot Z98.890 OTHER SPECIFIED POSTPROCEDURAL STATES 06/18/2018 GENNA BAILEY MD Ot O36.8190 DECREASED MOVEMENTS, UNSP TRIMESTE 06/18/2018 GENNA BAILEY MD Ot O99.89 OTH DISEASES AND CONDITIONS COMPL PREG/C 06/18/2018 GENNA BAILEY MD Ot R05 COUGH 06/18/2018 GENNA BAILEY MD Ot Z3A.35 35 WEEKS GESTATION OF 06/18/2018 GENNA BAILEY MD Ot O36.8190 DECREASED MOVEMENTS, UNSP TRIMESTE 06/18/2018 GENNA BAILEY MD Ot O99.89 OTH DISEASES AND CONDITIONS COMPL PREG/C 06/18/2018 GENNA BAILEY MD Ot R05 COUGH 06/18/2018 GENNA BAILEY MD Ot Z3A.35 35 WEEKS GESTATION OF 06/27/2018 TAO MCKEON, LAI Schultz Ot B37.2 CANDIDIASIS OF SKIN AND NAIL 06/27/2018 LAI BURGER MD Ot F12.10 CANNABIS ABUSE, UNCOMPLICATED 06/27/2018 LAI BURGER MD Ot F17.210 NICOTINE DEPENDENCE, CIGARETTES, UNCOMPL 06/27/2018 LAI BURGER MD Ot F31.9 BIPOLAR DISORDER, UNSPECIFIED 06/27/2018 LAI BURGER MD Ot N39.0 URINARY TRACT INFECTION, SITE NOT SPECIF 06/27/2018 LAI BURGER MD Ot R42 DIZZINESS AND GIDDINESS 06/27/2018 LAI BURGER MD Ot Z85.828 PERSONAL HISTORY OF OTHER MALIGNANT NEOP 06/27/2018 LAI BURGER MD Ot Z86.19 PERSONAL HISTORY OF OTHER INFECTIOUS AND 06/27/2018 LAI BURGER MD Ot Z98.890 OTHER SPECIFIED POSTPROCEDURAL STATES 06/29/2018 LAI BURGER MD Ot B37.2 CANDIDIASIS OF SKIN AND NAIL 06/29/2018 LAI BURGER MD Ot F12.10 CANNABIS ABUSE, UNCOMPLICATED 06/29/2018 LAI BURGER MD Ot F17.210 NICOTINE DEPENDENCE, CIGARETTES, UNCOMPL 06/29/2018 LAI BURGER MD Ot F31.9 BIPOLAR DISORDER, UNSPECIFIED 06/29/2018 LAI BURGER MD Ot N39.0 URINARY TRACT INFECTION, SITE NOT SPECIF 06/29/2018 LAI BURGER MD Ot R42 DIZZINESS AND GIDDINESS 06/29/2018 LAI BURGER MD Ot Z85.828 PERSONAL HISTORY OF OTHER MALIGNANT NEOP 06/29/2018 LAI BURGER MD Ot Z86.19 PERSONAL HISTORY OF OTHER INFECTIOUS AND 06/29/2018 LAI BURGER MD Ot Z98.890 OTHER SPECIFIED POSTPROCEDURAL STATES Procedures There is no data. Results Test Result Range Bacterial urine culture - 03/22/17 10:00 Bacterial urine culture [id number] NRG COLONY COUNT 10,000/ML - 100,000/ML NRG [...] 10.2 fL 7.5-12.5 ABSOLUTE NEUTROPHILS 6341 cells/uL 2953-7471 ABSOLUTE LYMPHOCYTES 2793 cells/uL 850-3900 ABSOLUTE MONOCYTES 461 cells/uL 200-950 ABSOLUTE EOSINOPHILS 196 cells/uL 15-500 ABSOLUTE BASOPHILS 10 cells/uL 0-200 NEUTROPHILS 64.7 % NRG LYMPHOCYTES 28.5 % NRG MONOCYTES 4.7 % NRG EOSINOPHILS 2.0 % NRG BASOPHILS 0.1 % NRG ANTIBODY SCREEN - 04/26/18 14:42 ANTIBODY SCREEN, RBC W/REFL ID, TITER AND AG NO ANTIBODIES DETECTED NRG CULTURE, URINE - 05/03/18 16:43 CULTURE, URINE, ROUTINE SEE NOTE NRG Influenza virus A and B antigen detection - 05/20/18 13:20 FLU RESULT NEGATIVE FOR INFLUENZA A AND B ANTIGENS BY IA NRG Urine drug screening test - 05/30/18 07:40 [...] INFLUENZA A AND B ANTIGENS BY IA NR Complete blood count (CBC) with automated [...] in serum or plasma 184 U/L 125-220 Complete blood count (CBC) with automated white blood cell (WBC) differential - 06/10/18 02:00 Blood leukocytes automated count (number/volume) 6.7 10*3/uL 4.3-11.0 Blood erythrocytes automated count (number/volume) 2.91 10*6/uL 4.35-5.85 Venous blood hemoglobin measurement (mass/volume) 8.9 g/dL 11.5-16.0 Blood hematocrit (volume fraction) 26 % 35-52 Automated erythrocyte mean corpuscular volume 89 [foz_us] 80-99 Automated erythrocyte mean corpuscular hemoglobin (mass per erythrocyte) 31 pg 25-34 Automated erythrocyte mean corpuscular hemoglobin concentration measurement ( mass/volume) 34 g/dL 32-36 Automated erythrocyte distribution width ratio 12.8 % 10.0-14.5 Automated blood platelet count (count/volume) 266 10*3/uL 130-400 Automated blood platelet mean volume measurement 10.2 [foz_us] 7.4-10.4 Automated blood neutrophils/100 leukocytes 51 % 42-75 Automated blood lymphocytes/100 leukocytes 40 % 12-44 Blood monocytes/100 leukocytes 6 % 0-12 Automated blood eosinophils/100 leukocytes 3 % 0-10 Automated blood basophils/100 leukocytes 0 % 0-10 Blood neutrophils automated count (number/volume) 3.4 10*3 1.8-7.8 Blood lymphocytes automated count (number/volume) 2.7 10*3 1.0-4.0 Blood monocytes automated count (number/volume) 0.4 10*3 0.0-1.0 Automated eosinophil count 0.2 10*3/uL 0.0-0.3 Automated blood basophil count (count/volume) 0.0 10*3/uL 0.0-0.1 PT panel in platelet poor plasma by coagulation assay - 06/10/18 02:00 Prothrombin time (PT) in platelet poor plasma by coagulation assay 12.1 s 12.2-14.7 INR in platelet poor plasma or blood by coagulation assay 0.9 0.8-1.4 Activated partial thromboplastin time (aPTT) in platelet poor plasma bycoagulation assay - 06/10/18 02:00 Activated partial thromboplastin time (aPTT) in platelet poor plasma bycoagulation assay 28 s 24-35 Comprehensive metabolic panel - 06/10/18 02:00 Serum or plasma sodium measurement (moles/volume) 142 mmol/L 135-145 Serum or plasma potassium measurement (moles/volume) 3.5 mmol/L 3.6-5.0 Serum or plasma chloride measurement (moles/volume) 111 mmol/L 98-107 Carbon dioxide 20 mmol/L 21-32 Serum or plasma anion gap determination (moles/volume) 11 mmol/L 5-14 Serum or plasma urea nitrogen measurement (mass/volume) 11 mg/dL 7-18 Serum or plasma creatinine measurement (mass/volume) 0.67 mg/dL 0.60-1.30 Serum or plasma urea nitrogen/creatinine mass ratio 16 NRG Serum or plasma creatinine measurement with calculation of estimated glomerular filtration rate > NRG Serum or plasma glucose measurement (mass/volume) 94 mg/dL 70-105 Serum or plasma calcium measurement (mass/volume) 9.4 mg/dL 8.5-10.1 Serum or plasma total bilirubin measurement (mass/volume) 0.1 mg/dL 0.1-1.0 Serum or plasma alkaline phosphatase measurement (enzymatic activity/volume) 80 U/L 40-136 Serum or plasma aspartate aminotransferase measurement (enzymatic activity/ volume) 14 U/L 5-34 Serum or plasma alanine aminotransferase measurement (enzymatic activity/volume ) 12 U/L 0-55 Serum or plasma protein measurement (mass/volume) 6.1 g/dL 6.4-8.2 Serum or plasma albumin measurement (mass/volume) 2.9 g/dL 3.2-4.5 CALCIUM CORRECTED 10.3 mg/dL 8.5-10.1 Magnesium - 06/10/18 02:00 Magnesium 1.6 mg/dL 1.8-2.4 Serum or plasma amylase measurement (enzymatic activity/volume) - 06/10/18 02: 00 Serum or plasma amylase measurement (enzymatic activity/volume) 28 U /L 25-125 Lipase - 06/10/18 02:00 Lipase 18 U/L 8-78 Complete blood count (CBC) with automated white blood cell (WBC) differential - 06/27/18 07:49 Blood leukocytes automated count (number/volume) 6.6 10*3/uL 4.3-11.0 Blood erythrocytes automated count (number/volume) 4.22 10*6/uL 4.35-5.85 Venous blood hemoglobin measurement (mass/volume) 12.2 g/dL 11.5-16.0 Blood hematocrit (volume fraction) 36 % 35-52 Automated erythrocyte mean corpuscular volume 85 [foz_us] 80-99 Automated erythrocyte mean corpuscular hemoglobin (mass per erythrocyte) 29 pg 25-34 Automated erythrocyte mean corpuscular hemoglobin concentration measurement ( mass/volume) 34 g/dL 32-36 Automated erythrocyte distribution width ratio 12.7 % 10.0-14.5 Automated blood platelet count (count/volume) 367 10*3/uL 130-400 Automated blood platelet mean volume measurement 10.2 [foz_us] 7.4-10.4 Automated blood neutrophils/100 leukocytes 48 % 42-75 Automated blood lymphocytes/100 leukocytes 40 % 12-44 Blood monocytes/100 leukocytes 7 % 0-12 Automated blood eosinophils/100 leukocytes 4 % 0-10 Automated blood basophils/100 leukocytes 1 % 0-10 Blood neutrophils automated count (number/volume) 3.2 10*3 1.8-7.8 Blood lymphocytes automated count (number/volume) 2.7 10*3 1.0-4.0 Blood monocytes automated count (number/volume) 0.4 10*3 0.0-1.0 Automated eosinophil count 0.3 10*3/uL 0.0-0.3 Automated blood basophil count (count/volume) 0.0 10*3/uL 0.0-0.1 Comprehensive metabolic panel - 06/27/18 07:49 Serum or plasma sodium measurement (moles/volume) 141 mmol/L 135-145 Serum or plasma potassium measurement (moles/volume) 3.6 mmol/L 3.6-5.0 Serum or plasma chloride measurement (moles/volume) 107 mmol/L 98-107 Carbon dioxide 26 mmol/L 21-32 Serum or plasma anion gap determination (moles/volume) 8 mmol/L 5-14 Serum or plasma urea nitrogen measurement (mass/volume) 10 mg/dL 7-18 Serum or plasma creatinine measurement (mass/volume) 0.74 mg/dL 0.60-1.30 Serum or plasma urea nitrogen/creatinine mass ratio 14 NRG Serum or plasma creatinine measurement with calculation of estimated glomerular filtration rate > NRG Serum or plasma glucose measurement (mass/volume) 102 mg/dL 70-105 Serum or plasma calcium measurement (mass/volume) 9.0 mg/dL 8.5-10.1 Serum or plasma total bilirubin measurement (mass/volume) 0.3 mg/dL 0.1-1.0 Serum or plasma alkaline phosphatase measurement (enzymatic activity/volume) 89 U/L 40-136 Serum or plasma aspartate aminotransferase measurement (enzymatic activity/ volume) 22 U/L 5-34 Serum or plasma alanine aminotransferase measurement (enzymatic activity/volume ) 33 U/L 0-55 Serum or plasma protein measurement (mass/volume) 6.6 g/dL 6.4-8.2 Serum or plasma albumin measurement (mass/volume) 3.5 g/dL 3.2-4.5 CALCIUM CORRECTED 9.4 mg/dL 8.5-10.1 Magnesium - 06/27/18 07:49 Magnesium 1.9 mg/dL 1.8-2.4 Lipase - 06/27/18 07:49 Lipase 37 U/L 8-78 Urine drug screening test - 06/27/18 09:02 Urine phencyclidine detection by screening method NEGATIVE [...] NEGATIVE NEGATIVE Urine propoxyphene detection NEGATIVE NEGATIVE Complete urinalysis with reflex to culture - 06/27/18 09:02 Urine color determination ALEXIS NRG Urine clarity determination CLEAR NRG Urine pH measurement by test strip 6 5-9 Specific gravity of urine by test strip 1.015 1.016- 1.022 Urine protein assay by test strip, semi-quantitative 2+ NEGATIVE Urine glucose detection by automated test strip NEGATIVE NEGATIVE Erythrocytes detection in urine sediment by light microscopy 1+ NEGATIVE Urine ketones detection by automated test strip NEGATIVE NEGATIVE Urine nitrite detection by test strip NEGATIVE NEGATIVE Urine total bilirubin detection by test strip NEGATIVE NEGATIVE Urine urobilinogen measurement by automated test strip (mass/volume) NORMAL NORMAL Urine leukocyte esterase detection by dipstick 2+ NEGATIVE Automated urine sediment erythrocyte count by microscopy (number/high power field) [HPF] NRG Automated urine sediment leukocyte count by microscopy (number/high power field ) [HPF] NRG Bacteria detection in urine sediment by light microscopy FEW NRG Squamous epithelial cells detection in urine sediment by light microscopy 0-2 NRG Crystals detection in urine sediment by light microscopy NONE NRG Casts detection in urine sediment by light microscopy PRESENT NRG Mucus detection in urine sediment by light microscopy MODERATE NRG Complete urinalysis with reflex to culture YES NRG Hyaline casts detection in urine sediment by light microscopy 0-2 NRG Renal epithelial cells detection in urine sediment by light microscopy NONE NRG Granular casts detection in urine sediment by light microscopy 5-10 NRG Bacterial urine culture - 06/27/18 09:02 Bacterial urine culture SEE REPORT NRG COLONY COUNT . NRG Encounters ACCT No. Visit Date/Time Discharge Status Pt. Type Provider Facility Loc./Unit Complaint [id number] 10/08/2014 14:15:00 10/08/2014 23:59:59 CLS Outpatient YUMI PHAN [id number] 09/09/2014 13:22:00 09/09/2014 23:59:59 CLS Outpatient WADE CHOUDHURY APRN [id number] 03/08/2018 13:30:00 03/08/2018 23:59:59 CLS Outpatient JERILYN KAPLAN [facility] [id number] 05/03/2018 15:00:00 Document Registration [id number] 04/26/2018 13:40:00 Document Registration [id number] 04/24/2018 08:15:00 Document Registration [id number] 04/10/2018 12:00:00 Document Registration [id number] 03/23/2018 14:40:00 Document Registration [id number] 03/02/2018 14:20:00 Document Registration [id number] 06/01/2018 10:39:00 06/01/2018 23:59:00 DIS Outpatient Gennaro Gale [id number] 06/27/2018 07:43:00 06/27/2018 11:21:00 DIS Emergency LAI BURGER MD [facility] ER DIZZY;N/V [id number] 06/10/2018 01:46:00 06/10/2018 04:30:00 DIS Emergency LIO DOANKIT K [facility] ER N/V/DIZZINESS [id number] 05/30/2018 07:03:00 05/30/2018 10:55:00 DIS Outpatient GENNA BAILEY MD [facility] WSo DIZZINESS;LOW IRON; NAUSEA [id number] 05/28/2018 08:48:00 05/28/2018 23:59:59 CLS Preadmit GENNARO GALE MD [facility] RAD TRANSVERSE LIE OF FETUS [id number] 05/20/2018 10:49:00 05/20/2018 14:26:00 DIS Emergency TILA BEKCHAM [facility] ER COUGH X1 MONTH [id number] 04/19/2018 09:50:00 04/19/2018 23:59:59 CLS Outpatient GENNARO GALE MD [facility] RAD EVALUATE ANATOMY NOT SEEN ON PRIOR SONO [id number] 03/31/2018 13:17:00 03/31/2018 14:30:00 DIS Outpatient GENNARO GALE MD [facility] WSo DECREASED MOVEMENT , FEELS HOT [id number] 03/08/2018 14:37:00 03/08/2018 23:59:59 CLS Outpatient GENNARO GALE MD [facility] RAD EVALUATE ANATOMY NOT SEEN ON PRIOR SONOGRAM [id number] 02/08/2018 14:59:00 02/08/2018 23:59:59 CLS Outpatient GENNARO GALE MD [facility] RAD SECOND TRIMESTER [id number] 01/24/2018 19:40:00 01/24/2018 22:42:00 DIS Emergency AUBREY SLADE MD [facility] ER LIGHTHEADED [id number] 12/13/2017 12:36:00 12/13/2017 23:59:59 CLS Outpatient GENNARO GALE MD [facility] RAD CARE,FIRST TRIMESTSER [id number] 03/22/2017 12:38:00 03/23/2017 14:02:00 DIS Inpatient WILFRED LYNCH DO [facility] 4TH RT PYELONEPHRITIS [id number] 08/16/2016 16:05:39 08/16/2016 23:59:59 CLS Outpatient
[2018-08-05 21:20] LABS: BASOPHILS % (AUTO) 0 % (0-10); EOSINOPHILS # (AUTO) 0.2 10^3/uL (0.0-0.3); EOSINOPHILS % (AUTO) 2 % (0-10); HEMATOCRIT 42 % (35-52); HEMOGLOBIN 14.4 G/DL (11.5-16.0); LYMPHOCYTES # (AUTO) 3.4 X 10^3 (1.0-4.0); LYMPHOCYTES % (AUTO) 35 % (12-44); MEAN CORPUSCULAR HEMOGLOBIN 29 PG (25-34); MEAN CORPUSCULAR HGB CONC 35 G/DL (32-36); MEAN CORPUSCULAR VOLUME 84 FL (80-99); MEAN PLATELET VOLUME 10.1 FL (7.4-10.4); MONOCYTES # (AUTO) 0.7 X 10^3 (0.0-1.0); MONOCYTES % (AUTO) 7 % (0-12); NEUTROPHILS # (AUTO) 5.3 X 10^3 (1.8-7.8); NEUTROPHILS % (AUTO) 56 % (42-75); PLATELET COUNT 333 10^3/uL (130-400); RED BLOOD COUNT 4.94 10^6/uL (4.35-5.85); RED CELL DISTRIBUTION WIDTH 14.2 % (10.0-14.5); WHITE BLOOD COUNT 9.6 10^3/uL (4.3-11.0)
[2018-08-05 21:26] LABS: BILIRUBIN,URINE NEGATIVE (NEGATIVE); CLARITY,URINE CLEAR; COLOR,URINE YELLOW; GLUCOSE, URINE (UA) NEGATIVE (NEGATIVE); KETONES,URINE NEGATIVE (NEGATIVE); LEUKOCYTE ESTERASE ,URINE NEGATIVE (NEGATIVE); NITRITE,URINE NEGATIVE (NEGATIVE); PH,URINE 6 (5-9); PROTEIN,URINE 1+ (NEGATIVE); UROBILINOGEN,URINE NORMAL (NORMAL)
[2018-08-05 21:33] LABS: BACTERIA,URINE TRACE /HPF; WBC,URINE RARE /HPF
[2018-08-05 21:53] LABS: ALANINE AMINOTRANSFERASE 78 U/L (0-55); ALBUMIN 4.1 GM/DL (3.2-4.5); ALKALINE PHOSPHATASE 66 U/L (40-136); BILIRUBIN,TOTAL 0.2 MG/DL (0.1-1.0); BUN/CREATININE RATIO 16; CALCIUM 9.6 MG/DL (8.5-10.1); CARBON DIOXIDE 18 MMOL/L (21-32); CHLORIDE 106 MMOL/L (98-107); CREATININE SERUM 0.77 MG/DL (0.60-1.30); GFR ESTIMATED > 60; GLUCOSE 104 MG/DL (70-105); POTASSIUM 4.3 MMOL/L (3.6-5.0); SODIUM 138 MMOL/L (135-145); TOTAL PROTEIN 7.7 GM/DL (6.4-8.2)
--- NOTE | 2018-08-05 22:07 | ED General ---
General Chief Complaint: Abdominal/GI Problems Stated Complaint: DIZZY/VOMITTIING Nursing Triage Note: TO ED VIA EMS WITH C/O VOMITTING, DIZZINESS X 2MONTHS. Nursing Sepsis Screen: No Definite Risk Source of Information: Patient, EMS Exam Limitations: No Limitations History of Present Illness Date Seen by Provider: Aug 05, 2018 Time Seen by Provider: 20:00 Initial Comments Patient is a 27-year-old female who presents to the emergency room with complaints of nausea, vomiting, dizziness for 2 months. She has been seen and evaluated by her primary care provider in this emergency room for similar complaints. She was brought in by [facility] because she did not have a ride to the emergency room. She also would like to be checked for chlamydia and gonorrhea due to possible exposure. She denies any vaginal pain, discharge, or related symptoms. She has meclizine and Zofran home has been prescribed in the past but she did not take any of the medications when the symptoms started. Timing/Duration: Other (2 months) Associated Systoms: Nausea/Vomiting Allergies and Home Medications Allergies Coded Allergies: No Known Drug Allergies (Unverified , 03/22/17) Home Medications Ferrous Sulfate 325 Mg Tablet, 325 MG PO DAILY, (Reported) Meclizine HCl 25 Mg Tablet, 25-50 MG PO Q6H Prescribed by: ANKIT VACA on 06/10/18 032 Nitrofurantoin Macrocrystal 100 Mg Capsule, 100 MG PO BID Prescribed by: LAI BURGER on 06/27/18 1110 Nystatin 1 Each Powder.ea., 1 EACH MC BID Prescribed by: LAI BURGER on 06/27/18 1110 Ondansetron 4 Mg Tab.rapdis, 4 MG PO Q4H Prescribed by: ANKIT VACA on 06/10/18 0321 Patient Home Medication List Home Medication List Reviewed: Yes Review of Systems Review of Systems Constitutional: see HPI, dizziness Gastrointestinal: see HPI, nausea, vomiting All Other Systems Reviewed Negative Unless Noted: Yes Past Ymvsfoh-Ljrfpk-Njbiap Hx Past Med/Social Hx: Reviewed Nursing Past Med/Soc Hx Patient Social History Alcohol Use: Denies Use Recreational Drug Use: Yes (thc, crack, meth hx mo ago) Drug of Choice: THC Smoking Status: Current Everyday Smoker Type Used: Cigarettes Former Smoker, Quit: Jun 04, 2018 2nd Hand Smoke Exposure: Yes Recent Foreign Travel: No Contact w/Someone Who Travel: No Recent Infectious Disease Expo: No Recent Hopitalizations: Yes () Immunizations Up To Date Tetanus Booster (TDap): Unknown PED Vaccines UTD: No Seasonal Allergies Seasonal Allergies: No Past Medical History Surgeries: Yes (skin lesion removed; X 1) Section Respiratory: No Currently Using CPAP: No Currently Using BIPAP: No Cardiac: No Neurological: No Female Reproductive Disorders: Denies Sexually Transmitted Disease: Yes (HERPES) HIV/AIDS: No Genitourinary: No Gastrointestinal: No Musculoskeletal: No Endocrine: No HEENT: No Loss of Vision: Denies Hearing Impairment: Denies Cancer: Yes Skin Did You Recieve Any Treatments: Yes What Type of Treatment Did You: Surgical Intervention Psychosocial: Yes Anxiety, Bipolar, Depression Integumentary: No Blood Disorders: Yes (anemic) Adverse Reaction/Blood Tranf: No Family Medical History Reviewed Nursing Family Hx Patient reports no known family medical history. No Pertinent Family Hx Physical Exam Vital Signs Vital Signs - First Documented 08/05/18 19:57 Temp 98.9 Pulse 80 Resp 19 B/P (MAP) 119/70 (86) Capillary Refill : Less Than 3 Seconds Height, Weight, BMI Height: 5'6.00" Weight: 245lbs. 0.2oz. [id number]; 42.1 BMI Method:Stated General Appearance: No Apparent Distress, WD/WN Eyes: Bilateral Eye Normal Inspection, Bilateral Eye PERRL, Bilateral Eye EOMI HEENT: PERRL/EOMI, TMs Normal, Normal ENT Inspection, Pharynx Normal Neck: Full Range of Motion, Normal Inspection, Non Tender, Supple Respiratory: Chest Non Tender, Lungs Clear, Normal Breath Sounds, No Accessory Muscle Use, No Respiratory Distress Cardiovascular: Regular Rate, Rhythm, No Edema, No Gallop, No JVD, No Murmur, Normal Peripheral Pulses Gastrointestinal: Normal Bowel Sounds, No Organomegaly, No Pulsatile Mass, Non Tender, Soft Extremity: Normal Capillary Refill, Normal Inspection, Normal Range of Motion, Non Tender, No Calf Tenderness, No Pedal Edema Neurologic/Psychiatric: Alert, Oriented x3, No Motor/Sensory Deficits Skin: Normal Color, Warm/Dry Progress/Results/Core Measures Suspected Sepsis Recent Fever Within 48 Hours: No Infection Criteria Present: None New/Unexplained Altered Menta: No Sepsis Screen: No Definite Risk SIRS Temperature:98.9 Pulse: 80 Respiratory Rate: 19 Laboratory Tests 08/05/18 21:13: White Blood Count 9.6 Blood Pressure 119 /70 Mean: 86 Laboratory Tests 08/05/18 21:13: Creatinine 0.77, Platelet Count 333, Total Bilirubin 0.2 Results/Orders Lab Results Laboratory Tests Test 08/05/18 20:15 08/05/18 21:13 Range/Units Urine Color YELLOW Urine Clarity CLEAR Urine pH 6 5-9 Urine Specific [place] 1.020 1.016-1.022 Urine Protein 1+ H NEGATIVE Urine Glucose (UA) NEGATIVE NEGATIVE Urine Ketones NEGATIVE NEGATIVE Urine Nitrite NEGATIVE NEGATIVE Urine Bilirubin NEGATIVE NEGATIVE Urine Urobilinogen NORMAL NORMAL MG/DL Urine Leukocyte Esterase NEGATIVE NEGATIVE Urine RBC (Auto) NEGATIVE NEGATIVE Urine RBC NONE /HPF Urine WBC RARE /HPF Urine Squamous Epithelial Cells 5-10 /HPF Urine Crystals NONE /LPF Urine Bacteria TRACE /HPF Urine Casts NONE /LPF Urine Mucus NEGATIVE /LPF Urine Culture Indicated NO White Blood Count 9.6 4.3-11.0 10^3/uL Red Blood Count 4.94 4.35-5.85 10^6/uL Hemoglobin 14.4 11.5-16.0 G/DL Hematocrit 42 35-52 % Mean Corpuscular Volume 84 80-99 FL Mean Corpuscular Hemoglobin 29 25-34 PG Mean Corpuscular Hemoglobin Concent 35 32-36 G/DL Red Cell Distribution Width 14.2 10.0-14.5 % Platelet Count 333 130-400 10^3/uL Mean Platelet Volume 10.1 7.4-10.4 FL Neutrophils (%) (Auto) 56 42-75 % Lymphocytes (%) (Auto) 35 12-44 % Monocytes (%) (Auto) 7 0-12 % Eosinophils (%) (Auto) 2 0-10 % Basophils (%) (Auto) 0 0-10 % Neutrophils # (Auto) 5.3 1.8-7.8 X 10^3 Lymphocytes # (Auto) 3.4 1.0-4.0 X 10^3 Monocytes # (Auto) 0.7 0.0-1.0 X 10^3 Eosinophils # (Auto) 0.2 0.0-0.3 10^3/uL Basophils # (Auto) 0.0 0.0-0.1 10^3/uL Sodium Level 138 135-145 MMOL/L Potassium Level 4.3 3.6-5.0 MMOL/L Chloride Level 106 98-107 MMOL/L Carbon Dioxide Level 18 L 21-32 MMOL/L Anion Gap 14 5-14 MMOL/L Blood Urea Nitrogen 12 7-18 MG/DL Creatinine 0.77 0.60-1.30 MG/DL Estimat Glomerular Filtration Rate > 60 BUN/Creatinine Ratio 16 Glucose Level 104 70-105 MG/DL Calcium Level 9.6 8.5-10.1 MG/DL Corrected Calcium 9.5 8.5-10.1 MG/DL Total Bilirubin 0.2 0.1-1.0 MG/DL Aspartate Amino Transf (AST/SGOT) 38 H 5-34 U/L Alanine Aminotransferase (ALT/SGPT) 78 H 0-55 U/L Alkaline Phosphatase 66 40-136 U/L Total Protein 7.7 6.4-8.2 GM/DL Albumin 4.1 3.2-4.5 GM/DL My Orders Orders - TILA BECKHAM Comprehensive Metabolic Panel (08/05/18 20:01) Ua Culture If Indicated (08/05/18 20:01) Saline Lock/Iv-Start (08/05/18 20:01) Cbc With Automated Diff (08/05/18 20:01) Neis Romeo Dna Urine Test (08/05/18 20:03) Chlamydia Trachomatis Urine (08/05/18 20:03) Ekg Tracing (08/05/18 20:04) Vital Signs/I&O 08/05/18 19:57 Temp 98.9 Pulse 80 Resp 19 B/P (MAP) 119/70 (86) Capillary Refill : Less Than 3 Seconds Blood Pressure Mean: 86 Departure Impression Primary Impression: Nausea and vomiting Additional Impression: Dizziness Disposition: 01 HOME, SELF-CARE Condition: Stable/Unchanged Departure-Patient Inst. Decision time for Depature: 22:07 Referrals: GENNARO GALE MD (PCP/Family) Primary Care Physician Patient Instructions: VERTIGO Add. Discharge Instructions: Resume your home medications as previously prescribed. You may take Tylenol and ibuprofen as needed for pain relief. Follow-up with [facility] within 1 week for recheck. Return back to the emergency room for any worsening symptoms or concerns as needed. All discharge instructions reviewed with patient and/or family. Voiced understanding. TILA BECKHAM Aug 05, 2018 22:07
[2018-08-05 22:13] VITALS: BP 119/70
== END 2018-08-05 22:15 | disposition home or self-care (01) ==
LOC: EDUNIT# 19:57 → ER 19:58
DX: R11.2 Nausea with vomiting, unspecified (principal); R42 Dizziness and giddiness; F12.10 Cannabis abuse, uncomplicated; F41.9 Anxiety disorder, unspecified; F31.9 Bipolar disorder, unspecified; D64.9 Anemia, unspecified; Z87.891 Personal history of nicotine dependence; Z98.890 Other specified postprocedural states; Z86.19 Personal history of other infectious and parasitic diseases; Z85.828 Personal history of other malignant neoplasm of skin
CPT/HCPCS: 36415; 80053; 81000; 85025; 87491; 87591; 93005

== ENCOUNTER 2018-11-10 21:53 | Emergency (ER) | payer MEDICAID ==
[~2018-11-10] VITALS: Ht 167.6 cm; Wt 133.4 kg
--- OUTSIDE RECORDS SUMMARY | 2018-11-10 21:58 | XMS REPORT | Clinical Summary ---
Author Author [facility] Organization [facility] Address Unknown Phone Unavailable Care Team Providers Care Correction Lieutenant Name Role Phone PCP Unavailable Allergies Not [...]
--- OUTSIDE RECORDS SUMMARY | 2018-11-10 21:58 | XMS REPORT | Clinical Summary ---
Author Author [facility] Organization [facility] Address Unknown Phone Unavailable Care Team Providers Care Fire Pot Operator Name Role Phone PP Unavailable Allergies No Known Allergies Medications No known medications Active Problems Not on file Family History Relation Name Status Comments Son Alive Social History Date Tobacco Use Types Packs/Day Years Used Never Smoker Smokeless Tobacco: Never Used Alcohol Use Drinks/Week oz/Week Comments No Sex Assigned at Date Recorded Not on file Industry Job Start Date Occupation Not on file Not on file Not on file Travel End Travel History Travel Start No recent travel history available. Last Filed Vital Signs Time Taken Vital Sign Reading 02/24/2013 5:30 PM CDT Blood Pressure 115/63 02/24/2013 5:30 PM CDT Pulse 84 02/24/2013 5:30 PM CDT Temperature 36.5 C (97.7 F) 02/24/2013 2:46 PM CDT Respiratory Rate 18 02/24/2013 5:30 PM CDT Oxygen Saturation 97% - Inhaled Oxygen - Concentration 02/24/2013 2:46 PM CDT Weight 93 kg (205 lb) - Height - - Body Mass Index - Plan of Treatment Health Maintenance Due Date Last Done Comments Varicella Vaccines (1 of 2005 2 - 13+ 2-dose series) HPV Vaccines (1 - Female 2007 3-dose series) DTaP,Tdap,and Td Vaccines 2011 (1 - Tdap) CERVICAL CANCER SCREENING 2013 Influenza Vaccine (#1) 2018 Results Not on filefrom Last 3 Months
--- OUTSIDE RECORDS SUMMARY | 2018-11-10 21:58 | XMS REPORT | Clinical Summary ---
Author Author [facility] Organization [facility] Address Unknown Phone Unavailable Care Team Providers Care Interior Design Director Name Role Phone Daisy Sinha MD PCP Source Comments Some departments are not documenting in the electronic medical record. If you do not see the information that you expected, contact Release of Information in the Health Information Management department at [phone] for further assistance in locating additional records.[facility] Allergies Not on File Medications Not on [...] Last Done Comments PHYSICAL (COMPREHENSIVE) 1999 EXAM HIV SCREENING 2007 HPV VACCINES (1 - Female 2007 3-dose series) DTAP/TDAP VACCINES (1 - 2010 Tdap) CERVICAL CANCER SCREENING 2013 INFLUENZA VACCINE 03/14/2018 Results Not on filefrom Last 3 Months
--- OUTSIDE RECORDS SUMMARY | 2018-11-10 21:59 | XMS REPORT ---
Author Author Migration, Doctor Organization [facility] Address Unknown Phone Unavailable Care Team Providers Care Python Java Developer Name Role Phone Migration, Doctor Unavailable Unavailable PROBLEMS Type Condition ICD9-CM Code ASP41-RU Code Onset Dates Condition Status SNOMED Code Problem Chlamydial infection A74.9 Active 665694452 Problem Other atopic dermatitis L20.89 Active 49785233 Problem Body mass index (BMI) of 40.0 to 49.9 E66.01 Active 842682382 Problem Unspecified blood type, Rh negative Z67.91 Active 245643027 Problem Bipolar 1 disorder F31.9 Active 744605247 Problem Bipolar depression F31.30 Active 89937424 Problem Depression F32.9 Active 94142525 Problem Supervision of other high risk pregnancies, unspecified trimester O09.899 Active 405532173 Problem Currently smokes tobacco Z72.0 Active 578423865 Problem Chronic migraine without aura without status migrainosus, not intractable G43.709 Active 543356057191106 Problem BMI 40.0-44.9, adult Z68.41 Active 907105751 Problem Bipolar 2 disorder F31.81 Active 00433419 ALLERGIES No Information ENCOUNTERS Encounter Location Date Diagnosis [facility] [id number] [place] [phone][address] Nov, [facility] [id number] [place] [phone] Nov, [facility] [id number] [place] [phone] Nov, [facility] [address] [address] Nov, [address] [address] Nov, [address] [address] Oct, [address] [address] Oct, [address] [address] Oct, BMI 40.0-44.9, adult Z68.41 ; Bipolar depression F31.30 and Morbid obesity E66.[address] [place] [address] Sep, [address] [address] Sep, [facility] [address], [place] [address] Sep, [facility] [address] [id number] 18 Sep, 2018 Caries K02.9 ; Periodontitis K05.30 and Dental examination Z01.[address] [address] 16 Sep, [address] [address] 14 Sep, 2018 [facility] [address], [place] [address] Aug, [facility] [address], [place] [address] Aug, Acute hemorrhoid K64.9 ; High risk heterosexual behavior Z72.51 and BMI 45.0-49.9, adult Z68.42 [facility] [address], [place] [address] Jul, [facility] [address], [place] [address] Jul, [facility] [id number] [place] [address] Jul, Encounter for Depo-Provera contraception Z30.42 [facility] [address], [place] [address] May, [address] [address], [place] [address] May, [facility] [id number] [place] [address] May, [facility] [id number] [place] [address] 25[address] May, [facility] [id number] [place] [address]- [address] May, [facility] [id number] [place] [address] May, BMI 40.0-44.9, adult Z68.41 ; care in third trimester Z34.93 ; Acute nonintractable headache, unspecified headache type R51 ; 35 weeks gestation of Z3A.35 and History of herpes genitalis Z86.19 [facility] [id number] [place] [address] 11 May, 2018 BMI 40.0-44.9, adult Z68.41 ; care in third trimester Z34.93 ; Atypical pneumonia J18.9 ; Transverse lie of fetus, single or unspecified fetus O32.2XX0 and 34 weeks gestation of Z3A.34 [facility] [id number] [place] [address] 09 May, 2018 Supervision of other high risk pregnancies, unspecified trimester O09.899 [facility] [id number] [place] [address] 7[address] May, [facility] [id number] [place] [address] Apr, BMI 40.0-44.9, adult Z68.41 ; Third trimester Z34.93 ; URI with cough and congestion J06.9 ; Other atopic dermatitis L20.89 ; 32 weeks gestation of Z3A.32 and Bipolar depression F31.30 [facility] [id number] [place] [address] Apr, [facility] [id number] [place] [address]- [address] Apr, [facility] [id number] [place] [address]- [address] Apr, Possible exposure to STD Z20.2 ; BMI 40.0-44.9, adult Z68.41 and Pruritus L29.9 [facility] [id number] [place] [address]- 140[address] Apr, [facility] [id number] [place] [address]- 74[address] 13 Apr, 2018 Third trimester Z34.93 ; Encounter for immunization Z23 ; BMI 40.0-44.9, adult Z68.41 ; Unspecified blood type, Rh negative Z67.91 and 30 weeks gestation of Z3A.30 [place] [address] [address] 11 Apr, 2018 Screening for STD (sexually transmitted disease) Z11.3 and Abnormal glucose level R73.09 [facility] [id number] [place] [address] 06 Apr, 2018 Abnormal glucose level R73.09 [facility] [id number] [place] [address] 27598- 4969 04 Apr, 2018 [facility] [id number] [place] [address] 02787- 3[address] Mar, care in third trimester Z34.93 [facility] [id number] [place] [address] 46431- 275[address] 27 Mar, 2018 care in third trimester Z34.93 ; Evaluate anatomy not seen on prior sonogram Z04.8 and BMI 40.0-44.9, adult Z68.[address] [facility] [id number] [place] [address] Mar, BMI 40.0-44.9, adult Z68.41 ; Screening for STD (sexually transmitted disease) Z11.3 and High risk sexual behavior, unspecified type Z72.51 [facility] [id number] [place] [address] 99223- 5329 Feb, [facility] [id number] [place] [address] 15717- 9938 Feb, [facility] [id number] [place] [address] 96193- 2747 Feb, Second trimester Z34.92 ; Chlamydial infection A74.9 ; Other maternal infectious and parasitic diseases complicating , first trimester O98.811 ; 23 weeks gestation of Z3A.23 and Evaluate anatomy not seen on prior sonogram Z04.8 [facility] [id number] [place] [address] 33905- 5528 Feb, [facility] [id number] [place] [address] 82427- 6787 Feb, [facility] [id number] [place] [address] 78359- 9894 Feb, [facility] [address] [id number] Jan, [facility] [id number] [place] [address] 41069- 9[address] Jan, Second trimester Z34.92 and 19 weeks gestation of Z3A.19 [facility] [id number] [place] [address] 72084- 0247 Jan, [facility] [id number] [place] [address] [phone] Jan, Dental examination Z01.[address] [facility] [id number] [place] [address] 65959 [address]2964 Jan, Mouth pain K13.79 [facility] [id number] [place] [address] 52938- 3996 Jan, [facility] [id number] [place] [address] 84507- 8280 Jan, [facility] [id number] [place] [address] 51509- 0836 December, Second trimester Z34.92 ; 14 weeks gestation of Z3A.14 and Substance abuse 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, antepartum O99.322 [facility] [id number] [place] [address] 67854- 1378 December, [facility] [id number] [place] [address] 14472- 9935 Nov, [facility] [address] [address] Nov, [facility] [id number] [place] [address] 74811- 3192 Nov, care, subsequent in first trimester Z34.81 ; 7 weeks gestation of Z3A.01 and Bipolar depression F31.30 [facility] [id number] [place] [address] 9[address]44 [address] Nov, [facility] [id number] [place] [address] 56546 [address]2266 Nov, [facility] [id number] [place] [address] 28946- 6269 Nov, Screening, iron deficiency anemia Z13.0 [facility] [id number] [place] [address] 84500- 9332 Nov, [facility] [id number] [place] [address] 28859 [address]38[address] Nov, Possible exposure to STD Z20.2 and Trichomoniasis A59.9 [facility] [id number] [place] [address] 21182- 2244 Nov, [facility] [id number] [place] [address] 37235- 2129 10 Apr, 2018 Encounter for test Z32.00 [facility] [address], [place] [address] 07 Apr, 2016 Periodontal abscess K05.21 [facility] [id number] [place] [address] 10134- 5405 07 Feb, 2015 Family history of diabetes mellitus V18.0 ; Fatigue 780.79 and Pain in both feet 729.5 [facility] [id number] [place] [address] 98744- 0109 Jan, Bipolar affective disorder, depressed, moderate 296.52 and Posttraumatic stress disorder 309.81 [facility] [address] [address]- [address]117 Jan, [facility] [id number] [place] [address] 16365- 3304 14 Nov, 2014 [facility] [id number] [place] [address] 23749- 3908 Nov, [facility] [id number] [place] [address] 77700- 3278 Oct, [facility] [id number] [place] [address] 76353- 4665 Oct, [facility] [id number] [place] [address] 46353- 9698 Oct, [facility] [id number] [place] [address] 52400- 0147 Oct, [facility] [id number] [place] [address] 90680- 8967 Sep, [facility] [id number] [place] [address] 46541- 7056 Sep, [facility] [id number] [place] [address] 73933- 7680 Sep, [facility] [id number] [place] [address] 51017- 3837 Sep, [facility] [address], [place] [address]- 8481 Sep, [facility] [address], [place] [address]- 3[address] Sep, [facility] [address], [place] [address]- 5089 Sep, [facility] [id number] [place] [address] 22971- 5080 Aug, [facility] [id number] [place] [address] 71386- 3349 Aug, [facility] [id number] [place] [address] 37162- 9174 Aug, [facility] [id number] [place] [address] 59948- 7493 Aug, [facility] [id number] [place] [address] 22333- 2103 Aug, [facility] [id number] [place] [address] 30712- 5938 Oct, [facility] [id number] [place] [address] 03039- 7947 Oct, [facility] [address], [place] [address] Aug, [facility] [address], [place] [address] 3747 Aug, IMMUNIZATIONS No Known Immunizations SOCIAL HISTORY Never Assessed REASON FOR VISIT EMR-[facility] [place] PLAN OF CARE VITAL SIGNS MEDICATIONS Medication Instructions Dosage Frequency Start Date End Date Duration Status Flagyl 500 mg 4 tablet by Oral route 1 time Take with full glass of water. No alcohol intake advised for 48 hours. Aug, Active Latuda 20 mg take 1 tablet (20 mg) by oral route once daily with food (at least 350 calories) Aug, Active RESULTS No Results PROCEDURES No Known procedures INSTRUCTIONS MEDICATIONS ADMINISTERED No Known Medications MEDICAL (GENERAL) HISTORY Type Description Date Medical History Bipolar 2 disorder Medical History Chronic migraine without aura without status migrainosus, not intractable Medical History Body mass index (BMI) of 40.0 to 49.9 Medical History BMI 40.0-44.9, adult Medical History Currently smokes tobacco Medical History Depression Medical History Bipolar 1 disorder Medical History Psychiatric disorder Medical History Insomnia Medical History Syphilis Surgical History Surgery on head- bumps on head that were removed, did not have to cut into skull at all as a baby Surgical History cholecystectomy Surgical History 06/06/2018 Hospitalization History Hospitalization for surgery only Hospitalization History Childbirth Hospitalization History kidney infection 2018
[2018-11-10] MEDS ORDERED: NS IV 1000 ML 1,000 ML IV ONE (22:01)
--- OUTSIDE RECORDS SUMMARY | 2018-11-10 22:06 | XMS REPORT | Continuity of Care Document ---
Author Author [facility] Address Unknown Phone Unavailable Allergies Active Description Code Type Severity Reaction Onset Reported/Identified Relationship to Patient Clinical Status Yes No Known Drug Allergies [id number] Drug Allergy Unknown N/A 03/22/2017 Medications There is no data. 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 09/09/2014 WADE CHOUDHURY APRN A V01.6 CONTACT WITH OR EXPOSURE TO VENEREAL DISEASES 09/09/2014 WADE CHOUDHURY APRN A V69.2 HIGH-RISK SEXUAL BEHAVIOR 09/09/2014 WADE CHOUDHURY APRN A V74.5 STD SCREEN 09/09/2014 WADE CHOUDHURY APRN A V76.2 CERVICAL CANCER SCREENING (PAP SMEAR) 09/09/2014 [facility] 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 09/09/2014 [facility] V01.6 CONTACT WITH OR EXPOSURE TO VENEREAL DISEASES 09/09/2014 [facility] V69.2 HIGH-RISK SEXUAL BEHAVIOR 09/09/2014 [facility] V74.5 STD SCREEN 09/09/2014 [facility] V76.2 CERVICAL CANCER SCREENING (PAP SMEAR) 10/08/2014 [facility] 296.52 MO BIPOLAR I DEPRESSED MODERATE 03/23/2017 [...] OTH ABNLT OF PELVIC OR 12/28/2017 GENNARO AGLE MD Ot Z3A.11 11 WEEKS GESTATION OF [...] OTH ABNLT OF PELVIC OR 02/08/2018 GENNARO GAEL MD Ot Z3A.11 11 WEEKS GESTATION OF [...] Ot Z98.890 OTHER SPECIFIED POSTPROCEDURAL STATES 06/12/2018 LOI DO, ANKIT K Ot D64.9 ANEMIA, UNSPECIFIED [...] OTHER MALIGNANT NEOP 06/27/2018 LAI BURGER MD J Ot Z86.19 PERSONAL HISTORY OF OTHER INFECTIOUS [...] MD Ot Z98.890 OTHER SPECIFIED POSTPROCEDURAL STATES 08/05/2018 BERNOTTILA Ot D64.9 ANEMIA, UNSPECIFIED 08/05/2018 BERNFABIOLA COOLEYIS Ot F12.10 CANNABIS ABUSE, UNCOMPLICATED 08/05/2018 BERNOTFABIOLAIS Ot F31.9 BIPOLAR DISORDER, UNSPECIFIED 08/05/2018 BERNOTFABIOLAIS Ot F41.9 ANXIETY DISORDER, UNSPECIFIED 08/05/2018 BERNOTFABIOLAIS Ot R11.2 NAUSEA WITH VOMITING, UNSPECIFIED 08/05/2018 BERNOT, TILA Ot R42 DIZZINESS AND GIDDINESS 08/05/2018 TILA BECKHAM Ot Z85.828 PERSONAL HISTORY OF OTHER MALIGNANT NEOP 08/05/2018 TILA BECKHAM Ot Z86.19 PERSONAL HISTORY OF OTHER INFECTIOUS AND 08/05/2018 TILA BECKHAM Ot Z87.891 PERSONAL HISTORY OF NICOTINE DEPENDENCE 08/05/2018 TILA BECKHAM Ot Z98.890 OTHER SPECIFIED POSTPROCEDURAL STATES Procedures There is no data. Results Test Result Range Bacterial urine culture - 03/22/17 10:00 Bacterial urine culture [id number] NRG COLONY COUNT 10,000/ML - 100,000/ML NRG [...] 10.2 fL 7.5-12.5 ABSOLUTE NEUTROPHILS 6341 cells/uL 5696-1163 ABSOLUTE LYMPHOCYTES 2793 cells/uL 850-3900 ABSOLUTE MONOCYTES [...] INFLUENZA A AND B ANTIGENS BY IA [facility] Urine drug screening test - 05/30/18 07:40 [...] INFLUENZA A AND B ANTIGENS BY IA [facility] Complete blood count (CBC) with automated white [...] SEE REPORT NRG COLONY COUNT . NRG Complete urinalysis with reflex to culture - 08/05/18 20:15 Urine color determination YELLOW NRG Urine clarity determination CLEAR NRG Urine pH measurement by test strip 6 5-9 Specific gravity of urine by test strip 1.020 1.016- 1.022 Urine protein assay by test [...] count by microscopy (number/high power field ) RARE NRG Bacteria detection in urine sediment by light microscopy TRACE NRG Squamous epithelial cells detection in urine sediment by light microscopy 5-10 NRG Crystals detection in urine sediment by light microscopy NONE NRG Casts detection in urine sediment by light microscopy NONE NRG Mucus detection in urine sediment by light microscopy NEGATIVE NRG Complete urinalysis with reflex to culture NO NRG Chlamydia DNA amp probe, urine - 08/05/18 20:15 Chlamydia DNA amp probe, urine Not Detected Not Detected Urine Neisseria gonorrhoeae DNA assay - 08/05/18 20:15 Gonorrhea amp DNA-urine Not Detected Not Detected Complete blood count (CBC) with automated white blood cell (WBC) differential - 08/05/18 21:13 Blood leukocytes automated count (number/volume) 9.6 10*3/uL 4.3-11.0 Blood erythrocytes automated count (number/volume) 4.94 10*6/uL 4.35-5.85 Venous blood hemoglobin measurement (mass/volume) 14.4 g/dL 11.5-16.0 Blood hematocrit (volume fraction) 42 % 35-52 Automated erythrocyte mean corpuscular volume 84 [foz_us] 80-99 Automated erythrocyte mean corpuscular hemoglobin (mass per erythrocyte) 29 pg 25-34 Automated erythrocyte mean corpuscular hemoglobin concentration measurement ( mass/volume) 35 g/dL 32-36 Automated erythrocyte distribution width ratio 14.2 % 10.0-14.5 Automated blood platelet count (count/volume) 333 10*3/uL 130-400 Automated blood platelet mean volume measurement 10.1 [foz_us] 7.4-10.4 Automated blood neutrophils/100 leukocytes 56 % 42-75 Automated blood lymphocytes/100 leukocytes 35 % 12-44 Blood monocytes/100 leukocytes 7 % 0-12 Automated blood eosinophils/100 leukocytes 2 % 0-10 Automated blood basophils/100 leukocytes 0 % 0-10 Blood neutrophils automated count (number/volume) 5.3 10*3 1.8-7.8 Blood lymphocytes automated count (number/volume) 3.4 10*3 1.0-4.0 Blood monocytes automated count (number/volume) 0.7 10*3 0.0-1.0 Automated eosinophil count 0.2 10*3/uL 0.0-0.3 Automated blood basophil count (count/volume) 0.0 10*3/uL 0.0-0.1 Comprehensive metabolic panel - 08/05/18 21:13 Serum or plasma sodium measurement (moles/volume) 138 mmol/L 135-145 Serum or plasma potassium measurement (moles/volume) 4.3 mmol/L 3.6-5.0 Serum or plasma chloride measurement (moles/volume) 106 mmol/L 98-107 Carbon dioxide 18 mmol/L 21-32 Serum or plasma anion gap determination (moles/volume) 14 mmol/L 5-14 Serum or plasma urea nitrogen measurement (mass/volume) 12 mg/dL 7-18 Serum or plasma creatinine measurement (mass/volume) 0.77 mg/dL 0.60-1.30 Serum or plasma urea nitrogen/creatinine mass ratio 16 NRG Serum or plasma creatinine measurement with calculation of estimated glomerular filtration rate > NRG Serum or plasma glucose measurement (mass/volume) 104 mg/dL 70-105 Serum or plasma calcium measurement (mass/volume) 9.6 mg/dL 8.5-10.1 Serum or plasma total bilirubin measurement (mass/volume) 0.2 mg/dL 0.1-1.0 Serum or plasma alkaline phosphatase measurement (enzymatic activity/volume) 66 U/L 40-136 Serum or plasma aspartate aminotransferase measurement (enzymatic activity/ volume) 38 U/L 5-34 Serum or plasma alanine aminotransferase measurement (enzymatic activity/volume ) 78 U/L 0-55 Serum or plasma protein measurement (mass/volume) 7.7 g/dL 6.4-8.2 Serum or plasma albumin measurement (mass/volume) 4.1 g/dL 3.2-4.5 CALCIUM CORRECTED 9.5 mg/dL 8.5-10.1 Encounters ACCT No. Visit Date/Time Discharge Status Pt. Type Provider Facility Loc./Unit Complaint [id number] 10/08/2014 14:15:00 10/08/2014 23:59:59 CLS Outpatient YUMI PHAN [id number] 09/09/2014 13:22:00 09/09/2014 23:59:59 CLS Outpatient WADE CHOUDHURY APRN [id number] 10/17/2018 11:15:00 10/17/2018 23:59:59 CLS [facility] [id number] 05/03/2018 15:00:00 Document Registration [id number] 04/26/2018 13:40:00 Document Registration [id number] 04/24/2018 08:15:00 Document Registration [id number] 04/10/2018 12:00:00 Document Registration [id number] 03/23/2018 14:40:00 Document Registration [id number] 03/02/2018 14:20:00 Document Registration [id number] 06/01/2018 10:39:00 06/01/2018 23:59:00 DIS Outpatient Gennaro Gale [id number] 08/05/2018 19:58:00 08/05/2018 22:15:00 DIS Emergency TILA BECKHAM [facility] ER DIZZY/VOMITTIING [id number] 06/27/2018 07:43:00 06/27/2018 11:21:00 DIS Emergency LAI BURGER MD [facility] ER DIZZY;N/V [id number] 06/10/2018 01:46:00 06/10/2018 04:30:00 DIS Emergency LIOANKIT Pratt DO K [facility] ER N/V/DIZZINESS [id number] 05/30/2018 07:03:00 05/30/2018 10:55:00 DIS Outpatient GENNA BAILEY MD [facility] WSo DIZZINESS;LOW IRON; NAUSEA [id number] 05/28/2018 08:48:00 05/28/2018 23:59:59 CLS Preadmit GENNARO GALE MD [facility] RAD TRANSVERSE LIE OF FETUS [id number] 05/20/2018 10:49:00 05/20/2018 14:26:00 DIS Emergency TILA BECKHAM [facility] ER COUGH X1 MONTH [id number] 04/19/2018 09:50:00 04/19/2018 23:59:59 CLS Outpatient GENNARO GALE MD [facility] RAD EVALUATE ANATOMY NOT SEEN ON PRIOR SONO [id number] 03/31/2018 13:17:00 03/31/2018 14:30:00 DIS Outpatient GENNARO GALE MD [facility] WSo DECREASED MOVEMENT , FEELS HOT [id number] 03/08/2018 14:37:00 03/08/2018 23:59:59 CLS Outpatient GENNARO GALE MD [facility] RAD EVALUATE ANATOMY NOT SEEN ON PRIOR SONOGRAM [id number] 02/08/2018 14:59:00 02/08/2018 23:59:59 CLS Outpatient GENNARO GALE MD [facility] RAD SECOND TRIMESTER [id number] 01/24/2018 19:40:00 01/24/2018 22:42:00 DIS Emergency YANY MCKEON, AUBREY Lao [facility] ER LIGHTHEADED [id number] 12/13/2017 12:36:00 12/13/2017 23:59:59 CLS Outpatient GENNARO GALE MD [facility] RAD CARE,FIRST TRIMESTSER [id number] 03/22/2017 12:38:00 03/23/2017 14:02:00 DIS Inpatient WILFRED LYNCH DO [facility] 4TH RT PYELONEPHRITIS [id number] 08/16/2016 16:05:39 08/16/2016 23:59:59 CLS Outpatient
[2018-11-10 22:10] LABS: BASOPHILS % (AUTO) 0 % (0-10); EOSINOPHILS # (AUTO) 0.3 10^3/uL (0.0-0.3); EOSINOPHILS % (AUTO) 4 % (0-10); HEMATOCRIT 40 % (35-52); HEMOGLOBIN 14.2 G/DL (11.5-16.0); LYMPHOCYTES # (AUTO) 3.6 X 10^3 (1.0-4.0); LYMPHOCYTES % (AUTO) 44 % (12-44); MEAN CORPUSCULAR HEMOGLOBIN 30 PG (25-34); MEAN CORPUSCULAR HGB CONC 36 G/DL (32-36); MEAN CORPUSCULAR VOLUME 85 FL (80-99); MEAN PLATELET VOLUME 10.3 FL (7.4-10.4); MONOCYTES # (AUTO) 0.5 X 10^3 (0.0-1.0); MONOCYTES % (AUTO) 6 % (0-12); NEUTROPHILS # (AUTO) 3.8 X 10^3 (1.8-7.8); NEUTROPHILS % (AUTO) 46 % (42-75); PLATELET COUNT 288 10^3/uL (130-400); RED CELL DISTRIBUTION WIDTH 14.1 % (10.0-14.5); WHITE BLOOD COUNT 8.2 10^3/uL (4.3-11.0)
[2018-11-10] MEDS ORDERED: MECLIZINE 25 MG (ANTIVERT) TAB PO ONE (22:15)
[2018-11-10] MEDS ORDERED: SCOPOLAMINE 1.5 MG (TRANSDERM-SCOP) PATCH TD ONE (22:15)
[2018-11-10 22:31] LABS: ALANINE AMINOTRANSFERASE 43 U/L (0-55); ALBUMIN 3.5 GM/DL (3.2-4.5); ALKALINE PHOSPHATASE 59 U/L (40-136); BILIRUBIN,TOTAL 0.3 MG/DL (0.1-1.0); BUN/CREATININE RATIO 13; CALCIUM 9.2 MG/DL (8.5-10.1); CARBON DIOXIDE 17 MMOL/L (21-32); CHLORIDE 108 MMOL/L (98-107); CREATININE SERUM 0.76 MG/DL (0.60-1.30); GFR ESTIMATED > 60; GLUCOSE 193 MG/DL (70-105); MAGNESIUM 2.1 MG/DL (1.8-2.4); POTASSIUM 4.2 MMOL/L (3.6-5.0); SODIUM 139 MMOL/L (135-145); TOTAL PROTEIN 7.1 GM/DL (6.4-8.2)
[2018-11-10 22:35] LABS: ACETAMINOPHEN < 10 UG/ML (10-30)
[2018-11-10 22:51] LABS: TSH (THYROID ANALYZER) 1.19 UIU/ML (0.35-4.94)
[2018-11-10 23:15] LABS: BILIRUBIN,URINE NEGATIVE (NEGATIVE); CLARITY,URINE CLEAR; COLOR,URINE YELLOW; GLUCOSE, URINE (UA) NEGATIVE (NEGATIVE); KETONES,URINE NEGATIVE (NEGATIVE); LEUKOCYTE ESTERASE ,URINE NEGATIVE (NEGATIVE); NITRITE,URINE NEGATIVE (NEGATIVE); PH,URINE 5 (5-9); PROTEIN,URINE NEGATIVE (NEGATIVE); UROBILINOGEN,URINE NORMAL (NORMAL)
[2018-11-10 23:23] LABS: WBC,URINE RARE /HPF
[2018-11-10 23:24] LABS: AMPHETAMINE SCREEN, URINE NEGATIVE (NEGATIVE); BACTERIA,URINE TRACE /HPF; BARBITURATE SCREEN URINE NEGATIVE (NEGATIVE); BENZODIAZEPINES SCREEN URINE NEGATIVE (NEGATIVE); CANNABINOID SCREEN, URINE NEGATIVE (NEGATIVE); COCAINE SCREEN URINE NEGATIVE (NEGATIVE); METHADONE STAT NEGATIVE (NEGATIVE); METHAMPHETAMINE SCREEN URINE S NEGATIVE (NEGATIVE); OPIATE SCREEN URINE NEGATIVE (NEGATIVE); OXYCODONE STAT NEGATIVE (NEGATIVE); PROPOXYPHENE STAT NEGATIVE (NEGATIVE); TRICYCLIC ANTIDEPRESSANTS SCRE NEGATIVE (NEGATIVE)
[2018-11-10 23:29] LABS: AMMONIA 60 UMOL/L (11-32)
[2018-11-10] MEDS ORDERED: MECL-106 PO (23:42)
[2018-11-10] MEDS ORDERED: LACT20SO2 PO (23:42)
[2018-11-10] MEDS ORDERED: SCOP1PAT11 TD (23:42)
--- NOTE | 2018-11-10 23:43 | ED General ---
General Chief Complaint: Dizziness/Syncope Stated Complaint: DIZZY Nursing Triage Note: TO ED VIA EMS WITH C/O DIZZY X3 TODAY. HAS BEEN DIZZY OFF AND ON SINCE APR 2018 AND HAD MRI DONE AT [facility]. AMBULATORY FROM AMBULANCE INTO ED ROOM 1. Nursing Sepsis Screen: No Definite Risk Source of Information: Patient (PT IS LIMITED AND DIFFICULT HISTORIAN), EMS, Old Records History of Present Illness Date Seen by Provider: Nov 10, 2018 Time Seen by Provider: 21:50 Initial Comments PT ARRIVES VIA EMS FROM HOME--PT WALKS INTO ER FROM THE AMBULANCE, WITHOUT DIFFICULTY PT STATES "SAME THING THAT'S BEEN GOING ON SINCE " "IT HAPPENED 3 TIMES TODAY'" C/O DIZZINESS SINCE WAKING THIS AM STATES "IF I TAKE THAT PILL IT GOES AWAY"--STATES SHE DOES NOT KNOW NAME OF PILL ,. STATES "YOU GUYS KNOW IT-YOU GUYS GAVE IT TO ME" STATES SHE TOOK THIS PILL 3 TIMES TODAY AND IS STILL FEELING DIZZY--ONE AT 0900 AND LAST TIME WAS 30 MINUTES AGO STATES SHE CALLED HER MOM AND MOM CALLED EMS BLOOD GLUCOSE 209 BY EMS PT STATES SHE SAW DR. PERKINS IN [facility] A COUPLE OF MONTHS AGO FOR THIS AND HAD AN MRI IN [place], BUT DOES NOT KNOW RESULTS, AND HAS NOT SEEN DR. PERKINS SINCE THEN SYMPTOMS ARE NOT ANY DIFFERENT TONIGHT THAN WHAT SHE HAS BEEN HAVING. STATES SHE HAS NOT HAD IT FOR A MONTH OR SO STATES THE RIGHT SIDE OF HER HEAD AND THE BACK OF HER HEAD "FEEL FUZZY" NO HEADACHE NO VISION CHANGES NO NAUSEA/VOMITING NO CHEST PAIN OR SHORTNESS OF BREATH NO PALPITATIONS NO PARESTHESIAS OR MOTOR DEFICITS NO FEVER, URI SYMPTOMS OR RECENT ILLNESS ( HOWEVER ON REVIEW OF MED RECONCILIATION, PT WAS PRESCRIBED ZITHROMAX AND LORATADINE BY AAKASH STINSON ON 11/07/18 , AND RX FOR ACYCLOVIR [address] HERR 10/11/18) AND PT CLAIMS SHE HAS NOT SEEN ANYONE FOR ANY PROBLEM FOR THE LAST COUPLE OF MONTHS. PT HAS HISTORY OF EXTENSIVE POLYSUBSTANCE ABUSE--CLAIMS SHE JUST GOT OUT OF REHAB 3 MONTHS AGO--WAS IN REHAB FOR 7 MONTHS HERE IN [facility]--UNKNOWN--STATES SHE HAS BEEN ON DEPO-PROVERA, BUT DOES NOT KNOW WHEN HER LAST SHOT WAS OR WHEN HER NEXT ONE IS DUE. PCP: DR. PERKINS Allergies and Home Medications Allergies Coded Allergies: No Known Drug Allergies (Unverified , 03/22/17) Home Medications Ferrous Sulfate 325 Mg Tablet, 325 MG PO DAILY, (Reported) Lactulose 20 Gm/30 Ml Solution, 20 GM PO BID Prescribed by: ANKIT VACA on 11/10/182341 Meclizine HCl 25 Mg Tablet, 25-50 MG PO Q6H Prescribed by: ANKIT VACA on 06/10/18 032 Meclizine HCl 25 Mg Tablet, 25-50 MG PO Q6H Prescribed by: ANKIT VACA on 11/10/18 234 Nitrofurantoin Macrocrystal 100 Mg Capsule, 100 MG PO BID Prescribed by: LAI BURGER on 06/27/18 111 Nystatin 1 Each Powder.ea., 1 EACH MC BID Prescribed by: LAI BURGER on 06/27/18 111 Ondansetron 4 Mg Tab.rapdis, 4 MG PO Q4H Prescribed by: ANKIT VACA on 06/10/18 032 Scopolamine 1 Each Patch.td72, 1 EACH TD Q72 HOURS Prescribed by: ANKIT VACA on 11/10/182341 Patient Home Medication List Home Medication List Reviewed: Yes Review of Systems Review of Systems Constitutional: No chills, No diaphoresis; dizziness; No fever EENTM: no symptoms reported Respiratory: no symptoms reported Cardiovascular: no symptoms reported Gastrointestinal: no symptoms reported Genitourinary: no symptoms reported Musculoskeletal: no symptoms reported Skin: no symptoms reported Psychiatric/Neurological: See HPI; Denies Headache, Denies Numbness, Denies Paresthesia, Denies Seizure, Denies Tingling, Denies Tremors, Denies Weakness Hematologic/Lymphatic: No Symptoms Reported Immunological/Allergic: no symptoms reported Past Hswmewh-Bglmog-Uzqtfw Hx Patient Social History Alcohol Use: Past History (HX OF ABUSE/HEAVY USE) Recreational Drug Use: Yes (PT STATES 'EVERYTHING YOU CAN THINK OF" -METH, CRACK COCAINE, THC, OTHERS--PT WILL NOT STATE. DENIES IV USE) Drug of Choice: THC, METH, CRACK COCAINE, OTHERS--PT DENIES IV USE Smoking Status: Current Everyday Smoker (< 1 PPD) Type Used: Cigarettes (< 1 PPD) 2nd Hand Smoke Exposure: Yes Recent Foreign Travel: No Contact w/Someone Who Travel: No Recent Infectious Disease Expo: No Recent Hopitalizations: No Immunizations Up To Date Tetanus Booster (TDap): Unknown PED Vaccines UTD: No Seasonal Allergies Seasonal Allergies: No Past Medical History Surgeries: Yes (SKIN LESION REMOVED FROM SCALP INFANT; ) Section, Gallbladder Respiratory: No Currently Using CPAP: No Currently Using BIPAP: No Cardiac: No Neurological: No : No Female Reproductive Disorders: Denies Sexually Transmitted Disease: Yes (HERPES) HIV/AIDS: No Genitourinary: No Gastrointestinal: No Musculoskeletal: No Endocrine: No HEENT: No Loss of Vision: Denies Hearing Impairment: Denies Cancer: No Psychosocial: Yes (POLYSUBSTANCE ABUSE) Anxiety, Bipolar, Depression Integumentary: No Blood Disorders: Yes (ANEMIA) Adverse Reaction/Blood Tranf: No Family Medical History Patient reports no known family medical history. No Pertinent Family Hx Physical Exam Vital Signs Vital Signs - First Documented 11/10/18 11/10/18 21:53 23:55 Temp 99.1 Pulse 107 Resp 18 B/P (MAP) 138/84 (102) Pulse Ox 94 Capillary Refill : Less Than 3 Seconds Height, Weight, BMI Height: 5'6.00" Weight: 294lbs. oz. 133.780387hc; 42.1 BMI Method:Stated General Appearance: No Apparent Distress, Obese, Other (FLAT AFFECT; SPEECH SLOW AND SLIGHTLY SLURRED--APPEARS TO BE UNDER THE INFLUENCE OF SOME SUBSTANCE/ S. 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 Norm as Tested, Other (MENTATION NOTED ABOVE) Skin: Normal Color, Warm/Dry, Tattoos/Piercings (EXTENSIVE TATTOOS AND PIERCINGS) Progress/Results/Core Measures Suspected Sepsis Recent Fever Within 48 Hours: No Infection Criteria Present: Suspected New Infection New/Unexplained Altered Menta: No Sepsis Screen: No Definite Risk SIRS Temperature:99.1 Pulse: 107 Respiratory Rate: 18 Laboratory Tests 11/10/18 22:00: White Blood Count 8.2 Blood Pressure 138 /84 Mean: 102 Laboratory Tests 11/10/18 22:00: Creatinine 0.76, Platelet Count 288, Total Bilirubin 0.3 Results/Orders Lab Results Laboratory Tests Test 11/10/18 22:00 11/10/18 23:08 Range/Units White Blood Count 8.2 4.3-11.0 10^3/uL Red Blood Count 4.71 4.35-5.85 10^6/uL Hemoglobin 14.2 11.5-16.0 G/DL Hematocrit 40 35-52 % Mean Corpuscular Volume 85 80-99 FL Mean Corpuscular Hemoglobin 30 25-34 PG Mean Corpuscular Hemoglobin Concent 36 32-36 G/DL Red Cell Distribution Width 14.1 10.0-14.5 % Platelet Count 288 130-400 10^3/uL Mean Platelet Volume 10.3 7.4-10.4 FL Neutrophils (%) (Auto) 46 42-75 % Lymphocytes (%) (Auto) 44 12-44 % Monocytes (%) (Auto) 6 0-12 % Eosinophils (%) (Auto) 4 0-10 % Basophils (%) (Auto) 0 0-10 % Neutrophils # (Auto) 3.8 1.8-7.8 X 10^3 Lymphocytes # (Auto) 3.6 1.0-4.0 X 10^3 Monocytes # (Auto) 0.5 0.0-1.0 X 10^3 Eosinophils # (Auto) 0.3 0.0-0.3 10^3/uL Basophils # (Auto) 0.0 0.0-0.1 10^3/uL Sodium Level 139 135-145 MMOL/L Potassium Level 4.2 3.6-5.0 MMOL/L Chloride Level 108 H 98-107 MMOL/L Carbon Dioxide Level 17 L 21-32 MMOL/L Anion Gap 14 5-14 MMOL/L Blood Urea Nitrogen 10 7-18 MG/DL Creatinine 0.76 0.60-1.30 MG/DL Estimat Glomerular Filtration Rate > 60 BUN/Creatinine Ratio 13 Glucose Level 193 H 70-105 MG/DL Calcium Level 9.2 8.5-10.1 MG/DL Corrected Calcium 9.6 8.5-10.1 MG/DL Magnesium Level 2.1 1.8-2.4 MG/DL Total Bilirubin 0.3 0.1-1.0 MG/DL Aspartate Amino Transf (AST/SGOT) 29 5-34 U/L Alanine Aminotransferase (ALT/SGPT) 43 0-55 U/L Alkaline Phosphatase 59 40-136 U/L Ammonia 60 H 11-32 UMOL/L Troponin I < 0.028 <0.028 NG/ML Total Protein 7.1 6.4-8.2 GM/DL Albumin 3.5 3.2-4.5 GM/DL TSH [place] Testing 1.19 0.35-4.94 UIU/ML Serum Test, Qualitative NEGATIVE NEGATIVE Acetaminophen Level < 10 L 10-30 UG/ML Serum Alcohol < 10 <10 MG/DL Urine Color YELLOW Urine Clarity CLEAR Urine pH 5 5-9 Urine Specific [place] 1.025 H 1.016-1.022 Urine Protein NEGATIVE NEGATIVE Urine Glucose (UA) NEGATIVE NEGATIVE Urine Ketones NEGATIVE NEGATIVE Urine Nitrite NEGATIVE NEGATIVE Urine Bilirubin NEGATIVE NEGATIVE Urine Urobilinogen NORMAL NORMAL MG/DL Urine Leukocyte Esterase NEGATIVE NEGATIVE Urine RBC (Auto) NEGATIVE NEGATIVE Urine RBC NONE /HPF Urine WBC RARE /HPF Urine Squamous Epithelial Cells 5-10 /HPF Urine Crystals NONE /LPF Urine Bacteria TRACE /HPF Urine Casts NONE /LPF Urine Mucus SMALL H /LPF Urine Culture Indicated NO Urine Opiates Screen NEGATIVE NEGATIVE Urine Oxycodone Screen NEGATIVE NEGATIVE Urine Methadone Screen NEGATIVE NEGATIVE Urine Propoxyphene Screen NEGATIVE NEGATIVE Urine Barbiturates Screen NEGATIVE NEGATIVE Ur Tricyclic Antidepressants Screen NEGATIVE NEGATIVE Urine Phencyclidine Screen NEGATIVE NEGATIVE Urine Amphetamines Screen NEGATIVE NEGATIVE Urine Methamphetamines Screen NEGATIVE NEGATIVE Urine Benzodiazepines Screen NEGATIVE NEGATIVE Urine Cocaine Screen NEGATIVE NEGATIVE Urine Cannabinoids Screen NEGATIVE NEGATIVE My Orders Orders - ANKIT VACA DO Ct Head Wo (11/10/18 22:01) Chest 1 View, Ap/Pa Only (11/10/18 22:01) Acetaminophen (11/10/18 22:01) Alcohol (11/10/18 22:01) Ammonia (11/10/18 22:01) Cbc With Automated Diff (11/10/18 22:01) Comprehensive Metabolic Panel (11/10/18 22:01) Drug Screen Stat (Urine) (11/10/18 22:01) Hcg,Qualitative Serum (11/10/18 22:01) Magnesium (11/10/18 22:01) Thyroid Analyzer (11/10/18 22:01) Troponin I (11/10/18 22:01) Ua Culture If Indicated (11/10/18 22:01) Saline Lock/Iv-Start (11/10/18 22:01) Ns Iv 1000 Ml (Sodium Chloride 0.9%) (11/10/18 22:01) Ekg Tracing (11/10/18 22:01) Monitor-Rhythm Ecg Trace Only (11/10/18 22:01) Straight Cath For Spec.-Adult (11/10/18 22:01) Scopolamine Patch (Transderm-Scop Patch) (11/10/18 22:15) Meclizine Tablet (Antivert Tablet) (11/10/18 22:15) Medications Given in ED Current Medications Medications Dose Ordered Sig/Yann Route Start Time Stop Time Status Last Admin Dose Admin Meclizine HCl 50 mg ONCE ONCE PO 11/10/18 22:15 11/10/18 22:16 DC 11/10/18 22:24 50 MG Scopolamine 1.5 mg ONCE ONCE TD 11/10/18 22:15 11/10/18 22:16 DC 11/10/18 22:24 1.5 MG Sodium Chloride 1,000 ml @ 0 mls/hr Q0M ONCE IV 11/10/18 22:01 11/10/18 22:06 DC 11/10/18 22:24 999 MLS/HR Vital Signs/I&O 11/10/18 11/10/18 21:53 23:55 Temp 99.1 99.1 Pulse 107 85 Resp 18 18 B/P (MAP) 138/84 (102) 133/75 (94) Pulse Ox 94 11/11/18 00:00 Intake Total 1000 ml Balance 1000 ml Capillary Refill : Less Than 3 Seconds Blood Pressure Mean: 102 Progress Note : Progress Note UNEVENTFUL ER STAY SYMPTOMS RESOLVED AT DISMISSAL ECG Initial ECG Impression Date: Nov 10, 2018 Initial ECG Impression Time: 21:54 Initial ECG Rate: 91 Initial ECG Rhythm: Normal Sinus Diagnostic Imaging Comments CXR--NO ACUTE PROCESS, PENDING RADIOLOGIST REVIEW CT HEAD--NO ACUTE PROCESS, PER [facility] VIA FAX @ [phone] Reviewed: Reviewed by Me Departure Impression Primary Impression: CHRONIC INTERMITTENT DIZZINESS Additional Impressions: ELEVATED AMMONIA LEVEL Hyperglycemia Disposition: 01 HOME, SELF-CARE Condition: Improved Departure-Patient Inst. Referrals: GENNARO GALE MD (PCP/Family) Primary Care Physician Patient Instructions: Ammonia Blood Test, Dizziness, Nonvertigo, (DC), Vertigo (a Type of Dizziness) (DC) Add. Discharge Instructions: SLOW POSITION CHANGES LOTS OF CLEAR LIQUIDS--WATER, BROTH, JELLO, GATORADE FOLLOW UP WITH YOUR DR IN 203 DAYS FOR FURTHER CARE RETURN TO ER IF WORSE All discharge instructions reviewed with patient and/or family. Voiced understanding. Scripts Meclizine HCl (Meclizine HCl) 25 Mg Tablet 25-50 MG PO Q6H for Dizziness, #30 TAB Prov: ANKIT VACA DO 11/10/18 Scopolamine (Transderm-Scop) 1 Each Patch.td72 1 EACH TD Q72 HOURS for Dizziness, #3 PATCH Prov: ANKIT VACA DO 11/10/18 Lactulose (Lactulose) 20 Gm/30 Ml Solution 20 GM PO BID, #300 ML Prov: ANKIT VACA DO 11/10/18 ANKIT VACA DO Nov 10, 2018 23:42
[2018-11-10 23:55] VITALS: BP 133/75
--- NOTE | 2018-11-11 07:23 | Diagnostic Imaging Report ---
PROCEDURE: CT head without contrast. TECHNIQUE: Multiple contiguous axial images were obtained through the brain without the use of intravenous contrast. Auto Exposure Controls were utilized during the CT exam to meet ALARA standards for radiation dose reduction. INDICATION: Dizziness. COMPARISON: None FINDINGS: There is no midline shift or mass effect. The ventricles and sulci are unremarkable. No evidence for acute intracranial hemorrhage, abnormal extra-axial fluid collections or cerebral edema is present. The basilar cisterns are unremarkable. The bony calvarium is intact. The visualized paranasal sinuses and mastoid air cells are clear. IMPRESSION: Negative appearing noncontrast CT of the head. A preliminary report was provided by [facility]. Dictated by: Dictated on workstation # [id number]
--- NOTE | 2018-11-11 07:39 | Diagnostic Imaging Report ---
INDICATION: Dizziness.. TECHNIQUE: Single view chest 10:33 PM. CORRELATION STUDY: 05/20/2018 FINDINGS: The heart size, mediastinal configuration and pulmonary vascularity are within normal limits. The lungs are clear with no consolidating infiltrate. There is no significant effusion or pneumothorax. IMPRESSION: 1. Negative portable chest. Dictated by: Dictated on workstation # [id number]
== END 2018-11-11 | disposition home or self-care (01) ==
LOC: EDUNIT# 21:53 → ER 21:54
DX: R42 Dizziness and giddiness (principal); E72.20 Disorder of urea cycle metabolism, unspecified; R73.9 Hyperglycemia, unspecified; F41.9 Anxiety disorder, unspecified; F31.9 Bipolar disorder, unspecified; F12.10 Cannabis abuse, uncomplicated; F15.10 Other stimulant abuse, uncomplicated; F14.10 Cocaine abuse, uncomplicated; F17.210 Nicotine dependence, cigarettes, uncomplicated; Z98.890 Other specified postprocedural states; Z86.19 Personal history of other infectious and parasitic diseases
CPT/HCPCS: 36415; 70450; 71045; 80053; 80306; 80320; 80329; 81000; 82140; 83735; 84443; 84484; 84703; 85025; 93005; 93041; 96360

== ENCOUNTER 2018-11-25 10:36 | Emergency (ER) | payer MEDICAID ==
[~2018-11-25] VITALS: Ht 167.6 cm; Wt 133.8 kg
[~2018-11-25 10:36] MED LIST changes: +LACT20SO2 PO; +SCOP1PAT11 TD
--- OUTSIDE RECORDS SUMMARY | 2018-11-25 10:41 | XMS REPORT | Clinical Summary ---
Author Author [facility] Organization [facility] Address Unknown Phone Unavailable Care Team Providers Care Pourer Bull Ladle Name Role Phone PP Unavailable Allergies No [...] CERVICAL CANCER SCREENING 2013 Influenza Vaccine (Season 04/14/2019 Ended) Results Not on filefrom Last 3 Months
--- OUTSIDE RECORDS SUMMARY | 2018-11-25 10:41 | XMS REPORT | Clinical Summary ---
Author Author [facility] Organization [facility] Address Unknown Phone Unavailable Care Team Providers Care Youtuber Name Role Phone PCP Unavailable Allergies Not [...]
--- OUTSIDE RECORDS SUMMARY | 2018-11-25 10:41 | XMS REPORT | Clinical Summary ---
Author Author [facility] Organization [facility] Address Unknown Phone Unavailable Care Team Providers Care Annealing Furnace Operator Name Role Phone Daisy Sinha MD PCP Source Comments Some departments are not documenting in the electronic medical record. If you do not see the information that you expected, contact Release of Information in the Health Information Management department at [phone] for further assistance in locating additional records.[facility] Allergies Not on File Medications Not on [...] Tdap) CERVICAL CANCER SCREENING 2013 INFLUENZA VACCINE 03/14/2019 Results Not on filefrom Last 3 Months
--- OUTSIDE RECORDS SUMMARY | 2018-11-25 10:49 | XMS REPORT | Continuity of Care Document ---
Author Organization Unknown Address Unknown Allergies Active Description Code Type Severity Reaction Onset Reported/Identified Relationship to Patient Clinical Status Yes No Known Drug Allergies [id number] Drug Allergy Unknown N/A 03/22/2017 Medications There is no data. 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 09/09/2014 KEI LEONG WADE A V01.6 CONTACT WITH OR EXPOSURE TO VENEREAL DISEASES 09/09/2014 KEI LEONG WADE A V69.2 HIGH-RISK SEXUAL BEHAVIOR 09/09/2014 KEI LEONG WADE A V74.5 STD SCREEN 09/09/2014 GILMA CHOUDHURY APRNIDI A V76.2 CERVICAL CANCER SCREENING (PAP SMEAR) 09/09/2014 [facility] 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 09/09/2014 [facility], YUMI R V01.6 CONTACT WITH OR EXPOSURE TO VENEREAL DISEASES 09/09/2014 [facility] V69.2 HIGH-RISK SEXUAL BEHAVIOR 09/09/2014 [facility], YUMI R V74.5 STD SCREEN 09/09/2014 [facility], YUMI R V76.2 CERVICAL CANCER SCREENING (PAP SMEAR) 10/08/2014 [facility], YUMI Hanks 296.52 MO BIPOLAR I DEPRESSED MODERATE 03/23/2017 LYNCH DO, WILFRED Ot A41.9 SEPSIS, UNSPECIFIED ORGANISM 03/23/2017 QIAN LYNCH DOI Ot F17.210 NICOTINE DEPENDENCE, CIGARETTES, UNCOMPL 03/23/2017 WILFRED LYNCH DO Ot F31.9 BIPOLAR DISORDER, UNSPECIFIED 03/23/2017 CRIS [...] ENCOUNTER FOR OTHER SPECIFIED 02/22/2018 GENNARO GALE MD Ot Z3A.19 19 WEEKS GESTATION OF 03/08/2018 GENNARO GALE MD, Ot N83.202 UNSPECIFIED OVARIAN CYST, LEFT SIDE 03/08/2018 GENNARO GALE MD Ot O34.81 MATERNAL CARE FOR OTH ABNLT OF PELVIC OR 03/08/2018 GENNARO GALE MD Ot Z3A.11 11 WEEKS GESTATION OF 03/08/2018 GENNARO GALE MD Ot Z36.89 ENCOUNTER FOR OTHER SPECIFIED 03/08/2018 GENNARO GALE MD, Ot Z3A.19 19 WEEKS GESTATION OF 03/09/2018 GENNARO GALE MD Ot Z34.92 ENCNTR FOR SUPRVSN OF NORMAL PREG, UNSP, 03/09/2018 GENNARO GALE MD Ot Z3A.23 23 WEEKS GESTATION OF 03/13/2018 [...] Ot O36.8120 DECREASED MOVEMENTS, SECOND TRIMES 04/17/2018 SHAHLAGENNARO VELIZ MD, Ot Z3A.27 27 WEEKS GESTATION OF 05/03/2018 GENNARO GALE MD Ot Z36.89 ENCOUNTER FOR OTHER SPECIFIED 05/03/2018 GENNARO GALE MD, Ot Z3A.00 WEEKS OF GESTATION OF NOT SPEC 05/20/2018 TILA BECKHAM Ot F12.10 CANNABIS ABUSE, UNCOMPLICATED 05/20/2018 BERNLENORA, TILA Ot F17.210 NICOTINE DEPENDENCE, CIGARETTES, UNCOMPL 05/20/2018 CHAPINCITO TILA Ot F31.9 BIPOLAR DISORDER, UNSPECIFIED 05/20/2018 BERNLENORA TILA Ot J06.9 ACUTE UPPER RESPIRATORY INFECTION, UNSPE 05/20/2018 CHAPINCITO TILA Ot R05 COUGH 05/20/2018 CHAPINCITO TILA Ot Z85.828 PERSONAL HISTORY OF OTHER MALIGNANT NEOP 05/20/2018 FABIOLA BECKHAMIS Ot Z86.19 PERSONAL HISTORY OF OTHER INFECTIOUS AND 05/22/2018 FABIOLA BECKHAMIS Ot F12.10 CANNABIS ABUSE, UNCOMPLICATED 05/22/2018 FABIOLA BECKHAMIS Ot F17.210 NICOTINE DEPENDENCE, CIGARETTES, UNCOMPL 05/22/2018 FABIOLA BECKHAMIS Ot F31.9 BIPOLAR DISORDER, UNSPECIFIED 05/22/2018 CHAPINCITO, TILA Ot J06.9 ACUTE UPPER RESPIRATORY INFECTION, UNSPE 05/22/2018 FABIOLA BECKHAMIS Ot R05 COUGH 05/22/2018 CHAPINCITO TILA Ot Z85.828 PERSONAL HISTORY OF OTHER MALIGNANT NEOP 05/22/2018 CHAPINCITO, TILA Ot Z86.19 PERSONAL HISTORY OF OTHER INFECTIOUS AND 05/30/2018 GENNA BAILEY MD Ot O36.8190 DECREASED MOVEMENTS, UNSP TRIMESTE 05/30/2018 GENNA BAILEY MD Ot O99.89 OTH DISEASES AND CONDITIONS COMPL PREG/C 05/30/2018 GENNA BAILEY MD Ot R05 COUGH 05/30/2018 GENNA BAILEY MD Ot Z3A.35 35 WEEKS GESTATION OF 06/10/2018 ENRIKE VACA DOA K Ot D64.9 ANEMIA, UNSPECIFIED 06/10/2018 LIO DO ANKIT K Ot E83.42 HYPOMAGNESEMIA 06/10/2018 LIO WARD ANKIT K Ot E87.6 HYPOKALEMIA 06/10/2018 LIO [...] Ot Z3A.35 35 WEEKS GESTATION OF 06/27/2018 LAI BURGER MD Ot B37.2 CANDIDIASIS OF SKIN AND NAIL 06/27/2018 LAI BURGER MD Ot F12.10 CANNABIS ABUSE, UNCOMPLICATED 06/27/2018 LAI BURGER MD J Ot F17.210 NICOTINE DEPENDENCE, CIGARETTES, UNCOMPL 06/27/2018 [...] Ot Z98.890 OTHER SPECIFIED POSTPROCEDURAL STATES 08/05/2018 BERNOT, TILA Ot D64.9 ANEMIA, UNSPECIFIED 08/05/2018 BERNOT, TILA Ot F12.10 CANNABIS ABUSE, UNCOMPLICATED 08/05/2018 BERNOT, TILA Ot F31.9 BIPOLAR DISORDER, UNSPECIFIED 08/05/2018 BERNOT, TILA Ot F41.9 ANXIETY DISORDER, UNSPECIFIED 08/05/2018 BERNOT, TILA Ot R11.2 NAUSEA WITH VOMITING, UNSPECIFIED 08/05/2018 BERNOT, TILA Ot R42 DIZZINESS AND GIDDINESS 08/05/2018 TILA BECKHAM Ot Z85.828 PERSONAL HISTORY OF OTHER MALIGNANT NEOP 08/05/2018 CHADLENORA TILA Ot Z86.19 PERSONAL HISTORY OF OTHER INFECTIOUS AND 08/05/2018 TILA BECKHAM Ot Z87.891 PERSONAL HISTORY OF NICOTINE DEPENDENCE 08/05/2018 FABIOLA BECKHAMIS Ot Z98.890 OTHER SPECIFIED POSTPROCEDURAL STATES 11/11/2018 GENNARO GALE MD, Ot N83.202 UNSPECIFIED OVARIAN CYST, LEFT SIDE 11/11/2018 GENNARO GALE MD, Ot O34.81 MATERNAL CARE FOR OTH ABNLT OF PELVIC OR 11/11/2018 GENNARO GALE MD, Ot Z3A.11 11 WEEKS GESTATION OF 11/11/2018 GENNARO GALE MD, Ot Z36.89 ENCOUNTER FOR OTHER SPECIFIED 11/11/2018 GENNARO GALE MD, Ot Z3A.19 19 WEEKS GESTATION OF 11/11/2018 GENNARO GALE MD, Ot Z34.82 ENCOUNTER FOR SUPRVSN OF NORMAL PREGNANC 11/11/2018 GENNARO GALE MD, Ot Z3A.23 23 WEEKS GESTATION OF 11/11/2018 GENNARO GALE MD, Ot Z36.89 ENCOUNTER FOR OTHER SPECIFIED 11/11/2018 GENNARO GALE MD, Ot Z3A.00 WEEKS OF GESTATION OF NOT SPEC Procedures There is no data. Results Test Result Range Bacterial urine culture - 03/22/17 10:00 Bacterial urine culture [id number] NRG COLONY COUNT 10,000/ML - 100,000/ML NRG [...] 10.2 fL 7.5-12.5 ABSOLUTE NEUTROPHILS 6341 cells/uL 8572-7059 ABSOLUTE LYMPHOCYTES 2793 cells/uL 850-3900 ABSOLUTE MONOCYTES [...] A AND B ANTIGENS BY [facility] Urine drug screening test - [...] FOR INFLUENZA A AND B ANTIGENS BY [facility] Complete blood count (CBC) with automated white [...] g/dL 3.2-4.5 CALCIUM CORRECTED 9.5 mg/dL 8.5-10.1 Complete blood count (CBC) with automated white blood cell (WBC) differential - 11/10/18 22:00 Blood leukocytes automated count (number/volume) 8.2 10*3/uL 4.3-11.0 Blood erythrocytes automated count (number/volume) 4.71 10*6/uL 4.35-5.85 Venous blood hemoglobin measurement (mass/volume) 14.2 g/dL 11.5-16.0 Blood hematocrit (volume fraction) 40 % 35-52 Automated erythrocyte mean corpuscular volume 85 [foz_us] 80-99 Automated erythrocyte mean corpuscular hemoglobin (mass per erythrocyte) 30 pg 25-34 Automated erythrocyte mean corpuscular hemoglobin concentration measurement ( mass/volume) 36 g/dL 32-36 Automated erythrocyte distribution width ratio 14.1 % 10.0-14.5 Automated blood platelet count (count/volume) 288 10*3/uL 130-400 Automated blood platelet mean volume measurement 10.3 [foz_us] 7.4-10.4 Automated blood neutrophils/100 leukocytes 46 % 42-75 Automated blood lymphocytes/100 leukocytes 44 % 12-44 Blood monocytes/100 leukocytes 6 % 0-12 Automated blood eosinophils/100 leukocytes 4 % 0-10 Automated blood basophils/100 leukocytes 0 % 0-10 Blood neutrophils automated count (number/volume) 3.8 10*3 1.8-7.8 Blood lymphocytes automated count (number/volume) 3.6 10*3 1.0-4.0 Blood monocytes automated count (number/volume) 0.5 10*3 0.0-1.0 Automated eosinophil count 0.3 10*3/uL 0.0-0.3 Automated blood basophil count (count/volume) 0.0 10*3/uL 0.0-0.1 Serum or plasma choriogonadotropin ( test) detection - 11/10/18 22:00 Serum or plasma choriogonadotropin ( test) detection NEGATIVE NEGATIVE Comprehensive metabolic panel - 11/10/18 22:00 Serum or plasma sodium measurement (moles/volume) 139 mmol/L 135-145 Serum or plasma potassium measurement (moles/volume) 4.2 mmol/L 3.6-5.0 Serum or plasma chloride measurement (moles/volume) 108 mmol/L 98-107 Carbon dioxide 17 mmol/L 21-32 Serum or plasma anion gap determination (moles/volume) 14 mmol/L 5-14 Serum or plasma urea nitrogen measurement (mass/volume) 10 mg/dL 7-18 Serum or plasma creatinine measurement (mass/volume) 0.76 mg/dL 0.60-1.30 Serum or plasma urea nitrogen/creatinine mass ratio 13 NRG Serum or plasma creatinine measurement with calculation of estimated glomerular filtration rate > NRG Serum or plasma glucose measurement (mass/volume) 193 mg/dL 70-105 Serum or plasma calcium measurement (mass/volume) 9.2 mg/dL 8.5-10.1 Serum or plasma total bilirubin measurement (mass/volume) 0.3 mg/dL 0.1-1.0 Serum or plasma alkaline phosphatase measurement (enzymatic activity/volume) 59 U/L 40-136 Serum or plasma aspartate aminotransferase measurement (enzymatic activity/ volume) 29 U/L 5-34 Serum or plasma alanine aminotransferase measurement (enzymatic activity/volume ) 43 U/L 0-55 Serum or plasma protein measurement (mass/volume) 7.1 g/dL 6.4-8.2 Serum or plasma albumin measurement (mass/volume) 3.5 g/dL 3.2-4.5 CALCIUM CORRECTED 9.6 mg/dL 8.5-10.1 Magnesium - 11/10/18 22:00 Magnesium 2.1 mg/dL 1.8-2.4 Serum or plasma troponin i.cardiac measurement (mass/volume) - 11/10/18 22:00 Serum or plasma troponin i.cardiac measurement (mass/volume) < ng/ mL <0.028 Ammonia - 11/10/18 22:00 Ammonia 60 umol/L 11-32 Serum or plasma thyrotropin measurement by detection limit <=0.05 miu/l (units/ volume) - 11/10/18 22:00 Serum or plasma thyrotropin measurement by detection limit <=0.05 miu/l (units/ volume) 1.19 u[iU]/mL 0.35-4.94 Serum or plasma acetaminophen measurement (mass/volume) - 11/10/18 22:00 Serum or plasma acetaminophen measurement (mass/volume) < ug/mL 10-30 Serum or plasma ethanol measurement (mass/volume) - 11/10/18 22:00 Serum or plasma ethanol measurement (mass/volume) < mg/dL <10 Complete urinalysis with reflex to culture - 11/10/18 23:08 Urine color determination YELLOW NRG Urine clarity determination CLEAR NRG Urine pH measurement by test strip 5 5-9 Specific gravity of urine by test [...] detection in urine sediment by light microscopy SMALL NRG Complete urinalysis with reflex to culture NO NRG Urine drug screening test - 11/10/18 23:08 Urine phencyclidine detection by screening method NEGATIVE [...] NEGATIVE NEGATIVE Urine propoxyphene detection NEGATIVE NEGATIVE Encounters ACCT No. Visit Date/Time Discharge Status Pt. Type Provider Facility Loc./Unit Complaint [id number] 10/08/2014 14:15:00 10/08/2014 23:59:59 CLS Outpatient YUMI PHAN [id number] 09/09/2014 13:22:00 09/09/2014 23:59:59 CLS Outpatient WADE CHOUDHURY APRN [id number] 10/17/2018 11:15:00 10/17/2018 23:59:59 CLS Outpatient JERILYN KAPLAN [facility] [id number] 05/03/2018 15:00:00 Document Registration [id number] 04/26/2018 13:40:00 Document Registration [id number] 04/24/2018 08:15:00 Document Registration [id number] 04/10/2018 12:00:00 Document Registration [id number] 03/23/2018 14:40:00 Document Registration [id number] 03/02/2018 14:20:00 Document Registration [id number] 06/01/2018 10:39:00 06/01/2018 23:59:00 DIS Outpatient Gennaro Gale [id number] 11/10/2018 21:54:00 11/11/2018 00:00:00 DIS Emergency LIO ANKIT WARD [facility] ER DIZZY [id number] 08/05/2018 19:58:00 08/05/2018 22:15:00 DIS Emergency TILA BECKHAM [facility] ER DIZZY/VOMITTIING [id number] 06/27/2018 07:43:00 06/27/2018 11:21:00 DIS Emergency LAI BURGER MD [facility] ER DIZZY;N/V [id number] 06/10/2018 01:46:00 06/10/2018 04:30:00 DIS Emergency LIO DOANKIT [facility] ER N/V/DIZZINESS [id number] 05/30/2018 07:03:00 05/30/2018 10:55:00 DIS Outpatient GENNA BAILEY MD [facility] WSo DIZZINESS;LOW IRON; NAUSEA [id number] 05/28/2018 08:48:00 05/28/2018 23:59:59 CLS Preadmit GENNARO GALE MD [facility] RAD TRANSVERSE LIE OF FETUS [id number] 05/20/2018 10:49:00 05/20/2018 14:26:00 DIS Emergency TILA BECKHAM [facility] ER COUGH X1 MONTH [id number] 04/19/2018 09:50:00 04/19/2018 23:59:59 CLS Outpatient GENNARO GALE MD [facility] RAD EVALUATE ANATOMY NOT SEEN ON PRIOR SONO [id number] 03/31/2018 13:17:00 03/31/2018 14:30:00 DIS Outpatient GENNARO GALE MD [facility] WSo DECREASED MOVEMENT , FEELS HOT [id number] 03/08/2018 14:37:00 03/08/2018 23:59:59 CLS Outpatient GENNARO GALE MD [facility] RAD EVALUATE ANATOMY NOT SEEN ON PRIOR SONOGRAM [id number] 02/08/2018 14:59:00 02/08/2018 23:59:59 CLS Outpatient GENNARO GALE MD [facility] RAD SECOND TRIMESTER [id number] 01/24/2018 19:40:00 01/24/2018 22:42:00 DIS Emergency YANY MCKEON, AUBREY Lao [facility] ER LIGHTHEADED [id number] 12/13/2017 12:36:00 12/13/2017 23:59:59 CLS Outpatient GENNARO GALE MD [facility] RAD CARE,FIRST TRIMESTSER [id number] 03/22/2017 12:38:00 03/23/2017 14:02:00 DIS Inpatient WILFRED LYNCH DO [facility] 4TH RT PYELONEPHRITIS [id number] 11/25/2018 10:37:00 ACT Emergency AGUSTIN MCKEON, JAN Chu [facility] ER DIZZINESS, SLURRED SPEECH [id number] 08/16/2016 16:05:39 08/16/2016 23:59:59 CLS Outpatient
--- NOTE | 2018-11-25 11:16 | ED Neurological Problem ---
General Chief Complaint: Dizziness/Syncope Stated Complaint: DIZZINESS, SLURRED SPEECH Nursing Triage Note: Pt to ED via EMS. Pt c/o dizziness, weakness this morning. Pt reports having increased ammonia levels. Pt A&O upon arrival. 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 EMS reports BS was 146. Pt reports hx of drug use, but denies use at this time. Pt denies ETOH use. Nursing Sepsis Screen: No Definite Risk Source: patient, family, EMS Exam Limitations: no limitations History of Present Illness Date Seen by Provider: Nov 25, 2018 Time Seen by Provider: 11:11 Initial Comments 28-year-old female presents with a complaint of dizziness and weakness this morning. The patient has been having these episodes for the last 6 months. The patient had a approximately 6 months ago and these episodes and failed to sunita following her . The patient's ammonia level has been markedly elevated. Etiology of this elevated ammonia is not clear. The patient was a heavy drug user for a long time but states she has stopped using drugs after the first trimester of her most recent . Patient denies lateralizing or localizing neurologic complaints. She's had no associated fever or chills. She denies vomiting with dizziness. She has no associated palpitations or chest pain. She denied shortness of breath. She denies headache stiff neck or photophobia. Allergies and Home Medications Allergies Coded Allergies: No Known Drug Allergies (Unverified , 03/22/17) Home Medications Ferrous Sulfate 325 Mg Tablet, 325 MG PO DAILY, (Reported) Lactulose 20 Gm/30 Ml Solution, 20 GM PO BID Prescribed by: ANKIT VACA on 11/10/18 2342 Meclizine HCl 25 Mg Tablet, 25-50 MG PO Q6H Prescribed by: ANKIT VACA on 06/10/18 0321 Meclizine HCl 25 Mg Tablet, 25-50 MG PO Q6H Prescribed by: ANKIT VACA on 11/10/18 2342 Nitrofurantoin Macrocrystal 100 Mg Capsule, 100 MG PO BID Prescribed by: LAI BURGER on 06/27/18 111 Nystatin 1 Each Powder.ea., 1 EACH MC BID Prescribed by: LAI BURGER on 06/27/18 111 Ondansetron 4 Mg Tab.rapdis, 4 MG PO Q4H Prescribed by: ANKIT VACA on 06/10/18 0321 Scopolamine 1 Each Patch.td72, 1 EACH TD Q72 HOURS Prescribed by: ANKIT VACA on 11/10/18 2342 Patient Home Medication List Home Medication List Reviewed: Yes Review of Systems Review of Systems Constitutional: No chills; dizziness; No fever; malaise Eyes: Denies Blurred Vision Ears, Nose, Mouth, Throat: denies ear pain, denies epistaxis Respiratory: No cough Cardiovascular: No chest pain Gastrointestinal: No abdominal pain, No diarrhea, No nausea, No vomiting Genitourinary: No dysuria, No frequency Musculoskeletal: No back pain Skin: No rash Psychiatric/Neurological: See HPI Endocrine: No Symptoms Reported Hematologic/Lymphatic: No Symptoms Reported Past Kcfuqab-Lwjrac-Ippwls Hx Past Med/Social Hx: Reviewed Nursing Past Med/Soc Hx Patient Social History Alcohol Use: Denies Use Recreational Drug Use: No (thc, crack, meth ) Drug of Choice: THC, METH, CRACK COCAINE, OTHERS--PT DENIES IV USE Type Used: Cigarettes Former Smoker, Quit: Jun 04, 2018 2nd Hand Smoke Exposure: Yes Recent Foreign Travel: No Contact w/Someone Who Travel: No Recent Infectious Disease Expo: No Recent Hopitalizations: No Physical Abuse: No Sexual Abuse: No Immunizations Up To Date Tetanus Booster (TDap): Unknown PED Vaccines UTD: No Seasonal Allergies Seasonal Allergies: No Past Medical History Surgeries: Yes (SKIN LESION REMOVED FROM SCALP ; ) Section, Gallbladder Respiratory: No Currently Using CPAP: No Currently Using BIPAP: No Cardiac: No Neurological: No Last Menstrual Period: Jul 27, 2018 Female Reproductive Disorders: Denies Sexually Transmitted Disease: Yes (HERPES) HIV/AIDS: No Genitourinary: No Gastrointestinal: No Musculoskeletal: No Endocrine: No HEENT: No Loss of Vision: Denies Hearing Impairment: Denies Cancer: No Skin Did You Recieve Any Treatments: Yes What Type of Treatment Did You: Surgical Intervention Psychosocial: Yes (POLYSUBSTANCE ABUSE) Anxiety, Bipolar, Depression Integumentary: No Blood Disorders: Yes (ANEMIA) Adverse Reaction/Blood Tranf: No Family Medical History Patient reports no known family medical history. No Pertinent Family Hx Physical Exam Vital Signs Vital Signs - First Documented 11/25/18 10:36 Temp 98.6 Pulse 66 Resp 15 B/P (MAP) 137/88 (104) Pulse Ox 99 O2 Delivery Room Air Capillary Refill : Less Than 3 Seconds Height, Weight, BMI Height: 5'6.00" Weight: 295lbs. oz. 133.586435xh; 42.1 BMI Method:Stated General Appearance: WD/WN, no apparent distress HEENT: normal ENT inspection Neck: non-tender, full range of motion, supple Respiratory: lungs clear, normal breath sounds Cardiovascular: regular rate, rhythm Gastrointestinal: normal bowel sounds, non tender, soft Back: normal inspection, no CVA tenderness, no vertebral tenderness Extremities: normal range of motion, non-tender, normal inspection Neurologic/Psychiatric: no motor/sensory deficits, alert, normal mood/affect Crainal Nerves: normal hearing, normal speech, PERRL Skin: normal color, warm/dry Progress/Results/Core Measures Results/Orders Lab Results Laboratory Tests Test 11/25/18 11:15 11/25/18 11:46 Range/Units White Blood Count 6.5 4.3-11.0 10^3/uL Red Blood Count 4.38 4.35-5.85 10^6/uL Hemoglobin 13.4 11.5-16.0 G/DL Hematocrit 37 35-52 % Mean Corpuscular Volume 85 80-99 FL Mean Corpuscular Hemoglobin 31 25-34 PG Mean Corpuscular Hemoglobin Concent 36 32-36 G/DL Red Cell Distribution Width 13.5 10.0-14.5 % Platelet Count 259 130-400 10^3/uL Mean Platelet Volume 10.0 7.4-10.4 FL Neutrophils (%) (Auto) 50 42-75 % Lymphocytes (%) (Auto) 40 12-44 % Monocytes (%) (Auto) 7 0-12 % Eosinophils (%) (Auto) 4 0-10 % Basophils (%) (Auto) 0 0-10 % Neutrophils # (Auto) 3.2 1.8-7.8 X 10^3 Lymphocytes # (Auto) 2.6 1.0-4.0 X 10^3 Monocytes # (Auto) 0.4 0.0-1.0 X 10^3 Eosinophils # (Auto) 0.3 0.0-0.3 10^3/uL Basophils # (Auto) 0.0 0.0-0.1 10^3/uL Neutrophils % (Manual) 55 % Lymphocytes % (Manual) 35 % Monocytes % (Manual) 6 % Eosinophils % (Manual) 4 % Blood Morphology Comment NORMAL Sodium Level 138 135-145 MMOL/L Potassium Level 4.0 3.6-5.0 MMOL/L Chloride Level 107 98-107 MMOL/L Carbon Dioxide Level 22 21-32 MMOL/L Anion Gap 9 5-14 MMOL/L Blood Urea Nitrogen 10 7-18 MG/DL Creatinine 0.71 0.60-1.30 MG/DL Estimat Glomerular Filtration Rate > 60 BUN/Creatinine Ratio 14 Glucose Level 129 H 70-105 MG/DL Calcium Level 9.5 8.5-10.1 MG/DL Corrected Calcium 9.7 8.5-10.1 MG/DL Total Bilirubin 0.3 0.1-1.0 MG/DL Aspartate Amino Transf (AST/SGOT) 22 5-34 U/L Alanine Aminotransferase (ALT/SGPT) 40 0-55 U/L Alkaline Phosphatase 47 40-136 U/L Ammonia 26 11-32 UMOL/L Total Protein 6.7 6.4-8.2 GM/DL Albumin 3.7 3.2-4.5 GM/DL Urine Color YELLOW Urine Clarity CLEAR Urine pH 7 5-9 Urine Specific [place] 1.010 L 1.016-1.022 Urine Protein NEGATIVE NEGATIVE Urine Glucose (UA) NEGATIVE NEGATIVE Urine Ketones NEGATIVE NEGATIVE Urine Nitrite NEGATIVE NEGATIVE Urine Bilirubin NEGATIVE NEGATIVE Urine Urobilinogen NORMAL NORMAL MG/DL Urine Leukocyte Esterase NEGATIVE NEGATIVE Urine RBC (Auto) 1+ H NEGATIVE Urine RBC NONE /HPF Urine WBC 0-2 /HPF Urine Squamous Epithelial Cells 5-10 /HPF Urine Crystals NONE /LPF Urine Bacteria MODERATE H /HPF Urine Casts NONE /LPF Urine Mucus NEGATIVE /LPF Urine Culture Indicated YES Urine Test NEGATIVE NEGATIVE Urine Opiates Screen NEGATIVE NEGATIVE Urine Oxycodone Screen NEGATIVE NEGATIVE Urine Methadone Screen NEGATIVE NEGATIVE Urine Propoxyphene Screen NEGATIVE NEGATIVE Urine Barbiturates Screen NEGATIVE NEGATIVE Ur Tricyclic Antidepressants Screen NEGATIVE NEGATIVE Urine Phencyclidine Screen NEGATIVE NEGATIVE Urine Amphetamines Screen NEGATIVE NEGATIVE Urine Methamphetamines Screen NEGATIVE NEGATIVE Urine Benzodiazepines Screen NEGATIVE NEGATIVE Urine Cocaine Screen NEGATIVE NEGATIVE Urine Cannabinoids Screen NEGATIVE NEGATIVE My Orders Orders - JAN VELEZ MD Ekg Tracing (11/25/18 10:55) Comprehensive Metabolic Panel (11/25/18 11:08) Ua Culture If Indicated (11/25/18 11:08) Drug Screen Stat (Urine) (11/25/18 11:08) Cbc And Manual Diff (11/25/18 11:08) Ammonia (11/25/18 11:08) Hcg,Qualitative Urine (11/25/18 11:08) Urine Culture (11/25/18 11:46) Vital Signs/I&O 11/25/18 10:36 Temp 98.6 Pulse 66 Resp 15 B/P (MAP) 137/88 (104) Pulse Ox 99 O2 Delivery Room Air Blood Pressure Mean: 104 Progress Progress Note : Time: 12:39 Progress Note BM patient's laboratory evaluation fortunately demonstrated normal ammonia level of 26. Made of the labs were essentially unremarkable. The patient did demonstrate evidence of a urinary tract infection. I discussed findings with the patient and family. I wrote a prescription for Bactrim DS for the patient. I asked that she follow-up closely with her caregiver tomorrow. I invited to return to the emergency department she had any further problems or questions. Departure Impression Primary Impression: UTI (urinary tract infection) Qualified Codes: N30.00 - Acute cystitis without hematuria Disposition: HOME, SELF-CARE Condition: Unchanged Departure-Patient Inst. Decision time for Depature: 12:40 Referrals: GENNARO GALE MD (PCP/Family) Primary Care Physician Patient Instructions: Urinary Tract Infection, Adult (DC) Add. Discharge Instructions: Bactrim DS as prescribed. Close follow-up with your doctor tomorrow. Return if any problems or questions. All discharge instructions reviewed with patient and/or family. Voiced understanding. Scripts Sulfamethoxazole/Trimethoprim (Bactrim Ds Tablet) 1 Each Tablet 1 EACH PO BID, #14 TAB Prov: JAN VELEZ MD 11/25/18 JAN VELEZ MD Nov 25, 2018 11:16
[2018-11-25 11:20] LABS: BASOPHILS % (AUTO) 0 % (0-10); EOSINOPHILS # (AUTO) 0.3 10^3/uL (0.0-0.3); EOSINOPHILS % (AUTO) 4 % (0-10); HEMATOCRIT 37 % (35-52); HEMOGLOBIN 13.4 G/DL (11.5-16.0); LYMPHOCYTES # (AUTO) 2.6 X 10^3 (1.0-4.0); LYMPHOCYTES % (AUTO) 40 % (12-44); MEAN CORPUSCULAR HEMOGLOBIN 31 PG (25-34); MEAN CORPUSCULAR HGB CONC 36 G/DL (32-36); MEAN CORPUSCULAR VOLUME 85 FL (80-99); MONOCYTES # (AUTO) 0.4 X 10^3 (0.0-1.0); MONOCYTES % (AUTO) 7 % (0-12); NEUTROPHILS # (AUTO) 3.2 X 10^3 (1.8-7.8); NEUTROPHILS % (AUTO) 50 % (42-75); PLATELET COUNT 259 10^3/uL (130-400); RED CELL DISTRIBUTION WIDTH 13.5 % (10.0-14.5); WHITE BLOOD COUNT 6.5 10^3/uL (4.3-11.0)
[2018-11-25 11:36] LABS: ALANINE AMINOTRANSFERASE 40 U/L (0-55); ALBUMIN 3.7 GM/DL (3.2-4.5); ALKALINE PHOSPHATASE 47 U/L (40-136); AMMONIA 26 UMOL/L (11-32); BILIRUBIN,TOTAL 0.3 MG/DL (0.1-1.0); BUN/CREATININE RATIO 14; CALCIUM 9.5 MG/DL (8.5-10.1); CARBON DIOXIDE 22 MMOL/L (21-32); CHLORIDE 107 MMOL/L (98-107); CREATININE SERUM 0.71 MG/DL (0.60-1.30); GFR ESTIMATED > 60; GLUCOSE 129 MG/DL (70-105); SODIUM 138 MMOL/L (135-145); TOTAL PROTEIN 6.7 GM/DL (6.4-8.2)
[2018-11-25 11:52] LABS: EOSINOPHILS % (MANUAL) 4 %; LYMPHOCYTES % (MANUAL) 35 %; MONOCYTES % (MANUAL) 6 %; NEUTROPHILS % (MANUAL) 55 %; RBC MORPH NORMAL
[2018-11-25 12:08] LABS: BILIRUBIN,URINE NEGATIVE (NEGATIVE); GLUCOSE, URINE (UA) NEGATIVE (NEGATIVE); KETONES,URINE NEGATIVE (NEGATIVE); LEUKOCYTE ESTERASE ,URINE NEGATIVE (NEGATIVE); NITRITE,URINE NEGATIVE (NEGATIVE); PH,URINE 7 (5-9); PROTEIN,URINE NEGATIVE (NEGATIVE); UROBILINOGEN,URINE NORMAL (NORMAL)
[2018-11-25 12:09] LABS: BACTERIA,URINE MODERATE /HPF; CLARITY,URINE CLEAR; COLOR,URINE YELLOW; WBC,URINE 0-2 /HPF
[2018-11-25 12:24] LABS: AMPHETAMINE SCREEN, URINE NEGATIVE (NEGATIVE); BARBITURATE SCREEN URINE NEGATIVE (NEGATIVE); BENZODIAZEPINES SCREEN URINE NEGATIVE (NEGATIVE); CANNABINOID SCREEN, URINE NEGATIVE (NEGATIVE); COCAINE SCREEN URINE NEGATIVE (NEGATIVE); HCG,QUALITATIVE URINE NEGATIVE (NEGATIVE); METHADONE STAT NEGATIVE (NEGATIVE); METHAMPHETAMINE SCREEN URINE S NEGATIVE (NEGATIVE); OPIATE SCREEN URINE NEGATIVE (NEGATIVE); OXYCODONE STAT NEGATIVE (NEGATIVE); PROPOXYPHENE STAT NEGATIVE (NEGATIVE); TRICYCLIC ANTIDEPRESSANTS SCRE NEGATIVE (NEGATIVE)
[2018-11-25] MEDS ORDERED: SULF1TAB35 PO (12:42)
[2018-11-25 12:48] VITALS: BP 121/86
== END 2018-11-25 12:50 | disposition home or self-care (01) ==
LOC: EDUNIT# 10:36 → ER 10:37
DX: N39.0 Urinary tract infection, site not specified (principal); F41.9 Anxiety disorder, unspecified; F31.9 Bipolar disorder, unspecified; D64.9 Anemia, unspecified; F15.10 Other stimulant abuse, uncomplicated; F12.10 Cannabis abuse, uncomplicated; F14.10 Cocaine abuse, uncomplicated; Z98.890 Other specified postprocedural states; Z87.891 Personal history of nicotine dependence; Z85.828 Personal history of other malignant neoplasm of skin
CPT/HCPCS: 36415; 80053; 80306; 81000; 82140; 84703; 85007; 85027; 87088; 93005

== ENCOUNTER 2018-12-09 13:59 | Emergency (ER) | payer MEDICAID ==
[~2018-12-09] VITALS: Ht 167.6 cm; Wt 132.9 kg
[~2018-12-09 13:59] MED LIST changes: +SULF1TAB35 PO
[2018-12-09] MEDS ORDERED: LIDOCAINE 2% VISCOUS 15 ML UDC PO ONE (14:45)
[2018-12-09] MEDS ORDERED: BUPIVACAINE 0.5% 30 ML (SENSORCAINE) VIAL INJ ONE (14:45)
--- NOTE | 2018-12-09 14:45 | NUR ---
ice applied to face/jaw
--- NOTE | 2018-12-09 15:12 | NUR ---
pt in room moaning continuously.
--- NOTE | 2018-12-09 15:29 | ED EENT ---
History of Present Illness General Chief Complaint: Dental Problems/Pain Stated Complaint: DENTAL PAIN Nursing Triage Note: pt arrive pov with complaints of dental pain. Pt had her right bottom wisdom tooth removed . Pt states they had to pop her jaw out of place to get it. Pt thinks she has a dry socket Source: patient Exam Limitations: no limitations History of Present Illness Date Seen by Provider: Dec 09, 2018 Time Seen by Provider: 14:40 Initial Comments Patient presents to ER by private conveyance with chief complaint of right lower and wisdom tooth extraction socket pain. He had a tooth extracted on , in 3 days ago. The dentist is in [place] and she lives in [place]. She's having no fevers nausea. She uses Tylenol and Motrin as well as several topical dental medications with only minimal relief of her symptoms. She's having hard time eating or drinking or sleeping. She said she was given 20 tablets of hydrocodone but it was only giving marginal relief and she's already gone through all of those. Patient is still on amoxicillin 3 times a day from the dentist. Allergies and Home Medications Allergies Coded Allergies: No Known Drug Allergies (Unverified , 03/22/17) Home Medications Ferrous Sulfate 325 Mg Tablet, 325 MG PO DAILY, (Reported) Lactulose 20 Gm/30 Ml Solution, 20 GM PO BID Prescribed by: ANKIT VACA on 11/10/18 234 Meclizine HCl 25 Mg Tablet, 25-50 MG PO Q6H Prescribed by: ANKIT VACA on 06/10/18 032 Meclizine HCl 25 Mg Tablet, 25-50 MG PO Q6H Prescribed by: ANKIT VACA on 11/10/18 2342 Nitrofurantoin Macrocrystal 100 Mg Capsule, 100 MG PO BID Prescribed by: LAI BURGER on 06/27/18 111 Nystatin 1 Each Powder.ea., 1 EACH MC BID Prescribed by: LAI BURGER on 06/27/18 111 Ondansetron 4 Mg Tab.rapdis, 4 MG PO Q4H Prescribed by: ANKIT VACA on 06/10/18 0321 Scopolamine 1 Each Patch.td72, 1 EACH TD Q72 HOURS Prescribed by: ANKIT VACA on 11/10/18 2342 Sulfamethoxazole/Trimethoprim 1 Each Tablet, 1 EACH PO BID Prescribed by: JAN VELEZ MD on 11/25/18 2302 Patient Home Medication List Home Medication List Reviewed: Yes Review of Systems Review of Systems Constitutional: No chills, No diaphoresis Eyes: Denies Blindness, Denies Blurred Vision Ears: Denies Dizziness, Denies Pain Nose: denies clots, denies congestion Mouth: see HPI; denies clots; pain, swelling Throat: denies pain, denies swelling Past Fnwidaf-Jenroy-Zrrmpy Hx Patient Social History Alcohol Use: Denies Use Recreational Drug Use: Yes Drug of Choice: THC, METH, CRACK COCAINE, OTHERS--PT DENIES IV USE Smoking Status: Light Tobacco Smoker Type Used: Cigarettes Former Smoker, Quit: Jun 04, 2018 2nd Hand Smoke Exposure: Yes Recent Foreign Travel: No Contact w/Someone Who Travel: No Recent Infectious Disease Expo: No Recent Hopitalizations: No Immunizations Up To Date Tetanus Booster (TDap): Unknown PED Vaccines UTD: No Seasonal Allergies Seasonal Allergies: No Past Medical History Surgeries: Yes (SKIN LESION REMOVED FROM SCALP ; ) Section, Gallbladder Respiratory: No Currently Using CPAP: No Currently Using BIPAP: No Cardiac: No Neurological: No : No Female Reproductive Disorders: Denies Sexually Transmitted Disease: Yes (HERPES) HIV/AIDS: No Genitourinary: No Gastrointestinal: No Musculoskeletal: No Endocrine: No HEENT: No Loss of Vision: Denies Hearing Impairment: Denies Cancer: No Skin Did You Recieve Any Treatments: Yes What Type of Treatment Did You: Surgical Intervention Psychosocial: Yes (POLYSUBSTANCE ABUSE) Anxiety, Bipolar, Depression Integumentary: No Blood Disorders: Yes (ANEMIA) Adverse Reaction/Blood Tranf: No Family Medical History Patient reports no known family medical history. No Pertinent Family Hx Physical Exam Vital Signs Vital Signs - First Documented 12/09/18 14:05 Temp 98.4 Pulse 94 Resp 20 Pulse Ox 100 O2 Delivery Room Air Height, Weight, BMI Height: 5'6.00" Weight: 293lbs. oz. 132.959439nq; 42.1 BMI Method:Stated General Appearance: WD/WN, no apparent distress Eyes: bilateral eye normal inspection, bilateral eye PERRL, bilateral eye EOMI Ears: bilateral ear auricle normal, bilateral ear canal normal, bilateral ear TM normal (and erythema of the day) Nose: normal inspection; No active bleeding Mouth/Throat: dental tenderness, other (extensive dental caries and there is a open socket and was some redness swelling but no discharge, fluctuance or evidence of an abscess. Right lower mandible) Neck: non-tender, full range of motion, supple, normal inspection Cardiovascular: normal peripheral pulses, regular rate, rhythm Respiratory: no respiratory distress, no accessory muscle use Neurologic/Psychiatric: alert, normal mood/affect, oriented x 3 Procedures/Interventions Progress ) Alveolar nerve block. 3 cc total injected consisting of 1/2 cc of 0.5% Marcaine and 1/2 cc of 1% lidocaine without epinephrine. Landmarks were palpated and the needle was inserted in usual fashion and aspirated getting no blood withdrawal we then injected in the usual fashion. Patient tolerated procedure okay. Progress/Results/Core Measures Results/Orders My Orders Orders - LAI BURGER Lidocaine 2% Viscous 15 Ml (Xylocaine Vi (12/09/18 14:45) Bupivacaine 0.5% Injection (Sensorcaine (12/09/18 14:45) Vital Signs/I&O 12/09/18 14:05 Temp 98.4 Pulse 94 Resp 20 B/P (MAP) Pulse Ox 100 O2 Delivery Room Air Progress Progress Note : Time: 15:26 Progress Note Viscous lidocaine and an inferior alveolar nerve block Departure Impression Primary Impression: Dry tooth socket Disposition: 01 HOME, SELF-CARE Condition: Improved Departure-Patient Inst. Decision time for Depature: 15:28 Referrals: MARIANO VILLAGRAN MD (PCP/Family) Primary Care Physician Patient Instructions: Dental Pain (DC), Dry Socket Add. Discharge Instructions: Pack some lidocaine on gauze and down into the tooth socket and leave their dentist. You can add more lidocaine to some gauze and put on top of that there will soak down into the socket as necessary every 2 hours. Continue taking the antibiotics as prescribed. Use Tylenol 1000 g every 8 hours as necessary for pain. Use ibuprofen 800 mg every 8 hours as necessary for pain. Expect to get 4-6 hours relief from the block so go home and get some sleep. Continue drinking fluids. Follow-up with a dentist by calling their office tomorrow. All discharge instructions reviewed with patient and/or family. Voiced understanding. LAI BURGER Dec 09, 2018 15:29
[2018-12-09 15:45] VITALS: BP 133/67
== END 2018-12-09 15:45 | disposition home or self-care (01) ==
LOC: EDUNIT# 13:59 → ER 14:00
DX: M27.3 Alveolitis of jaws (principal); F12.10 Cannabis abuse, uncomplicated; F15.10 Other stimulant abuse, uncomplicated; F14.10 Cocaine abuse, uncomplicated; F41.9 Anxiety disorder, unspecified; F31.9 Bipolar disorder, unspecified; D64.9 Anemia, unspecified; Z87.891 Personal history of nicotine dependence; Z98.890 Other specified postprocedural states; Z86.19 Personal history of other infectious and parasitic diseases; Z85.828 Personal history of other malignant neoplasm of skin
CPT/HCPCS: 99284

== ENCOUNTER 2018-12-15 17:33 | Emergency (ER) | payer MEDICAID ==
[~2018-12-15] VITALS: Ht 167.6 cm; Wt 132.9 kg
[2018-12-15] MEDS ORDERED: LIDOCAINE JELLY 2% (XYLOCAINE) 30 ML TUBE TOP ONE (17:45)
[2018-12-15] MEDS ORDERED: LIDOCAINE 2% VISCOUS 15 ML UDC ONE (17:50)
[2018-12-15] MEDS ORDERED: CHLO473M4 MM (17:52)
--- NOTE | 2018-12-15 17:52 | ED EENT ---
History of Present Illness General Chief Complaint: Dental Problems/Pain Stated Complaint: DRY SOCKET Source: patient Exam Limitations: no limitations History of Present Illness Date Seen by Provider: December 15, 2018 Time Seen by Provider: 17:46 Initial Comments To ER with right lower dental pain. She had a right wisdom tooth removed one week ago in [facility]. She went back on of this past week, 2 days ago, diagnosed with dry socket and had packing placed into the socket. She was told to come back the next day which was Monday to have the packing replaced. She states that she has to take medical transportation, was unable to make it back up there on Monday as directed. She has run out of the topical lidocaine that was given to her last week. No fevers. She is not immunocompromised. Timing/Duration: abrupt Severity: moderate Location: dental Associated Symptoms: facial pain/swelling (pain but no swelling), tooth pain Allergies and Home Medications Allergies Coded Allergies: No Known Drug Allergies (Unverified , 03/22/17) Home Medications Ferrous Sulfate 325 Mg Tablet, 325 MG PO DAILY, (Reported) Lactulose 20 Gm/30 Ml Solution, 20 GM PO BID Prescribed by: ANKIT VACA on 11/10/18 2342 Meclizine HCl 25 Mg Tablet, 25-50 MG PO Q6H Prescribed by: ANKIT VACA on 06/10/18 0321 Meclizine HCl 25 Mg Tablet, 25-50 MG PO Q6H Prescribed by: ANKIT VACA on 11/10/18 2342 Nitrofurantoin Macrocrystal 100 Mg Capsule, 100 MG PO BID Prescribed by: LAI BURGER on 06/27/18 1110 Nystatin 1 Each Powder.ea., 1 EACH MC BID Prescribed by: LAI BURGER on 06/27/18 1110 Ondansetron 4 Mg Tab.rapdis, 4 MG PO Q4H Prescribed by: ANKIT VACA on 06/10/18 0321 Scopolamine 1 Each Patch.td72, 1 EACH TD Q72 HOURS Prescribed by: ANKIT VACA on 11/10/18 2342 Sulfamethoxazole/Trimethoprim 1 Each Tablet, 1 EACH PO BID Prescribed by: JAN VELEZ MD on 11/25/18 1242 Patient Home Medication List Home Medication List Reviewed: Yes Review of Systems Review of Systems Constitutional: see HPI Eyes: No Symptoms Reported Ears: No Symptoms Reported Nose: no symptoms reported Mouth: see HPI, pain Throat: no symptoms reported Respiratory: no symptoms reported Cardiovascular: no symptoms reported Musculoskeletal: no symptoms reported Past Ythajwv-Iwxiin-Dlbvom Hx Patient Social History Alcohol Use: Denies Use Recreational Drug Use: Yes (thc, crack, meth hx mo ago) Drug of Choice: THC, METH, CRACK COCAINE, OTHERS--PT DENIES IV USE Smoking Status: Current Everyday Smoker Type Used: Cigarettes Former Smoker, Quit: Jun 04, 2018 2nd Hand Smoke Exposure: Yes Recent Foreign Travel: No Contact w/Someone Who Travel: No Recent Hopitalizations: No Immunizations Up To Date Tetanus Booster (TDap): Unknown PED Vaccines UTD: No Seasonal Allergies Seasonal Allergies: No Past Medical History Surgeries: Yes (SKIN LESION REMOVED FROM SCALP ; ) Section, Gallbladder Respiratory: No Currently Using CPAP: No Currently Using BIPAP: No Cardiac: No Neurological: No Female Reproductive Disorders: Denies Sexually Transmitted Disease: Yes (HERPES) HIV/AIDS: No Genitourinary: No Gastrointestinal: No Musculoskeletal: No Endocrine: No HEENT: No Loss of Vision: Denies Hearing Impairment: Denies Cancer: No Skin Did You Recieve Any Treatments: Yes What Type of Treatment Did You: Surgical Intervention Psychosocial: Yes (POLYSUBSTANCE ABUSE) Anxiety, Bipolar, Depression Integumentary: No Blood Disorders: Yes (ANEMIA) Adverse Reaction/Blood Tranf: No Family Medical History Patient reports no known family medical history. No Pertinent Family Hx Physical Exam Height, Weight, BMI Height: 5'6.00" Weight: 293lbs. oz. 132.936176st; 42.1 BMI Method:Stated General Appearance: WD/WN, no apparent distress Eyes: bilateral eye normal inspection, bilateral eye PERRL Ears: bilateral ear auricle normal, bilateral ear canal normal Mouth/Throat: other (socket of tooth #32 is with packing material still in place. I am hesitant to remove this since it is providing a barrier to keep food and other debris out of socket. We do not have any material here available for repacking. She states she'll follow-up with her dentist on Monday.) Neck: non-tender, full range of motion Respiratory: no respiratory distress, no accessory muscle use Neurologic/Psychiatric: alert, normal mood/affect, oriented x 3 Skin: normal color, warm/dry Progress/Results/Core Measures Results/Orders My Orders Orders - GENARO ALVARADO APRN Lidocaine 2% Jelly 30 Ml (Xylocaine Jell (12/15/18 17:45) Departure Impression Primary Impression: Alveolar osteitis Disposition: HOME, SELF-CARE Condition: Stable Departure-Patient Inst. Decision time for Depature: 17:50 Referrals: MARIANO VILLAGRAN MD (PCP/Family) Primary Care Physician Patient Instructions: Dental Pain (DC) Add. Discharge Instructions: 1. Topical lidocaine as directed. Follow-up with your dentist on Monday. All discharge instructions reviewed with patient and/or family. Voiced understanding. Scripts Chlorhexidine Gluconate (Peridex) 473 Ml Mouthwash 473 ML MM BID, #473 ML Gently swished around in the mouth twice a day. Prov: GENARO ALVARADO APRN 12/15/18 Images Mouth/Nose 1 - Fracture Tooth GENARO ALVARADO APRN December 15, 2018 17:52
[2018-12-15 18:04] VITALS: BP 141/64
[2018-12-15] MEDS ORDERED: LIDOCAINE 2% VISCOUS 15 ML UDC PO ONE (18:15)
== END 2018-12-15 18:04 | disposition home or self-care (01) ==
LOC: EDUNIT# 17:33 → ER 17:35
DX: M27.3 Alveolitis of jaws (principal); F41.9 Anxiety disorder, unspecified; F31.9 Bipolar disorder, unspecified; D64.9 Anemia, unspecified; F12.10 Cannabis abuse, uncomplicated; F15.10 Other stimulant abuse, uncomplicated; F14.10 Cocaine abuse, uncomplicated; Z87.891 Personal history of nicotine dependence; Z98.890 Other specified postprocedural states; Z86.19 Personal history of other infectious and parasitic diseases; Z85.828 Personal history of other malignant neoplasm of skin
CPT/HCPCS: 99283

== ENCOUNTER 2018-12-23 20:51 | Emergency (ER) | payer MEDICAID ==
[~2018-12-23] VITALS: Ht 167.6 cm; Wt 131.5 kg
[~2018-12-23 20:51] MED LIST changes: +CHLO473M4 MM
--- NOTE | 2018-12-23 21:15 | ED EENT ---
History of Present Illness General Chief Complaint: Dental Problems/Pain Stated Complaint: IMPACTED GUAZE IN TOOTH SOCKET Source: patient Exam Limitations: no limitations History of Present Illness Date Seen by Provider: December 23, 2018 Time Seen by Provider: 21:09 Allergies and Home Medications Allergies Coded Allergies: No Known Drug Allergies (Unverified , 03/22/17) Home Medications Chlorhexidine Gluconate 473 Ml Mouthwash, 473 ML MM BID Gently swished around in the mouth twice a day. Prescribed by: GENARO ALVARADO on 12/15/18 1752 Ferrous Sulfate 325 Mg Tablet, 325 MG PO DAILY, (Reported) Lactulose 20 Gm/30 Ml Solution, 20 GM PO BID Prescribed by: ANKIT VACA on 11/10/18 234 Meclizine HCl 25 Mg Tablet, 25-50 MG PO Q6H Prescribed by: ANKIT VACA on 06/10/18 0321 Meclizine HCl 25 Mg Tablet, 25-50 MG PO Q6H Prescribed by: ANKIT VACA on 11/10/18 2342 Nitrofurantoin Macrocrystal 100 Mg Capsule, 100 MG PO BID Prescribed by: LAI BURGER on 06/27/18 111 Nystatin 1 Each Powder.ea., 1 EACH MC BID Prescribed by: LAI BURGER on 06/27/18 1110 Ondansetron 4 Mg Tab.rapdis, 4 MG PO Q4H Prescribed by: ANKIT VACA on 06/10/18 0321 Scopolamine 1 Each Patch.td72, 1 EACH TD Q72 HOURS Prescribed by: ANKIT VACA on 11/10/18 234 Sulfamethoxazole/Trimethoprim 1 Each Tablet, 1 EACH PO BID Prescribed by: JAN VELEZ MD on 11/25/18 1242 Past Vwebjsp-Mdqsum-Wpohth Hx Patient Social History Drug of Choice: THC, METH, CRACK COCAINE, OTHERS--PT DENIES IV USE Type Used: Cigarettes Former Smoker, Quit: Jun 04, 2018 2nd Hand Smoke Exposure: Yes Recent Foreign Travel: No Contact w/Someone Who Travel: No Recent Hopitalizations: No Immunizations Up To Date Tetanus Booster (TDap): Unknown PED Vaccines UTD: No Seasonal Allergies Seasonal Allergies: No Past Medical History Surgeries: Yes (SKIN LESION REMOVED FROM SCALP INFANT; ) Section, Gallbladder Respiratory: No Currently Using CPAP: No Currently Using BIPAP: No Cardiac: No Neurological: No Female Reproductive Disorders: Denies Sexually Transmitted Disease: Yes (HERPES) HIV/AIDS: No Genitourinary: No Gastrointestinal: No Musculoskeletal: No Endocrine: No HEENT: No Loss of Vision: Denies Hearing Impairment: Denies Cancer: No Skin Did You Recieve Any Treatments: Yes What Type of Treatment Did You: Surgical Intervention Psychosocial: Yes (POLYSUBSTANCE ABUSE) Anxiety, Bipolar, Depression Integumentary: No Blood Disorders: Yes (ANEMIA) Adverse Reaction/Blood Tranf: No Family Medical History Patient reports no known family medical history. No Pertinent Family Hx Physical Exam Height, Weight, BMI Height: 5'6.00" Weight: 293lbs. oz. 132.450355pt; 42.1 BMI Method:Stated Departure Impression Primary Impression: dental packing removal Disposition: 01 HOME, SELF-CARE Condition: Stable/Unchanged Departure-Patient Inst. Decision time for Depature: 21:13 Referrals: MARIANO VILLAGRAN MD (PCP/Family) Primary Care Physician Patient Instructions: Dental Pain (DC) Add. Discharge Instructions: Follow-up with your dentist within 1 week for recheck. Return back to the emergency room for worsening symptoms or concerns as needed. All discharge instructions reviewed with patient and/or family. Voiced understanding. TILA BECKHAM December 23, 2018 21:15
[2018-12-23 21:23] VITALS: BP 116/67
== END 2018-12-23 21:25 | disposition home or self-care (01) ==
LOC: EDUNIT# 20:51 → ER 20:54
DX: Z48.00 Encounter for change or removal of nonsurgical wound dressing (principal); F41.9 Anxiety disorder, unspecified; F31.9 Bipolar disorder, unspecified; D64.9 Anemia, unspecified; Z87.891 Personal history of nicotine dependence; Z98.890 Other specified postprocedural states; Z86.19 Personal history of other infectious and parasitic diseases; Z85.828 Personal history of other malignant neoplasm of skin
CPT/HCPCS: 99282

== ENCOUNTER 2019-04-14 09:39 | Emergency (ER) | payer MEDICAID ==
[~2019-04-14] VITALS: Ht 167.6 cm; Wt 124.3 kg
--- NOTE | 2019-04-14 10:20 | ED EENT ---
History of Present Illness General Chief Complaint: Oral/Throat Problems Stated Complaint: SORE THROAT / CONGESTION Nursing Triage Note: PT AMB TO RM 10 WITH COMPLAINT OF SORE THROAT. Source: patient Exam Limitations: no limitations History of Present Illness Date Seen by Provider: Apr 14, 2019 Time Seen by Provider: 10:10 Initial Comments The patient presents to the ER by private conveyance with chief complaint of one day of sore throat nasal congestion rare dry cough. Her brother was diagnosed with strep throat a week ago and spent the night at her house 2 days ago. She had general malaise but no fevers or chills. Allergies and Home Medications Allergies Coded Allergies: No Known Drug Allergies (Unverified , 03/22/17) Home Medications Chlorhexidine Gluconate 473 Ml Mouthwash, 473 ML MM BID Gently swished around in the mouth twice a day. Prescribed by: GENARO ALVARADO on 12/15/18 175 Ferrous Sulfate 325 Mg Tablet, 325 MG PO DAILY, (Reported) Lactulose 20 Gm/30 Ml Solution, 20 GM PO BID Prescribed by: ANKIT VACA on 11/10/18 2342 Meclizine HCl 25 Mg Tablet, 25-50 MG PO Q6H Prescribed by: ANKIT VACA on 06/10/18 0321 Meclizine HCl 25 Mg Tablet, 25-50 MG PO Q6H Prescribed by: ANKIT VACA on 11/10/18 2342 Nitrofurantoin Macrocrystal 100 Mg Capsule, 100 MG PO BID Prescribed by: LAI BURGER on 06/27/18 1110 Nystatin 1 Each Powder.ea., 1 EACH MC BID Prescribed by: LAI BURGER on 06/27/18 1110 Ondansetron 4 Mg Tab.rapdis, 4 MG PO Q4H Prescribed by: ANKIT VACA on 06/10/18 0321 Scopolamine 1 Each Patch.td72, 1 EACH TD Q72 HOURS Prescribed by: ANKIT VACA on 11/10/18 2342 Sulfamethoxazole/Trimethoprim 1 Each Tablet, 1 EACH PO BID Prescribed by: JNA VEELZ MD on 11/25/18 1242 Patient Home Medication List Home Medication List Reviewed: Yes Review of Systems Review of Systems Constitutional: No chills, No fever; malaise Eyes: Denies Blindness, Denies Blurred Vision Ears: Denies Dizziness, Denies Pain Nose: denies clots; congestion Mouth: see HPI; denies clots Throat: see HPI, pain, swelling Past Qqmiqcu-Bkabth-Ltrqmr Hx Patient Social History Alcohol Use: Denies Use Recreational Drug Use: Yes (thc, crack, meth hx mo ago) Drug of Choice: THC, METH, CRACK COCAINE, OTHERS--PT DENIES IV USE Smoking Status: Current Everyday Smoker Type Used: Cigarettes Former Smoker, Quit: Jun 04, 2018 2nd Hand Smoke Exposure: Yes Recent Foreign Travel: No Contact w/Someone Who Travel: No Recent Infectious Disease Expo: No Recent Hopitalizations: No Physical Abuse: No Sexual Abuse: No Mistreated: No Immunizations Up To Date Tetanus Booster (TDap): Unknown PED Vaccines UTD: No Seasonal Allergies Seasonal Allergies: No Past Medical History Surgeries: Yes (SKIN LESION REMOVED FROM SCALP ; ) Section, Gallbladder Respiratory: No Currently Using CPAP: No Currently Using BIPAP: No Cardiac: No Neurological: No Female Reproductive Disorders: Denies Sexually Transmitted Disease: Yes (HERPES) HIV/AIDS: No Genitourinary: No Gastrointestinal: No Musculoskeletal: No Endocrine: No HEENT: No Loss of Vision: Denies Hearing Impairment: Denies Cancer: No Skin Did You Recieve Any Treatments: Yes What Type of Treatment Did You: Surgical Intervention Psychosocial: Yes (POLYSUBSTANCE ABUSE) Anxiety, Bipolar, Depression Integumentary: No Blood Disorders: Yes (ANEMIA) Adverse Reaction/Blood Tranf: No Family Medical History Patient reports no known family medical history. No Pertinent Family Hx Physical Exam Vital Signs Vital Signs - First Documented 04/14/19 09:50 Temp 96.7 Pulse 80 Resp 16 B/P (MAP) 142/92 (109) Pulse Ox 97 O2 Delivery Room Air Height, Weight, BMI Height: 5'6.00" Weight: 274lbs. oz. 124.756823qr; 42.1 BMI Method:Stated General Appearance: WD/WN, no apparent distress Eyes: bilateral eye normal inspection, bilateral eye PERRL, bilateral eye EOMI Nose: normal inspection; No active bleeding Mouth/Throat: normal mouth inspection; No tongue swollen, No tonsillar exudate; tonsillar swelling (erythema, injected), other (no tenderness of the maxillofacial or frontal sinuses) Neck: non-tender, full range of motion, supple, normal inspection Progress/Results/Core Measures Results/Orders Lab Results Laboratory Tests Test 04/14/19 10:15 Range/Units Group A Streptococcus Screen NEGATIVE NEGATIVE My Orders Orders - LAI BURGER Rapid Strep A Screen (04/14/19 10:17) Vital Signs/I&O 04/14/19 09:50 Temp 96.7 Pulse 80 Resp 16 B/P (MAP) 142/92 (109) Pulse Ox 97 O2 Delivery Room Air Blood Pressure Mean: 109 Departure Impression Primary Impression: Tonsillopharyngitis Disposition: HOME, SELF-CARE Condition: Stable Departure-Patient Inst. Decision time for Depature: 10:52 Referrals: [facility] (PCP/Family) Primary Care Physician Patient Instructions: Viral Pharyngitis Add. Discharge Instructions: You have a virus which will usually resolve on its own over the next week. Follow-up with primary care if your symptoms worsen or last longer than what's expected. Salt water gargles, teaspoon of honey, hot tea with lemon, vapor rubs such as Vicks or Mentholatum. Tylenol and hydrocodone can help with body aches. Throat lozenges and rjxt-mha-tlffial cough and cold medicines can also be helpful. Wash her hands and use hand bobbin drier's to prevent the spread. All discharge instructions reviewed with patient and/or family. Voiced understanding. LAI BURGER Apr 14, 2019 10:20
[2019-04-14 10:56] VITALS: BP 142/92
== END 2019-04-14 10:56 | disposition home or self-care (01) ==
LOC: EDUNIT# 09:39 → ER 09:40
DX: J03.90 Acute tonsillitis, unspecified (principal); F31.9 Bipolar disorder, unspecified; F41.9 Anxiety disorder, unspecified; Z87.891 Personal history of nicotine dependence; Z85.828 Personal history of other malignant neoplasm of skin
CPT/HCPCS: 87430; 99284

== ENCOUNTER 2019-04-23 19:37 | Emergency (ER) | payer MEDICAID ==
[~2019-04-23] VITALS: Ht 167.7 cm; Wt 124.5 kg
--- NOTE | 2019-04-23 20:15 | ED Upper Extremity ---
General Stated Complaint: SPLINTER R HAND 5TH FINGER Source: patient Exam Limitations: no limitations History of Present Illness Date Seen by Provider: Apr 23, 2019 Time Seen by Provider: 20:12 Initial Comments To ER with reports of a splinter to the pad of the distal phalanx right fifth finger for a few days. This has some redness around it. Onset: just prior to arrival Severity: moderate Pain/Injury Location: right 5th finger Method of Injury: other (splinter) Allergies and Home Medications Allergies Coded Allergies: No Known Drug Allergies (Unverified , 03/22/17) Home Medications Chlorhexidine Gluconate 473 Ml Mouthwash, 473 ML MM BID Gently swished around in the mouth twice a day. Prescribed by: GENARO ALVARADO on 12/15/18 175 Ferrous Sulfate 325 Mg Tablet, 325 MG PO DAILY, (Reported) Lactulose 20 Gm/30 Ml Solution, 20 GM PO BID Prescribed by: ANKIT VACA on 11/10/18 2342 Meclizine HCl 25 Mg Tablet, 25-50 MG PO Q6H Prescribed by: ANKIT VACA on 06/10/18 0321 Meclizine HCl 25 Mg Tablet, 25-50 MG PO Q6H Prescribed by: ANKIT VACA on 11/10/18 2342 Nitrofurantoin Macrocrystal 100 Mg Capsule, 100 MG PO BID Prescribed by: LAI BURGER on 06/27/18 1110 Nystatin 1 Each Powder.ea., 1 EACH MC BID Prescribed by: LAI BURGER on 06/27/18 1110 Ondansetron 4 Mg Tab.rapdis, 4 MG PO Q4H Prescribed by: ANKIT VACA on 06/10/18 0321 Scopolamine 1 Each Patch.td72, 1 EACH TD Q72 HOURS Prescribed by: ANKIT VACA on 11/10/18 2342 Sulfamethoxazole/Trimethoprim 1 Each Tablet, 1 EACH PO BID Prescribed by: JAN VELEZ MD on 11/25/18 1242 Patient Home Medication List Home Medication List Reviewed: Yes Review of Systems Constitutional: see HPI EENTM: see HPI Respiratory: no symptoms reported Cardiovascular: no symptoms reported Genitourinary: no symptoms reported Musculoskeletal: see HPI Skin: see HPI Psychiatric/Neurological: No Symptoms Reported Past Clsyolw-Zayuod-Txnbyv Hx Patient Social History Drug of Choice: THC, METH, CRACK COCAINE, OTHERS--PT DENIES IV USE Type Used: Cigarettes Former Smoker, Quit: Jun 04, 2018 2nd Hand Smoke Exposure: Yes Recent Foreign Travel: No Contact w/Someone Who Travel: No Recent Hopitalizations: No Immunizations Up To Date Tetanus Booster (TDap): Unknown PED Vaccines UTD: No Seasonal Allergies Seasonal Allergies: No Past Medical History Surgeries: Yes (SKIN LESION REMOVED FROM SCALP INFANT; ) Section, Gallbladder Respiratory: No Currently Using CPAP: No Currently Using BIPAP: No Cardiac: No Neurological: No Female Reproductive Disorders: Denies Sexually Transmitted Disease: Yes (HERPES) HIV/AIDS: No Genitourinary: No Gastrointestinal: No Musculoskeletal: No Endocrine: No HEENT: No Loss of Vision: Denies Hearing Impairment: Denies Cancer: No Skin Did You Recieve Any Treatments: Yes What Type of Treatment Did You: Surgical Intervention Psychosocial: Yes (POLYSUBSTANCE ABUSE) Anxiety, Bipolar, Depression Integumentary: No Blood Disorders: Yes (ANEMIA) Adverse Reaction/Blood Tranf: No Family Medical History Patient reports no known family medical history. No Pertinent Family Hx Physical Exam Vital Signs Capillary Refill : Height, Weight, BMI Height: 5'6.00" Weight: 274lbs. oz. 124.830550kc; 42.1 BMI Method:Stated General Appearance: WD/WN, no apparent distress Respiratory: no respiratory distress, no accessory muscle use Shoulder: normal inspection, non-tender Elbow/Forearm: normal inspection, non-tender Wrist: Yes normal inspection, Yes non-tender Hand: Right (to the pad ulnar side distal phalanx right fifth finger there is a small pustule that measures about 2 mm with a dark speck in the center of it consistent with the alleged splinter There is about 2 mm of surrounding erythema. This was easily removed with a blunt tipped needle after cleaning with alcohol first.) Neurologic/Psychiatric: alert, normal mood/affect, oriented x 3 Skin: normal color, warm/dry Departure Impression Primary Impression: Splinter of finger Disposition: 01 HOME, SELF-CARE Condition: Stable Departure-Patient Inst. Decision time for Depature: 20:14 Referrals: [facility] (PCP/Family) Primary Care Physician Patient Instructions: Foreign Body in Skin (DC) Add. Discharge Instructions: Wash hands with soap and water twice daily. Apply the antibiotic ointment twice daily for 3 days. Return to ER for any concerns. GENARO ALVARADO HYDRAULIC STRAINER OPERATOR Apr 23, 2019 20:15
[2019-04-23] MEDS: MUPIROCIN 2% OINT 22 GM (BACTROBAN) TUBE TOP SCH (20:34)
[2019-04-23 20:35] VITALS: BP 132/91
== END 2019-04-23 20:35 | disposition home or self-care (01) ==
LOC: EDUNIT# 19:37 → ER 19:38
DX: S60.456A Superficial foreign body of right little finger, initial encounter (principal); F31.9 Bipolar disorder, unspecified; F41.9 Anxiety disorder, unspecified; Z87.891 Personal history of nicotine dependence; Z85.828 Personal history of other malignant neoplasm of skin; W45.8XXA Other foreign body or object entering through skin, initial encounter
CPT/HCPCS: 99282

== ENCOUNTER 2019-06-08 11:30 | Emergency (ER) | payer MEDICAID ==
[~2019-06-08] VITALS: Ht 170 cm; Wt 125.0 kg
--- NOTE | 2019-06-08 11:49 | ED GU-Female ---
General Chief Complaint: Abdominal/GI Problems Stated Complaint: PELVIC PAIN Source: patient Exam Limitations: no limitations History of Present Illness Date Seen by Provider: Jun 08, 2019 Time Seen by Provider: 11:48 Initial Comments Patient presents to ER with vaginal odor and discomfort for several months. She to be tested for STDs. She has not seen primary care for this. No fevers chills nausea vomiting dysuria or bowel changes. Timing/Duration: constant Severity/Quality: moderate Location: suprapubic Radiation: none Activities at Onset: none Prior Genitourinary Problems: none Associated Symptoms: denies symptoms Allergies and Home Medications Allergies Coded Allergies: No Known Drug Allergies (Unverified , 03/22/17) Home Medications Chlorhexidine Gluconate 473 Ml Mouthwash, 473 ML MM BID Gently swished around in the mouth twice a day. Prescribed by: GENARO ALVARADO on 12/15/18 3485 Ferrous Sulfate 325 Mg Tablet, 325 MG PO DAILY, (Reported) Patient Home Medication List Home Medication List Reviewed: Yes Review of Systems Review of Systems Constitutional: see HPI EENTM: see HPI Respiratory: no symptoms reported Cardiovascular: no symptoms reported Genitourinary: see HPI Musculoskeletal: no symptoms reported Skin: no symptoms reported Psychiatric/Neurological: No Symptoms Reported Endocrine: No Symptoms Reported Hematologic/Lymphatic: No Symptoms Reported Past Lcmxozk-Cyuohc-Zghgwd Hx Patient Social History Drug of Choice: THC, METH, CRACK COCAINE, OTHERS--PT DENIES IV USE Type Used: Cigarettes Former Smoker, Quit: Jun 04, 2018 2nd Hand Smoke Exposure: Yes Recent Foreign Travel: No Contact w/Someone Who Travel: No Recent Hopitalizations: No Immunizations Up To Date Tetanus Booster (TDap): Unknown PED Vaccines UTD: No Seasonal Allergies Seasonal Allergies: No Past Medical History Surgeries: Yes (SKIN LESION REMOVED FROM SCALP ; ) Section, Gallbladder Respiratory: No Currently Using CPAP: No Currently Using BIPAP: No Cardiac: No Neurological: No Female Reproductive Disorders: Denies Sexually Transmitted Disease: Yes (HERPES) HIV/AIDS: No Genitourinary: No Gastrointestinal: No Musculoskeletal: No Endocrine: No HEENT: No Loss of Vision: Denies Hearing Impairment: Denies Cancer: No Skin Did You Recieve Any Treatments: Yes What Type of Treatment Did You: Surgical Intervention Psychosocial: Yes (POLYSUBSTANCE ABUSE) Anxiety, Bipolar, Depression Integumentary: No Blood Disorders: Yes (ANEMIA) Adverse Reaction/Blood Tranf: No Family Medical History Patient reports no known family medical history. No Pertinent Family Hx Physical Exam Vital Signs Vital Signs - First Documented 06/08/19 11:40 Temp 36.6 Pulse 81 Resp 18 B/P (MAP) 138/77 (97) Pulse Ox 96 O2 Delivery Room Air Capillary Refill : Height, Weight, BMI Height: 5'6.00" Weight: 274lbs. oz. 124.464745lb; 44.00 BMI Method:Stated General Appearance: WD/WN, no apparent distress HEENT: PERRL/EOMI, normal ENT inspection Respiratory: no respiratory distress, no accessory muscle use Gastrointestinal: normal bowel sounds, non tender, soft Pelvic: normal external exam, other (pelvic exam done with Cely female sales apprentice student from [facility] [employer] at the bedside. There is no cervical motion tenderness no cervical discharge, no lesions.) Neurologic/Psychiatric: alert, normal mood/affect, oriented x 3 Skin: normal color, warm/dry Progress/Results/Core Measures Suspected Sepsis SIRS Temperature: Pulse: Respiratory Rate: Blood Pressure / Mean: Results/Orders Lab Results Laboratory Tests Test 06/08/19 11:54 06/08/19 12:00 Range/Units Micro Results Microbiology 06/08/19 Genital Culture, Resulted Pending 06/08/19 Wet Prep - Final, Resulted My Orders Orders - GENARO ALVARADO APRN Ua Culture If Indicated (06/08/19 11:44) Urine Bedside (06/08/19 11:44) Wet Prep (06/08/19 11:47) Neisseria Gonorrhea Swab (06/08/19 11:47) Genital Culture (06/08/19 11:47) Chlamydia Trachomatis Swab (06/08/19 11:47) Vital Signs/I&O 06/08/19 11:40 Temp 36.6 Pulse 81 Resp 18 B/P (MAP) 138/77 (97) Pulse Ox 96 O2 Delivery Room Air Capillary Refill : Departure Communication (Admissions) I discussed with the mother that a more appropriate way to evaluate her symptoms of several months duration will be to be seen by primary care. Impression Primary Impression: Candidal vaginitis Disposition: HOME, SELF-CARE Condition: Stable Departure-Patient Inst. Decision time for Depature: 12:46 Referrals: [facility] (PCP/Family) Primary Care Physician Patient Instructions: Yeast Infection (DC) Add. Discharge Instructions: 1. Return to ER for any concerns 2. Follow up with YOUR PRIMARY DOCTOR next week. All discharge instructions reviewed with patient and/or family. Voiced understanding. GENARO ALVARADO APRN Jun 08, 2019 11:49
[2019-06-08 12:03] LABS: BILIRUBIN,URINE NEGATIVE (NEGATIVE); CLARITY,URINE CLEAR; COLOR,URINE YELLOW; GLUCOSE, URINE (UA) NEGATIVE (NEGATIVE); KETONES,URINE NEGATIVE (NEGATIVE); LEUKOCYTE ESTERASE ,URINE NEGATIVE (NEGATIVE); NITRITE,URINE NEGATIVE (NEGATIVE); PH,URINE 6.5 (5-9); PROTEIN,URINE 1+ (NEGATIVE)
[2019-06-08 12:53] LABS: BACTERIA,URINE FEW /HPF; WBC,URINE 0-2 /HPF
[2019-06-08] MEDS ORDERED: FLUC150T PO (12:55)
[2019-06-08 13:00] VITALS: BP 138/77
== END 2019-06-08 13:00 | disposition home or self-care (01) ==
LOC: EDUNIT# 11:30 → ER 11:31
DX: B37.3 Candidiasis of vulva and vagina (principal); F31.9 Bipolar disorder, unspecified; F41.9 Anxiety disorder, unspecified; D64.9 Anemia, unspecified; Z87.891 Personal history of nicotine dependence; Z77.22 Contact with and (suspected) exposure to environmental tobacco smoke (acute) (chronic); Z85.828 Personal history of other malignant neoplasm of skin
CPT/HCPCS: 36415; 81000; 84703; 87070; 87205; 87210; 87491; 87591; 99284

== ENCOUNTER 2019-07-30 20:55 | Emergency (ER) | payer MEDICAID ==
[~2019-07-30] VITALS: Ht 167.7 cm; Wt 127.3 kg
[~2019-07-30 20:55] MED LIST changes: +FLUC150T PO
[2019-07-30] MEDS ORDERED: DEXAMETHASONE 10 MG/ML (DECADRON) 1 ML VIAL IM ONE (22:00)
--- NOTE | 2019-07-30 22:04 | ED EENT ---
History of Present Illness General Chief Complaint: Oral/Throat Problems Stated Complaint: DIFFICULTY TALKING Nursing Triage Note: Pt amb to triage with c/o hoarseness. Pt reports this morning she began to experience difficulty speaking. Pt reports recent hx bronchitis. Pt denies throat pain or discomfort. No resp. distress noted. Initial O2 sat 98% via RA. Source: patient Exam Limitations: no limitations History of Present Illness Date Seen by Provider: Jul 30, 2019 Time Seen by Provider: 22:01 Initial Comments Hoarseness all day today, alleviated by warm coffee in our waiting room. Recently treated for bronchitis with azithromycin Timing/Duration: gradual Severity: moderate Location: throat Associated Symptoms: denies symptoms Allergies and Home Medications Allergies Coded Allergies: No Known Drug Allergies (Unverified , 03/22/17) Home Medications Chlorhexidine Gluconate 473 Ml Mouthwash, 473 ML MM BID Gently swished around in the mouth twice a day. Prescribed by: GENARO ALVARADO on 12/15/18 8375 Ferrous Sulfate 325 Mg Tablet, 325 MG PO DAILY, (Reported) Fluconazole 150 Mg Tablet, 150 MG PO DAILY Prescribed by: GENARO ALVARADO on 06/08/19 1255 Patient Home Medication List Home Medication List Reviewed: Yes Review of Systems Review of Systems Constitutional: see HPI Eyes: No Symptoms Reported Ears: No Symptoms Reported Nose: no symptoms reported Mouth: no symptoms reported Throat: see HPI; denies muffled, denies painful swallowing, denies difficulty with fluids Respiratory: no symptoms reported Cardiovascular: no symptoms reported Musculoskeletal: no symptoms reported Skin: no symptoms reported Neurological: No Symptoms Reported Hematologic/Lymphatic: No Symptoms Reported Past Hhpxlcm-Iaiutu-Asfreg Hx Patient Social History Alcohol Use: Denies Use Recreational Drug Use: Yes (thc, crack, meth hx mo ago) Drug of Choice: THC, METH, CRACK COCAINE, OTHERS--PT DENIES IV USE Smoking Status: Current Everyday Smoker Type Used: Cigarettes Former Smoker, Quit: Jun 04, 2018 2nd Hand Smoke Exposure: Yes Recent Foreign Travel: No Contact w/Someone Who Travel: No Recent Infectious Disease Expo: No Recent Hopitalizations: No Immunizations Up To Date Tetanus Booster (TDap): Unknown PED Vaccines UTD: No Seasonal Allergies Seasonal Allergies: No Past Medical History Surgeries: Yes (SKIN LESION REMOVED FROM SCALP ; ) Section, Gallbladder Respiratory: No Currently Using CPAP: No Currently Using BIPAP: No Cardiac: No Neurological: No Female Reproductive Disorders: Denies Sexually Transmitted Disease: Yes (HERPES) HIV/AIDS: No Genitourinary: No Gastrointestinal: No Musculoskeletal: No Endocrine: No HEENT: No Loss of Vision: Denies Hearing Impairment: Denies Cancer: No Skin Did You Recieve Any Treatments: Yes What Type of Treatment Did You: Surgical Intervention Psychosocial: Yes (POLYSUBSTANCE ABUSE) Anxiety, Bipolar, Depression Integumentary: No Blood Disorders: Yes (ANEMIA) Adverse Reaction/Blood Tranf: No Family Medical History Patient reports no known family medical history. No Pertinent Family Hx Physical Exam Vital Signs Vital Signs - First Documented 07/30/19 21:19 Temp 36.8 Pulse 77 Resp 18 B/P (MAP) 137/81 (99) Pulse Ox 98 O2 Delivery Room Air Height, Weight, BMI Height: 5'6.00" Weight: 274lbs. oz. 124.697228iv; 45.00 BMI Method:Stated General Appearance: WD/WN, no apparent distress Eyes: bilateral eye normal inspection, bilateral eye PERRL, bilateral eye EOMI Ears: bilateral ear auricle normal, bilateral ear canal normal, bilateral ear TM normal Mouth/Throat: normal mouth inspection, pharynx normal Neck: non-tender, full range of motion Respiratory: lungs clear, no respiratory distress, no accessory muscle use Gastrointestinal: non tender, soft Neurologic/Psychiatric: alert, normal mood/affect, oriented x 3 Skin: normal color, warm/dry Progress/Results/Core Measures Results/Orders Vital Signs/I&O 07/30/19 21:19 Temp 36.8 Pulse 77 Resp 18 B/P (MAP) 137/81 (99) Pulse Ox 98 O2 Delivery Room Air Blood Pressure Mean: 99 POS Departure Impression Primary Impression: Laryngitis Disposition: 01 HOME, SELF-CARE Condition: Stable Departure-Patient Inst. Decision time for Depature: 22:03 Referrals: [facility] (PCP/Family) Primary Care Physician Patient Instructions: Laryngitis Add. Discharge Instructions: 1. REturn to ER for any emergencies 2.Follow up with your doctor next week All discharge instructions reviewed with patient and/or family. Voiced understanding. GENARO ALVARADO APRN Jul 30, 2019 22:04 POS
[2019-07-30 22:17] VITALS: BP 137/81
== END 2019-07-30 22:17 | disposition home or self-care (01) ==
LOC: EDUNIT# 20:55 → ER 20:56
DX: J04.0 Acute laryngitis (principal); F31.9 Bipolar disorder, unspecified; F41.9 Anxiety disorder, unspecified; D64.9 Anemia, unspecified; F17.210 Nicotine dependence, cigarettes, uncomplicated; Z85.828 Personal history of other malignant neoplasm of skin
CPT/HCPCS: 96372; 99284

== ENCOUNTER 2019-10-12 16:15 | Emergency (ER) | payer MEDICAID ==
[~2019-10-12] VITALS: Ht 167 cm; Wt 124.9 kg
[~2019-10-12 16:15] MED LIST changes: -MECL-106 PO; +MECL-149 PO
[2019-10-12 16:20] VITALS: BP 139/96
[2019-10-12] MEDS ORDERED: CITA10TA7 (16:30)
[2019-10-12 16:39] LABS: BILIRUBIN,URINE NEGATIVE (NEGATIVE); CLARITY,URINE CLEAR; COLOR,URINE YELLOW; GLUCOSE, URINE (UA) NEGATIVE (NEGATIVE); KETONES,URINE NEGATIVE (NEGATIVE); LEUKOCYTE ESTERASE ,URINE NEGATIVE (NEGATIVE); NITRITE,URINE NEGATIVE (NEGATIVE); PROTEIN,URINE NEGATIVE (NEGATIVE)
[2019-10-12] MEDS ORDERED: METH-313 PO (16:39)
--- NOTE | 2019-10-12 16:39 | ED Back Pain ---
General Chief Complaint: Back Problems Stated Complaint: BACK PAIN Nursing Triage Note: BACK PAIN X5 DAYS. NO INJURY. ON PERIOD. HAS NOT TAKEN ANYTHING FOR THE PAIN. Nursing Sepsis Screen: No Definite Risk Source of Information: Patient Exam Limitations: No Limitations History of Present Illness Date Seen by Provider: Oct 12, 2019 Time Seen by Provider: 16:36 Initial Comments To ER with reports of midline low back pain 5 days. No known injury, no urinary symptoms such as frequency or burning. No dysuria. No nausea or vomiting. No preceding injury. Pain radiates to the left buttock. Location: Lumbar Spine Timing/Duration: 1 Week Severity: Moderate Pain/Injury Location: None Associated Symptoms: lower back pain Allergies and Home Medications Allergies Coded Allergies: No Known Drug Allergies (Unverified , 03/22/17) Patient Home Medication List Home Medication List Reviewed: Yes Review of Systems Constitutional: see HPI EENTM: see HPI Respiratory: no symptoms reported Cardiovascular: no symptoms reported Genitourinary: no symptoms reported Musculoskeletal: see HPI Skin: no symptoms reported Psychiatric/Neurological: No Symptoms Reported Past Rlfrltc-Ldvaqy-Fdpquw Hx Patient Social History Alcohol Use: Denies Use Recreational Drug Use: Yes Drug of Choice: POT Smoking Status: Current Everyday Smoker Type Used: Cigarettes Former Smoker, Quit: Jun 04, 2018 2nd Hand Smoke Exposure: Yes Recent Foreign Travel: No Contact w/Someone Who Travel: No Recent Infectious Disease Expo: No Recent Hopitalizations: No Immunizations Up To Date Tetanus Booster (TDap): Unknown PED Vaccines UTD: No Seasonal Allergies Seasonal Allergies: No Past Medical History Surgeries: Yes (SKIN LESION REMOVED FROM SCALP ; ) Section, Gallbladder Respiratory: No Currently Using CPAP: No Currently Using BIPAP: No Cardiac: No Neurological: No Female Reproductive Disorders: Denies Sexually Transmitted Disease: Yes (HERPES) HIV/AIDS: No Genitourinary: No Gastrointestinal: No Musculoskeletal: No Endocrine: No HEENT: No Loss of Vision: Denies Hearing Impairment: Denies Cancer: No Skin Did You Recieve Any Treatments: Yes What Type of Treatment Did You: Surgical Intervention Psychosocial: Yes (POLYSUBSTANCE ABUSE) Anxiety, Bipolar, Depression Integumentary: No Blood Disorders: Yes (ANEMIA) Adverse Reaction/Blood Tranf: No Family Medical History Patient reports no known family medical history. No Pertinent Family Hx Physical Exam Vital Signs Vital Signs - First Documented 10/12/19 16:20 Temp 36.5 Pulse 77 Resp 16 B/P (MAP) 139/96 (110) Pulse Ox 98 O2 Delivery Room Air Capillary Refill : Less Than 3 Seconds Height, Weight, BMI Height: 5'6.00" Weight: 274lbs. oz. 124.253788gk; 44.00 BMI Method:Stated General Appearance: No Apparent Distress, WD/WN Neck: Full Range of Motion, Normal Inspection Respiratory: No Accessory Muscle Use, No Respiratory Distress Gastrointestinal: Normal Bowel Sounds, Non Tender, Soft Back: Normal Inspection Extremity: Normal Capillary Refill, Normal Inspection Neurologic/Psychiatric: Alert, Oriented x3 Skin: Normal Color, Warm/Dry Progress/Results/Core Measures Results/Orders Lab Results Laboratory Tests Test 10/12/19 16:30 Range/Units My Orders Orders - GENARO ALVARADO APRN Ua Culture If Indicated (10/12/19 16:32) Urine Bedside (10/12/19 16:32) Ketorolac Injection (Toradol Injection) (10/12/19 16:45) Orphenadrine Injection (Norflex Injectio (10/12/19 16:45) Vital Signs/I&O 10/12/19 16:20 Temp 36.5 Pulse 77 Resp 16 B/P (MAP) 139/96 (110) Pulse Ox 98 O2 Delivery Room Air Blood Pressure Mean: 110 Departure Impression Primary Impression: Acute low back pain Qualified Codes: M54.5 - Low back pain Disposition: 01 HOME, SELF-CARE Condition: Stable Departure-Patient Inst. Decision time for Depature: 16:38 Referrals: [facility] (PCP/Family) Primary Care Physician Patient Instructions: Low Back Pain (DC) Add. Discharge Instructions: 1. Return to ER for any concerns 2. Follow-up with your doctor next week. All discharge instructions reviewed with patient and/or family. Voiced understanding. Scripts Methocarbamol (Robaxin-750) 750 Mg Tablet 750 MG PO Q4H PRN for PAIN-SEVERE (8-10), #30 TAB Prov: GENARO ALVARADO APRN 10/12/19 GENARO ALVARADO APRN Oct 12, 2019 16:39
[2019-10-12] MEDS ORDERED: ORPHENADRINE 60 MG/2 ML (NORFLEX) AMP IM ONE (16:45)
[2019-10-12] MEDS ORDERED: KETOROLAC 60 MG/2 ML VIAL IM ONE (16:45)
[2019-10-12 16:51] LABS: BACTERIA,URINE TRACE /HPF; RBC,URINE RARE /HPF; SQUAMOUS EPITHELIAL CELL,UR 0-2 /HPF
== END 2019-10-12 16:56 | disposition home or self-care (01) ==
LOC: EDUNIT# 16:15 → ER 16:16
DX: M54.5 Low back pain (principal); F17.210 Nicotine dependence, cigarettes, uncomplicated; Z85.828 Personal history of other malignant neoplasm of skin
CPT/HCPCS: 81000; 84703; 96372; 99284

== ENCOUNTER 2019-10-26 16:59 | Emergency (ER) | payer MEDICAID ==
[~2019-10-26] VITALS: Ht 167.7 cm; Wt 127.0 kg
[~2019-10-26 16:59] MED LIST changes: +CITA10TA7; +METH-313 PO
--- NOTE | 2019-10-26 17:09 | NUR ---
PT TO FT 1 AT THIS TIME.
--- NOTE | 2019-10-26 17:12 | ED Lower Extremity ---
General Chief Complaint: Lower Extremity Stated Complaint: R ANKLE PAIN Nursing Triage Note: PT TO ED W/ C/O RT ANKLE PAIN ONSET AFTER FALLING DOWN STAIRS AT HOME. Nursing Sepsis Screen: No Definite Risk Source: patient Exam Limitations: no limitations History of Present Illness Date Seen by Provider: Oct 26, 2019 Time Seen by Provider: 17:10 Initial Comments To ER with right ankle pain medially and laterally after falling down stairs at home at about 6:30 this morning. She has been able to bear weight on it but not without quite a bit of pain. Onset: just prior to arrival Severity: moderate Pain/Injury Location: right ankle Method of Injury: twisted Modifying Factors: Worse With Movement Allergies and Home Medications Allergies Coded Allergies: No Known Drug Allergies (Unverified , 03/22/17) Home Medications Methocarbamol 750 Mg Tablet, 750 MG PO Q4H PRN for PAIN-SEVERE (8-10) Prescribed by: GENARO ALVARADO on 10/12/19 9143 Patient Home Medication List Home Medication List Reviewed: Yes Review of Systems Constitutional: see HPI EENTM: see HPI Respiratory: no symptoms reported Cardiovascular: no symptoms reported Genitourinary: no symptoms reported Musculoskeletal: see HPI Skin: no symptoms reported Psychiatric/Neurological: No Symptoms Reported Past Dwjdsgj-Alaijz-Vrentr Hx Patient Social History Alcohol Use: Rarely Uses Recreational Drug Use: Yes Drug of Choice: MARIJUANA Smoking Status: Current Everyday Smoker Type Used: Cigarettes Former Smoker, Quit: Jun 04, 2018 2nd Hand Smoke Exposure: Yes Recent Foreign Travel: No Contact w/Someone Who Travel: No Recent Infectious Disease Expo: No Recent Hopitalizations: No Physical Abuse: No Sexual Abuse: No Mistreated: No Fear: No Immunizations Up To Date Tetanus Booster (TDap): Unknown PED Vaccines UTD: No Seasonal Allergies Seasonal Allergies: No Past Medical History Surgeries: Yes (SKIN LESION REMOVED FROM SCALP ; ) Section, Gallbladder Respiratory: No Currently Using CPAP: No Currently Using BIPAP: No Cardiac: No Neurological: No Female Reproductive Disorders: Denies Sexually Transmitted Disease: Yes (HERPES) HIV/AIDS: No Genitourinary: No Gastrointestinal: No Musculoskeletal: No Endocrine: No HEENT: No Loss of Vision: Denies Hearing Impairment: Denies Cancer: No Skin Did You Recieve Any Treatments: Yes What Type of Treatment Did You: Surgical Intervention Psychosocial: Yes (POLYSUBSTANCE ABUSE) Anxiety, Bipolar, Depression Integumentary: No Blood Disorders: Yes (ANEMIA) Adverse Reaction/Blood Tranf: No Family Medical History Patient reports no known family medical history. No Pertinent Family Hx Physical Exam Vital Signs Vital Signs - First Documented 10/26/19 17:04 Temp 36.3 Pulse 84 Resp 20 B/P (MAP) 150/84 (106) Pulse Ox 96 O2 Delivery Room Air Capillary Refill : Less Than 3 Seconds Height, Weight, BMI Height: 5'6.00" Weight: 274lbs. oz. 124.776719sg; 45.00 BMI Method:Stated General Appearance: WD/WN, no apparent distress HEENT: PERRL/EOMI, normal ENT inspection Respiratory: no respiratory distress, no accessory muscle use Hips: bilateral hip non-tender, bilateral hip normal inspection, bilateral hip normal range of motion Legs: bilateral leg non-tender, bilateral leg normal inspection, bilateral leg normal range of motion Knees: bilateral knee non-tender, bilateral knee normal inspection, bilateral knee normal range of motion Ankles: bilateral ankle normal range of motion; right ankle other (questionable lateral swelling without ecchymosis, no medial swelling. Strong dorsalis pedis pulse.) Neurologic/Psychiatric: alert, normal mood/affect, oriented x 3 Skin: normal color, warm/dry Progress/Results/Core Measures Results/Orders My Orders Orders - GENARO ALVARADO APRN Ankle, Right, 3 Views (10/26/19 17:04) Vital Signs/I&O 10/26/19 17:04 Temp 36.3 Pulse 84 Resp 20 B/P (MAP) 150/84 (106) Pulse Ox 96 O2 Delivery Room Air Blood Pressure Mean: 106 Departure Impression Primary Impression: Sprain and strain of ankle Disposition: 01 HOME, SELF-CARE Condition: Stable Departure-Patient Inst. Decision time for Depature: 17:11 Referrals: [facility] (PCP/Family) Primary Care Physician Patient Instructions: Muscle Strain Add. Discharge Instructions: Griffin wrap to the right ankle for the next 2-3 days, elevate as much as possible. Rest and stay off of it as much as possible. Tylenol or ibuprofen or naproxen for pain control. Ice pack would also be helpful applied to the ankle or 30 minutes a couple of times a day. All discharge instructions reviewed with patient and/or family. Voiced understanding. Scripts Naproxen (Naprosyn) 500 Mg Tablet 500 MG PO BID PRN for PAIN-MODERATE (5-7), #30 TAB 0 Refills Prov: GENARO ALVARADO APRN 10/26/19 GENARO ALVARADO APRN Oct 26, 2019 17:12
[2019-10-26] MEDS ORDERED: NAPR-1071 PO (17:22)
--- NOTE | 2019-10-26 17:22 | Diagnostic Imaging Report ---
INDICATION: Trauma, right ankle pain. EXAMINATION: Three views of the right ankle were obtained. FINDINGS: No fracture, dislocation or other acute abnormality. IMPRESSION: No acute abnormality is seen. Dictated by: Dictated on workstation # [id number]
[2019-10-26 17:26] VITALS: BP 0/0
--- NOTE | 2019-10-26 17:26 | NUR ---
PT DISCHARGED TO HOME [facility] ET INSTR. PT WAS ADVISED TO WEAR MORE SUPPORTIVE SHOES OTHER THAN FLIP FLOPS FOR COMFORT. PT REQUESTED CRUTCHES AT THIS TIME. PT MADE AWARE THAT [facility] WAS CALLED ET NO CRUTCHES WERE AVAILABLE IN THE HOSPITAL BUT [facility] COULD BE CALLED ET CRUTCHES WOULD BE BROUGHT TO THE HOSPITAL BUT IT COULD BE A WAIT OF UP TO 30 MINUTES. PT STATED SHE WOULD JUST CONTACT HER DR ON MONDAY ET GET THEM THEN. NO OTHER QUESTIONS VOICED.
== END 2019-10-26 17:26 | disposition home or self-care (01) ==
LOC: EDUNIT# 16:59 → ER 17:01
DX: S93.401A Sprain of unspecified ligament of right ankle, initial encounter (principal); S96.911A Strain of unspecified muscle and tendon at ankle and foot level, right foot, initial encounter; F17.210 Nicotine dependence, cigarettes, uncomplicated; Z85.828 Personal history of other malignant neoplasm of skin; W10.9XXA Fall (on) (from) unspecified stairs and steps, initial encounter; X50.1XXA Overexertion from prolonged static or awkward postures, initial encounter; Y92.009 Unspecified place in unspecified non-institutional (private) residence as the place of occurrence of the external cause
CPT/HCPCS: 73610

== ENCOUNTER 2020-01-03 12:18 | Emergency (ER) | payer MEDICAID ==
[~2020-01-03] VITALS: Ht 172 cm; Wt 113.0 kg
[~2020-01-03 12:18] MED LIST changes: +NAPR-1071 PO
--- NOTE | 2020-01-03 12:22 | NUR ---
BROUGHT PT BACK TO THE ROOM TO ASSESS FOR COVID BEFORE I WENT INTO ROOM.
--- NOTE | 2020-01-03 12:43 | NUR ---
OUT OF ROOM ET COVID SWAB SENT TO LAB. STATES HE IS DISCHARGING THE PT AND THERE IS NO REASON FOR MYSELF TO GO INTO THE ROOM.
[2020-01-03 12:44] VITALS: BP 118/89
--- NOTE | 2020-01-03 12:50 | ED General ---
General Chief Complaint: Cough/Cold/Flu Symptoms Stated Complaint: RUNNY NOSE,COUGH Nursing Triage Note: PT STATES HER AUNT WAS TESTED FOR COVID YESTERDDDAY AND DOES NOT HAVE THE RESULTS YET. PT WITH COMPLAINTS OF COUGH, RUNNY NOSE, AND SORETHROAT. Nursing Sepsis Screen: No Definite Risk Source of Information: Patient Exam Limitations: No Limitations History of Present Illness Date Seen by Provider: January 03, 2020 Time Seen by Provider: 12:35 Initial Comments This 29-year-old woman presents to the emergency room with complaints of a couple days of laryngitis, mild sore throat, mild cough, occasional shortness of breath, and rhinorrhea. She is afebrile. She admits to smoking methamphetamines and snorting cocaine a couple of days ago. She reports a similar episode about a month ago. She reports being treated with a steroid injection at that time that helped. She reports exposure to her aunt who was tested for coronavirus yesterday. LMP was approximately a month ago. Allergies and Home Medications Allergies Coded Allergies: No Known Drug Allergies (Unverified , 03/22/17) Home Medications Fluticasone Propionate 9.9 Ml [place].susp, 2 SPRAY NSEACH DAILY 2 SPRAYS PER NOSTRIL DAILY X 2 DAYS THEN 1 SPRAY DAILY Prescribed by: JUAN CALVILLO on 01/04/20 0923 Methocarbamol 750 Mg Tablet, 750 MG PO Q4H PRN for PAIN-SEVERE (8-10) Prescribed by: GENARO ALVARADO on 10/12/19 1639 Naproxen 500 Mg Tablet, 500 MG PO BID PRN for PAIN-MODERATE (5-7) Prescribed by: GENARO ALVARADO on 10/26/19 1722 Patient Home Medication List Home Medication List Reviewed: Yes Review of Systems Review of Systems Constitutional: no symptoms reported EENTM: see HPI Respiratory: see HPI Cardiovascular: no symptoms reported Gastrointestinal: no symptoms reported Genitourinary: no symptoms reported : No (unknown) Musculoskeletal: no symptoms reported Skin: no symptoms reported Psychiatric/Neurological: No Symptoms Reported Hematologic/Lymphatic: No Symptoms Reported Immunological/Allergic: no symptoms reported Past Kztmtny-Mrlxbx-Futqwd Hx Past Med/Social Hx: Reviewed Nursing Past Med/Soc Hx Patient Social History Alcohol Use: Denies Use Recreational Drug Use: Yes (thc, crack, meth ) Drug of Choice: MARIJUANA Type Used: Cigarettes Former Smoker, Quit: Jun 04, 2018 2nd Hand Smoke Exposure: Yes Recent Foreign Travel: No Contact w/Someone Who Travel: No Recent Infectious Disease Expo: No Recent Hopitalizations: No Immunizations Up To Date Tetanus Booster (TDap): Unknown PED Vaccines UTD: No Seasonal Allergies Seasonal Allergies: No Past Medical History Surgeries: Yes (SKIN LESION REMOVED FROM SCALP ; ) Section, Gallbladder Respiratory: No Currently Using CPAP: No Currently Using BIPAP: No Cardiac: No Neurological: Yes Vertigo Female Reproductive Disorders: Denies Sexually Transmitted Disease: Yes (HERPES) HIV/AIDS: No Genitourinary: No Gastrointestinal: No Musculoskeletal: No Endocrine: No HEENT: No Loss of Vision: Denies Hearing Impairment: Denies Cancer: No Skin Did You Recieve Any Treatments: Yes What Type of Treatment Did You: Surgical Intervention Psychosocial: Yes (POLYSUBSTANCE ABUSE) Anxiety, Bipolar, Depression Integumentary: No Blood Disorders: Yes (ANEMIA) Adverse Reaction/Blood Tranf: No Family Medical History Patient reports no known family medical history. No Pertinent Family Hx Physical Exam Vital Signs Vital Signs - First Documented 01/03/20 12:44 Temp 36.4 Pulse 117 Resp 18 B/P (MAP) 118/89 (99) Pulse Ox 96 O2 Delivery Room Air Capillary Refill : Less Than 3 Seconds Height, Weight, BMI Height: 5'6.00" Weight: 274lbs. oz. 124.174306dl; 38.00 BMI Method:Stated General Appearance: No Apparent Distress, WD/WN, Obese HEENT: PERRL/EOMI, TMs Normal, Normal ENT Inspection, Pharyngeal Erythema, Other (laryngitis noted when patient speaks) Neck: Normal Inspection Respiratory: Lungs Clear, Normal Breath Sounds, No Accessory Muscle Use, No Respiratory Distress Cardiovascular: No Edema, No Murmur, Tachycardia Extremity: Normal Inspection, No Pedal Edema Neurologic/Psychiatric: Alert, Oriented x3, No Motor/Sensory Deficits, Normal Mood/Affect, investor relations specialist II-XII Norm as Tested Skin: Normal Color, Warm/Dry Progress/Results/Core Measures Suspected Sepsis Recent Fever Within 48 Hours: No Infection Criteria Present: Suspected New Infection New/Unexplained Altered Menta: No Sepsis Screen: No Definite Risk SIRS Temperature: Pulse: 105 Respiratory Rate: 18 Blood Pressure 118 /89 Mean: 99 Results/Orders Lab Results Laboratory Tests Test 01/03/20 12:40 Range/Units Coronavirus (COVID-19)(PCR) Negative Negative Group A Streptococcus Screen NEGATIVE NEGATIVE Micro Results Microbiology 01/03/20 Throat Culture - Preliminary, Resulted No Beta Strep isolated 01/03/20 Influenza Types A,B Antigen (EVER) - Final, Complete My Orders Orders - JUAN RAMSAY MD Rapid Strep A Screen (01/03/20 12:46) Influenza A And B Antigens (01/03/20 12:46) Coronavirus Sars-Cov-2 So 2019 (01/03/20 12:46) Vital Signs/I&O Capillary Refill : Less Than 3 Seconds Blood Pressure Mean: 99 Progress Note : Progress Note Strep and influenza screens were negative. Symptoms are likely due to, at least in part, inhalation of methamphetamines and cocaine. Patient was strongly advised to discontinue these substances and seek help from a treatment program such as the program available at [facility]. Nasal steroid spray was recommended for postnasal drainage. Departure Impression Primary Impression: Laryngitis Additional Impressions: Rhinorrhea Polysubstance abuse Disposition: HOME, SELF-CARE Condition: Stable Departure-Patient Inst. Decision time for Depature: 12:48 Referrals: [facility] (PCP/Family) Primary Care Physician Patient Instructions: Laryngitis Add. Discharge Instructions: Home isolate until the results of your juarez virus testing are known. Contact the [facility] at [phone] or contact the [facility] at [phone] for assistance with substance abuse treatment. Results of the tests obtained in the ER will be called to you later today. Contact your primary care provider with any further problems or concerns. All discharge instructions reviewed with patient and/or family. Voiced understanding. Scripts Fluticasone Propionate (Flonase Allergy Relief) 9.9 Ml [place].susp 2 SPRAY NSEACH DAILY, #1 EACH 2 SPRAYS PER NOSTRIL DAILY X 2 DAYS THEN 1 SPRAY DAILY Prov: JUAN RAMSAY MD 01/04/20 Copy Copies To 1: ROBBIE COLMENARES JOSHUA T MD January 03, 2020 12:50
--- OUTSIDE RECORDS SUMMARY | 2020-01-03 14:51 | XMS REPORT | Encounter Summary ---
Author Author [facility] Organization [facility] Address Unknown Phone Unavailable Care Team Providers Care Fiberglass Auto Body Repairer Name Role Phone PCP Unavailable Encounter Details Care Team Description Date Type Department Jay Jensen MD [address] [facility] [address] [place], [place] [id number] [facility] [address] [place] [address] Social History Date Tobacco Use Types Packs/Day Years Used Never Assessed Sex Assigned at Date Recorded Not on file Industry Job Start Date Occupation Not on file Not on file Not on file Travel End Travel History Travel Start No recent travel history available. documented as of this encounter Plan of Treatment Not on filedocumented as of this encounter Procedures Comments Procedure Name Priority Date/Time Associated Diag nosis 17-HYDROXY PROGESTERONE Routine 05/08/2008 7:00 AM CDT THYROID STIMULATING Routine 05/08/2008 HORMONE 7:00 AM CDT TESTOSTERONE TOTAL & FREE Routine 05/08/2008 7:00 AM CDT T4 FREE Routine 05/08/2008 7:00 AM CDT PROLACTIN Routine 05/08/2008 7:00 AM CDT LUTEINIZING HORMONE Routine 05/08/2008 7:00 AM CDT FSH Routine 05/08/2008 7:00 AM CDT DHEA-SO4 Routine 05/08/2008 7:00 AM CDT documented in this encounter Results * FSH (05/08/2008 7:00 AM CDT) FSH 5 IU/L SUNQUEST FSH REFERENCE FOLLICULAR: 3 - 10 IU/L HALEY Victor RA Comment: FOLLICULAR: 3 - 10 IU/L MIDCYCLE: 3 - 33 IU/L LUTEAL: 2 - 9 IU/L POSTMENOPAUSAL: 23 - 116 IU/L Specimen Performing Organization Address [facility] one Number SLRL [id number] [place] [phone] SUNQUEST * Prolactin (05/08/2008 7:00 AM CDT) Prolactin 14 3 - 19 NG/ML SUNQUEST Specimen Performing Organization [facility] one Number SLRL [id number] [place] [address] SUNQUEST * T4 Free (05/08/2008 7:00 AM CDT) T4 Free 1.0 0.6 - 1.6 NG/DL SUNQUEST Specimen Performing Organization Address [facility] one Number [address]RL [id number] [place] [address] SUNQUEST * Thyroid Stimulating Hormone (05/08/2008 7:00 AM CDT) Thyroid 2.34 0.45 - 4.50 UIU/ML SUNQUEST Stimulating Hormone Specimen Performing Organization Address [facility] one Number SLRL [id number] [place] [address] SUNQUEST * Luteinizing Hormone (05/08/2008 7:00 AM CDT) LH 10 IU/L SUNQUEST LH FOLLICULAR PHASE 2 - 13 IU/L ZAY ST INTERPRETATIO Comment: FOLLICULAR PHASE 2 - 13 IU/L MIDCYCLE PEAK 9 - 76 IU/L LUTEAL PHASE 1 - 17 IU/L POSTMENOPAUSAL 16 - 54 IU/L Specimen Performing Organization Address [facility] one Number [address]RL [id number] [place] [address] SUNQUEST * DHEA-SO4 (05/08/2008 7:00 AM CDT) DHEA-SO4 403 (H) 65 - 380 UG/DL SUNQUEST Specimen Performing Organization Address [facility]/Zipcode Ph one Number SLRL [id number] [place], [place] [address] SUNQUEST * Testosterone Total & Free (05/08/2008 7:00 AM CDT) Testosterone, 4.80 (H) 0.29 - 3.18 PG/ML SUNQUEST Free Testosterone % 0.37 % SUNQUEST Free Testosterone 131 (H) 14 - 76 NG/DL SUNQUEST Specimen Performing Organization Address [facility] one Number [address]RL [id number] [place], [place] [address] SUNQUEST * 17-Hydroxy Progesterone (05/08/2008 7:00 AM CDT) 17-Hydroxyproge 246 NG/DL SUNQUEST sterone 17-OH Reference PREPUBERTAL: <100 SUNQUEST Range Comment: PREPUBERTAL: <100 FOLLICULAR: < 80 LUTEAL: <285 POSTMENOPAUSAL < 51 Specimen Performing Organization Address [facility]/[place] Ph one Number [address]RL [id number] [place], [place] [address] SUNQUEST documented in this encounter Visit Diagnoses Not on filedocumented in this encounter
--- OUTSIDE RECORDS SUMMARY | 2020-01-03 14:51 | XMS REPORT | Encounter Summary ---
Author Author [facility] Organization [facility] Address Unknown Phone Unavailable Care Team Providers Care Sandwich Artist Name Role Phone PCP Unavailable Encounter Details Care Team Description Date Type Department Flaca Ovalle MD [address] [place] [address] 09/20/2008 [facility] En[facility] [address] [place], [place] [id number] Social History Date Tobacco Use Types Packs/Day [...] Procedure Name Priority Date/Time Associated Diag nosis DRUG PANEL 7 + ALCOHOL Routine 09/17/2008 11:38 PM OUTSIDE PLANT ENGINEER documented in this encounter Results * Drug Panel 7 + Alcohol (09/17/2008 11:38 PM OUTSIDE PLANT ENGINEER) Amphetamines NotDetec NotDetec SUNQUEST Urine Barbiturates NotDetec NotDetec SUNQUEST Urine Benzodiazepines NotDetec NotDetec SUNQUEST Urine Cocaine Urine NotDetec NotDetec SUNQUEST Opiates Urine NotDetec NotDetec SUNQUEST Phencyclidine NotDetec NotDetec SUNQUEST Urine Tetrahydrocanna NotDetec NotDetec SUNQUEST binol Urine Alcohol Urine NotDetec NotDetec SUNQUEST Tape Intact SUNQUEST Specimen Performing Organization Address City/State/Zipcode Ph one Number SLRL [id number] [place], [place] [address] SUNQUEST documented in this encounter Visit Diagnoses Not on filedocumented in this encounter
--- OUTSIDE RECORDS SUMMARY | 2020-01-03 14:51 | XMS REPORT | Encounter Summary ---
Author Author [facility] Organization [facility] Address Unknown Phone Unavailable Care Team Providers Care Vessel Liner Name Role Phone PCP Unavailable Encounter Details Care Team Description Date Type Department Flaca Ovalle MD [address] [place] [address] 09/20/2008 [facility] Encounter [address] [place], [place] [id number] Social History Date Tobacco Use Types Packs/Day [...] nosis DRUG PANEL 7 + ALCOHOL Routine 09/12/2008 8:30 PM EUCLID OPERATOR documented in this encounter Results * Drug Panel 7 + Alcohol (09/12/2008 8:30 PM EUCLID OPERATOR) Amphetamines NotDetec NotDetec SUNQUEST Urine Barbiturates NotDetec NotDetec SUNQUEST Urine Benzodiazepines NotDetec NotDetec SUNQUEST Urine Cocaine Urine NotDetec NotDetec SUNQUEST Opiates Urine NotDetec NotDetec SUNQUEST Phencyclidine NotDetec NotDetec SUNQUEST Urine Tetrahydrocanna NotDetec NotDetec SUNQUEST binol Urine Alcohol Urine NotDetec NotDetec SUNQUEST Tape Intact SUNQUEST Specimen Performing Organization Address City/State/Zipcode Ph one Number [id number] [place], [place] [address] SUNQUEST documented in this encounter Visit Diagnoses Not on filedocumented in this encounter
--- OUTSIDE RECORDS SUMMARY | 2020-01-03 14:51 | XMS REPORT | Encounter Summary ---
Author Author [facility] Organization [facility] Address Unknown Phone Unavailable Care Team Providers Care Bacon Stringer Name Role Phone PCP Unavailable Encounter Details Care Team Description Date Type Department Jay Jensen MD [address] [facility] [address] [place], [place] [id number] [facility] [address] [place] [address] Social History Date Tobacco Use Types Packs/Day [...] Procedure Name Priority Date/Time Associated Diag nosis ADL INTERPRETATION Routine 05/02/2008 7:00 AM CDT DIFFERENTIAL Routine 05/02/2008 7:00 AM CDT RAPID PLASMA REAGIN Routine 05/02/2008 7:00 AM CDT LIPID PANEL Routine 05/02/2008 7:00 AM CDT INSULIN Routine 05/02/2008 7:00 AM CDT HIV 1/2 ANTIBODY Routine 05/02/2008 7:00 AM CDT HCG QUANTITATIVE Routine 05/02/2008 7:00 AM CDT COMPREHENSIVE METABOLIC Routine 05/02/2008 PANEL 7:00 AM CDT CBC AND DIFF (MANUAL DIFF Routine 05/02/2008 IF NECESSARY) 7:00 AM CDT documented in this encounter Results * DIFFERENTIAL (05/02/2008 7:00 AM CDT) % Neutrophils 47 45 - 78 % SUNQUEST %Lymphocytes 44 15 - 47 % SUNQUEST %Monocytes 7 0 - 12 % SUNQUEST %Eosinophils 2 0 - 7 % SUNQUEST %Basophils 0 0 - 2 % SUNQUEST # Granulocytes 3.4 1.7 - 6.8 TH/UL SUNQUEST # Lymphocytes 3.2 1.0 - 3.3 TH/UL SUNQUEST # Monocytes 0.5 0.2 - 0.9 TH/UL SUNQUEST # Eosinophils 0.1 0.0 - 0.4 TH/UL SUNQUEST # Basophils 0.0 0.0 - 0.2 TH/UL SUNQUEST Specimen Performing Organization Address [facility] one Number [id number] [place], [place] [address] SUNQUEST * CBC and Diff (manual diff if necessary) (05/02/2008 7:00 AM CDT) WBC 7.3 4.0 - 11.0 TH/UL SUNQUEST RBC 4.63 4.00 - 5.00 MIL/UL SUNQUEST Hemoglobin 14.5 12.0 - 15.0 G/DL SUNQUEST Hematocrit 42 36 - 45 % SUNQUEST MCV 91 80 - 99 FL SUNQUEST MCH 31 27 - 34 PG SUNQUEST MCHC 35 32 - 36 % SUNQUEST RDW 12.9 <14.5 % SUNQUEST Platelet Count 286 140 - 400 TH/UL SUNQUEST MPV 11.4 9.4 - 12.3 FL SUNQUEST Specimen Performing Organization Address [facility] one Number [id number] [place], [place] [address] SUNQUEST * HCG Quantitative (05/02/2008 7:00 AM CDT) HCG Serum QT <=1 MIU/ML SUNQUEST Comment: MALES: 0-3 mIU/mL FEMALES: PREMENOPAUSAL: 0-3 mIU/mL POSTMENOPAUSAL: 0-8 mIU/mL : >24 mIU/mL Specimen Performing Organization Address [facility] one Number [id number] [place], [place] [address] SUNQUEST * Insulin (05/02/2008 7:00 AM CDT) Insulin 17.0 2.0 - 23.0 UIU/ML SUNQUEST Specimen Performing Organization Address [facility] Ph one Number RL [id number] [place] [address] SUNQUEST * Comprehensive Metabolic Panel (05/02/2008 7:00 AM CDT) Albumin 3.9 3.5 - 5.0 G/DL SUNQUEST Aspartate 22 15 - 41 IU/L SUNQUEST Aminotransferas e Bilirubin Total 0.7 0.3 - 1.4 MG/DL SUNQUEST Protein Total 7.4 6.0 - 8.0 G/DL SUNQUEST Serum Calcium 9.4 8.8 - 10.5 MG/DL SUNQUEST Creatinine 0.8 0.4 - 1.1 MG/DL SUNQUEST Comment: Change to IDMS-traceable creatinine assay effective 04/01/08. Reference range changed 04/01/08. Glucose 38 (AA)Comment: Glucose is 65 - 100 MG/DL SUN QUEST falsely decreased due to prolonged specimen storage. Alkaline 79 (L) 100 - 500 IU/L SUNQUEST Phosphatase Sodium 142 134 - 144 MEQ/L SUNQUEST Potassium 3.9 3.5 - 5.1 MEQ/L SUNQUEST Chloride 106 101 - 111 MEQ/L SUNQUEST Carbon Dioxide 25 23 - 32 MEQ/L SUNQUEST Blood Urea 15 8 - 26 MG/DL SUNQUEST Nitrogen Anion Gap 11 3 - 15 SUNQUEST Alanine 24 14 - 63 IU/L SUNQUEST Aminotransferas e Specimen Performing Organization Address [facility] one Number [id number] [place], [place] [address] SUNQUEST * Lipid Panel (05/02/2008 7:00 AM CDT) Cholesterol 210 (H) <200 MG/DL SUNQUEST Triglycerides 284 (H) <150 MG/DL SUNQUEST HDL Cholesterol 22 (L) >41 MG/DL SUNQUEST LDL Cholesterol 131 (H) 0 - 99 MG/DL SUNQUEST Cholesterol/HDL 9.5 (H) <4.5 SUNQUEST Ratio LDL NOT REPORTED SUNQUEST INTERPRETATION Specimen Performing Organization Address [facility] Ph one Number [id number] [place], [place] [address] SUNQUEST * Adl Interpretation (05/02/2008 7:00 AM CDT) ADL This pattern is called SUNQUEST INTERPRETATION Atherogen Comment: This pattern is called Atherogenic Dyslipidemia (adl). It is comprised of borderline high LDL-C (>130 mg/dl) and triglycerides (>150 mg/dl), and borderline low HDL-C (<40 mg/dl for men and <50 mg/dl for women) together in the same patient. Specimen Performing Organization Address [facility] Ph one Number [id number] [place], [place] [address] SUNQUEST * HIV 1/2 Antibody (05/02/2008 7:00 AM CDT) HIV 1/2 NONREACT NONREACT SUNQUEST Antibody Specimen Performing Organization Address [facility] Ph one Number [id number] [place], [place] [address] SUNQUEST * Rapid Plasma Reagin (05/02/2008 7:00 AM CDT) RPR NONREACT NONREACT SUNQUEST Specimen Performing Organization Address [facility] Ph one Number [address]RL [id number] [place], [place] [address] SUNQUEST documented in this encounter Visit Diagnoses Not on filedocumented in this encounter
--- OUTSIDE RECORDS SUMMARY | 2020-01-03 14:51 | XMS REPORT | Encounter Summary ---
Author Author [facility] Address Unknown Phone Unavailable Care Team Providers Care Staff Writer Name Role Phone PCP Unavailable Encounter Details Care Team Description Date Type Department Flaca Ovalle MD [address] [place], [place] [phone] 09/12/2008 [facility] Encounter [address] [place], [place] [phone] Social History Date Tobacco Use Types Packs/Day [...] nosis DRUG PANEL 7 + ALCOHOL Routine 09/05/2008 9:30 PM BENCH SHEAR OPERATOR documented in this encounter Results * Drug Panel 7 + Alcohol (09/05/2008 9:30 PM BENCH SHEAR OPERATOR) Amphetamines PRESENT (A) NotDetec SUNQUEST Urine Comment: Amphetamine confirmed positive by GC/MS at cutoff of 500 ng/mL. Amphetamine = 1393 ng/mL. Metamphetamines negative at less than 500 ng/mL. Barbiturates NotDetec NotDetec SUNQUEST Urine Benzodiazepines NotDetec NotDetec SUNQUEST Urine Cocaine Urine NotDetec NotDetec SUNQUEST Opiates Urine NotDetec NotDetec SUNQUEST Phencyclidine NotDetec NotDetec SUNQUEST Urine Tetrahydrocanna NotDetec NotDetec SUNQUEST binol Urine Alcohol Urine NotDetec NotDetec SUNQUEST Tape Intact SUNQUEST Specimen Performing Organization Address City/State/Zipcode Ph one Number RL [id number] [place], [place] [address] SUNQUEST documented in this encounter Visit Diagnoses Not on filedocumented in this encounter
--- OUTSIDE RECORDS SUMMARY | 2020-01-03 14:51 | XMS REPORT | Encounter Summary ---
Author Author [facility] Address Unknown Phone Unavailable Care Team Providers Care Head Strength And Conditioning Coach Name Role Phone PCP Unavailable Encounter Details Care Team Description Date Type Department Jay Jensen MD [address] [facility] [address] [place], [place] [id number] [facility]/11/[facility] [address] [place] [address] Social History Date Tobacco Use Types Packs/Day [...] Procedure Name Priority Date/Time Associated Diag nosis DIFFERENTIAL Routine 08/11/2008 7:00 AM NEON MOLDER THYROID STIMULATING Routine 08/11/2008 HORMONE 7:00 AM NEON MOLDER T4 FREE Routine 08/11/2008 7:00 AM NEON MOLDER LITHIUM Routine 08/11/2008 7:00 AM NEON MOLDER COMPREHENSIVE METABOLIC Routine 08/11/2008 PANEL 7:00 AM NEON MOLDER CBC AND DIFF (MANUAL DIFF Routine 08/11/2008 IF NECESSARY) 7:00 AM NEON MOLDER documented in this encounter Results * CBC and Diff (manual diff if necessary) (08/11/2008 7:00 AM NEON MOLDER) WBC 9.1 4.0 - 11.0 TH/UL SUNQUEST RBC 4.51 4.00 - 5.00 MIL/UL SUNQUEST Hemoglobin 13.7 12.0 - 15.0 G/DL SUNQUEST Hematocrit 41 36 - 45 % SUNQUEST MCV 91 80 - 99 FL SUNQUEST MCH 30 27 - 34 PG SUNQUEST MCHC 34 32 - 36 % SUNQUEST RDW 12.5 <14.5 % SUNQUEST Platelet Count 371 140 - 400 TH/UL SUNQUEST MPV 11.3 9.4 - 12.3 FL SUNQUEST Specimen Performing Organization Address [facility] one Number [id number] [place] [phone] SUNQUEST * DIFFERENTIAL (08/11/2008 7:00 AM NEON MOLDER) % Neutrophils 49 45 - 78 % SUNQUEST %Lymphocytes 42 15 - 47 % SUNQUEST %Monocytes 6 0 - 12 % SUNQUEST %Eosinophils 4 0 - 7 % SUNQUEST %Basophils 0 0 - 2 % SUNQUEST # Granulocytes 4.5 1.7 - 6.8 TH/UL SUNQUEST # Lymphocytes 3.8 (H) 1.0 - 3.3 TH/UL SUNQUEST # Monocytes 0.5 0.2 - 0.9 TH/UL SUNQUEST # Eosinophils 0.4 0.0 - 0.4 TH/UL SUNQUEST # Basophils 0.0 0.0 - 0.2 TH/UL SUNQUEST Specimen Performing Organization Address [facility] one Number [id number] [place] [address] SUNQUEST * Comprehensive Metabolic Panel (08/11/2008 7:00 AM NEON MOLDER) Albumin 3.3 (L) 3.5 - 5.0 G/DL SUNQUEST Aspartate 20 15 - 41 IU/L SUNQUEST Aminotransferas e Bilirubin Total 0.6 0.3 - 1.4 MG/DL SUNQUEST Protein Total 6.5 6.0 - 8.0 G/DL SUNQUEST Serum Calcium 9.1 8.8 - 10.5 MG/DL SUNQUEST Creatinine 0.6 0.4 - 1.1 MG/DL SUNQUEST Glucose 72 65 - 100 MG/DL SUNQUEST Alkaline 57 (L) 100 - 500 IU/L SUNQUEST Phosphatase Sodium 138 134 - 144 MEQ/L SUNQUEST Potassium 4.3 3.5 - 5.1 MEQ/L SUNQUEST Chloride 107 101 - 111 MEQ/L SUNQUEST Carbon Dioxide 25 23 - 32 MEQ/L SUNQUEST Blood Urea 8 8 - 26 MG/DL SUNQUEST Nitrogen Anion Gap 6 3 - 15 SUNQUEST Alanine 14 14 - 63 IU/L SUNQUEST Aminotransferas e Specimen Performing Organization Address [facility] one Number [id number] [place] [address] SUNQUEST * [place] (08/11/2008 7:00 AM NEON MOLDER) [place] 0.90 0.50 - 1.50 MEQ/L SUNQUEST Specimen Performing Organization Address [facility] one Number [id number] [place] [address] SUNQUEST * T4 Free (08/11/2008 7:00 AM NEON MOLDER) T4 Free 0.7 0.6 - 1.6 NG/DL SUNQUEST Specimen Performing Organization Address [facility] one Number [id number] [place] [address] SUNQUEST * Thyroid Stimulating Hormone (08/11/2008 7:00 AM NEON MOLDER) Thyroid 5.02 (H) 0.45 - 4.50 UIU/ML SUNQUEST Stimulating Hormone Specimen Performing Organization Address [facility] one Number [id number] [place] [address] SUNQUEST documented in this encounter Visit Diagnoses Not on filedocumented in this encounter
--- OUTSIDE RECORDS SUMMARY | 2020-01-03 14:51 | XMS REPORT | Encounter Summary ---
Author Author [facility] Address Unknown Phone Unavailable Care Team Providers Care Rug Weaver Name Role Phone PCP Unavailable Encounter Details Care Team Description Date Type Department Jay Jensen MD [address] [facility] [address] [place], [place] [id number] [facility] [address] [place] [address] Social History Date Tobacco Use Types Packs/Day Years Used Never Assessed Sex Assigned at Date Recorded Not on file Industry Job Start Date Occupation Not on file Not on file Not on file Travel End Travel History Travel Start No recent travel history available. documented as of this encounter Plan of Treatment Not on filedocumented as of this encounter Visit Diagnoses Not on filedocumented in this encounter
--- OUTSIDE RECORDS SUMMARY | 2020-01-03 14:51 | XMS REPORT | Encounter Summary ---
Author Author [facility] Address Unknown Phone Unavailable Care Team Providers Care Health Club Manager Name Role Phone PCP Unavailable Encounter Details Care Team Description Date Type Department Jay Jensen MD [address] [facility] [address] [place], [place] [id number] [facility] [address] [place] [address] Social History Date Tobacco Use Types Packs/Day [...] Priority Date/Time Associated Diag nosis DIFFERENTIAL Routine 05/15/2008 7:00 AM CDT LITHIUM Routine 05/15/2008 7:00 AM CDT COMPREHENSIVE METABOLIC Routine 05/15/2008 PANEL 7:00 AM CDT CBC AND DIFF (MANUAL DIFF Routine 05/15/2008 IF NECESSARY) 7:00 AM CDT documented in this encounter Results * CBC and Diff (manual diff if necessary) (05/15/2008 7:00 AM CDT) WBC 6.6 4.0 - 11.0 TH/UL [facility] RBC 4.46 4.00 - 5.00 MIL/UL [facility] Hemoglobin 13.9 12.0 - 15.0 G/DL [facility] Hematocrit 40 36 - 45 % [facility] MCV 90 80 - 99 FL [facility] MCH 31 27 - 34 PG [facility] MCHC 35 32 - 36 % [facility] RDW 12.4 <14.5 % [facility] Platelet Count 242 140 - 400 TH/UL [facility] MPV 11.2 9.4 - 12.3 FL [facility] Specimen Performing Organization Address [facility] one Number [phone] [place] [phone] SUNQUEST * DIFFERENTIAL (05/15/2008 7:00 AM CDT) % Neutrophils 51 45 - 78 % SUNQUEST %Lymphocytes 37 15 - 47 % [facility] %Monocytes 9 0 - 12 % [facility] %Eosinophils 2 0 - 7 % [facility] %Basophils 1 0 - 2 % SUN[facility] # Granulocytes 3.4 1.7 - 6.8 TH/UL [facility]QUEST # Lymphocytes 2.4 1.0 - 3.3 TH/UL [facility] # Monocytes 0.6 0.2 - 0.9 TH/UL [facility] # Eosinophils 0.1 0.0 - 0.4 TH/UL [facility] # Basophils 0.1 0.0 - 0.2 TH/UL [facility] Specimen Performing Organization Address [facility] one Number [phone] [place] [phone] SUNQUEST * [place] (05/15/2008 7:00 AM CDT) [place] 0.82 0.50 - 1.50 MEQ/L SUNQUEST Specimen Performing Organization Address [facility] one Number [phone] [place] [phone] SUNQUEST * Comprehensive Metabolic Panel (05/15/2008 7:00 AM CDT) Albumin 3.6 3.5 - 5.0 G/DL [facility] Aspartate 16 15 - 41 IU/L SUN[facility] Aminotransferas e Bilirubin Total 0.5 0.3 - 1.4 MG/DL [facility] Protein Total 6.6 6.0 - 8.0 G/DL SUN[facility] Serum Calcium 9.1 8.8 - 10.5 MG/DL SUNQUEST Creatinine 0.8 0.4 - 1.1 MG/DL SUNQUEST Comment: Change to IDMS-traceable creatinine assay effective 04/01/08. Reference range changed 04/01/08. Glucose 74 65 - 100 MG/DL SUNQUEST Alkaline 62 (L) 100 - 500 IU/L SUN[facility] Phosphatase Sodium 141 134 - 144 MEQ/L SUNQUEST Potassium 4.0 3.5 - 5.1 MEQ/L SUNQUEST Chloride 106 101 - 111 MEQ/L SUN[facility] Carbon Dioxide 29 23 - 32 MEQ/L SUNQUEST Blood Urea 11 8 - 26 MG/DL SUNQUEST Nitrogen Anion Gap 6 3 - 15 [facility] Alanine 18 14 - 63 IU/L SUN[facility] Aminotransferas e Specimen Performing Organization Address [facility] one Number [phone] [place], [place] [address] SUN[place] documented in this encounter Visit Diagnoses Not on filedocumented in this encounter
--- OUTSIDE RECORDS SUMMARY | 2020-01-03 14:51 | XMS REPORT | Clinical Summary ---
Author Author [facility] Address Unknown Phone Unavailable Care Team Providers Care Supply Chain Program Manager Name Role Phone PCP Unavailable Allergies No Known Allergies Medications No known medications Active Problems Not on file Family History Relation Name Status Comments Son Alive Social History Date Tobacco Use Types Packs/Day Years Used Never Smoker Smokeless Tobacco: Never Used Drinks/Week oz/Week Comments Alcohol Use No Control Partners Comments Sexually Active Condom Male inconsistent condom use Yes Sex Assigned at Date Recorded Not on file Industry Job Start Date Occupation Not on file Not on file Not on file Travel End Travel History Travel Start No recent travel history available. Last Filed Vital Signs Reading Time Taken Comments Vital Sign 115/63 02/24/2013 5:30 PM CDT Blood Pressure 84 02/24/2013 5:30 PM CDT Pulse 36.5 C (97.7 F) 02/24/2013 5:30 PM CDT Temperature 18 02/24/2013 2:46 PM CDT Respiratory Rate 97% 02/24/2013 5:30 PM CDT Oxygen Saturation - - Inhaled Oxygen Concentration 93 kg (205 lb) 02/24/2013 2:46 PM CDT Weight - - Height - - Body Mass Index Plan of Treatment Health Maintenance Due Date Last Done Comments Varicella Vaccines (1 of 1993 2 - 2-dose childhood series) DTaP,Tdap,and Td Vaccines 2011 (1 - Tdap) MMR Vaccines-Adult 2011 Cervical Cancer Screening 2013 Influenza Vaccine (Season 04/14/2020 Ended) Pneumo-Vaccine: Peds (0-5 Aged Out No longer el igible based on patient's age to Yrs) & At-Risk Patients complete this topic (6-64 Yrs) Results Not on filefrom Last 3 Months
--- OUTSIDE RECORDS SUMMARY | 2020-01-03 14:51 | XMS REPORT | Clinical Summary ---
Author Author [facility] Organization [facility] Address Unknown Phone Unavailable Care Team Providers Care Assistant Chief Engineer Name Role Phone Daisy Sinha MD PCP Source Comments Some departments are not documenting in the electronic medical record. If you d o not see the information that you expected, contact Release of Information in [facility] [employer] Information Management department at [phone] for further assistan ce in locating additional records.[facility] Allergies Not on File Medications Not [...] Health Maintenance Due Date Last Done Comments HIV SCREENING 2007 DTAP/TDAP VACCINES (1 - 2010 Tdap) HEPATITIS C SCREENING 2010 PHYSICAL (COMPREHENSIVE) 2010 EXAM CERVICAL CANCER SCREENING 2013 INFLUENZA VACCINE 05/14/2020 HPV VACCINES Completed 07/31/2008, 05/13/2008, 02/23/2007, Additional history exists Results Not on filefrom Last 3 Months Insurance Type Payer Benefit Subscriber ID Effective Phone Address Plan / Dates Group Medicaid [facility] [place]ICAID [place] [facility] xxxxxxxxxxx [id number] [employer] [place] Advance Directives Patient Assistant Chief Engineer Explanation Type Date Recorded Advance Directive/DPOA
--- OUTSIDE RECORDS SUMMARY | 2020-01-03 14:51 | XMS REPORT | Clinical Summary ---
Author Author [facility] Organization [facility] Address Unknown Phone Unavailable Care Team Providers Care Window Dresser Name Role Phone PCP Unavailable Allergies Not on File Medications Not on [...]
--- OUTSIDE RECORDS SUMMARY | 2020-01-03 14:51 | XMS REPORT | Encounter Summary ---
Author Author [facility] Address Unknown Phone Unavailable Care Team Providers Care Shank Stitcher Name Role Phone PCP Unavailable Encounter Details Care Team Description Date Type Department Emergency, MD Eusebio [facility]2013 [facility] [address] 09/26/2013 [place] [address] Social History Date Tobacco Use Types Packs/Day [...]
--- OUTSIDE RECORDS SUMMARY | 2020-01-03 14:54 | XMS REPORT ---
Author Author Mary Echols Organization [facility] Address [address] [place] [address] Care Team Providers Care Washerette Machine Operator Name Role Phone WADE Echols Unavailable PROBLEMS Type Condition ICD9-CM Code [id number] Code Onset Dates Condition S tatus SNOMED Code Problem Body mass index (BMI) of 40.0 to 49.9 E66.01 Active 602121032 Problem Chronic migraine without aur a without status migrainosus, not intractable G43.709 Active 278530502461591 Problem Bipolar 2 disorder F31.81 Active 8 6827206 Problem Depression F32.9 Active 839309387 Problem Currently smokes tobacco Z72.0 Activ e 632569580 Problem Insomnia G47.00 Active 487487675 Problem Other chronic pain G89.29 Active 8 1369613 Problem Hypomagnesemia E83.42 Active 55497 5004 Problem Tension headache G44.209 Active 398 086593 Problem Psychiatric disorder F99 Active 61845157 Problem Constipation, unspecified constipation type K59.00 Active 99714455 Problem Bipolar 1 disorder F31.9 Active 3 54831910 Problem Body mass index (BMI) of 45.0-49.9 in adult Z68.42 Active 708338714 Problem Meniere''s disease, unspecified laterality H81.09 Active 75964801 Problem Meniere''s disease, unspecified laterality H81.09 Active 11628157 Problem Missed period N92.6 Active 263267 00 ALLERGIES No Information ENCOUNTERS Encounter Location Date Diagnosis [facility] [address] [facility] [id number] [address] [place] [address] Oct, [facility] [address] [facility] [id number] [address] [place] [address] Oct, [facility] [address] [facility] [id number] [address] [place] [address] Oct, B12 deficiency E53.8 [facility] [address] [place] [address] Oct, [facility] [address] [place] [id number] [address] [place] [address] Sep, [facility] [address] [address] 06 Sep, 2019 Itching in the vaginal area N89.8 [facility] [address] [place] [id number] [place] [address] Sep, Vaginal yeast infection B37. 3 and Cough R05 [place] [address] [address] Jul, Hemorrhoids, unspecified hem orrhoid type K64.9 ; Generalized abdominal pain R10.84 ; Rectal bleeding K62.5 ; Constipation, unspecified constipation type K59.00 and B12 deficiency E53.8 [facility] [address] [address] Jul, Vaginal discharge N89.8 and Neck muscle spasm M62.838 [place] [address] [place] [id number] [address] [place] [address] Jul, [facility] [address] [place] [id number] [address] [place] [address] Jul, [facility] [address] [address] Jul, Bipolar 2 disorder F31.81 [place] [address] [address] Jul, [facility] [address] [place] [id number] [address] [place] [address] Jul, Tension headache G44.209 [place] [address] [address] Jul, [facility] [address] [facility] [id number] [address] [place] [address] Jul, Bronchitis J40 and Missed pe riod N92.6 [facility] [address] [facility] [id number] [address] [place] [address] Jul, [facility] [address] [facility] [id number] [address] [place] [address] Jul, [facility] [address] [facility] [id number] [address] [place] [address] Jun, [facility] [address] [facility] [id number] [address] [place] [address] Jun, Body mass index (BMI) of 40. 0 to 49.9 E66.01 [facility] [address] [facility] [id number] [address] [place] [address] Jun, [facility] [address] [facility] [id number] [address] [place] [address] Jun, [facility] [address] [facility] [id number] [address] [place] [address] May, Bipolar 2 disorder F31.81 [facility] [address] [facility] [id number] [address] [place] [address] May, [facility] [address] [facility] [id number] [address] [place] [address] May, [facility] [address] [facility] [id number] [address] [place] [address] May, [facility] [address] [facility] [id number] [address] [place] [address] May, Vitamin B12 deficiency E53.8 [facility] [address] [facility] [id number] [address] [place] [address] May, [facility] [address] [facility] [id number] [address] [place] [address] Apr, [place] [address] [address] Apr, [place] [address] [address] Apr, [place] [address] [address] 18 Apr, 2019 B12 deficiency E53.8 ; Morbi d (severe) obesity due to excess calories E66.01 and Meniere''s disease, unspecified laterality H81.09 [place] [address] [address] 13 Apr, 2019 Vitamin B12 deficiency E53.8 and Encounter for test, result unknown Z32.00 [place] [address] [address] 11 Apr, 2019 [place] [address] [address] 10 Apr, 2019 Vitamin B12 deficiency E53.8 [facility] [place] [address] [address] 03 Apr, 2019 Viral URI J06.9 and Morbid o besity E66.01 [facility] [place] [address] [address] Mar, Abscess of labia majora N76. 4 and Morbid obesity E66.01 [facility] [place] [address] [address] Mar, Swelling of right hand M79.8 9 and Morbid obesity E66.01 [place] [address] [address] Mar, [place] [address] [address] Mar, Morbid (severe) obesity due to excess calories E66.01 ; Body mass index (BMI) of 45.0-49.9 in adult Z68.42 ; Low back pain M54.5 ; Other chronic pain G89.29 ; B12 deficiency E53.8 ; Hypokalemia E87.6 ; Hypomagnesemia E83.42 and Morbid obesity E66.[address] [id number] [address] Feb, BMI 40.0-44.9, adult Z68.[address] [id number] [address] Feb, Smoking F17.[address] [id number] [address] Feb, [address] [id number] [address] Feb, Smoking F17.200 [place] [address] [place] [address] Feb, Encounter for test Z32.00 [place] [address] [place] [id number] [address] [place] [address] Jan, Adult BMI 40.0-44.9 kg/sq m Z68.41 and Insomnia G47.00 [place] [address] [place] [id number] [address] [place] [address] December, Vertigo R42 ; Tinnitus of ri ght ear H93.11 and Morbid obesity E66.01 [place] [address] [place] [address] December, Screening for cervical cance r Z12.4 ; Screening examination for sexually transmitted disease Z11.3 ; Trichomoniasis A59.9 and Morbid obesity E66.[address] [place] [address] December, Smoking F17.[address] [id number] [address] December, Smoking F17.[address] [id number] [place] [address] Nov, BMI 40.0-44.9, adult Z68.41 and Insomnia G47.00 [facility] [place] [address] [id number] [place] [address] Nov, Smoking F17.200 [facility] [place] [address] [id number] [place] [address] Nov, [facility] [place] [address] [id number] [place] [address] Nov, Smoking F17.200 [facility] [place] [address] [id number], [place] [address] Nov, [facility] [place] [address] [id number] [place] [address] Nov, Morbid obesity E66.01 and Sm oking F17.200 [facility] [address] [id number] [id number] Nov, Caries K02.9 [facility] [address] [id number] [place] [id number] Nov, Periodontitis K05.30 [facility] [place] [address] [id number], [place] [address] Nov, [facility] [place] [address] [id number], [place] [address] Oct, [facility] [place] [address] [id number], [place] [address] Oct, [facility] [place] [address] [id number], [place] [address] Oct, BMI 40.0-44.9, adult Z68.41 ; Bipolar depression F31.30 and Morbid obesity E66.01 [facility] [place] [address] [id number], [place] [address] Sep, [facility] [place] [address] [id number] [place] [address] 28 Sep, 2018 [facility] [address] [facility] [id number] [address] [place] [address] 27 Sep, 2018 [facility] [address] [id number] [address] [place] [id number] 18 Sep, 2018 Caries K02.9 ; Periodontitis K05.30 and Dental examination Z01.[address] [id number], [place] [address] 16 Sep, [address] [id number], [place] [address] Sep, [facility] [address] [facility] [id number] [address] [place] [address] Aug, [facility] [address] [facility] [id number] [address] [place] [address] Aug, Acute hemorrhoid K64.9 ; Hig h risk heterosexual behavior Z72.51 and BMI 45.0-49.9, adult Z68.42 [facility] [address] [facility] [id number] [address] [place] [address] Jul, [facility] [address] [facility] [id number] [address] [place] [address] Jul, [facility] [address] [facility] [id number] [address] [place] [address] Jul, Encounter for Depo-Provera c ontraception Z30.42 [facility] [address] [facility] [id number] [address] [place] [address] May, [facility] [address] [facility] [id number] [address] [place] [address] May, [facility] [address] [facility] [id number] [address] [place] [address] May, [facility] [address] [facility] [id number] [address] [place] [address] May, [place] [address] [place] [id number] [address] [place] [address] May, [place] [address] [address] 15 May, 2018 BMI 40.0-44.9, adult Z68.41 ; care in third trimester Z34.93 ; Acute nonintractable headache, unspecified headache type R51 ; 35 weeks gestation of Z3A.35 and History of herpes genitalis Z86.19 [place] [address] [address] 11 May, 2018 BMI 40.0-44.9, adult Z68.41 ; care in third trimester Z34.93 ; Atypical pneumonia J18.9 ; Transverse lie of fetus, single or unspecified fetus O32.2XX0 and 34 weeks gestation of Z3A.34 [place] [address] [address] 09 May, 2018 Supervision of other high ri sk pregnancies, unspecified trimester O09.899 [place] [address] [address] May, [place] [address] [place] [id number] [place] [address] 27 Apr, 2018 BMI 40.0-44.9, adult Z68.41 ; Third trimester Z34.93 ; URI with cough and congestion J06.9 ; Other atopic dermatitis L20.89 ; 32 weeks gestation of Z3A.32 and Bipolar depression F31.30 [place] [address] [place] [id number] [address] [place] [address] Apr, [place] [address] [address] Apr, [place] [address] [address] Apr, Possible exposure to STD Z20 .2 ; BMI 40.0-44.9, adult Z68.41 and Pruritus L29.9 [place] [address] [facility] [id number] [address] [place] [address] 19 Apr, 2018 [place] [address] [facility] [id number] [address] [place] [address] 13 Apr, 2018 Third trimester Z3 4.93 ; Encounter for immunization Z23 ; BMI 40.0-44.9, adult Z68.41 ; Unspecified blood type, Rh negative Z67.91 and 30 weeks gestation of Z3A.30 [place] [address] [facility] [id number] [address] [place] [address] 11 Apr, 2018 Screening for STD (sexually transmitted disease) Z11.3 and Abnormal glucose level R73.09 [place] [address] [place] [id number] [place] [address] 06 Apr, 2018 Abnormal glucose level R73.0 9 [place] [address] [address] 04 Apr, 2018 [place] [address] [address] Mar, care in third trime ster Z34.93 [place] [address] [place] [id number] [address] [place] [address] Mar, care in third trime ster Z34.93 ; Evaluate anatomy not seen on prior sonogram Z04.8 and BMI 40.0-44.9, adult Z68.41 [facility] [address] [facility] [id number] [address] [place] [address] Mar, BMI 40.0-44.9, adult Z68.41 ; Screening for STD (sexually transmitted disease) Z11.3 and High risk sexual behavior, unspecified type Z72.51 [place] [address] [facility] [id number] [address] [place] [address] Feb, [place] [address] [place] [id number] [address] [place] [address] Feb, [facility] [address] [facility] [id number] [address] [place] [address] Feb, Second trimester Z 34.92 ; Chlamydial infection A74.9 ; Other maternal infectious and parasitic diseases complicating , first trimester O98.811 ; 23 weeks gestation of Z3A.23 and Evaluate anatomy not seen on prior sonogram Z04.8 [facility] [address] [facility] [id number] [address] [place] [address] 16 Feb, 2018 [facility] [address] [facility] [id number] [address] [place] [address] Feb, [facility] [address] [facility] [id number] [address] [place] [address] Feb, [facility] [id number] [place] [id number] Jan, [facility] [address] [facility] [id number] [address] [place] [address] Jan, Second trimester Z 34.92 and 19 weeks gestation of Z3A.19 [facility] [address] [facility] [id number] [address] [place] [address] Jan, [facility] [address] [id number] [address] [place] [id number] Jan, Dental examination Z01.20 [facility] [address] [facility] [id number] [address] [place] [address] Jan, Mouth pain K13.79 [facility] [address] [id number] [address] [place] [address] Jan, [facility] [address] [facility] [id number] [address] [place] [address] Jan, [facility] [address] [facility] [id number] [address] [place] [address] December, Second trimester Z 34.92 ; 14 weeks gestation of Z3A.14 and Substance abuse 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, antepartum O99.322 [facility] [address] [facility] [id number] [address] [place] [address] December, [facility] [address] [facility] [id number] [address] [place] [address] Nov, [facility] [address] [facility] [id number] [address] [place] [address] Nov, [facility] [address] [place] [id number] [address] [place] [address] Nov, care, subsequent pr egnancy in first trimester Z34.81 ; 7 weeks gestation of Z3A.01 and Bipolar depression F31.30 [facility] [address] [place] [id number] [place] [address] Nov, [facility] [address] [address] Nov, [facility] [address] [address] Nov, Screening, iron deficiency a nemia Z13.0 [place] [address] [address] Nov, [facility] [address] [place] [id number] [address] [place] [address] Nov, Possible exposure to STD Z20 .2 and Trichomoniasis A59.9 [facility] [address] [place] [id number] [address] [place] [address] Nov, [facility] [address] [place] [id number] [address] [place] [address] Nov, Encounter for test Z32.00 [facility] [address] [place] [id number] [address] [place] [address] 07 Apr, 2016 Periodontal abscess K05.21 [facility] [address] [place] [id number] [address] [place] [address] 07 Feb, 2015 Family history of diabetes m ellitus V18.0 ; Fatigue 780.79 and Pain in both feet 729.5 [facility] [address] [id number] [address] [place] [address] Jan, Bipolar affective disorder, depressed, moderate 296.52 and Posttraumatic stress disorder 309.81 [facility] [address] [id number] [address] [place] [address] Jan, [facility] [address] [id number] [address] [place] [address] Nov, [facility] [address] [id number] [address] [place] [address] Nov, [facility] [address] [id number] [address] [place] [address] Oct, [facility] [address] [id number] [address] [place] [address] Oct, [facility] [address] [id number] [address] [place] [address] Oct, [facility] [address] [facility] [id number] [address] [place] [address] Oct, [facility] [address] [facility] [id number] [address] [place] [address] Sep, [facility] [address] [facility] [id number] [address] [place] [address] Sep, [facility] [address] [id number] [address] [place] [address] Sep, [facility] [address] [id number] [address] [place] [address] Sep, [facility] [address] [facility] [id number] [address] [place] [address] Sep, [facility] [address] [facility] [id number] [address] [place] [address] Sep, [facility] [address] [id number] [address] [place] [address] Sep, [facility] [address] [id number] [address] [place] [id number] Aug, [facility] [address] [id number] [address] [place] [phone] Aug, [facility] [address] [id number] [address] [place] [phone] Aug, [facility] [address] [id number] [address] [place] [phone] Aug, [facility] [address] [id number] [address] [place] [phone] Aug, [facility] [address] [id number] [address] [place] [id number] Oct, [facility] [address] [id number] [address] [place] [phone] Oct, [facility] [address] [id number] [address] [place] [phone] Aug, [facility] [address] [id number] [address] [place] [phone] Aug, IMMUNIZATIONS No Known Immunizations SOCIAL HISTORY Never Assessed REASON FOR VISIT PLAN OF CARE VITAL SIGNS MEDICATIONS Unknown Medications RESULTS No Results PROCEDURES No Known procedures INSTRUCTIONS MEDICATIONS ADMINISTERED No Known Medications MEDICAL (GENERAL) HISTORY Type Description Date Medical History Bipolar 2 disorder Medical History Chronic migraine without aur a without status migrainosus, not intractable Medical History Body mass index (BMI) of 40.0 to 49.9 Medical History BMI 40.0-44.9, adult Medical History Currently smokes tobacco Medical History Depression Medical History Bipolar 1 disorder Medical History Psychiatric disorder Medical History Insomnia Medical History Syphilis Medical History menieres disease Surgical History Surgery on head- bumps on he ad that were removed, did not have to cut into skull at all as a baby Surgical History cholecystectomy Surgical History 06/06/2018 Hospitalization History Hospitalization for surgery only Hospitalization History Childbirth Hospitalization History kidney infection 2017
--- OUTSIDE RECORDS SUMMARY | 2020-01-03 14:57 | XMS REPORT | Continuity of Care Document ---
Author Organization Unknown Address Unknown Phone Unavailable Allergies Active Description Code Type Severity Reaction Onset Reported/Identified Relationship to Patient Clinical Status Yes No Known Drug Allergies [id number] Drug Allergy Unknown N/A 03/22/2017 Medications There is no data. 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 09/09/2014 KEI TELEPHONE ANSWERER, WADE A V0 1.6 CONTACT WITH OR EXPOSURE TO VENEREAL DISEASES 09/09/2014 KEI LEONG, WADE A V6 9.2 HIGH-RISK SEXUAL BEHAVIOR 09/09/2014 KEI LEONG, WADE A V7 4.5 STD SCREEN 09/09/2014 KEI LEONG, WADE A V7 6.2 CERVICAL CANCER SCREENING (PAP SMEAR) 09/09/2014 [facility] 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 09/09/2014 [facility] V01.6 CONTACT WITH OR EXPOSURE TO VENEREAL DISEASES 09/09/2014 [facility] V69.2 HIGH-RISK SEXUAL BEHAVIOR 09/09/2014 [facility] V74.5 STD SCREEN 09/09/2014 [facility] V76.2 CERVICAL CANCER SCREENING (PAP SMEAR) 10/08/2014 [facility] 296.52 MO BIPOLAR I DEPRESSED MODERATE 03/23/2017 LYNCH DO, WILFRED Ot A41.9 SEPSIS, UNSPECIFIED ORGANISM 03/23/2017 QIAN LYNCH DOI Ot F17.21 0 NICOTINE DEPENDENCE, CIGARETTES, UNCOMPL 03/23/2017 QIAN LYNCH DOI Ot F31.9 BIPOLAR DISORDER, UNSPECIFIED 03/23/2017 LYNCH WILFRED Ot N10 ACUTE PYELONEPHRITIS 12/14/2017 GENNARO [...] UNSPECIFIED, UNCOMPLICATED 01/24/2018 AUBREY SLADE MD Ot F31 .9 BIPOLAR DISORDER, UNSPECIFIED 01/24/2018 AUBREY SLADE MD [...] ABNLT OF PELVIC OR 03/08/2018 GENNARO GALE MD, Ot Z3A.11 11 WEEKS GESTATION OF 03/08/2018 [...] FOR OTHER PREPROCEDURAL EXAMIN 04/17/2018 GENNARO GALE MD, Ot O36.8120 DECREASED MOVEMENTS, SECOND TRIMES 04/17/2018 GENNARO GALE MD Ot Z3A.27 27 WEEKS GESTATION OF 05/03/2018 SHAHLA MCKEON, GENNARO Rogers Ot Z36.89 ENCOUNTER FOR OTHER SPECIFIED 05/03/2018 SHAHLA MCKEON, GENNARO Rogers Ot Z3A.00 WEEKS OF GESTATION OF NOT SPEC 05/20/2018 TILA BECKHAM Ot F12.10 CANNABIS ABUSE, UNCOMPLICATED 05/20/2018 BERNLENORA, TILA Ot F17.210 NICOTINE DEPENDENCE, CIGARETTES, UNCOMPL 05/20/2018 FABIOLA BECKHAMIS Ot F31.9 BIPOLAR DISORDER, UNSPECIFIED 05/20/2018 BERNFABIOLA COOLEYIS Ot J06.9 ACUTE UPPER RESPIRATORY INFECTION, UNSPE 05/20/2018 FABIOLA BECKHAMIS Ot R05 COUGH 05/20/2018 FABIOLA BECKHAMIS Ot Z85.828 PERSONAL HISTORY OF OTHER MALIGNANT NEOP 05/20/2018 FABIOLA BECKHAMIS Ot Z86.19 PERSONAL HISTORY OF OTHER INFECTIOUS AND 05/22/2018 TILA BECKHAM Ot F12.10 CANNABIS ABUSE, UNCOMPLICATED 05/22/2018 TILA BECKHAM Ot F17.210 NICOTINE DEPENDENCE, CIGARETTES, UNCOMPL 05/22/2018 FABIOLA BECKHAMIS Ot F31.9 BIPOLAR DISORDER, UNSPECIFIED 05/22/2018 FABIOLA BECKHAMIS Ot J06.9 ACUTE UPPER RESPIRATORY INFECTION, UNSPE 05/22/2018 FABIOLA BECKHAMIS Ot R05 COUGH 05/22/2018 FABIOLA BECKHAMIS Ot Z85.828 PERSONAL HISTORY OF OTHER MALIGNANT NEOP 05/22/2018 FABIOLA BECKHAMIS Ot Z86.19 PERSONAL HISTORY OF OTHER INFECTIOUS AND 05/30/2018 GENNA BAILEY MD Ot O36.8190 DECREASED MOVEMENTS, UNSP TRIMESTE 05/30/2018 GNENA BAILEY MD Ot O99.8 9 OTH DISEASES AND CONDITIONS COMPL PREG/C 05/30/2018 GENNA BAILEY MD Ot R05 COUGH 05/30/2018 GENNA BAILEY MD Ot Z3A.3 5 35 WEEKS GESTATION OF 06/10/2018 ENRIKE VACA DOA K Ot D64.9 ANEMIA, UNSPECIFIED 06/10/2018 LIO WARD ANKIT K Ot E83.42 HYPOMAGNESEMIA 06/10/2018 ENRIKE VACA DOA Shilo Ot E87.6 HYPOKALEMIA 06/10/2018 LIO DO, ANKIT [...] UNSP TRIMESTE 06/18/2018 GENNA BAILEY MD Ot O99.8 9 OTH DISEASES AND CONDITIONS COMPL PREG/C 06/18/2018 GENNA BAILEY MD Ot R05 COUGH 06/18/2018 GENNA BAILEY MD Ot Z3A.3 5 35 WEEKS GESTATION OF 06/18/2018 GENNA BAILEY MD Ot O36.8190 DECREASED MOVEMENTS, UNSP TRIMESTE 06/18/2018 GENNA BAILEY MD Ot O99.8 9 OTH DISEASES AND CONDITIONS COMPL PREG/C 06/18/2018 GENNA BAILEY MD Ot R05 COUGH 06/18/2018 GENNA BAILEY MD Ot Z3A.3 5 35 WEEKS GESTATION OF 06/27/2018 LAI BURGER MD Ot B37. 2 CANDIDIASIS OF SKIN AND NAIL 06/27/2018 LAI BURGER MD Ot F12. 10 CANNABIS ABUSE, UNCOMPLICATED 06/27/2018 LAI BURGER MD J Ot F17.210 NICOTINE DEPENDENCE, CIGARETTES, UNCOMPL 06/27/2018 LAI BURGER MD Ot F31. 9 BIPOLAR DISORDER, UNSPECIFIED 06/27/2018 LAI BURGER MD Ot N39. 0 URINARY TRACT INFECTION, SITE NOT SPECIF 06/27/2018 LAI BURGER MD Ot R42 DIZZINESS AND GIDDINESS 06/27/2018 LAI BURGER MD J Ot Z85.828 PERSONAL HISTORY OF OTHER MALIGNANT NEOP 06/27/2018 LAI BURGER MD J Ot Z86. 19 PERSONAL HISTORY OF OTHER INFECTIOUS AND 06/27/2018 LAI BURGER MD Ot Z98.890 OTHER SPECIFIED POSTPROCEDURAL STATES 06/29/2018 LAI BURGER MD Ot B37. 2 CANDIDIASIS OF SKIN AND NAIL 06/29/2018 LAI BURGER MD J Ot F12. 10 CANNABIS ABUSE, UNCOMPLICATED 06/29/2018 LAI BURGER MD Ot F17.210 NICOTINE DEPENDENCE, CIGARETTES, UNCOMPL 06/29/2018 LAI BURGER MD Ot F31. 9 BIPOLAR DISORDER, UNSPECIFIED 06/29/2018 LAI BURGER MD Ot N39. 0 URINARY TRACT INFECTION, SITE NOT SPECIF 06/29/2018 LAI BURGER MD Ot R42 DIZZINESS AND GIDDINESS 06/29/2018 LAI BURGER MD Ot Z85.828 PERSONAL HISTORY OF OTHER MALIGNANT NEOP 06/29/2018 LAI BURGER MD Ot Z86. 19 PERSONAL HISTORY OF OTHER INFECTIOUS AND 06/29/2018 [...] BECKHAM Ot Z98.890 OTHER SPECIFIED POSTPROCEDURAL STATES 11/11/2018 LIO DO, ANKIT K Ot E72.20 DISORDER OF UREA CYCLE METABOLISM, UNSPE 11/11/2018 LIO DO, ANKIT K Ot F12.10 CANNABIS ABUSE, UNCOMPLICATED 11/11/2018 LIO DO, ANKIT K Ot F14.10 COCAINE ABUSE, UNCOMPLICATED 11/11/2018 LIO DO, ANKIT K Ot F15.10 OTHER STIMULANT ABUSE, UNCOMPLICATED 11/11/2018 LIO DO, ANKIT K Ot F17.210 NICOTINE DEPENDENCE, CIGARETTES, UNCOMPL 11/11/2018 LIO DO, ANKIT K Ot F31.9 BIPOLAR DISORDER, UNSPECIFIED 11/11/2018 LIO DO, ANKIT K Ot F41.9 ANXIETY DISORDER, UNSPECIFIED 11/11/2018 LIO DO, ANKIT K Ot R42 DIZZINESS AND GIDDINESS 11/11/2018 LIO DO, ANKIT K Ot R73.9 HYPERGLYCEMIA, UNSPECIFIED 11/11/2018 LIO DO, ANKIT K Ot Z86.19 PERSONAL HISTORY OF OTHER INFECTIOUS AND 11/11/2018 LIO DO, ANKIT K Ot Z98.890 OTHER SPECIFIED POSTPROCEDURAL STATES 11/11/2018 GENNARO GALE MD, Ot N83.202 UNSPECIFIED OVARIAN CYST, LEFT SIDE 11/11/2018 GENNARO GALE MD Ot O34.81 MATERNAL CARE [...] Ot Z3A.23 23 WEEKS GESTATION OF 11/11/2018 SHAHLA MCKEON, GENNARO Rogers Ot Z36.89 ENCOUNTER FOR OTHER SPECIFIED 11/11/2018 SHAHLA MCKEON, GENNARO Rogers Ot Z3A.00 WEEKS OF GESTATION OF NOT SPEC 11/25/2018 AGUSTIN MCKEON, JAN Chu Ot D64. 9 ANEMIA, UNSPECIFIED 11/25/2018 AGUSTIN MCKEON, JAN Chu Ot F12. 10 CANNABIS ABUSE, UNCOMPLICATED 11/25/2018 AGUSTIN MCKEON, JAN Chu Ot F14. 10 COCAINE ABUSE, UNCOMPLICATED 11/25/2018 AGUSTIN MCKEON, JAN Chu Ot F15. 10 OTHER STIMULANT ABUSE, UNCOMPLICATED 11/25/2018 AGUSTIN MCKEON, JAN Chu Ot F31. 9 BIPOLAR DISORDER, UNSPECIFIED 11/25/2018 AGUSTIN MCKEON, JAN Chu Ot F41. 9 ANXIETY DISORDER, UNSPECIFIED 11/25/2018 AGUSTIN MCKEON, JAN Chu Ot N39. 0 URINARY TRACT INFECTION, SITE NOT SPECIF 11/25/2018 JAN VELEZ MD Ot R42 DIZZINESS AND GIDDINESS 11/25/2018 AGUSTIN MCKEON, JAN Chu Ot Z85.828 PERSONAL HISTORY OF OTHER MALIGNANT NEOP 11/25/2018 AGUSTIN MCKEON, JAN Chu Ot Z87.891 PERSONAL HISTORY OF NICOTINE DEPENDENCE 11/25/2018 AGUSTIN MCKEON, JAN Chu Ot Z98.890 OTHER SPECIFIED POSTPROCEDURAL STATES 11/27/2018 AGUSTIN MCKEON, JAN Chu Ot D64. 9 ANEMIA, UNSPECIFIED 11/27/2018 AGUSTIN MCKEON, JAN Chu Ot F12. 10 CANNABIS ABUSE, UNCOMPLICATED 11/27/2018 AGUSTIN MCKEON, JAN Chu Ot F14. 10 COCAINE ABUSE, UNCOMPLICATED 11/27/2018 AGUSTIN MCKEON, JAN Chu Ot F15. 10 OTHER STIMULANT ABUSE, UNCOMPLICATED 11/27/2018 AGUSTIN MCKEON, JAN Chu Ot F31. 9 BIPOLAR DISORDER, UNSPECIFIED 11/27/2018 JAN VELEZ MD Ot F41. 9 ANXIETY DISORDER, UNSPECIFIED 11/27/2018 AGUSTIN MCKEON, JAN Chu Ot N39. 0 URINARY TRACT INFECTION, SITE NOT SPECIF 11/27/2018 JAN VELEZ MD Ot R42 DIZZINESS AND GIDDINESS 11/27/2018 JAN VELEZ MD Ot Z85.828 PERSONAL HISTORY OF OTHER MALIGNANT NEOP 11/27/2018 JAN VELEZ MD Ot Z87.891 PERSONAL HISTORY OF NICOTINE DEPENDENCE 11/27/2018 AGUSTIN MCKEON, JAN Chu Ot Z98.890 OTHER SPECIFIED POSTPROCEDURAL STATES 12/09/2018 LAI BURGER MD Ot D64. 9 ANEMIA, UNSPECIFIED 12/09/2018 LAI BURGER MD Ot F12. 10 CANNABIS ABUSE, UNCOMPLICATED 12/09/2018 LAI BURGER MD Ot F14. 10 COCAINE ABUSE, UNCOMPLICATED 12/09/2018 LAI BURGER MD Ot F15. 10 OTHER STIMULANT ABUSE, UNCOMPLICATED 12/09/2018 LAI BURGER MD Ot F31. 9 BIPOLAR DISORDER, UNSPECIFIED 12/09/2018 LAI BURGER MD Ot F41. 9 ANXIETY DISORDER, UNSPECIFIED 12/09/2018 LAI BURGER MD Ot K08. 89 OTHER SPECIFIED DISORDERS OF TEETH AND S 12/09/2018 LAI BURGER MD Ot M27. 3 ALVEOLITIS OF JAWS 12/09/2018 LAI BURGER MD Ot Z85.828 PERSONAL HISTORY OF OTHER MALIGNANT NEOP 12/09/2018 LAI BURGER MD Ot Z86. 19 PERSONAL HISTORY OF OTHER INFECTIOUS AND 12/09/2018 LAI BURGER MD Ot Z87.891 PERSONAL HISTORY OF NICOTINE DEPENDENCE 12/09/2018 LAI BURGER MD Ot Z98.890 OTHER SPECIFIED POSTPROCEDURAL STATES 12/15/2018 GENARO ALVARADO APRN Ot D64 .9 ANEMIA, UNSPECIFIED 12/15/2018 GENARO ALVARADO APRN Ot F12.10 CANNABIS ABUSE, UNCOMPLICATED 12/15/2018 GENARO ALVARADO APRN Ot F14.10 COCAINE ABUSE, UNCOMPLICATED 12/15/2018 GENARO ALVARADO APRN Ot F15.10 OTHER STIMULANT ABUSE, UNCOMPLICATED 12/15/2018 GENARO ALVARADO APRN Ot F31 .9 BIPOLAR DISORDER, UNSPECIFIED 12/15/2018 GENARO ALVARADO APRN Ot F41 .9 ANXIETY DISORDER, UNSPECIFIED 12/15/2018 GENARO ALVARADO APRN Ot K08.89 OTHER SPECIFIED DISORDERS OF TEETH AND S 12/15/2018 GENARO ALVARADO APRN Ot M27 .3 ALVEOLITIS OF JAWS 12/15/2018 ALVARADO, PETER J TELEPHONE ANSWERER Ot Z85.828 PERSONAL HISTORY OF OTHER MALIGNANT NEOP 12/15/2018 GENARO ALVARADO TELEPHONE ANSWERER Ot Z86.19 PERSONAL HISTORY OF OTHER INFECTIOUS AND 12/15/2018 GENARO ALVARADO TELEPHONE ANSWERER Ot Z87.891 PERSONAL HISTORY OF NICOTINE DEPENDENCE 12/15/2018 GENARO ALVARADO TELEPHONE ANSWERER Ot Z98.890 OTHER SPECIFIED POSTPROCEDURAL STATES 12/23/2018 BERNLENORA TILA Ot D64.9 ANEMIA, UNSPECIFIED 12/23/2018 BERNOT TILA Ot F31.9 BIPOLAR DISORDER, UNSPECIFIED 12/23/2018 BERNOT, TILA Ot F41.9 ANXIETY DISORDER, UNSPECIFIED 12/23/2018 BERNOT TILA Ot Z48.00 ENCOUNTER FOR CHANGE OR REMOVAL OF NONSU 12/23/2018 BERNOT TILA Ot Z85.828 PERSONAL HISTORY OF OTHER MALIGNANT NEOP 12/23/2018 BERNOT TILA Ot Z86.19 PERSONAL HISTORY OF OTHER INFECTIOUS AND 12/23/2018 BERNOT TILA Ot Z87.891 PERSONAL HISTORY OF NICOTINE DEPENDENCE 12/23/2018 BERNOT TILA Ot Z98.890 OTHER SPECIFIED POSTPROCEDURAL STATES 04/14/2019 TAO MCKEON, LAI Schultz Ot F31. 9 BIPOLAR DISORDER, UNSPECIFIED 04/14/2019 LAI BURGER MD Ot F41. 9 ANXIETY DISORDER, UNSPECIFIED 04/14/2019 TAO MCKEON, LAI Schultz Ot J03. 90 ACUTE TONSILLITIS, UNSPECIFIED 04/14/2019 LAI BURGER MD Ot R05 COUGH 04/14/2019 LAI BURGER MD Ot Z85.828 PERSONAL HISTORY OF OTHER MALIGNANT NEOP 04/14/2019 LAI BURGER MD J Ot Z87.891 PERSONAL HISTORY OF NICOTINE DEPENDENCE 04/23/2019 GENNARO GALE MD Ot N83.202 UNSPECIFIED OVARIAN CYST, LEFT SIDE 04/23/2019 GENNARO GALE MD Ot O34.81 MATERNAL CARE FOR OTH ABNLT OF PELVIC OR 04/23/2019 GENNARO GALE MD Ot Z3A.11 11 WEEKS GESTATION OF 04/23/2019 GENNARO GALE MD Ot Z36.89 ENCOUNTER FOR OTHER SPECIFIED 04/23/2019 GENNARO GALE MD Ot Z3A.19 19 WEEKS GESTATION OF 04/23/2019 GENNARO GALE MD Ot Z34.82 ENCOUNTER FOR SUPRVSN OF NORMAL PREGNANC 04/23/2019 GENNARO GALE MD Ot Z3A.23 23 WEEKS GESTATION OF 04/23/2019 GENNARO GALE MD Ot Z36.89 ENCOUNTER FOR OTHER SPECIFIED 04/23/2019 GENNARO GALE MD Ot Z3A.00 WEEKS OF GESTATION OF NOT SPEC 04/23/2019 GENARO ALVARADO APRN Ot F31 .9 BIPOLAR DISORDER, UNSPECIFIED 04/23/2019 GENARO ALVARADO APRN Ot F41 .9 ANXIETY DISORDER, UNSPECIFIED 04/23/2019 GENARO ALVARADO APRN Ot S60.456A SUPERFICIAL FOREIGN BODY OF RIGHT LITTLE 04/23/2019 GENARO ALVARADO APRN Ot W45.8XXA OTH FOREIGN BODY OR OBJECT ENTERING THRO 04/23/2019 GENARO ALVARADO APRN Ot Z85.828 PERSONAL HISTORY OF OTHER MALIGNANT NEOP 04/23/2019 GENARO ALVARADO APRN Ot Z87.891 PERSONAL HISTORY OF NICOTINE DEPENDENCE 04/28/2019 GENARO ALVARADO APRN Ot F31 .9 BIPOLAR DISORDER, UNSPECIFIED 04/28/2019 GENARO ALVARADO APRN Ot F41 .9 ANXIETY DISORDER, UNSPECIFIED 04/28/2019 GENARO ALVARADO APRN Ot S60.456A SUPERFICIAL FOREIGN BODY OF RIGHT LITTLE 04/28/2019 GENARO ALVARADO APRN Ot W45.8XXA OTH FOREIGN BODY OR OBJECT ENTERING THRO 04/28/2019 GENARO ALVARADO APRN Ot Z85.828 PERSONAL HISTORY OF OTHER MALIGNANT NEOP 04/28/2019 GENARO ALVARADO APRN Ot Z87.891 PERSONAL HISTORY OF NICOTINE DEPENDENCE 04/30/2019 GENARO ALVARADO APRN Ot F31 .9 BIPOLAR DISORDER, UNSPECIFIED 04/30/2019 GENARO ALVARADO APRN Ot F41 .9 ANXIETY DISORDER, UNSPECIFIED 04/30/2019 GENARO ALVARADO APRN Ot S60.456A SUPERFICIAL FOREIGN BODY OF RIGHT LITTLE 04/30/2019 GENARO ALVARADO APRN Ot W45.8XXA OTH FOREIGN BODY OR OBJECT ENTERING THRO 04/30/2019 ALVARADO, PETER J TELEPHONE ANSWERER Ot Z85.828 PERSONAL HISTORY OF OTHER MALIGNANT NEOP 04/30/2019 GENARO ALVARADO TELEPHONE ANSWERER Ot Z87.891 PERSONAL HISTORY OF NICOTINE DEPENDENCE 06/08/2019 GENARO ALVARADO TELEPHONE ANSWERER Ot B37 .3 CANDIDIASIS OF VULVA AND VAGINA 06/08/2019 GENARO ALVARADO APRN Ot D64 .9 ANEMIA, UNSPECIFIED 06/08/2019 GENARO ALVARADO APRN Ot F31 .9 BIPOLAR DISORDER, UNSPECIFIED 06/08/2019 GENARO ALVARADO TELEPHONE ANSWERER Ot F41 .9 ANXIETY DISORDER, UNSPECIFIED 06/08/2019 GENARO ALVARADO APRN Ot R10 .2 PELVIC AND PERINEAL PAIN 06/08/2019 GENARO ALVARADO TELEPHONE ANSWERER Ot Z77.22 CNTCT W AND EXPSR TO ENVIRON TOBACCO SMO 06/08/2019 GENARO ALVARADO TELEPHONE ANSWERER Ot Z85.828 PERSONAL HISTORY OF OTHER MALIGNANT NEOP 06/08/2019 GENARO ALVARADO APRN Ot Z87.891 PERSONAL HISTORY OF NICOTINE DEPENDENCE 06/12/2019 GENARO ALVARADO APRN Ot B37 .3 CANDIDIASIS OF VULVA AND VAGINA 06/12/2019 GENARO ALVARADO APRN Ot D64 .9 ANEMIA, UNSPECIFIED 06/12/2019 GENARO ALVARADO APRN Ot F31 .9 BIPOLAR DISORDER, UNSPECIFIED 06/12/2019 GENARO ALVARADO APRN Ot F41 .9 ANXIETY DISORDER, UNSPECIFIED 06/12/2019 GENARO ALVARADO APRN Ot R10 .2 PELVIC AND PERINEAL PAIN 06/12/2019 GENARO ALVARADO APRN Ot Z77.22 CNTCT W AND EXPSR TO ENVIRON TOBACCO SMO 06/12/2019 GENARO ALVARADO TELEPHONE ANSWERER Ot Z85.828 PERSONAL HISTORY OF OTHER MALIGNANT NEOP 06/12/2019 GENARO ALVARADO TELEPHONE ANSWERER Ot Z87.891 PERSONAL HISTORY OF NICOTINE DEPENDENCE 06/14/2019 GENARO ALVARADO TELEPHONE ANSWERER Ot B37 .3 CANDIDIASIS OF VULVA AND VAGINA 06/14/2019 GENARO ALVARADO TELEPHONE ANSWERER Ot D64 .9 ANEMIA, UNSPECIFIED 06/14/2019 GENARO ALVARADO APRN Ot F31 .9 BIPOLAR DISORDER, UNSPECIFIED 06/14/2019 GENARO ALVARADO TELEPHONE ANSWERER Ot F41 .9 ANXIETY DISORDER, UNSPECIFIED 06/14/2019 GENARO ALVARADO TELEPHONE ANSWERER Ot R10 .2 PELVIC AND PERINEAL PAIN 06/14/2019 GENARO ALVARADO TELEPHONE ANSWERER Ot Z77.22 CNTCT W AND EXPSR TO ENVIRON TOBACCO SMO 06/14/2019 GENARO ALVARADO TELEPHONE ANSWERER Ot Z85.828 PERSONAL HISTORY OF OTHER MALIGNANT NEOP 06/14/2019 GENARO ALVARADO TELEPHONE ANSWERER Ot Z87.891 PERSONAL HISTORY OF NICOTINE DEPENDENCE 07/30/2019 GENARO ALVARADO TELEPHONE ANSWERER Ot D64 .9 ANEMIA, UNSPECIFIED 07/30/2019 GENARO ALVARADO TELEPHONE ANSWERER Ot F17.210 NICOTINE DEPENDENCE, CIGARETTES, UNCOMPL 07/30/2019 GENARO ALVARADO TELEPHONE ANSWERER Ot F31 .9 BIPOLAR DISORDER, UNSPECIFIED 07/30/2019 GENARO ALVARADO TELEPHONE ANSWERER Ot F41 .9 ANXIETY DISORDER, UNSPECIFIED 07/30/2019 GENARO ALVARADO TELEPHONE ANSWERER Ot J04 .0 ACUTE LARYNGITIS 07/30/2019 GENARO ALVARADO TELEPHONE ANSWERER Ot Z85.828 PERSONAL HISTORY OF OTHER MALIGNANT NEOP 08/02/2019 GENARO ALVARADO APRN Ot D64 .9 ANEMIA, UNSPECIFIED 08/02/2019 GENARO ALVARADO TELEPHONE ANSWERER Ot F17.210 NICOTINE DEPENDENCE, CIGARETTES, UNCOMPL 08/02/2019 GENARO ALVARADO APRN Ot F31 .9 BIPOLAR DISORDER, UNSPECIFIED 08/02/2019 GENARO ALVARADO TELEPHONE ANSWERER Ot F41 .9 ANXIETY DISORDER, UNSPECIFIED 08/02/2019 GENARO ALVARADO TELEPHONE ANSWERER Ot J04 .0 ACUTE LARYNGITIS 08/02/2019 GENARO ALVARADO TELEPHONE ANSWERER Ot Z85.828 PERSONAL HISTORY OF OTHER MALIGNANT NEOP 10/12/2019 GENARO ALVARADO TELEPHONE ANSWERER Ot F17.210 NICOTINE DEPENDENCE, CIGARETTES, UNCOMPL 10/12/2019 GENARO ALVARADO TELEPHONE ANSWERER Ot M54 .5 LOW BACK PAIN 10/12/2019 GENARO ALVARADO TELEPHONE ANSWERER Ot Z85.828 PERSONAL HISTORY OF OTHER MALIGNANT NEOP 10/15/2019 GENARO ALVARADO TELEPHONE ANSWERER Ot F17.210 NICOTINE DEPENDENCE, CIGARETTES, UNCOMPL 10/15/2019 GENARO ALVARADO TELEPHONE ANSWERER Ot M54 .5 LOW BACK PAIN 10/15/2019 GENARO ALVARADO TELEPHONE ANSWERER Ot Z85.828 PERSONAL HISTORY OF OTHER MALIGNANT NEOP 10/26/2019 Ot F17.210 NI COTINE DEPENDENCE, CIGARETTES, UNCOMPL 10/26/2019 Ot M25.571 PA IN IN RIGHT ANKLE AND JOINTS OF RIGHT 10/26/2019 Ot S93.401A S PRAIN OF UNSPECIFIED LIGAMENT OF RIGHT 10/26/2019 Ot S96.911A S TRAIN OF UNSP MSL/TND AT ANK/FT LEVEL, 10/26/2019 Ot W10.9XXA F ALL (ON) (FROM) UNSPECIFIED STAIRS AND 10/26/2019 Ot X50.1XXA O VEREXERTION FROM PROLONGED STATIC OR AW 10/26/2019 Ot Y92[address] [facility]PRIVATE 10/26/2019 Ot Z85.828 PE RSONAL HISTORY OF OTHER MALIGNANT NEOP 10/30/2019 Ot F17.210 NI COTINE DEPENDENCE, CIGARETTES, UNCOMPL 10/30/2019 Ot M25.571 PA IN IN RIGHT ANKLE AND JOINTS OF RIGHT 10/30/2019 Ot S93.401A S PRAIN OF UNSPECIFIED LIGAMENT OF RIGHT 10/30/2019 Ot S96.911A S TRAIN OF UNSP MSL/TND AT ANK/FT LEVEL, 10/30/2019 Ot W10.9XXA F ALL (ON) (FROM) UNSPECIFIED STAIRS AND 10/30/2019 Ot X50.1XXA O VEREXERTION FROM PROLONGED STATIC OR AW 10/30/2019 Ot Y92.[address] IN [facility] (PRIVATE 10/30/2019 Ot Z85.828 PE RSONAL HISTORY OF OTHER MALIGNANT NEOP Procedures There is no data. Results Test Result Range Bacterial urine culture - 03/22/17 10:00 Bacterial urine culture [id number] NRG COLONY COUNT 10,000/ML - 100,000/ML NRG FTX;REPORTABLE SENSITIVITY REPORTED 03/23/17 17:10 NR Bacterial susceptibility panel - 7 10:00 Gentamicin susceptibility test by minimum inhibitory c oncentration <= NRG Trimethoprim/sulfamethoxazole susceptibi lity test by minimum inhibitoryconcentration <= NRG Ampicillin susceptibility test by minimum inhibitory c oncentration 8 NRG Tobramycin susceptibility test by minimum inhibitory c oncentration <= NRG Cefazolin susceptibility test by minimum inhibitory co ncentration <= NRG Ceftriaxone susceptibility test by minimum inhibitory concentration <= NRG Ampicillin/sulbactam susceptibility test by minimum inhibitory concentration 4 NRG Piperacillin/tazobactam susceptibility t est by minimum inhibitory concentration <= NRG Ciprofloxacin susceptibility test by minimum inhibitor y concentration <= NRG Meropenem susceptibility test by minimum inhibitory co ncentration <= NRG Nitrofurantoin susceptibility test by mi nimum inhibitory concentration <= NRG Aztreonam susceptibility test by minimum inhibitory co ncentration <= NRG Extended spectrum beta lactamase (ESBL) producing bacteria susceptibility test by minimum inhibitory concentration - NRG Complete blood count (CBC) with automate d white blood cell (WBC) differential - 03/22/17 10:05 Blood leukocytes automated count (number/volume) 13.0 10*3/uL 4.3-11.0 Blood erythrocytes automated count (number/volume) 4.47 10*6/uL 4.35-5.85 Venous blood hemoglobin measurement (mass/volume) 13.8 g/dL 11.5-16.0 Blood hematocrit (volume fraction) 40 % 35-52 Automated erythrocyte mean corpuscular volume 89 [ foz_us] 80-99 Automated erythrocyte mean corpuscular h emoglobin (mass per erythrocyte) 31 pg 25-34 Automated erythrocyte mean corpuscular h emoglobin concentration measurement (mass/volume) 35 g/dL 32-36 Automated erythrocyte distribution width ratio 12. 5 % 10.0- 14.5 Automated blood platelet count (count/volume) 251 10*3/uL [...] 10*3 1.0-4.0 Blood monocytes automated count (number/volume) 1. 0 10*3 0.0-1.0 Automated eosinophil count 0.0 10*3/uL 0 .0-0.3 Automated blood basophil count (count/volume) 0.0 10*3/uL 0.0-0.1 Comprehensive metabolic panel - 03/22/17 10:05 Serum or plasma sodium measurement (moles/volume) 132 mmol/L 135-145 Serum or plasma potassium measurement (moles/volume) 3.6 mmol/L 3.6-5.0 Serum or plasma chloride measurement (moles/volume) 100 mmol/L 98-107 Carbon dioxide 21 mmol/L 21-32 Serum or plasma anion gap determination (moles/volume) 11 mmol/L 5-14 Serum or plasma urea nitrogen measurement (mass/volume ) 8 mg/dL 7-18 Serum or plasma creatinine measurement (mass/volume) 0.97 mg/dL 0.60-1.30 Serum or plasma urea nitrogen/creatinine mass ratio 8 NRG Serum or plasma creatinine measurement w ith calculation of estimated glomerular filtration rate > NRG Serum or plasma glucose measurement (mass/volume) 166 mg/dL 70-105 Serum or plasma calcium measurement (mass/volume) 9.6 mg/dL 8.5-10.1 Serum or plasma total bilirubin measurement (mass/volu me) 0.9 mg/dL 0.1-1.0 Serum or plasma alkaline phosphatase atra surement (enzymatic activity/volume) 63 U/L 40-136 Serum or plasma aspartate aminotransfera se measurement (enzymatic activity/volume) 14 U/L 5-34 Serum or plasma alanine aminotransferase measurement (enzymatic activity/volume) 21 U/L 0-55 Serum or plasma protein measurement (mass/volume) 7.5 g/dL 6.4-8.2 Serum or plasma albumin measurement (mass/volume) 3.6 g/dL 3.2-4.5 Blood lactic acid measurement (moles/vol ume) - 03/22/17 10:05 Blood lactic acid measurement (moles/volume) 2.05 mmol/L 0.50-2.00 Bacterial blood culture - 03/22/17 10:05 Bacterial blood culture NG NRG Bacterial blood culture - 03/22/17 10:30 Bacterial blood culture NG NRG Complete urinalysis with reflex to cultu re - 03/22/17 10:41 Urine color determination YELLOW NRG Urine clarity determination CLEAR NR G Urine pH measurement by test strip 7 5-9 Specific gravity of urine by test strip 1.005 1.016-1.022 Urine protein assay by test strip, semi-quantitative 1+ NEGATIVE Urine glucose detection by automated test strip NE GATIVE NEGATIVE Erythrocytes detection in urine sediment by light micr oscopy 3+ NEGATIVE Urine ketones detection by automated test strip NE GATIVE NEGATIVE Urine nitrite detection by test strip NEGATIVE NEGATIVE Urine total bilirubin detection by test strip NEGA TIVE NEGATIVE Urine urobilinogen measurement by automated test strip (mass/volume) 4 mg/dL NORMAL Urine leukocyte esterase detection by dipstick 1+ NEGATIVE Automated urine sediment erythrocyte cou nt by microscopy (number/high power field) [HPF] NRG Automated urine sediment leukocyte count by microscopy (number/high power field) [HPF] NRG Bacteria detection in urine sediment by light microsco py NEGATIVE NRG Squamous epithelial cells detection in u rine sediment by light microscopy 10-25 NRG Crystals detection in urine sediment by light microsco py NONE NRG Casts detection in urine sediment by light microscopy NONE NRG Mucus detection in urine sediment by light microscopy NEGATIVE NRG Complete urinalysis with reflex to culture NO NRG Serum or plasma lactate measurement (mol es/volume) - 03/22/17 12:40 Serum or plasma lactate measurement (moles/volume) 0.71 mmol/L 0.50-2.00 Complete blood count (CBC) with automate d white blood cell (WBC) differential - 03/23/17 09:05 Blood leukocytes automated count (number/volume) 6.9 10*3/uL 4.3-11.0 Blood erythrocytes automated count (number/volume) 3.95 10*6/uL 4.35-5.85 Venous blood hemoglobin measurement (mass/volume) 12.1 g/dL 11.5-16.0 Blood hematocrit (volume fraction) 36 % 35-52 Automated erythrocyte mean corpuscular volume 91 [ foz_us] 80-99 Automated erythrocyte mean corpuscular h emoglobin (mass per erythrocyte) 31 pg 25-34 Automated erythrocyte mean corpuscular h emoglobin concentration measurement (mass/volume) 34 g/dL 32-36 Automated erythrocyte distribution width ratio 12. 4 % 10.0- 14.5 Automated blood platelet count (count/volume) 214 10*3/uL [...] 10*3 1.0-4.0 Blood monocytes automated count (number/volume) 0. 6 10*3 0.0-1.0 Automated eosinophil count 0.2 10*3/uL 0 .0-0.3 Automated blood basophil count (count/volume) 0.0 10*3/uL 0.0-0.1 Comprehensive metabolic panel - 03/23/17 09:05 Serum or plasma sodium measurement (moles/volume) 141 mmol/L 135-145 Serum or plasma potassium measurement (moles/volume) 3.7 mmol/L 3.6-5.0 Serum or plasma chloride measurement (moles/volume) 112 mmol/L 98-107 Carbon dioxide 22 mmol/L 21-32 Serum or plasma anion gap determination (moles/volume) 7 mmol/L 5-14 Serum or plasma urea nitrogen measurement (mass/volume ) 8 mg/dL 7-18 Serum or plasma creatinine measurement (mass/volume) 0.77 mg/dL 0.60-1.30 Serum or plasma urea nitrogen/creatinine mass ratio 10 NRG Serum or plasma creatinine measurement w ith calculation of estimated glomerular filtration rate > NRG Serum or plasma glucose measurement (mass/volume) 90 mg/dL 70-105 Serum or plasma calcium measurement (mass/volume) 9.1 mg/dL 8.5-10.1 Serum or plasma total bilirubin measurement (mass/volu me) 0.4 mg/dL 0.1-1.0 Serum or plasma alkaline phosphatase tara surement (enzymatic activity/volume) 51 U/L 40-136 Serum or plasma aspartate aminotransfera se measurement (enzymatic activity/volume) 11 U/L 5-34 Serum or plasma alanine aminotransferase measurement (enzymatic activity/volume) 16 U/L 0-55 Serum or plasma protein measurement (mass/volume) 6.4 g/dL 6.4-8.2 Serum or plasma albumin measurement (mass/volume) 3.1 g/dL 3.2-4.5 Complete blood count (CBC) with automate d white blood cell (WBC) differential - 01/24/18 19:45 Blood leukocytes automated count (number/volume) 8.0 10*3/uL 4.3-11.0 Blood erythrocytes automated count (number/volume) 3.58 10*6/uL 4.35-5.85 Venous blood hemoglobin measurement (mass/volume) 11.3 g/dL 11.5-16.0 Blood hematocrit (volume fraction) 31 % 35-52 Automated erythrocyte mean corpuscular volume 88 [ foz_us] 80-99 Automated erythrocyte mean corpuscular h emoglobin (mass per erythrocyte) 32 pg 25-34 Automated erythrocyte mean corpuscular h emoglobin concentration measurement (mass/volume) 36 g/dL 32-36 Automated erythrocyte distribution width ratio 12. 4 % 10.0- 14.5 Automated blood platelet count (count/volume) 252 10*3/uL [...] 10*3 1.0-4.0 Blood monocytes automated count (number/volume) 0. 5 10*3 0.0-1.0 Automated eosinophil count 0.2 10*3/uL 0 .0-0.3 Automated blood basophil count (count/volume) 0.0 10*3/uL 0.0-0.1 Comprehensive metabolic panel - 01/24/18 19:45 Serum or plasma sodium measurement (moles/volume) 139 mmol/L 135-145 Serum or plasma potassium measurement (moles/volume) 3.6 mmol/L 3.6-5.0 Serum or plasma chloride measurement (moles/volume) 109 mmol/L 98-107 Carbon dioxide 20 mmol/L 21-32 Serum or plasma anion gap determination (moles/volume) 10 mmol/L 5-14 Serum or plasma urea nitrogen measurement (mass/volume ) 6 mg/dL 7-18 Serum or plasma creatinine measurement (mass/volume) 0.62 mg/dL 0.60-1.30 Serum or plasma urea nitrogen/creatinine mass ratio 10 NRG Serum or plasma creatinine measurement w ith calculation of estimated glomerular filtration rate > NRG Serum or plasma glucose measurement (mass/volume) 108 mg/dL 70-105 Serum or plasma calcium measurement (mass/volume) 9.4 mg/dL 8.5-10.1 Serum or plasma total bilirubin measurement (mass/volu me) 0.2 mg/dL 0.1-1.0 Serum or plasma alkaline phosphatase tara surement (enzymatic activity/volume) 44 U/L 40-136 Serum or plasma aspartate aminotransfera se measurement (enzymatic activity/volume) 9 U/L 5-34 Serum or plasma alanine aminotransferase measurement (enzymatic activity/volume) 7 U/L 0-55 Serum or plasma protein measurement (mass/volume) 6.3 g/dL 6.4-8.2 Serum or plasma albumin measurement (mass/volume) 3.2 g/dL 3.2-4.5 Serum or plasma ethanol measurement (mas s/volume) - 01/24/18 19:45 Serum or plasma ethanol measurement (mass/volume) < mg/dL <10 Complete urinalysis with reflex to cultu re - 01/24/18 20:20 Urine color determination YELLOW NRG Urine clarity determination CLEAR NR G Urine pH measurement by test strip 6 5-9 Specific gravity of urine by test strip 1.025 1.016-1.022 Urine protein assay by test strip, semi-quantitative NEGATIVE NEGATIVE Urine glucose detection by automated test strip NE GATIVE NEGATIVE Erythrocytes detection in urine sediment by light micr oscopy NEGATIVE NEGATIVE Urine ketones detection by automated test strip NE GATIVE NEGATIVE Urine nitrite detection by test strip NEGATIVE NEGATIVE Urine total bilirubin detection by test strip NEGA TIVE NEGATIVE Urine urobilinogen measurement by automated test strip (mass/volume) NORMAL NORMAL Urine leukocyte esterase detection by dipstick NEG ATIVE NEGATIVE Automated urine sediment erythrocyte cou nt by microscopy (number/high power field) NONE NRG Automated urine sediment leukocyte count by microscopy (number/high power field) [HPF] NRG Bacteria detection in urine sediment by light microsco py TRACE NRG Squamous epithelial cells detection in u rine sediment by light microscopy 10-25 NRG Crystals detection in urine sediment by light microsco py NONE NRG Casts detection in urine sediment by light microscopy NONE NRG Mucus detection in urine sediment by light microscopy MODERATE NRG Complete urinalysis with reflex to culture NO NRG Urine drug screening test - 01/24/18 20: 20 Urine phencyclidine detection by screening method NEGATIVE NEGATIVE Urine benzodiazepines detection by screening method NEGATIVE NEGATIVE Urine cocaine detection NEGATIVE NEGATI VE Urine amphetamines detection by screening method N EGATIVE NEGATIVE Urine methamphetamine detection by screening method NEGATIVE NEGATIVE Urine cannabinoids detection by screening method P OSITIVE NEGATIVE Urine opiates detection by screening method NEGATI VE NEGATIVE Urine barbiturates detection NEGATIVE N EGATIVE Screening urine tricyclic antidepressants detection NEGATIVE NEGATIVE Urine methadone detection by screening method NEGA TIVE NEGATIVE Urine oxycodone detection NEGATIVE NEGA TIVE Urine propoxyphene detection NEGATIVE N EGATIVE CULTURE, CHLAMYDIA - 03/06/18 06:23 CULTURE, GENITAL [...] 13:24 WHITE BLOOD CELL COUNT 9.8 Thousand/uL 3 .8-10.8 RED BLOOD CELL COUNT 3.77 Million/uL 3.8 0-5.10 HEMOGLOBIN 11.6 g/dL 11.7-15.5 HEMATOCRIT 33.7 % 35.0-45.0 MCV 89.4 fL 80.0-100.0 MCH 30.8 pg 27.0-33.0 MCHC 34.4 g/dL 32.0-36.0 RDW 12.7 % 11.0-15.0 PLATELET COUNT 280 Thousand/uL 140-400 MPV 10.2 fL 7.5-12.5 ABSOLUTE NEUTROPHILS 6341 cells/uL 1500- 7800 ABSOLUTE LYMPHOCYTES 2793 cells/uL 850-3 900 ABSOLUTE MONOCYTES 461 cells/uL 200-950 ABSOLUTE EOSINOPHILS [...] NRG Influenza virus A and B antigen detectio n - 05/20/18 13:20 FLU RESULT NEGATIVE FOR INFLUENZA A AND B ANTIGENS BY IA NR Urine drug screening test - 05/30/18 07: 40 Urine phencyclidine detection by screening method NEGATIVE NEGATIVE Urine benzodiazepines detection by screening method NEGATIVE NEGATIVE Urine cocaine detection NEGATIVE NEGATI VE Urine amphetamines detection by screening method N EGATIVE NEGATIVE Urine methamphetamine detection by screening method NEGATIVE NEGATIVE Urine cannabinoids detection by screening method N EGATIVE NEGATIVE Urine opiates detection by screening method NEGATI VE NEGATIVE Urine barbiturates detection NEGATIVE N EGATIVE Screening urine tricyclic antidepressants detection NEGATIVE NEGATIVE Urine methadone detection by screening method NEGA TIVE NEGATIVE Urine oxycodone detection NEGATIVE NEGA TIVE Urine propoxyphene detection NEGATIVE N EGATIVE Influenza virus A and B antigen detectio n - 05/30/18 09:20 FLU RESULT NEGATIVE FOR INFLUENZA A AND B ANTIGENS BY IA [facility] Complete blood count (CBC) with automate d white blood cell (WBC) differential - 05/30/18 09:22 Blood leukocytes automated count (number/volume) 7.9 10*3/uL 4.3-11.0 Blood erythrocytes automated count (number/volume) 3.63 10*6/uL 4.35-5.85 Venous blood hemoglobin measurement (mass/volume) 11.4 g/dL 11.5-16.0 Blood hematocrit (volume fraction) 32 % 35-52 Automated erythrocyte mean corpuscular volume 87 [ foz_us] 80-99 Automated erythrocyte mean corpuscular h emoglobin (mass per erythrocyte) 31 pg 25-34 Automated erythrocyte mean corpuscular h emoglobin concentration measurement (mass/volume) 36 g/dL 32-36 Automated erythrocyte distribution width ratio 13. 3 % 10.0- 14.5 Automated blood platelet count (count/volume) 213 10*3/uL [...] 10*3 1.0-4.0 Blood monocytes automated count (number/volume) 0. 5 10*3 0.0-1.0 Automated eosinophil count 0.1 10*3/uL 0 .0-0.3 Automated blood basophil count (count/volume) 0.0 10*3/uL 0.0-0.1 Comprehensive metabolic panel - 05/30/18 09:22 Serum or plasma sodium measurement (moles/volume) 138 mmol/L 135-145 Serum or plasma potassium measurement (moles/volume) 3.4 mmol/L 3.6-5.0 Serum or plasma chloride measurement (moles/volume) 107 mmol/L 98-107 Carbon dioxide 20 mmol/L 21-32 Serum or plasma anion gap determination (moles/volume) 11 mmol/L 5-14 Serum or plasma urea nitrogen measurement (mass/volume ) 5 mg/dL 7-18 Serum or plasma creatinine measurement (mass/volume) 0.60 mg/dL 0.60-1.30 Serum or plasma urea nitrogen/creatinine mass ratio 8 NRG Serum or plasma creatinine measurement w ith calculation of estimated glomerular filtration rate > NRG Serum or plasma glucose measurement (mass/volume) 110 mg/dL 70-105 Serum or plasma calcium measurement (mass/volume) 9.1 mg/dL 8.5-10.1 Serum or plasma total bilirubin measurement (mass/volu me) 0.2 mg/dL 0.1-1.0 Serum or plasma alkaline phosphatase tara surement (enzymatic activity/volume) 105 U/L 40-136 Serum or plasma aspartate aminotransfera se measurement (enzymatic activity/volume) 10 U/L 5-34 Serum or plasma alanine aminotransferase measurement (enzymatic activity/volume) 11 U/L 0-55 Serum or plasma protein measurement (mass/volume) 6.4 g/dL 6.4-8.2 Serum or plasma albumin measurement (mass/volume) 3.1 g/dL 3.2-4.5 CALCIUM CORRECTED 9.8 mg/dL 8.5-10.1 Serum or plasma uric acid measurement (m ass/volume) - 10/17/18 09:22 Serum or plasma uric acid measurement (mass/volume) 4.9 mg/dL 2.6-7.2 Lactate dehydrogenase 1 [enzymatic activ ity/volume] in serum or plasma - 05/30/18 09:22 Lactate dehydrogenase 1 [enzymatic activ ity/volume] in serum or plasma 184 U/L 125-220 Complete blood count (CBC) with automate d white blood cell (WBC) differential - 06/10/18 02:00 Blood leukocytes automated count (number/volume) 6.7 10*3/uL 4.3-11.0 Blood erythrocytes automated count (number/volume) 2.91 10*6/uL 4.35-5.85 Venous blood hemoglobin measurement (mass/volume) 8.9 g/dL 11.5-16.0 Blood hematocrit (volume fraction) 26 % 35-52 Automated erythrocyte mean corpuscular volume 89 [ foz_us] 80-99 Automated erythrocyte mean corpuscular h emoglobin (mass per erythrocyte) 31 pg 25-34 Automated erythrocyte mean corpuscular h emoglobin concentration measurement (mass/volume) 34 g/dL 32-36 Automated erythrocyte distribution width ratio 12. 8 % 10.0- 14.5 Automated blood platelet count (count/volume) 266 10*3/uL [...] 10*3 1.0-4.0 Blood monocytes automated count (number/volume) 0. 4 10*3 0.0-1.0 Automated eosinophil count 0.2 10*3/uL 0 .0-0.3 Automated blood basophil count (count/volume) 0.0 10*3/uL 0.0-0.1 PT panel in platelet poor plasma by coag ulation assay - 06/10/18 02:00 Prothrombin time (PT) in platelet poor plasma by coagu lation assay 12.1 s 12.2-14.7 INR in platelet poor plasma or blood by coagulation as say 0.9 0.8-1.4 Activated partial thromboplastin time (a PTT) in platelet poor plasma bycoagulation assay - 06/10/18 02:00 Activated partial thromboplastin time (a PTT) in platelet poor plasma bycoagulation assay 28 s 24-35 Comprehensive metabolic panel - 06/10/18 02:00 Serum or plasma sodium measurement (moles/volume) 142 mmol/L 135-145 Serum or plasma potassium measurement (moles/volume) 3.5 mmol/L 3.6-5.0 Serum or plasma chloride measurement (moles/volume) 111 mmol/L 98-107 Carbon dioxide 20 mmol/L 21-32 Serum or plasma anion gap determination (moles/volume) 11 mmol/L 5-14 Serum or plasma urea nitrogen measurement (mass/volume ) 11 mg/dL 7-18 Serum or plasma creatinine measurement (mass/volume) 0.67 mg/dL 0.60-1.30 Serum or plasma urea nitrogen/creatinine mass ratio 16 NRG Serum or plasma creatinine measurement w ith calculation of estimated glomerular filtration rate > NRG Serum or plasma glucose measurement (mass/volume) 94 mg/dL 70-105 Serum or plasma calcium measurement (mass/volume) 9.4 mg/dL 8.5-10.1 Serum or plasma total bilirubin measurement (mass/volu me) 0.1 mg/dL 0.1-1.0 Serum or plasma alkaline phosphatase tara surement (enzymatic activity/volume) 80 U/L 40-136 Serum or plasma aspartate aminotransfera se measurement (enzymatic activity/volume) 14 U/L 5-34 Serum or plasma alanine aminotransferase measurement (enzymatic activity/volume) 12 U/L 0-55 Serum or plasma protein measurement (mass/volume) 6.1 g/dL 6.4-8.2 Serum or plasma albumin measurement (mass/volume) 2.9 g/dL 3.2-4.5 CALCIUM CORRECTED 10.3 mg/dL 8.5-10.1 Magnesium - 06/10/18 02:00 Magnesium 1.6 mg/dL 1.8-2.4 Serum or plasma amylase measurement (enz ymatic activity/volume) - 06/10/18 02:00 Serum or plasma amylase measurement (enzymatic activit y/volume) 28 U/L 25-125 Lipase - 10/28/18 02:00 Lipase 18 U/L 8-78 Complete blood count (CBC) with automate d white blood cell (WBC) differential - 06/27/18 07:49 Blood leukocytes automated count (number/volume) 6.6 10*3/uL 4.3-11.0 Blood erythrocytes automated count (number/volume) 4.22 10*6/uL 4.35-5.85 Venous blood hemoglobin measurement (mass/volume) 12.2 g/dL 11.5-16.0 Blood hematocrit (volume fraction) 36 % 35-52 Automated erythrocyte mean corpuscular volume 85 [ foz_us] 80-99 Automated erythrocyte mean corpuscular h emoglobin (mass per erythrocyte) 29 pg 25-34 Automated erythrocyte mean corpuscular h emoglobin concentration measurement (mass/volume) 34 g/dL 32-36 Automated erythrocyte distribution width ratio 12. 7 % 10.0- 14.5 Automated blood platelet count (count/volume) 367 10*3/uL [...] 10*3 1.0-4.0 Blood monocytes automated count (number/volume) 0. 4 10*3 0.0-1.0 Automated eosinophil count 0.3 10*3/uL 0 .0-0.3 Automated blood basophil count (count/volume) 0.0 10*3/uL 0.0-0.1 Comprehensive metabolic panel - 06/27/18 07:49 Serum or plasma sodium measurement (moles/volume) 141 mmol/L 135-145 Serum or plasma potassium measurement (moles/volume) 3.6 mmol/L 3.6-5.0 Serum or plasma chloride measurement (moles/volume) 107 mmol/L 98-107 Carbon dioxide 26 mmol/L 21-32 Serum or plasma anion gap determination (moles/volume) 8 mmol/L 5-14 Serum or plasma urea nitrogen measurement (mass/volume ) 10 mg/dL 7-18 Serum or plasma creatinine measurement (mass/volume) 0.74 mg/dL 0.60-1.30 Serum or plasma urea nitrogen/creatinine mass ratio 14 NRG Serum or plasma creatinine measurement w ith calculation of estimated glomerular filtration rate > NRG Serum or plasma glucose measurement (mass/volume) 102 mg/dL 70-105 Serum or plasma calcium measurement (mass/volume) 9.0 mg/dL 8.5-10.1 Serum or plasma total bilirubin measurement (mass/volu me) 0.3 mg/dL 0.1-1.0 Serum or plasma alkaline phosphatase tara surement (enzymatic activity/volume) 89 U/L 40-136 Serum or plasma aspartate aminotransfera se measurement (enzymatic activity/volume) 22 U/L 5-34 Serum or plasma alanine aminotransferase measurement (enzymatic activity/volume) 33 U/L 0-55 Serum or plasma protein measurement (mass/volume) 6.6 g/dL 6.4-8.2 Serum or plasma albumin measurement (mass/volume) 3.5 g/dL 3.2-4.5 CALCIUM CORRECTED 9.4 mg/dL 8.5-10.1 Magnesium - 06/27/18 07:49 Magnesium 1.9 mg/dL 1.8-2.4 Lipase - 06/27/18 07:49 Lipase 37 U/L 8-78 Urine drug screening test - 06/27/18 09: 02 Urine phencyclidine detection by screening method NEGATIVE NEGATIVE Urine benzodiazepines detection by screening method NEGATIVE NEGATIVE Urine cocaine detection NEGATIVE NEGATI VE Urine amphetamines detection by screening method N EGATIVE NEGATIVE Urine methamphetamine detection by screening method NEGATIVE NEGATIVE Urine cannabinoids detection by screening method N EGATIVE NEGATIVE Urine opiates detection by screening method NEGATI VE NEGATIVE Urine barbiturates detection NEGATIVE N EGATIVE Screening urine tricyclic antidepressants detection NEGATIVE NEGATIVE Urine methadone detection by screening method NEGA TIVE NEGATIVE Urine oxycodone detection NEGATIVE NEGA TIVE Urine propoxyphene detection NEGATIVE N EGATIVE Complete urinalysis with reflex to cultu re - 06/27/18 09:02 Urine color determination ALEXIS NRG Urine clarity determination CLEAR NR G Urine pH measurement by test strip 6 5-9 Specific gravity of urine by test strip 1.015 1.016-1.022 Urine protein assay by test strip, semi-quantitative 2+ NEGATIVE Urine glucose detection by automated test strip NE GATIVE NEGATIVE Erythrocytes detection in urine sediment by light micr oscopy 1+ NEGATIVE Urine ketones detection by automated test strip NE GATIVE NEGATIVE Urine nitrite detection by test strip NEGATIVE NEGATIVE Urine total bilirubin detection by test strip NEGA TIVE NEGATIVE Urine urobilinogen measurement by automated test strip (mass/volume) NORMAL NORMAL Urine leukocyte esterase detection by dipstick 2+ NEGATIVE Automated urine sediment erythrocyte cou nt by microscopy (number/high power field) [HPF] NRG Automated urine sediment leukocyte count by microscopy (number/high power field) [HPF] NRG Bacteria detection in urine sediment by light microsco py FEW NRG Squamous epithelial cells detection in u rine sediment by light microscopy 0-2 NRG Crystals detection in urine sediment by light microsco py NONE NRG Casts detection in urine sediment by light microscopy PRESENT NRG Mucus detection in urine sediment by light microscopy MODERATE NRG Complete urinalysis with reflex to culture YES NRG Hyaline casts detection in urine sediment by light alyssa roscopy 0-2 NRG Renal epithelial cells detection in urin e sediment by light microscopy NONE NRG Granular casts detection in urine sediment by light mi croscopy 5-10 NRG Bacterial urine culture - 06/27/18 09:02 Bacterial urine culture SEE REPORT NRG COLONY COUNT . NRG Complete urinalysis with reflex to cultu re - 08/05/18 20:15 Urine color determination YELLOW NRG Urine clarity determination CLEAR NR G Urine pH measurement by test strip 6 5-9 Specific gravity of urine by test strip 1.020 1.016-1.022 Urine protein assay by test strip, semi-quantitative 1+ NEGATIVE Urine glucose detection by automated test strip NE GATIVE NEGATIVE Erythrocytes detection in urine sediment by light micr oscopy NEGATIVE NEGATIVE Urine ketones detection by automated test strip NE GATIVE NEGATIVE Urine nitrite detection by test strip NEGATIVE NEGATIVE Urine total bilirubin detection by test strip NEGA TIVE NEGATIVE Urine urobilinogen measurement by automated test strip (mass/volume) NORMAL NORMAL Urine leukocyte esterase detection by dipstick NEG ATIVE NEGATIVE Automated urine sediment erythrocyte cou nt by microscopy (number/high power field) NONE NRG Automated urine sediment leukocyte count by microscopy (number/high power field) RARE NRG Bacteria detection in urine sediment by light microsco py TRACE NRG Squamous epithelial cells detection in u rine sediment by light microscopy 5-10 NRG Crystals detection in urine sediment by light microsco py NONE NRG Casts detection in urine sediment by light microscopy NONE NRG Mucus detection in urine sediment by light microscopy NEGATIVE NRG Complete urinalysis with reflex to culture NO NRG Chlamydia DNA amp probe, urine - 8 20:15 Chlamydia DNA amp probe, urine Not Detected Not Detected Urine Neisseria gonorrhoeae DNA assay - 08/05/18 20:15 Gonorrhea amp DNA-urine Not Detected No t Detected Complete blood count (CBC) with automate d white blood cell (WBC) differential - 08/05/18 21:13 Blood leukocytes automated count (number/volume) 9.6 10*3/uL 4.3-11.0 Blood erythrocytes automated count (number/volume) 4.94 10*6/uL 4.35-5.85 Venous blood hemoglobin measurement (mass/volume) 14.4 g/dL 11.5-16.0 Blood hematocrit (volume fraction) 42 % 35-52 Automated erythrocyte mean corpuscular volume 84 [ foz_us] 80-99 Automated erythrocyte mean corpuscular h emoglobin (mass per erythrocyte) 29 pg 25-34 Automated erythrocyte mean corpuscular h emoglobin concentration measurement (mass/volume) 35 g/dL 32-36 Automated erythrocyte distribution width ratio 14. 2 % 10.0- 14.5 Automated blood platelet count (count/volume) 333 10*3/uL [...] 10*3 1.0-4.0 Blood monocytes automated count (number/volume) 0. 7 10*3 0.0-1.0 Automated eosinophil count 0.2 10*3/uL 0 .0-0.3 Automated blood basophil count (count/volume) 0.0 10*3/uL 0.0-0.1 Comprehensive metabolic panel - 08/05/18 21:13 Serum or plasma sodium measurement (moles/volume) 138 mmol/L 135-145 Serum or plasma potassium measurement (moles/volume) 4.3 mmol/L 3.6-5.0 Serum or plasma chloride measurement (moles/volume) 106 mmol/L 98-107 Carbon dioxide 18 mmol/L 21-32 Serum or plasma anion gap determination (moles/volume) 14 mmol/L 5-14 Serum or plasma urea nitrogen measurement (mass/volume ) 12 mg/dL 7-18 Serum or plasma creatinine measurement (mass/volume) 0.77 mg/dL 0.60-1.30 Serum or plasma urea nitrogen/creatinine mass ratio 16 NRG Serum or plasma creatinine measurement w ith calculation of estimated glomerular filtration rate > NRG Serum or plasma glucose measurement (mass/volume) 104 mg/dL 70-105 Serum or plasma calcium measurement (mass/volume) 9.6 mg/dL 8.5-10.1 Serum or plasma total bilirubin measurement (mass/volu me) 0.2 mg/dL 0.1-1.0 Serum or plasma alkaline phosphatase tara surement (enzymatic activity/volume) 66 U/L 40-136 Serum or plasma aspartate aminotransfera se measurement (enzymatic activity/volume) 38 U/L 5-34 Serum or plasma alanine aminotransferase measurement (enzymatic activity/volume) 78 U/L 0-55 Serum or plasma protein measurement (mass/volume) 7.7 g/dL 6.4-8.2 Serum or plasma albumin measurement (mass/volume) 4.1 g/dL 3.2-4.5 CALCIUM CORRECTED 9.5 mg/dL 8.5-10.1 Complete blood count (CBC) with automate d white blood cell (WBC) differential - 11/10/18 22:00 Blood leukocytes automated count (number/volume) 8.2 10*3/uL 4.3-11.0 Blood erythrocytes automated count (number/volume) 4.71 10*6/uL 4.35-5.85 Venous blood hemoglobin measurement (mass/volume) 14.2 g/dL 11.5-16.0 Blood hematocrit (volume fraction) 40 % 35-52 Automated erythrocyte mean corpuscular volume 85 [ foz_us] 80-99 Automated erythrocyte mean corpuscular h emoglobin (mass per erythrocyte) 30 pg 25-34 Automated erythrocyte mean corpuscular h emoglobin concentration measurement (mass/volume) 36 g/dL 32-36 Automated erythrocyte distribution width ratio 14. 1 % 10.0- 14.5 Automated blood platelet count (count/volume) 288 10*3/uL [...] 10*3 1.0-4.0 Blood monocytes automated count (number/volume) 0. 5 10*3 0.0-1.0 Automated eosinophil count 0.3 10*3/uL 0 .0-0.3 Automated blood basophil count (count/volume) 0.0 10*3/uL 0.0-0.1 Serum or plasma choriogonadotropin (preg adi test) detection - 11/10/18 22:00 Serum or plasma choriogonadotropin ( test) de tection NEGATIVE NEGATIVE Comprehensive metabolic panel - 11/10/18 22:00 Serum or plasma sodium measurement (moles/volume) 139 mmol/L 135-145 Serum or plasma potassium measurement (moles/volume) 4.2 mmol/L 3.6-5.0 Serum or plasma chloride measurement (moles/volume) 108 mmol/L 98-107 Carbon dioxide 17 mmol/L 21-32 Serum or plasma anion gap determination (moles/volume) 14 mmol/L 5-14 Serum or plasma urea nitrogen measurement (mass/volume ) 10 mg/dL 7-18 Serum or plasma creatinine measurement (mass/volume) 0.76 mg/dL 0.60-1.30 Serum or plasma urea nitrogen/creatinine mass ratio 13 NRG Serum or plasma creatinine measurement w ith calculation of estimated glomerular filtration rate > NRG Serum or plasma glucose measurement (mass/volume) 193 mg/dL 70-105 Serum or plasma calcium measurement (mass/volume) 9.2 mg/dL 8.5-10.1 Serum or plasma total bilirubin measurement (mass/volu me) 0.3 mg/dL 0.1-1.0 Serum or plasma alkaline phosphatase tara surement (enzymatic activity/volume) 59 U/L 40-136 Serum or plasma aspartate aminotransfera se measurement (enzymatic activity/volume) 29 U/L 5-34 Serum or plasma alanine aminotransferase measurement (enzymatic activity/volume) 43 U/L 0-55 Serum or plasma protein measurement (mass/volume) 7.1 g/dL 6.4-8.2 Serum or plasma albumin measurement (mass/volume) 3.5 g/dL 3.2-4.5 CALCIUM CORRECTED 9.6 mg/dL 8.5-10.1 Magnesium - 11/10/18 22:00 Magnesium 2.1 mg/dL 1.8-2.4 Serum or plasma troponin i.cardiac measu rement (mass/volume) - 11/10/18 22:00 Serum or plasma troponin i.cardiac measurement (mass/v olume) < ng/mL <0.028 Ammonia - 11/10/18 22:00 Ammonia 60 umol/L 11-32 Serum or plasma thyrotropin measurement by detection limit <=0.05 miu/l (units/volume) - 11/10/18 22:00 Serum or plasma thyrotropin measurement by detection limit <=0.05 miu/l (units/volume) 1.19 u[iU]/mL 0.35-4.94 Serum or plasma acetaminophen measuremen t (mass/volume) - 11/10/18 22:00 Serum or plasma acetaminophen measurement (mass/volume ) < ug/mL 10-30 Serum or plasma ethanol measurement (mas s/volume) - 11/10/18 22:00 Serum or plasma ethanol measurement (mass/volume) < mg/dL <10 Complete urinalysis with reflex to cultu re - 11/10/18 23:08 Urine color determination YELLOW NRG Urine clarity determination CLEAR NR G Urine pH measurement by test strip 5 5-9 Specific gravity of urine by test strip 1.025 1.016-1.022 Urine protein assay by test strip, semi-quantitative NEGATIVE NEGATIVE Urine glucose detection by automated test strip NE GATIVE NEGATIVE Erythrocytes detection in urine sediment by light micr oscopy NEGATIVE NEGATIVE Urine ketones detection by automated test strip NE GATIVE NEGATIVE Urine nitrite detection by test strip NEGATIVE NEGATIVE Urine total bilirubin detection by test strip NEGA TIVE NEGATIVE Urine urobilinogen measurement by automated test strip (mass/volume) NORMAL NORMAL Urine leukocyte esterase detection by dipstick NEG ATIVE NEGATIVE Automated urine sediment erythrocyte cou nt by microscopy (number/high power field) NONE NRG Automated urine sediment leukocyte count by microscopy (number/high power field) RARE NRG Bacteria detection in urine sediment by light microsco py TRACE NRG Squamous epithelial cells detection in u rine sediment by light microscopy 5-10 NRG Crystals detection in urine sediment by light microsco py NONE NRG Casts detection in urine sediment by light microscopy NONE NRG Mucus detection in urine sediment by light microscopy SMALL NRG Complete urinalysis with reflex to culture NO NRG Urine drug screening test - 11/10/18 23: 08 Urine phencyclidine detection by screening method NEGATIVE NEGATIVE Urine benzodiazepines detection by screening method NEGATIVE NEGATIVE Urine cocaine detection NEGATIVE NEGATI VE Urine amphetamines detection by screening method N EGATIVE NEGATIVE Urine methamphetamine detection by screening method NEGATIVE NEGATIVE Urine cannabinoids detection by screening method N EGATIVE NEGATIVE Urine opiates detection by screening method NEGATI VE NEGATIVE Urine barbiturates detection NEGATIVE N EGATIVE Screening urine tricyclic antidepressants detection NEGATIVE NEGATIVE Urine methadone detection by screening method NEGA TIVE NEGATIVE Urine oxycodone detection NEGATIVE NEGA TIVE Urine propoxyphene detection NEGATIVE N EGATIVE Blood CBC with ordered manual differenti al panel - 11/25/18 11:15 Blood leukocytes automated count (number/volume) 6.5 10*3/uL 4.3-11.0 Blood erythrocytes automated count (number/volume) 4.38 10*6/uL 4.35-5.85 Venous blood hemoglobin measurement (mass/volume) 13.4 g/dL 11.5-16.0 Blood hematocrit (volume fraction) 37 % 35-52 Automated erythrocyte mean corpuscular volume 85 [ foz_us] 80-99 Automated erythrocyte mean corpuscular h emoglobin (mass per erythrocyte) 31 pg 25-34 Automated erythrocyte mean corpuscular h emoglobin concentration measurement (mass/volume) 36 g/dL 32-36 Automated erythrocyte distribution width ratio 13. 5 % 10.0- 14.5 Automated blood platelet count (count/volume) 259 10*3/uL 130-400 Automated blood platelet mean volume measurement 10.0 [foz_us] 7.4-10.4 Automated blood neutrophils/100 leukocytes 50 % 42-75 Automated blood lymphocytes/100 leukocytes 40 % 12-44 Blood monocytes/100 leukocytes 6 % NRG Automated blood eosinophils/100 leukocytes 4 % 0-10 Automated blood basophils/100 leukocytes 0 % 0-10 Blood neutrophils automated count (number/volume) 3.2 10*3 1.8-7.8 Blood lymphocytes automated count (number/volume) 2.6 10*3 1.0-4.0 Blood monocytes automated count (number/volume) 0. 4 10*3 0.0-1.0 Automated eosinophil count 0.3 10*3/uL 0 .0-0.3 Automated blood basophil count (count/volume) 0.0 10*3/uL 0.0-0.1 Manual blood segmented neutrophils/100 leukocytes 55 % NRG Manual blood lymphocytes/100 leukocytes 35 % NRG Manual eosinophils/100 leukocytes in nose 4 % NRG Blood erythrocyte morphology finding identification NORMAL [facility] Comprehensive metabolic panel - 11/25/18 11:15 Serum or plasma sodium measurement (moles/volume) 138 mmol/L 135-145 Serum or plasma potassium measurement (moles/volume) 4.0 mmol/L 3.6-5.0 Serum or plasma chloride measurement (moles/volume) 107 mmol/L 98-107 Carbon dioxide 22 mmol/L 21-32 Serum or plasma anion gap determination (moles/volume) 9 mmol/L 5-14 Serum or plasma urea nitrogen measurement (mass/volume ) 10 mg/dL 7-18 Serum or plasma creatinine measurement (mass/volume) 0.71 mg/dL 0.60-1.30 Serum or plasma urea nitrogen/creatinine mass ratio 14 NRG Serum or plasma creatinine measurement w ith calculation of estimated glomerular filtration rate > NRG Serum or plasma glucose measurement (mass/volume) 129 mg/dL 70-105 Serum or plasma calcium measurement (mass/volume) 9.5 mg/dL 8.5-10.1 Serum or plasma total bilirubin measurement (mass/volu me) 0.3 mg/dL 0.1-1.0 Serum or plasma alkaline phosphatase tara surement (enzymatic activity/volume) 47 U/L 40-136 Serum or plasma aspartate aminotransfera se measurement (enzymatic activity/volume) 22 U/L 5-34 Serum or plasma alanine aminotransferase measurement (enzymatic activity/volume) 40 U/L 0-55 Serum or plasma protein measurement (mass/volume) 6.7 g/dL 6.4-8.2 Serum or plasma albumin measurement (mass/volume) 3.7 g/dL 3.2-4.5 CALCIUM CORRECTED 9.7 mg/dL 8.5-10.1 Ammonia - 11/25/18 11:15 Ammonia 26 umol/L 11-32 Complete urinalysis with reflex to cultu re - 11/25/18 11:46 Urine color determination YELLOW NRG Urine clarity determination CLEAR NR G Urine pH measurement by test strip 7 5-9 Specific gravity of urine by test strip 1.010 1.016-1.022 Urine protein assay by test strip, semi-quantitative NEGATIVE NEGATIVE Urine glucose detection by automated test strip NE GATIVE NEGATIVE Erythrocytes detection in urine sediment by light micr oscopy 1+ NEGATIVE Urine ketones detection by automated test strip NE GATIVE NEGATIVE Urine nitrite detection by test strip NEGATIVE NEGATIVE Urine total bilirubin detection by test strip NEGA TIVE NEGATIVE Urine urobilinogen measurement by automated test strip (mass/volume) NORMAL NORMAL Urine leukocyte esterase detection by dipstick NEG ATIVE NEGATIVE Automated urine sediment erythrocyte cou nt by microscopy (number/high power field) NONE NRG Automated urine sediment leukocyte count by microscopy (number/high power field) [HPF] NRG Bacteria detection in urine sediment by light microsco py MODERATE NRG Squamous epithelial cells detection in u rine sediment by light microscopy 5-10 NRG Crystals detection in urine sediment by light microsco py NONE NRG Casts detection in urine sediment by light microscopy NONE NRG Mucus detection in urine sediment by light microscopy NEGATIVE NRG Complete urinalysis with reflex to culture YES NRG Urine beta human chorionic gonadotropin (hCG) measurement - 11/25/18 11:46 Urine beta human chorionic gonadotropin (hCG) measurem ent NEGATIVE NEGATIVE Urine drug screening test - 11/25/18 11: 46 Urine phencyclidine detection by screening method NEGATIVE NEGATIVE Urine benzodiazepines detection by screening method NEGATIVE NEGATIVE Urine cocaine detection NEGATIVE NEGATI VE Urine amphetamines detection by screening method N EGATIVE NEGATIVE Urine methamphetamine detection by screening method NEGATIVE NEGATIVE Urine cannabinoids detection by screening method N EGATIVE NEGATIVE Urine opiates detection by screening method NEGATI VE NEGATIVE Urine barbiturates detection NEGATIVE N EGATIVE Screening urine tricyclic antidepressants detection NEGATIVE NEGATIVE Urine methadone detection by screening method NEGA TIVE NEGATIVE Urine oxycodone detection NEGATIVE NEGA TIVE Urine propoxyphene detection NEGATIVE N EGATIVE Bacterial urine culture - 11/25/18 11:46 Bacterial urine culture 3 OR MORE NRG COLONY COUNT 40,000 CFU/ML NRG FTX;REPORTABLE (GRAM POSITIVE) SUGGESTING PROBABLE NRG FREE TEXT ENTRY 2 COLLECTION CONTAMINATION WITH SK IN GABE NRG FREE TEXT ENTRY 3 NO SUSCEPTIBILITY PERFORMED NRG SUREPATH PAP RFX HPV mRNA E6/E7 - 15:39 CLINICAL INFORMATION: NRG LMP: 12/17/18 NRG PREV. PAP: 2016, WNL NRG PREV. BX: NRG SOURCE: Cervix NRG STATEMENT OF ADEQUACY: NRG INTERPRETATION/RESULT: NRG BALLOON MAKER: NRG GENERAL CATEGORIZATION: NRG COMMENT: NRG PATHOLOGIST: NRG COMMENT NRG Streptococcus pyogenes antigen detection - 04/14/19 10:15 Streptococcus pyogenes antigen detection NEGATIVE NEGATIVE Bacterial throat culture - 04/14/19 10:1 5 Bacterial throat culture NBS NRG FERRITIN, SERUM - 04/26/19 10:52 FERRITIN 33 ng/mL 16-154 VITAMIN B12/FOLATE, SERUM PANEL - 10:55 VITAMIN B12 273 pg/mL 200-1100 FOLATE, SERUM 9.5 ng/mL NRG Complete urinalysis with reflex to cultu re - 06/08/19 11:54 Urine color determination YELLOW NRG Urine clarity determination CLEAR NR G Urine pH measurement by test strip 6.5 5-9 Specific gravity of urine by test strip 1.020 1.016-1.022 Urine protein assay by test strip, semi-quantitative 1+ NEGATIVE Urine glucose detection by automated test strip NE GATIVE NEGATIVE Erythrocytes detection in urine sediment by light micr oscopy NEGATIVE NEGATIVE Urine ketones detection by automated test strip NE GATIVE NEGATIVE Urine nitrite detection by test strip NEGATIVE NEGATIVE Urine total bilirubin detection by test strip NEGA TIVE NEGATIVE Urine urobilinogen measurement by automated test strip (mass/volume) 1 mg/dL NORMAL Urine leukocyte esterase detection by dipstick NEG ATIVE NEGATIVE Automated urine sediment erythrocyte cou nt by microscopy (number/high power field) NONE NRG Automated urine sediment leukocyte count by microscopy (number/high power field) [HPF] NRG Bacteria detection in urine sediment by light microsco py FEW NRG Squamous epithelial cells detection in u rine sediment by light microscopy NONE NRG Crystals detection in urine sediment by light microsco py NONE NRG Casts detection in urine sediment by light microscopy NONE NRG Mucus detection in urine sediment by light microscopy MODERATE NRG Complete urinalysis with reflex to culture NO NRG Bacteria identification in genital speci men by aerobe culture - 06/08/19 12:00 FREE TEXT EXTERNAL SEE COMMENTS NRG QUANTITY OF GROWTH FEW NRG Bacteria identification in genital specimen by aerobe culture [id number] NRG Microscopic examination by wet preparati on - 06/08/19 12:00 WET PREP RESULTS FEW WBC'S SEEN NRG Chlamydia trachomatis DNA detection by p robe and signal amplification method - 06/08/19 12:00 Chlamydia trachomatis DNA detection by p robe and target amplification method Not Detected Not Detected Neisseria gonorrhoeae DNA detection by p robe and signal amplification method - 06/08/19 12:00 Gonorrhea amp DNA-urine Not Detected No t Detected HEPATITIS PROFILE - 08/05/19 12:22 HEPATITIS A IGM NON-REACTIVE NON-REACTI VE HEPATITIS B SURFACE ANTIGEN NON-REACTIVE NON-REACTIVE HEPATITIS B CORE ANTIBODY (IGM) NON-REACTIVE NON-REACTIVE HEPATITIS C ANTIBODY NON-REACTIVE NON-R EACTIVE SIGNAL TO CUT-OFF 0.01 <1.00 HIV ANTIGEN/ANTIBODY - 08/05/19 12:22 HIV AG/AB, 4TH GEN NON-REACTIVE NON-CHRIS CTIVE SYPHILIS (RPR W/ REFLEX CONFIRMATION) - 08/05/19 12:22 RPR (DX) W/REFL TITER AND CONFIRMATORY TESTING NON-REACTIVE NON-REACTIVE CULTURE, GENITAL - 08/05/19 12:22 CULTURE, GENITAL SEE NOTE NRG GC/CHLAMYDIA (SWAB OR URINE)-RAPID - 12:22 CHLAMYDIA TRACHOMATIS RNA, TMA NOT DETECTED NOT DETECTED NEISSERIA GONORRHOEAE RNA, TMA NOT DETECTED NOT DETECTED COMMENT NRG CULTURE, GENITAL - 09/19/19 14:51 CULTURE, GENITAL SEE NOTE NRG Complete urinalysis with reflex to cultu re - 10/12/19 16:30 Urine color determination YELLOW NRG Urine clarity determination CLEAR NR G Urine pH measurement by test strip 6.0 5-9 Specific gravity of urine by test strip 1.025 1.016-1.022 Urine protein assay by test strip, semi-quantitative NEGATIVE NEGATIVE Urine glucose detection by automated test strip NE GATIVE NEGATIVE Erythrocytes detection in urine sediment by light micr oscopy 1+ NEGATIVE Urine ketones detection by automated test strip NE GATIVE NEGATIVE Urine nitrite detection by test strip NEGATIVE NEGATIVE Urine total bilirubin detection by test strip NEGA TIVE NEGATIVE Urine urobilinogen measurement by automated test strip (mass/volume) 0.2 mg/dL < = 1.0 Urine leukocyte esterase detection by dipstick NEG ATIVE NEGATIVE Automated urine sediment erythrocyte cou nt by microscopy (number/high power field) RARE NRG Automated urine sediment leukocyte count by microscopy (number/high power field) NONE NRG Bacteria detection in urine sediment by light microsco py TRACE NRG Squamous epithelial cells detection in u rine sediment by light microscopy 0-2 NRG Crystals detection in urine sediment by light microsco py NONE NRG Casts detection in urine sediment by light microscopy NONE NRG Mucus detection in urine sediment by light microscopy SMALL NRG Complete urinalysis with reflex to culture NO NRG Streptococcus pyogenes antigen detection - 01/03/20 12:40 Streptococcus pyogenes antigen detection NEGATIVE NEGATIVE Influenza virus A and B antigen detectio n - 01/03/20 12:40 FLU RESULT NEGATIVE FOR INFLUENZA A AND B ANTIGENS BY IA NRG Encounters ACCT No. Visit Date/Time Discharge Status Pt. Type Provider Facility Loc./Unit Complaint [id number] 10/08/2014 14:15:00 10/08/2014 23:59: 59 CLS Outpatient YUMI PHAN [id number] 09/09/2014 13:22:00 09/09/2014 23:59: 59 CLS Outpatient WADE CHOUDHURY APRN [id number] 10/23/2019 12:15:00 10/23/2019 23:59:5 9 CLS Outpatient [facility] [id number] 09/19/2019 11:30:00 Document Registration [id number] 08/05/2019 11:30:00 Document Registration [id number] 04/26/2019 10:20:00 Document Registration [id number] 12/19/2018 15:00:00 Document Registration [id number] 05/03/2018 15:00:00 Document Registration [id number] 04/26/2018 13:40:00 Document Registration [id number] 04/24/2018 08:15:00 Document Registration [id number] 04/10/2018 12:00:00 Document Registration [id number] 03/23/2018 14:40:00 Document Registration [id number] 03/02/2018 14:20:00 Document Registration [id number] 06/01/2018 10:39:00 06/01/2018 23:59: 00 DIS Outpatient Gennaro Gale N [id number] 01/03/2020 12:20:00 12:55:00 DIS Emergency JUAN RAMSAY MD [facility] ER RUNENOCH ANDREWS [id number] 10/12/2019 16:16:00 16:56:00 DIS Emergency GENARO ALVARADO APRN [facility] ER BACK PAIN [id number] 07/30/2019 20:56:00 22:17:00 DIS Emergency GENARO ALVARADO APRN [facility] ER DIFFICULTY TALKING [id number] 06/08/2019 11:31:00 13:00:00 DIS Emergency GENARO ALVARADO APRN [facility] ER PELVIC PAIN [id number] 04/23/2019 19:38:00 20:35:00 DIS Emergency GENARO ALVARADO APRN [facility] ER SPLINTER R HAND 5TH FIN WADE [id number] 04/14/2019 09:40:00 10:56:00 DIS Emergency LAI BURGER MD [facility] ER SORE THROAT / CONGESTIO N [id number] 12/23/2018 20:54:00 21:25:00 DIS Emergency TILA BECKHAM [facility] ER IMPACTED GUAZE IN TOOTH SOCKET [id number] 12/15/2018 17:35:00 18:04:00 DIS Emergency GENARO ALVARADO APRN [facility] ER DRY SOCKET [id number] 12/14/2018 07:43:00 23:59:59 CLS Preadmit SELF RACHEL MCKEON [facility] SLEEP GLADYS G47.33 [id number] 12/09/2018 14:00:00 15:45:00 DIS Emergency LAI BURGER MD [facility] ER DENTAL PAIN [id number] 11/25/2018 10:37:00 019 12:50:00 DIS Emergency AGUSTIN MCKEON, JAN S [facility] ER DIZZINESS, SLURRED SPEE CH [id number] 11/10/2018 21:54:00 019 00:00:00 DIS Emergency LIO ANKIT Shilo arenas [facility] ER DIZZY [id number] 08/05/2018 19:58:00 018 22:15:00 DIS Emergency BERNOT, TILA [facility] ER DIZZY/VOMITTIING [id number] 06/27/2018 07:43:00 11:21:00 DIS Emergency TAO MCKEON, LAI Schultz [facility] ER DIZZY;N/V [id number] 06/10/2018 01:46:00 018 04:30:00 DIS Emergency LIO DOANKIT [facility] ER N/V/DIZZINESS [id number] 05/30/2018 07:03:00 10:55:00 DIS Outpatient LEO MCKEON, GENNA Hanks [facility] WSo DIZZINESS;LOW IRON;NAUS EA [id number] 05/28/2018 08:48:00 018 23:59:59 CLS Preadmit GENNARO GALE MD [facility] RAD TRANSVERSE LIE OF FETUS [id number] 05/20/2018 10:49:00 018 14:26:00 DIS Emergency BERNOT, TILA [facility] ER COUGH X1 MONTH [id number] 04/19/2018 09:50:00 018 23:59:59 CLS Outpatient GENNARO GALE MD [facility] RAD EVALUATE ANATOMY NOT SE EN ON PRIOR SONO [id number] 03/31/2018 13:17:00 018 14:30:00 DIS Outpatient GENNARO GALE MD [facility] WSo DECREASED MOVEMEN T, FEELS HOT [id number] 03/08/2018 14:37:00 018 23:59:59 CLS Outpatient GENNARO GALE MD [facility] RAD EVALUATE ANATOMY NOT SE EN ON PRIOR SONOGRAM [id number] 02/08/2018 14:59:00 018 23:59:59 CLS Outpatient GENNARO GALE MD [facility] RAD SECOND TRIMESTER PREGNA NCY [id number] 01/24/2018 19:40:00 018 22:42:00 DIS Emergency YANY MCKEON, AUBREY Lao [facility] ER LIGHTHEADED [id number] 12/13/2017 12:36:00 018 23:59:59 CLS Outpatient GENNARO GALE MD [facility] RAD CARE,FIRST TRI MESTSER [id number] 03/22/2017 12:38:00 017 14:02:00 DIS Inpatient CRIS DO, WILFRED V [facility] 4TH RT PYELONEPHRITIS [id number] 10/26/2019 17:01:00 Document Registration [id number] 08/16/2016 16:05:39 08/16/2016 23:59:5 9 CLS Outpatient
[2020-01-04] MEDS ORDERED: FLUT9.9S NSEACH (09:23)
== END 2020-01-03 12:55 | disposition home or self-care (01) ==
LOC: EDUNIT# 12:18 → ER 12:20
DX: J04.0 Acute laryngitis (principal); J34.89 Other specified disorders of nose and nasal sinuses; F15.10 Other stimulant abuse, uncomplicated; F14.10 Cocaine abuse, uncomplicated; Z20.828 Contact with and (suspected) exposure to other viral communicable diseases; Z87.891 Personal history of nicotine dependence; Z85.828 Personal history of other malignant neoplasm of skin
CPT/HCPCS: 87430; 87635; 87804

== ENCOUNTER 2021-11-15 12:05 | Emergency (ER) | payer MEDICAID ==
[~2021-11-15] VITALS: Ht 168 cm; Wt 118.0 kg
[~2021-11-15 12:05] MED LIST changes: -CITA10TA7; +CITA10TA9; +FLUT9.9S NSEACH; +SCOP1PAT10 TD; -SCOP1PAT11 TD; -SULF1TAB35 PO; +SULF1TAB38 PO
--- NOTE | 2021-11-15 13:02 | ED Cough/URI ---
General Chief Complaint: Cough/Cold/Flu Symptoms Stated Complaint: SORE THROAT - COUGH - HEADACHE Nursing Triage Note: PT STATES HAVING A SORE THROAT AND COUGH FOR ABOUT 6 DAYS, 37 WKS , DUE DECEMBER 06 Source: patient Exam Limitations: no limitations History of Present Illness Date Seen by Provider: Nov 15, 2021 Time Seen by Provider: 12:45 Initial Comments Patient is a 31-year-old female who presents to the emergency department with a chief complaint of sore throat, cough, congestion, headache. Patient states that she has been sick for about 6 days. She has had 2 visits to [facility]. She has been taking Mucinex for the last 3 days. She does continue to smoke cigarettes. She has not been using any Tylenol, cough drops or throat sprays. No Sudafed. No other medications. She is 37 weeks with a due date at the end of this month (). Denies nausea vomiting or diarrhea. Denies dysuria, urgency or frequency. No facial pain, no earache. Patient states she has no money to be able to afford Tylenol or other medications. She was tested for strep, Covid and flu at the clinic earlier this week, negative. All other review of systems reviewed and negative except as stated. Timing/Duration: week Severity/Quality: moderate, productive cough (yellowish sputum) Associated Symptoms: cough, nasal congestion, nasal drainage, sore throat Allergies and Home Medications Allergies Coded Allergies: No Known Drug Allergies (Unverified , 03/22/17) Patient Home Medication List Home Medication List Reviewed: Yes Citalopram Hydrobromide (Citalopram HBr) 10 Mg Tablet, (Reported) Entered as Reported by: FAVIO HARRIS on 10/12/19 1630 Fluticasone Propionate (Flonase Allergy Relief) 9.9 Ml [place].susp, 2 SPRAY NSEACH DAILY Prescribed by: JUAN CALVILLO on 01/04/20 0923 Methocarbamol (Robaxin-750) 750 Mg Tablet, 750 MG PO Q4H PRN for PAIN-SEVERE (8- 10) Prescribed by: GENARO ALVARADO on 10/12/19 1639 Naproxen (Naprosyn) 500 Mg Tablet, 500 MG PO BID PRN for PAIN-MODERATE (5-7) Prescribed by: GENARO ALVARADO on 10/26/19 1722 Review of Systems Review of Systems Constitutional: see HPI EENTM: nose congestion, throat pain Respiratory: cough, phlegm Cardiovascular: no symptoms reported Gastrointestinal: no symptoms reported Genitourinary: no symptoms reported : Yes Expected Date of Delivery: Dec 06, 2021 Musculoskeletal: no symptoms reported Skin: no symptoms reported All Other Systems Reviewed Negative Unless Noted: Yes Past Diavjln-Zsvqse-Ymjasf Hx Patient Social History Tobacco Use?: Yes Tobacco type used: Cigarettes Smoking Status: Current Everyday Smoker Substance use?: No Alcohol Use?: No Immunizations Up To Date Tetanus Booster (TDap): Unknown PED Vaccines UTD: No Seasonal Allergies Seasonal Allergies: No Past Medical History Surgeries: Yes (SKIN LESION REMOVED FROM SCALP ; ) Section, Gallbladder Respiratory: No Currently Using CPAP: No Currently Using BIPAP: No Cardiac: No Neurological: Yes Vertigo Expected Date of Delivery: Dec 06, 2021 Female Reproductive Disorders: Denies Sexually Transmitted Disease: Yes (HERPES) HIV/AIDS: No Genitourinary: No Gastrointestinal: No Musculoskeletal: No Endocrine: No HEENT: No Loss of Vision: Denies Hearing Impairment: Denies Cancer: No Skin Did You Recieve Any Treatments: Yes What Type of Treatment Did You: Surgical Intervention Psychosocial: Yes (POLYSUBSTANCE ABUSE) Anxiety, Bipolar, Depression Integumentary: No Blood Disorders: Yes (ANEMIA) Adverse Reaction/Blood Tranf: No Family Medical History Patient reports no known family medical history. No Pertinent Family Hx Physical Exam Vital Signs - First Documented 11/15/21 12:37 Temp 36.7 Pulse 107 Resp 20 B/P (MAP) 130/81 (97) Pulse Ox 97 O2 Delivery Room Air Capillary Refill : Less Than 3 Seconds Height: 5'6.00" Weight: 274lbs. oz. 124.083895sp; 41.00 BMI Method:Stated General Appearance: WD/WN, no apparent distress Eyes: Bilateral Eye Normal Inspection, Bilateral Eye PERRL, Bilateral Eye EOMI HEENT: PERRL/EOMI, normal ENT inspection, TMs normal, pharynx normal Neck: non-tender, full range of motion, supple Respiratory: lungs clear, normal breath sounds, no respiratory distress, no accessory muscle use, other (no wheezing or increased work of breathing noted. Room air sats 97%) Cardiovascular: regular rate, rhythm (102) Gastrointestinal: soft, other (gravid Nontender) Extremities: normal range of motion Neurologic/Psychiatric: alert, normal mood/affect, oriented x 3 Skin: normal color, warm/dry Heart tones 150-151 Progress/Results/Core Measures Suspected Sepsis SIRS Temperature: Pulse: 107 Respiratory Rate: 20 Blood Pressure 130 /81 Mean: 97 Results/Orders Vital Signs/I&O 11/15/21 12:37 Temp 36.7 Pulse 107 Resp 20 B/P (MAP) 130/81 (97) Pulse Ox 97 O2 Delivery Room Air Capillary Refill : Less Than 3 Seconds Blood Pressure Mean: 97 Progress Note : Time: 13:01 Progress Note Patient counseled extensively on smoking cessation. I recommended increasing her fluids, water. [id number] Sudafed, cough medications throat spray. She needs to be on Tylenol 1 g every 6 hours for sore throat. She does not have fever, increased work of breathing, hypoxia. Her lungs are clear. No indications at this time for antibiotics. She is advised to follow-up with her primary care physician/OB. Counseling-Symptomatic: 3-10 Minutes Follow-up with PCP to: Discuss Further Options Departure Impression Primary Impression: Viral upper respiratory illness Additional Impression: Term Disposition: HOME, SELF-CARE Condition: Stable Departure-Patient Inst. Decision time for Depature: 13:03 Referrals: [facility]/ (PCP) Primary Care Physician AFUA COLBY (Family) Primary Care Physician Patient Instructions: Viral Syndrome (DC) Add. Discharge Instructions: Increase your water intake, you need to be drinking lots of water to stay hydrated here at the end of your . Zkex-dpx-[id number] extra strength Tylenol, 2 pills every 6 hours as needed for sore throat. Throat sprays (such as Chloaseptic) and cough drops are safe in . Warm salt water gargles will also help throat discomfort. Keep your follow-up appointment with your OB doctor. Return to the emergency department for reevaluation if you get a fever over 100.4, worsening cough/shortness of breath or any other emergent, concerning symptoms. You really need to quit smoking. WAYNE RAJPUT MD Nov 15, 2021 13:02
[2021-11-15] MEDS ORDERED: ACETAMINOPHEN 500 MG TAB (TYLENOL) PO ONE (13:15)
[2021-11-15 13:24] VITALS: BP 130/81
== END 2021-11-15 13:21 | disposition home or self-care (01) ==
LOC: EDUNIT# 12:05 → ER 12:07
DX: O98.513 Other viral diseases complicating pregnancy, third trimester (principal); J98.8 Other specified respiratory disorders; F17.210 Nicotine dependence, cigarettes, uncomplicated; Z3A.37 37 weeks gestation of pregnancy